=== PATIENT | female | born 1945 | race Caucasian/White ===

== ENCOUNTER 2017-12-09 16:39 | Inpatient (IN) | payer MEDICARE, OTHER, SELFPAY ==
[2017-11-27 12:46] VITALS: BMI 36.6
[2017-12-08] VITALS (10 sets, daily range): BP systolic 104–139; BP diastolic 53–70; PULSE 63–89; RESP 11–20; TEMP 36.1–36.7; O2SAT 90–95; BMI 36.6
[2017-12-08] MEDS: PREGABALIN 75 MG CAPSULE PO (09:36)
[2017-12-08] MEDS: LACTATED RINGERS 1,000 ML 42 ML IV ×2 (09:36→12:50)
[2017-12-08] MEDS: ACETAMINOPHEN 325 MG TABLET 975 MG PO ×3 (09:36→21:04)
[2017-12-08] MEDS: CELECOXIB 200 MG CAPSULE PO (09:37)
--- NOTE | 2017-12-08 10:44 | PM.PREOP ---
Pre-operative Note Interval Note Pre-op Check: Yes History & Physical Reviewed by Physician and Yes Exam Performed Changes: No
[2017-12-08] MEDS: CEFAZOLIN 2 GM/100 ML FROZ.PIGGY IV ×2 (11:20→18:18)
--- NOTE | 2017-12-08 11:44 | SUR.OPER ---
Supine on padded OR bed. Pillow under head, arms secured on padded armboards <90 degree abduction. Safety belt across torso. Non-operative leg secured with tape over blanket over lower leg. Operative leg secured in [place]o positioner.
[2017-12-08] MEDS: BUPIVACAINE 0.25% W/ EPI VIAL 50 ML INJ (11:54)
[2017-12-08] MEDS: MORPHINE 4 MG/ML INJ INJ (11:55)
[2017-12-08] MEDS: BUPIVACAINE LIPOSOME 266 MG/20 ML VIAL INJ (11:55)
--- NOTE | 2017-12-08 13:02 | DI.RAD.S_ITS ---
PROCEDURE: XR KNEE RT 1TO2V INDICATIONS: post op total knee TECHNIQUE: 2 views of the knee were acquired. COMPARISON: SNO Outside Film, RG, KNEE 3VW (RT), 07/25/2017, 10:40. FINDINGS: Bones: Expected postoperative changes are present related to a total right knee arthroplasty. The metallic prosthetic components appear to be properly seated. No periprosthetic fractures are evident. No suspicious osseous lesions are identified. Soft tissues: Expected post surgery changes within the overlying soft tissues are present there is a soft tissue edema, air, and joint fluid. No unexpected radiopaque foreign bodies are identified. IMPRESSION: Expected posterior to changes related to a total right knee arthroplasty. Dictated by: Howard Jarquin M.D. on 12/08/2017 at 12:54 Approved by: Howard Jarquin M.D. on 12/08/2017 at 12:55
--- NOTE | 2017-12-08 13:07 | P.OP_ITS ---
Operative Date/Time/Diagnoses Date of procedure: 12/08/17 Time of procedure: 12:50 Pre-op diagnosis: Right knee osteoarthritis Post-op diagnosis: same Procedure & Clinicians Procedure: Right total knee replacement Same procedure as scheduled: Yes Indications: The patient has had progressively worsening right knee pain with radiographic changes consistent with arthritis. Non-operative management has failed and the patient has requested total knee replacement. The risks, benefits and alternatives to surgery were discussed with the patient prior to proceeding. Risks discussed included, but were not limited to, failure to relieve pain, stiffness, infection, nerve damage, deep venous thrombosis, pulmonary embolism, stroke, coma, heart attack, permanent paralysis and , as well as the potential need for eventual revision of the prosthetic. Surgeon: Margarito Cadena Bereavement Counselor: Rasheed Nolen Click Yes if Unassisted: No Anesthesia Type: Spinal, Sedation and Local Operative Notes Findings: Significant osteoarthritis in all 3 compartments but predominantly laterally. Closure Type: primary Specimen(s): none sent Implants & Drains: Implants used in this procedure were manufactured by the [employer] and [employer] you and included the BCS II Journey total knee replacement with a size 5 right cobalt chromium femur, 4 right non porous tibial base plate, 9 mm cross-linked polyethylene tibial insert, and a 32 mm nehemias II oval patella. Applied: implant(s) Estimated Blood Loss (mL): 50 Blood products transfused: none Tourniquet time (min): 53 Procedure in detail: The patient was seen in the pre-operative area, where the patient identified the right knee as the operative site and this was marked with my initials. The patient received pre-operative antibiotics, and was taken to the operating room and placed on the operative table in the supine position. After satisfactory anesthesia, a assurance services manager health care out was performed. The right leg was encircled with a tourniquet about the proximal thigh, and the leg was prepared from the toes to the tourniquet with ChloroPrep in the usual fashion and draped through sterile drapes. The leg was elevated and exsanguinated with Eschmark bandage and the tourniquet inflated to 250 mmHg pressure. The knee was approached through an approximately 18 cm incision centered over the patella and carried into the knee through a medial parapatellar arthrotomy. The anterior osteophytes and soft tissues were removed. The rotational landmarks of Manderson's line and the transepicondylar axis were marked on the femur with electrocautery, and intramedullary guide holes for the femur and tibia were created. The distal femoral cut was made in 6 degrees of valgus using the intramedullary guide at the primary cut setting. The proximal tibial cut was then made using the intramedullary guide, taking 9 mm of bone off the less involved side. The extension gap was checked and the rotation of the femoral component confirmed with the gap balancing system. The anterior, posterior and chamfer cuts were then made. The posterior osteophytes and soft tissues were then removed. The posterior capsule was injected with part of a mixture of 60 ml 0.25% Marcaine mixed with 20 ml Exparel and 4 mg of morphine for post-operative pain control. The remainder of this mixture was injected into the capsule and subcutaneous tissues during cement curing. The tibia was prepared with the rotation set by an extra medullary guide. Trial tibial and femoral components were then placed and the intercondylar notch cut through the femoral trial. Range of motion was 0-135 degrees, with good stability throughout the range. The patella was then cut to accommodate the patellar prosthetic. There was no need for a lateral release. The trials were then removed, and the femoral hole plugged with a bone plug. The bone was prepared with pulsatile lavage, and dried with a sponge. Cement was applied and the final prosthetics placed. Excess cement was removed during and after cement curing. After confirming there was no extruded cement posteriorly, the final tibial insert was placed. The knee was copiously irrigated and the tourniquet deflated. Hemostasis was obtained. The capsule was closed with interrupted # 2 polyester suture. The subcutaneous layer was closed with 3-0 Vicryl, and the skin with a running 3-0 V-Lock suture and SteriStrips. An Aquacel Ag dressing was applied and the patient was taken to recovery having tolerated the procedure well. Complications: none Condition: stable Disposition: PACU Plan for aftercare: The patient will be maintained on a standard total knee replacement protocol with weight bearing as tolerated. The patient will receive aspirin and sequential compression devices for DVT prophylaxis. The patient will be discharged home when safe for the home environment.
--- NOTE | 2017-12-08 13:40 | SUR.PHASEI ---
stable pacu stay transported up to room 226 via bed on .
--- NOTE | 2017-12-08 14:12 | PC.NURSE ---
Pt to room at 1345, alert, oriented, denies pain has slight nausea. CMS+, scd's on. Pt oriented to room and call light.
[2017-12-08] MEDS: LACTATED RINGERS 1,000 ML 125 ML IV (14:35)
--- NOTE | 2017-12-08 16:00 | PT.IIE ---
Current Diagnoses Bilateral primary osteoarthritis of knee (12/08/17) Surgery Performed Operation Date: 12/08/17 10:15 Actual Procedures p Total Knee Arthroplasty(Right) - Margarito Cadena MD Surgical History (Last Updated 11/27/17 @ 13:03 by Angie Contreras RN) H/O bladder repair surgery (Acute) Hx of appendectomy (Acute) Hx of arthroscopy of left knee (Acute) Hx of repair of right rotator cuff (Acute) Hx of tonsillectomy (Acute) Hx of umbilical hernia repair (Acute) Medical History (Last Updated 11/27/17 @ 13:03 by Angie Contreras RN) Anxiety about health (Acute) H/O: hysterectomy (Acute) Hyperlipemia (Acute) Hypothyroid (Acute) Osteoarthritis (Acute) RLS (restless legs syndrome) (Acute) Seasonal allergies (Acute) Sleep apnea treated with nocturnal BiPAP (Acute) Physical Therapy Inpatient Evaluation/Re-Eval Medical Review Prior Functional Status Medical History Reviewed Yes Diet/Fluid Consistency Regular Communication no known deficits Mobility and Gait ind without device Activities of Daily Living and IADL's independent, no assist for anything Prior Functional Level (Other details) likes to participate in various workouts Social History Household Members none Living Arrangements House Number of Floors (Floors) One Floor Number of Stairs To Enter/Railing? 2STE Home Equipment Front Wheel Walker Employment Status Retired Additional Social History Comment Lives in [place], came up here for her surgery so her older sister could assist her, she will be staying at her sister' s house upon discharge from hospital. In addition, pt's sister's was just recently in an accident so the sister is needing to help both people at her house. Physical Therapy Current Condition Current Condition Evaluation Date 12/08/17 Treatment Diagnosis R TKA - impaired mobility Onset Date 12/08/17 Weight Bearing Status Weight Bearing Status Weight Bear as Tolerated Subjective Physical Therapy Visit Type Type Initial Evaluation Visit Start Time 14:40 Visit Stop Time 16:00 Total Visit Minutes 80 Physical Therapy Visit Comments Patient Comments Pt reports bottom of L foot ( non-operative leg) is still quite numb, but very motivated to participate. Patient Goals Be as independent as possible so her sister doesn't have to do much for her, return to [place] after course of outpatient PT. Therapy Pain Assessment Pain When Pain Assessed During Mobility Pain Present Pain Present Denied Pain PT-Bed Mobility Assessment Supine to Sit Supine to Sit Standby Assistance Head of Bed Elevated Bedrails Scooting Scooting to Edge of Bed Standby Assistance PT-Transfer Assessment Sit to and From Stand Sit to and from Stand Contact Guard Assistance 1 Person Assistance Use of Upper Extremities Equipment Transfer Assistive Device Gait Belt Front Wheeled Walker Transfers Transfer Destination Chair Transfer Technique walked Transfer Ability Level of Assist Contact Guard Assistance 1 Person Assistance Use of Upper Extremities Comments Mobility Comments Pt able to mobilize quite well , heavy reliance on BUE for support for both bed mobility and transfers. Pt denies pain throughout the entire process, feels like maybe she's more numb than she thought. Gait Assessment Gait Gait Assistance Required: Contact Guard Assist 1 Person Assist Distance (Feet) 15 Assistive Devices Assistive Device Gait Belt Front Wheeled Walker Gait Deviations General Gait Pattern Antalgic Decreased Stride Length Decreased Feet Clearance Step-to Gait Factors Limiting Gait Function Factors Limiting Gait Function Decreased Sensation Decreased Strength Limited Range of Motion Comments Gait Comments Pt encouraged to go slowly and take small steps for right now, she was dizzy the woozy/ dizzy the entire session despite normal vitals. Pt quite stable, getting limited flexion in R knee as is expected at this point. Pt only had one small LOB when taking a few steps backwards to sit down. She was able to self-recover. Stair Climbing Assessment Comments Stair Climbing Comments not tested PT-Balance Assessment Sitting Balance and Reactions Static Sitting Balance Ability Normal Dynamic Sitting Balance Ability Normal Standing Balance and Reactions Static Standing Balance Ability Good Dynamic Standing Balance Ability Fair Device Used FWW Orientation Orientation/Cognition Level of Alertness Alert Orientation Name Age Birthday Month Date Year Day of Week Place Situation Language Function Ability No Deficits Noted Safety Awareness Understands Safety Issues Memory Description No Deficits Noted Gross Range of Motion Upper Extremity ROM Assessment Within Functional Limits Lower Extremity ROM Assessment Right Impaired Strength Upper Extremity Strength Assessment Within Functional Limits Comments Strength Comments LLE WFL, RLE not formally tested. Sensation Assessment Sensation Gross Sensation Left LE Impaired Light Touch Impaired Sensation Description Numbness Comments Sensation Comments Pt most numb in the lateral plantar aspect of the left foot, however, also having a little numbness in the area of the L lateral malleolus. Physical Therapy Treatment Exercises Exercises Ankle Pumps Quad Sets Heel Slides Straight Leg Raises Short Arc Quads Passive Knee Extension Hang Seated Knee Flexion/Extension Knee ROM Measurement 5-60 Education Education Provided Precautions Weight Bearing Status Post-Op Packet Safety PT Summary Assessment and Plan Potential Rehabilitation Potential Excellent Status of Condition at Evaluation Evolving Summary Impairments ROM Strength Balance Sensation Bed Mobility Transfers Gait Activity Tolerance Progress Towards Goals Progressing Toward Goals Assessment Summary Pt is POD#0 for R TKA and is doing relatively well with mobility thus far. One limiting factor was pt's description of dizziness that was present no matter the position she was in, pt had normal vitals. The dizziness limited pt more today than anything focal with the RLE. As this improves it is expected that pt will continue to make excellent functional progress. Currently, pt is below her functional baseline and will benefit from ongoing acute PT followed by transition to home with assist and HHPT once medically ready . Pt's sister is getting her a FWW. Goals Bed Mobility Goal Independent Transfer Goal Independent Front Wheeled Walker Gait Goal Independent Front Wheel Walker Gait Distance 100 Other Goals Up/down 2 steps with SBA. Days to Meet Goals 2 Frequency of Treatment Frequency Of Treatment Twice a Day Treatment Plan Physical Therapy Treatment Plan Bed Mobility Training Transfer Training Gait Training Therapeutic Exercise Balance Retraining Post Op Education Discharge Planning Hot or Cold Pack Neuromuscular Re-ed Coordination Retraining Manual Therapy Other Recommendations and Next Treatment bed mobility from a flat bed, Focus progress gait, post-op exercises. Recommendations To Nursing Amount of Assist Needed 1 Person Assist Discharge Recommendations PT Discharge Recommendations Home with Assistance Home Health Equipment Needed for Home Before FWW (sister is getting her one Discharge )
[2017-12-08] MEDS: ROPINIROLE 1 MG TABLET PO (18:16)
[2017-12-08] MEDS: OXYCODONE IR 5 MG TABLET PO ×2 (18:16→21:03)
[2017-12-08] MEDS: DOCUSATE 100 MG CAPSULE PO (21:04)
[2017-12-08] MEDS: ASPIRIN EC 81 MG TABLET PO (21:05)
[2017-12-08] MEDS: ONDANSETRON 4 MG/2 ML INJ IV (22:10)
[2017-12-09] MEDS: CALCIUM CARBONATE 500 MG TAB PO ×7 (01:12→21:03)
[2017-12-09] MEDS: OXYCODONE IR 5 MG TABLET PO ×6 (01:17→13:26)
[2017-12-09] MEDS: CEFAZOLIN 2 GM/100 ML FROZ.PIGGY IV (02:33)
--- NOTE | 2017-12-09 04:21 | PC.NURSE ---
Shift Note At start of shift pt complained of severe N/V related to reflux. Reported increasing pain in right knee but unable to keep anything down. Called MD and received tums order, which was effective. Provided PRN pain medicated. Pain decreased. No N/V since tuns given. Pt able to sleep. Will continue to monitor. Call light in reach.
[2017-12-09 04:40] VITALS: BP 126/42; PULSE 76; RESP 16; TEMP 36.1; O2SAT 95
[2017-12-09 05:33] VITALS: BP 125/73
[2017-12-09 05:34] LABS: Hematocrit 38.4 % (36-46); Hemoglobin 12.8 g/dL (12.0-16.0)
[2017-12-09] MEDS: LEVOTHYROXINE 100 MCG TABLET PO (06:16)
[2017-12-09 07:40] VITALS: BP 112/61; PULSE 63; RESP 16; TEMP 36.6; O2SAT 94
--- NOTE | 2017-12-09 08:04 | PM.PNPO.1 ---
Subjective Date Patient Seen: 12/09/17 Time Patient Seen: 08:04 Interval history: The patient had significant nausea last evening and has persistent heartburn this morning. Pain control has generally been good although there was some increased pain this morning. Exam Vital Signs (past 8 hours): - 12/09/17 04:40 12/09/17 05:33 Temperature 97.0 F L Pulse Rate 76 Respiratory Rate 16 Blood Pressure 126/42 L 125/73 Pulse Oximetry 95 Oxygen Delivery Method Room Air Oxygen Flow Rate 2 Narrative Exam Narrative: Right knee wound is dressed with no drainage on the bandage. Calf is soft. Light touch and motion are intact in the right lower extremity. Objective Labs Result Diagrams: 12/09/17 05:12 Labs: Laboratory Results - last 24 hr 12/09/17 05:12 Hgb 12.8 Hct 38.4 Assessment & Plan Post-op Postoperative Procedures Operation Date: 12/08/17 10:15 Actual Procedures Side Surgeon p Total Knee Arthroplasty Right Margarito Cadena MD Postoperative day: 1 Postoperative status: doing well and other (Nausea and heartburn.) Postoperative plan: routine post-op care, ambulate and advance diet Postoperative plan narrative: We will have her see physical therapy. We will advance her diet as tolerated. I have written the order to allow her to have a full 1000 mg of calcium carbonate. She likely will be discharged tomorrow. Time Spent With Patient less than 15 minutes
[2017-12-09] MEDS: ACETAMINOPHEN 325 MG TABLET 975 MG PO ×3 (08:51→21:03)
[2017-12-09] MEDS: DOCUSATE 100 MG CAPSULE PO ×2 (08:51→21:03)
[2017-12-09] MEDS: ASPIRIN EC 81 MG TABLET PO ×2 (08:52→21:03)
--- NOTE | 2017-12-09 10:23 | PC.NURSE ---
Addendum entered by Rachel Young R.N. 12/09/17 12:56: pain - after up to br w/void, ret to bed, states pain 10 on scale 0/10, given 5mg oxycodone IR and tums for reflux, enc pt to raise her bed to 30 degrees. Original Note: AM NOTE - dancing master assisted oob to chair for breakfast, states pain 6 on scale 0/10 this am, experiencing reflux during night and continuing this am, Dr. Cadena added an addl tums and given x 2 tabs before meal, no nausea present, no flatus yet, aquacell cdi w/taurus wrap over, with breakfast given oxycodone 5mg po, reassessed and added a 2nd tab for mobilization.
[2017-12-09 12:50] VITALS: PULSE 63; RESP 16; TEMP 36.7; O2SAT 94
[2017-12-09] MEDS: POLYETHYLENE GLYCOL 3350 17 GM POWD.PACK PO (13:26)
--- NOTE | 2017-12-09 13:31 | PT.IPTN ---
Current Diagnoses Bilateral primary osteoarthritis of knee (12/08/17) Surgery Performed Operation Date: 12/08/17 10:15 Actual Procedures p Total Knee Arthroplasty(Right) - Margarito Cadena MD Physical Therapy Treatment Note M2 PT-IP Current Condition Start: 12/08/17 14:05 Freq: NEEDED Status: Active Protocol: Document 12/08/17 16:00 RS (Rec: 12/09/17 08:03 RS [email or web address]) Physical Therapy Current Condition Current Condition Evaluation Date 12/08/17 Treatment Diagnosis R TKA - impaired mobility Onset Date 12/08/17 Weight Bearing Status Weight Bearing Status Weight Bear as Tolerated M3 PT-IP Subjective Start: 12/08/17 14:05 Freq: NEEDED Status: Active Protocol: Document 12/09/17 11:25 CLB (Rec: 12/09/17 13:31 CLB [id number]) Subjective Physical Therapy Visit Type Type Treatment Note Visit Start Time 11:25 Visit Stop Time 11:50 Total Visit Minutes 25 Number of SYSTEM ARCHITECT Visits 1 Physical Therapy Visit Comments Patient Comments Pt reports all feeling in L foot returned. Pt eager to participate in therapy. Patient Goals Be as independent as possible so her sister doesn't have to do much for her, return to [place] after course of outpatient PT. Therapy Pain Assessment Pain When Pain Assessed During Mobility Pain Present Pain Present Denied Pain Location Right Knee Intensity 9 Scale Used Numeric (1 - 10) Pain Management Techniques Modification of Treatment Timing of Activity with Medications M4 PT-IP Mobility and Gait Start: 12/08/17 14:05 Freq: NEEDED Status: Active Protocol: Document 12/09/17 11:25 CLB (Rec: 12/09/17 13:31 CLB [id number]) PT-Bed Mobility Assessment Supine to Sit Supine to Sit Standby Assistance Head of Bed Elevated Bedrails Scooting Scooting to Edge of Bed Standby Assistance PT-Transfer Assessment Sit to and From Stand Sit to and from Stand Contact Guard Assistance 1 Person Assistance Use of Upper Extremities Equipment Transfer Assistive Device Gait Belt Front Wheeled Walker Transfers Transfer Destination Chair Transfer Technique walked Transfer Ability Level of Assist Contact Guard Assistance 1 Person Assistance Use of Upper Extremities Comments Mobility Comments Pt continues to mobilize well and was able to use GB to move RLE off bed. Pt requires BUE to go from sit-stand needing cues for hand placement for safety. Gait Assessment Gait Gait Assistance Required: Contact Guard Assist 1 Person Assist Distance (Feet) 50 Assistive Devices Assistive Device Gait Belt Front Wheeled Walker Gait Deviations General Gait Pattern Antalgic Decreased Stride Length Decreased Feet Clearance Step-to Gait Factors Limiting Gait Function Factors Limiting Gait Function Decreased Sensation Decreased Strength Limited Range of Motion Comments Gait Comments Pt increased gait in pedersen needing cues for step/walker sequencing. Pt is stable during ambulation and had no LOB during mobility. Stair Climbing Assessment Comments Stair Climbing Comments not tested (pt sister's home has 2 stairs to enter) PT-Balance Assessment Sitting Balance and Reactions Static Sitting Balance Ability Normal Dynamic Sitting Balance Ability Normal Standing Balance and Reactions Static Standing Balance Ability Good Device Used FWW M5 PT-IP Objective Assessments Start: 12/08/17 14:05 Freq: NEEDED Status: Active Protocol: Document 12/08/17 16:00 RS (Rec: 12/09/17 08:03 RS [email or web address]) Orientation Orientation/Cognition Level of Alertness Alert Orientation Name Age Birthday Month Date Year Day of Week Place Situation Language Function Ability No Deficits Noted Safety Awareness Understands Safety Issues Memory Description No Deficits Noted Gross Range of Motion Upper Extremity ROM Assessment Within Functional Limits Lower Extremity ROM Assessment Right Impaired Strength Upper Extremity Strength Assessment Within Functional Limits Comments Strength Comments LLE WFL, RLE not formally tested. Sensation Assessment Sensation Gross Sensation Left LE Impaired Light Touch Impaired Sensation Description Numbness Comments Sensation Comments Pt most numb in the lateral plantar aspect of the left foot, however, also having a little numbness in the area of the L lateral malleolus. M6 PT-IP Treatment Start: 12/08/17 14:05 Freq: NEEDED Status: Active Protocol: Document 12/09/17 11:25 CLB (Rec: 12/09/17 13:31 CLB [id number]) Physical Therapy Treatment Exercises Exercises Ankle Pumps Quad Sets Heel Slides Straight Leg Raises Short Arc Quads Passive Knee Extension Hang Seated Knee Flexion/Extension Education Education Provided Precautions Weight Bearing Status Post-Op Packet Safety M7 PT-IP Assessment and Plan Start: 12/08/17 14:05 Freq: NEEDED Status: Active Protocol: Document 12/09/17 11:25 CLB (Rec: 12/09/17 13:31 CLB [id number]) PT Summary Assessment and Plan Summary Impairments ROM Strength Balance Sensation Bed Mobility Transfers Gait Activity Tolerance Progress Towards Goals Progressing Toward Goals Assessment Summary Pt overall doing well, pt able to increase ambulation and perform all ther ex. Pt has had dizziness upon sitting on EOB but dissipated with ambulation. Goals Bed Mobility Goal Independent Transfer Goal Independent Front Wheeled Walker Gait Goal Independent Front Wheel Walker Other Goals Up/down 2 steps with SBA. Days to Meet Goals 2 Frequency of Treatment Frequency Of Treatment Twice a Day Treatment Plan Physical Therapy Treatment Plan Bed Mobility Training Transfer Training Gait Training Therapeutic Exercise Balance Retraining Post Op Education Discharge Planning Hot or Cold Pack Neuromuscular Re-ed Coordination Retraining Manual Therapy Other Recommendations and Next Treatment bed mobility from a flat bed, Focus progress gait, post-op exercises. Recommendations To Nursing Amount of Assist Needed 1 Person Assist Discharge Recommendations PT Discharge Recommendations Home with Assistance Home Health Equipment Needed for Home Before FWW (sister is getting her one Discharge )
--- NOTE | 2017-12-09 15:29 | CM.DANOTE ---
Discharge Planning/Care Management CM Discharge Assessment Start: 12/09/17 15:28 Freq: Status: Active Protocol: Document 12/09/17 15:28 (Rec: 12/09/17 15:29 [id number]) Discharge Planning Assessment Assigned Electrical Fitter KELLY Henry Advance Directives? No History Provided By Patient Medical Record Has Patient been admitted in last 30 No days? Prior Living Arrangements House Household Members none Type of transporation used prior to Drives own vehicle admit Independent with ADL's Yes Is patient alert and oriented? Yes Patient/Family Preference Home with Home Health Discharge Plan Home with Home Health Community Services Physical Therapy Occupational Therapy Transportation Arrangement Sister to apple picker. Referrals Initiated Home Health Additional Comment Preference is [facility] If patient plan is home with home health No: Need F2F : Has signed face to face form been completed? Medicare Choice List Provided Yes SNF/HH Preference Preference is [facility] Whiteboard Updated in Patient Room with Yes name and ext. # of Electrical Fitter Review Status In Process Please Provide Date Initial DC 12/09/17 Assessment Was Performed Next Review Type Continued Stay Review CM Corey to fax [facility] referral in morning. F2F needed.
--- NOTE | 2017-12-09 15:37 | PT.IPTN ---
Current Diagnoses Bilateral primary osteoarthritis of knee (12/08/17) Surgery Performed Operation Date: 12/08/17 10:15 Actual Procedures p Total Knee Arthroplasty(Right) - Margairto Cadena MD Physical Therapy Treatment Note M2 PT-IP Current Condition Start: 12/08/17 14:05 Freq: NEEDED Status: Active Protocol: Document 12/08/17 16:00 RS (Rec: 12/09/17 08:03 RS [email or web address]) Physical Therapy Current Condition Current Condition Evaluation Date 12/08/17 Treatment Diagnosis R TKA - impaired mobility Onset Date 12/08/17 Weight Bearing Status Weight Bearing Status Weight Bear as Tolerated M3 PT-IP Subjective Start: 12/08/17 14:05 Freq: NEEDED Status: Active Protocol: Document 12/09/17 14:20 CLB (Rec: 12/09/17 15:37 CLB [id number]) Subjective Physical Therapy Visit Type Type Treatment Note Visit Start Time 14:20 Visit Stop Time 14:45 Total Visit Minutes 25 Number of DIESEL SERVICE JOURNEYMAN Visits 2 Physical Therapy Visit Comments Patient Comments Pt states her pain is high even after having meds 30 minutes ago but is wanting to do therapy. Patient Goals Be as independent as possible so her sister doesn't have to do much for her, return to [place] after course of outpatient PT. Therapy Pain Assessment Pain When Pain Assessed During Mobility Pain Present Pain Present Denied Pain Location Right Knee Intensity 10 Scale Used Numeric (1 - 10) Pain Management Techniques Modification of Treatment Timing of Activity with Medications M4 PT-IP Mobility and Gait Start: 12/08/17 14:05 Freq: NEEDED Status: Active Protocol: Document 12/09/17 14:20 CLB (Rec: 12/09/17 15:37 CLB [id number]) PT-Bed Mobility Assessment Supine to Sit Supine to Sit Standby Assistance Bedrails Scooting Scooting to Edge of Bed Standby Assistance PT-Transfer Assessment Sit to and From Stand Sit to and from Stand Contact Guard Assistance 1 Person Assistance Use of Upper Extremities Equipment Transfer Assistive Device Gait Belt Front Wheeled Walker Transfers Transfer Destination Bed Toilet Transfer Ability Level of Assist Contact Guard Assistance 1 Person Assistance Use of Upper Extremities Comments Mobility Comments Pt able to reid/doff brief and perform own pericare. Gait Assessment Gait Gait Assistance Required: Contact Guard Assist 1 Person Assist Distance (Feet) 50 Assistive Devices Assistive Device Gait Belt Front Wheeled Walker Gait Deviations General Gait Pattern Antalgic Decreased Stride Length Decreased Feet Clearance Step-to Gait Factors Limiting Gait Function Factors Limiting Gait Function Decreased Sensation Decreased Strength Limited Range of Motion Comments Gait Comments Pt able to take small step through during gait. Stair Climbing Assessment Comments Stair Climbing Comments not tested (pt sister's home has 2 stairs to enter) PT-Balance Assessment Sitting Balance and Reactions Static Sitting Balance Ability Normal Dynamic Sitting Balance Ability Normal Standing Balance and Reactions Static Standing Balance Ability Good Device Used FWW M5 PT-IP Objective Assessments Start: 12/08/17 14:05 Freq: NEEDED Status: Active Protocol: Document 12/08/17 16:00 RS (Rec: 12/09/17 08:03 RS [email or web address]) Orientation Orientation/Cognition Level of Alertness Alert Orientation Name Age Birthday Month Date Year Day of Week Place Situation Language Function Ability No Deficits Noted Safety Awareness Understands Safety Issues Memory Description No Deficits Noted Gross Range of Motion Upper Extremity ROM Assessment Within Functional Limits Lower Extremity ROM Assessment Right Impaired Strength Upper Extremity Strength Assessment Within Functional Limits Comments Strength Comments LLE WFL, RLE not formally tested. Sensation Assessment Sensation Gross Sensation Left LE Impaired Light Touch Impaired Sensation Description Numbness Comments Sensation Comments Pt most numb in the lateral plantar aspect of the left foot, however, also having a little numbness in the area of the L lateral malleolus. M6 PT-IP Treatment Start: 12/08/17 14:05 Freq: NEEDED Status: Active Protocol: Document 12/09/17 14:20 CLB (Rec: 12/09/17 15:37 CLB [id number]) Physical Therapy Treatment Exercises Exercises Ankle Pumps Quad Sets Heel Slides Short Arc Quads Passive Knee Extension Hang Education Education Provided Precautions Weight Bearing Status Post-Op Packet Safety M7 PT-IP Assessment and Plan Start: 12/08/17 14:05 Freq: NEEDED Status: Active Protocol: Document 12/09/17 14:20 CLB (Rec: 12/09/17 15:37 CLB [id number]) PT Summary Assessment and Plan Summary Impairments ROM Strength Balance Sensation Bed Mobility Transfers Gait Activity Tolerance Progress Towards Goals Progressing Toward Goals Assessment Summary Pt continues to improve with mobility and gait despite pain level. Goals Bed Mobility Goal Independent Transfer Goal Independent Front Wheeled Walker Gait Goal Independent Front Wheel Walker Other Goals Up/down 2 steps with SBA. Days to Meet Goals 2 Frequency of Treatment Frequency Of Treatment Twice a Day Treatment Plan Physical Therapy Treatment Plan Bed Mobility Training Transfer Training Gait Training Therapeutic Exercise Balance Retraining Post Op Education Discharge Planning Hot or Cold Pack Neuromuscular Re-ed Coordination Retraining Manual Therapy Recommendations To Nursing Amount of Assist Needed 1 Person Assist Discharge Recommendations PT Discharge Recommendations Home with Assistance Home Health Equipment Needed for Home Before FWW (sister is getting her one Discharge )
[2017-12-09 15:54] VITALS: BP 111/61; PULSE 60; RESP 18; TEMP 36.3; O2SAT 96
[2017-12-09] MEDS: IBUPROFEN 600 MG TABLET PO (16:17)
[2017-12-09] MEDS: ROPINIROLE 1 MG TABLET PO (18:41)
[2017-12-09] MEDS: HYDROMORPHONE 4 MG TABLET PO (19:20)
[2017-12-09 19:47] VITALS: BP 149/62; PULSE 73; RESP 18; TEMP 37.6; O2SAT 94
[2017-12-10] VITALS (7 sets, daily range): BP systolic 113–150; BP diastolic 54–71; PULSE 60–95; RESP 14–18; TEMP 36.1–36.9; O2SAT 93–96
[2017-12-10] MEDS: HYDROMORPHONE 2 MG TABLET 4 MG PO ×5 (00:27→21:53)
--- NOTE | 2017-12-10 00:43 | PC.NURSE ---
Patient is alert and oriented. Breath sounds CTA with RA sat of 96%. HRR. Denies nausea. BT present and abdomen is soft; denies passing flatus. Voiding without problems and denies dysuria, frequency, urgency or incontinence. Is able to turn self in bed. Assisted to bathroom with 1 assist + walker. Aquacel dressing to right knee with 1 area of dark sanguinous drainage noted at lower end and dressing is wrapped with an taurus. Complains of 8/10 pain; medicated with Dilaudid and ice pack applied. CMS intact. Wearing bilateral SCD's. Fall risk score is moderate; bed alarm activated.
[2017-12-10] MEDS: LEVOTHYROXINE 100 MCG TABLET PO (05:56)
--- NOTE | 2017-12-10 06:36 | PM.PNPO.1 ---
Subjective Date Patient Seen: 12/10/17 Time Patient Seen: 06:10 Interval history: The patient has had marginal pain control but is improving. She has made slow progress with physical therapy. Exam Vital Signs (past 8 hours): - 12/10/17 00:00 12/10/17 00:34 12/10/17 03:20 Temperature 97.5 F L 97.7 F Pulse Rate 65 61 Respiratory Rate 16 16 Blood Pressure 133/54 L 150/71 H Pulse Oximetry 93 96 94 Oxygen Delivery Method Room Air Oxygen Flow Rate 0 Narrative Exam Narrative: Right knee wound is dressed with minimal drainage on the bandage. Calf is soft. Light touch and motion are intact in the right lower extremity. Objective Labs Result Diagrams: 12/09/17 05:12 Assessment & Plan Post-op Postoperative Procedures Operation Date: 12/08/17 10:15 Actual Procedures Side Surgeon p Total Knee Arthroplasty Right Margarito Cadena MD Postoperative day: 2 Postoperative status: doing well and marginal pain control Postoperative status narrative: Patient is making progress in physical therapy but this is slightly limited by her poor pain control. We are making progress in controlling her pain. Postoperative plan: routine post-op care Postoperative plan narrative: The patient would benefit from 1 additional day in the hospital for additional physical therapy. She should be ready for discharge home tomorrow morning. Time Spent With Patient less than 15 minutes
[2017-12-10] MEDS: HYDROMORPHONE 2 MG TABLET PO ×3 (06:40→12:00)
--- NOTE | 2017-12-10 08:28 | CM.DPC ---
Referral faxed to [facility] per Nirmala
[2017-12-10] MEDS: ACETAMINOPHEN 325 MG TABLET 975 MG PO ×3 (09:20→21:53)
[2017-12-10] MEDS: ASPIRIN EC 81 MG TABLET PO ×2 (09:20→18:30)
[2017-12-10] MEDS: DOCUSATE 100 MG CAPSULE PO ×2 (09:21→18:30)
[2017-12-10] MEDS: CALCIUM CARBONATE 500 MG TAB PO ×2 (09:21→18:30)
[2017-12-10] MEDS: POLYETHYLENE GLYCOL 3350 17 GM POWD.PACK PO (09:24)
--- NOTE | 2017-12-10 09:26 | PT.IPTN ---
Current Diagnoses Bilateral primary osteoarthritis of knee (12/08/17) Surgery Performed Operation Date: 12/08/17 10:15 Actual Procedures p Total Knee Arthroplasty(Right) - Margarito Cadena MD Physical Therapy Treatment Note M2 PT-IP Current Condition Start: 12/08/17 14:05 Freq: NEEDED Status: Active Protocol: Document 12/08/17 16:00 RS (Rec: 12/09/17 08:03 RS [email or web address]) Physical Therapy Current Condition Current Condition Evaluation Date 12/08/17 Treatment Diagnosis R TKA - impaired mobility Onset Date 12/08/17 Weight Bearing Status Weight Bearing Status Weight Bear as Tolerated M3 PT-IP Subjective Start: 12/08/17 14:05 Freq: NEEDED Status: Active Protocol: Document 12/10/17 09:23 GGD (Rec: 12/10/17 09:26 GGD [id number]) Subjective Physical Therapy Visit Type Type Treatment Note Visit Start Time 08:55 Visit Stop Time 09:20 Total Visit Minutes 25 Number of CONSTRUCTION DIRECTOR Visits 3 Physical Therapy Visit Comments Patient Comments Pt states pain is improving. Therapy Pain Assessment Pain When Pain Assessed At Rest Pain Present Pain Present Denied Pain Location Right Knee Intensity 7 Scale Used Numeric (1 - 10) Pain Management Techniques Modification of Treatment Timing of Activity with Medications M4 PT-IP Mobility and Gait Start: 12/08/17 14:05 Freq: NEEDED Status: Active Protocol: Document 12/10/17 09:23 GGD (Rec: 12/10/17 09:26 GGD [id number]) PT-Transfer Assessment Sit to and From Stand Sit to and from Stand Contact Guard Assistance Use of Upper Extremities Equipment Transfer Assistive Device Gait Belt Front Wheeled Walker Orthotic/Prosthetic Devices or Brace: No Transfers Transfer Destination Chair Transfer Ability Level of Assist Contact Guard Assistance Use of Upper Extremities Gait Assessment Gait Gait Assistance Required: Contact Guard Assist Distance (Feet) 140 Assistive Devices Assistive Device Gait Belt Front Wheeled Walker Gait Deviations General Gait Pattern Antalgic Decreased Stride Length Decreased Feet Clearance Step-to Gait Factors Limiting Gait Function Factors Limiting Gait Function Decreased Strength Limited Range of Motion Pain Comments Gait Comments Pt need min cues for gait. M5 PT-IP Objective Assessments Start: 12/08/17 14:05 Freq: NEEDED Status: Active Protocol: Document 12/08/17 16:00 RS (Rec: 12/09/17 08:03 RS [email or web address]) Orientation Orientation/Cognition Level of Alertness Alert Orientation Name Age Birthday Month Date Year Day of Week Place Situation Language Function Ability No Deficits Noted Safety Awareness Understands Safety Issues Memory Description No Deficits Noted Gross Range of Motion Upper Extremity ROM Assessment Within Functional Limits Lower Extremity ROM Assessment Right Impaired Strength Upper Extremity Strength Assessment Within Functional Limits Comments Strength Comments LLE WFL, RLE not formally tested. Sensation Assessment Sensation Gross Sensation Left LE Impaired Light Touch Impaired Sensation Description Numbness Comments Sensation Comments Pt most numb in the lateral plantar aspect of the left foot, however, also having a little numbness in the area of the L lateral malleolus. M6 PT-IP Treatment Start: 12/08/17 14:05 Freq: NEEDED Status: Active Protocol: Document 12/10/17 09:23 GGD (Rec: 12/10/17 09:26 GGD [id number]) Physical Therapy Treatment Exercises Exercises Ankle Pumps Quad Sets Heel Slides Short Arc Quads Passive Knee Extension Hang Seated Knee Flexion/Extension M7 PT-IP Assessment and Plan Start: 12/08/17 14:05 Freq: NEEDED Status: Active Protocol: Document 12/10/17 09:23 GGD (Rec: 12/10/17 09:26 GGD [id number]) PT Summary Assessment and Plan Summary Assessment Summary Pt improving slowly with mobility despite reported pain levels. She has a slow step to gait pattern and need cues for sit <> stand. Frequency of Treatment Frequency Of Treatment Twice a Day Treatment Plan Physical Therapy Treatment Plan Bed Mobility Training Transfer Training Gait Training Therapeutic Exercise Balance Retraining Post Op Education Discharge Planning Hot or Cold Pack Neuromuscular Re-ed Coordination Retraining Manual Therapy Other Recommendations and Next Treatment 2 steps without rail. Focus Recommendations To Nursing Amount of Assist Needed 1 Person Assist Discharge Recommendations PT Discharge Recommendations Home with Assistance Home Health Equipment Needed for Home Before has FWW in room. Discharge
[2017-12-10] MEDS: BISACODYL 10 MG SUPP PR (13:07)
--- NOTE | 2017-12-10 14:29 | PT.IPTN ---
Current Diagnoses Bilateral primary osteoarthritis of knee (12/08/17) Surgery Performed Operation Date: 12/08/17 10:15 Actual Procedures p Total Knee Arthroplasty(Right) - Margarito Cadena MD Physical Therapy Treatment Note M2 PT-IP Current Condition Start: 12/08/17 14:05 Freq: NEEDED Status: Active Protocol: Document 12/08/17 16:00 RS (Rec: 12/09/17 08:03 RS [email or web address]) Physical Therapy Current Condition Current Condition Evaluation Date 12/08/17 Treatment Diagnosis R TKA - impaired mobility Onset Date 12/08/17 Weight Bearing Status Weight Bearing Status Weight Bear as Tolerated M3 PT-IP Subjective Start: 12/08/17 14:05 Freq: NEEDED Status: Active Protocol: Document 12/10/17 14:21 [facility] (Rec: 12/10/17 14:28 [facility] [id number]) Subjective Physical Therapy Visit Type Type Treatment Note Visit Start Time 13:35 Visit Stop Time 14:00 Total Visit Minutes 25 Number of INSPECTOR TIMERS Visits 0 Physical Therapy Visit Comments Patient Comments Pt states she just received a suppository and is awaiting bowel movement. She does not wish to walk outside the room at this time Therapy Pain Assessment Pain When Pain Assessed At Rest Pain Present Pain Present Pain Reported Location Right Knee Intensity 8 Pain Management Techniques Apply Cold Re-positioning M4 PT-IP Mobility and Gait Start: 12/08/17 14:05 Freq: NEEDED Status: Active Protocol: Document 12/10/17 14:21 [facility] (Rec: 12/10/17 14:28 [facility] [id number]) PT-Transfer Assessment Sit to and From Stand Sit to and from Stand Contact Guard Assistance Use of Upper Extremities Equipment Transfer Assistive Device Gait Belt Front Wheeled Walker Orthotic/Prosthetic Devices or Brace: No Transfers Transfer Destination Chair Transfer Technique walked Transfer Ability Level of Assist Contact Guard Assistance Use of Upper Extremities Comments Mobility Comments Good demonstration of transfer technique Gait Assessment Gait Gait Assistance Required: Contact Guard Assist Distance (Feet) 90 Assistive Devices Assistive Device Gait Belt Front Wheeled Walker Gait Deviations General Gait Pattern Antalgic Decreased Stride Length Decreased Feet Clearance Step-to Gait Factors Limiting Gait Function Factors Limiting Gait Function Decreased Strength Limited Range of Motion Pain Comments Gait Comments improved stride length with R lE PT-Balance Assessment Sitting Balance and Reactions Static Sitting Balance Ability Normal Dynamic Sitting Balance Ability Normal Standing Balance and Reactions Static Standing Balance Ability Good Device Used FWW M5 PT-IP Objective Assessments Start: 12/08/17 14:05 Freq: NEEDED Status: Active Protocol: Document 12/08/17 16:00 RS (Rec: 12/09/17 08:03 RS [email or web address]) Orientation Orientation/Cognition Level of Alertness Alert Orientation Name Age Birthday Month Date Year Day of Week Place Situation Language Function Ability No Deficits Noted Safety Awareness Understands Safety Issues Memory Description No Deficits Noted Gross Range of Motion Upper Extremity ROM Assessment Within Functional Limits Lower Extremity ROM Assessment Right Impaired Strength Upper Extremity Strength Assessment Within Functional Limits Comments Strength Comments LLE WFL, RLE not formally tested. Sensation Assessment Sensation Gross Sensation Left LE Impaired Light Touch Impaired Sensation Description Numbness Comments Sensation Comments Pt most numb in the lateral plantar aspect of the left foot, however, also having a little numbness in the area of the L lateral malleolus. M6 PT-IP Treatment Start: 12/08/17 14:05 Freq: NEEDED Status: Active Protocol: Document 12/10/17 14:21 [facility] (Rec: 12/10/17 14:28 [facility] [id number]) Physical Therapy Treatment Exercises Exercises Ankle Pumps Quad Sets Heel Slides Short Arc Quads Passive Knee Extension Hang Seated Knee Flexion/Extension M7 PT-IP Assessment and Plan Start: 12/08/17 14:05 Freq: NEEDED Status: Active Protocol: Document 12/10/17 14:21 [facility] (Rec: 12/10/17 14:28 [facility] [id number]) PT Summary Assessment and Plan Summary Assessment Summary Yissel was able to demonstrate all exercises today and presents with good weightbearing through her R LE . She will be DC home tomorrow to her sisters. Frequency of Treatment Frequency Of Treatment Twice a Day Treatment Plan Physical Therapy Treatment Plan Bed Mobility Training Transfer Training Gait Training Therapeutic Exercise Balance Retraining Post Op Education Discharge Planning Hot or Cold Pack Neuromuscular Re-ed Coordination Retraining Manual Therapy Discharge Recommendations PT Discharge Recommendations Home with Assistance
[2017-12-10] MEDS: ROPINIROLE 1 MG TABLET PO (18:31)
[2017-12-11] VITALS: BP 105/45; PULSE 73; RESP 18; TEMP 36.6; O2SAT 96
[2017-12-11] MEDS: HYDROMORPHONE 2 MG TABLET 4 MG PO ×8 (00:47→22:53)
[2017-12-11 00:58] VITALS: BP 118/60; PULSE 70; RESP 18; TEMP 36.2; O2SAT 94
[2017-12-11] MEDS: LEVOTHYROXINE 100 MCG TABLET PO (05:23)
[2017-12-11 08:00] VITALS: BP 109/73; PULSE 66; RESP 16; TEMP 36.2; O2SAT 91
[2017-12-11] MEDS: ACETAMINOPHEN 325 MG TABLET 975 MG PO ×3 (08:44→22:52)
[2017-12-11] MEDS: ASPIRIN EC 81 MG TABLET PO ×2 (08:45→19:43)
[2017-12-11] MEDS: CALCIUM CARBONATE 500 MG TAB PO ×3 (08:46→19:43)
[2017-12-11] MEDS: DOCUSATE 100 MG CAPSULE PO ×2 (08:47→19:43)
--- NOTE | 2017-12-11 10:31 | PM.PNPO.1 ---
Subjective Date Patient Seen: 12/11/17 Time Patient Seen: 10:32 Interval history: POD #3 status post right total knee arthroplasty with Dr. Cadena. Patient has been having difficulty with pain control, oral medication changed to Dilaudid. Patient has been ambulating with physical therapy, and she notes some difficulty getting in and out of bed and slow going at times. Exam Vital Signs (past 8 hours): - 12/11/17 08:00 Temperature 97.1 F L Pulse Rate 66 Respiratory Rate 16 Blood Pressure 109/73 Pulse Oximetry 91 Oxygen Delivery Method Room Air Oxygen Flow Rate 0 Narrative Exam Narrative: Patient lying in bed in no acute distress. She is alert and oriented x3. Calves are soft, compressible, nontender bilaterally. Sensation intact light touch throughout bilateral lower extremities. She is able to actively dorsiflex plantar flex. Objective Labs Result Diagrams: 12/09/17 05:12 Assessment & Plan Post-op (1) S/P total knee arthroplasty: Current Visit: Yes Status: Acute Postoperative Procedures Operation Date: 12/08/17 10:15 Actual Procedures Side Surgeon p Total Knee Arthroplasty Right Margarito Cadena MD POD #3 status post right total knee arthroplasty with Dr. Cadena. Continue to mobilize with therapy, she would benefit from another day of rehab recovering from surgery. She will continue taking Dilaudid for pain in hopes that this will control her severe pain she has been having. Patient will likely discharge home tomorrow.
--- NOTE | 2017-12-11 11:20 | PT.IPTN ---
Current Diagnoses Bilateral primary osteoarthritis of knee (12/08/17) Presence of unspecified artificial knee joint (12/08/17) Surgery Performed Operation Date: 12/08/17 10:15 Actual Procedures p Total Knee Arthroplasty(Right) - Margarito Cadena MD Physical Therapy Treatment Note M2 PT-IP Current Condition Start: 12/08/17 14:05 Freq: NEEDED Status: Active Protocol: Document 12/08/17 16:00 RS (Rec: 12/09/17 08:03 RS [email or web address]) Physical Therapy Current Condition Current Condition Evaluation Date 12/08/17 Treatment Diagnosis R TKA - impaired mobility Onset Date 12/08/17 Weight Bearing Status Weight Bearing Status Weight Bear as Tolerated M3 PT-IP Subjective Start: 12/08/17 14:05 Freq: NEEDED Status: Active Protocol: Document 12/11/17 11:20 GGD (Rec: 12/11/17 12:55 GGD [id number]) Subjective Physical Therapy Visit Type Type Treatment Note Visit Start Time 10:50 Visit Stop Time 11:20 Total Visit Minutes 30 Number of SASH MAKER Visits 1 Physical Therapy Visit Comments Patient Comments Pt willing to try stairs. Therapy Pain Assessment Pain When Pain Assessed At Rest Pain Present Pain Present Pain Reported Location Right Knee Intensity 7 Scale Used Numeric (1 - 10) Pain Management Techniques Apply Cold Re-positioning M4 PT-IP Mobility and Gait Start: 12/08/17 14:05 Freq: NEEDED Status: Active Protocol: Document 12/11/17 11:20 GGD (Rec: 12/11/17 12:55 GGD [id number]) PT-Bed Mobility Assessment Supine to Sit Supine to Sit Standby Assistance Bedrails PT-Transfer Assessment Sit to and From Stand Sit to and from Stand Contact Guard Assistance Use of Upper Extremities Equipment Transfer Assistive Device Gait Belt Front Wheeled Walker Orthotic/Prosthetic Devices or Brace: No Transfers Transfer Destination Chair Wheelchair Gait Assessment Gait Gait Assistance Required: Contact Guard Assist Distance (Feet) 150 Assistive Devices Assistive Device Gait Belt Front Wheeled Walker Factors Limiting Gait Function Factors Limiting Gait Function Decreased Strength Limited Range of Motion Pain Stair Climbing Assessment Evaluation Level of Assist On Stairs Contact Guard Assistance Devices Stair Climbing Assistive Devices Front Wheel Walker Technique/Endurance Stair Climbing Direction Ascend and Descend Stair Climbing Technique Step to Step Number of Steps Climbed 1 Query Text: Stair Climbing Set # Repetitions (reps) 2 M5 PT-IP Objective Assessments Start: 12/08/17 14:05 Freq: NEEDED Status: Active Protocol: Document 12/08/17 16:00 RS (Rec: 12/09/17 08:03 RS [email or web address]) Orientation Orientation/Cognition Level of Alertness Alert Orientation Name Age Birthday Month Date Year Day of Week Place Situation Language Function Ability No Deficits Noted Safety Awareness Understands Safety Issues Memory Description No Deficits Noted Gross Range of Motion Upper Extremity ROM Assessment Within Functional Limits Lower Extremity ROM Assessment Right Impaired Strength Upper Extremity Strength Assessment Within Functional Limits Comments Strength Comments LLE WFL, RLE not formally tested. Sensation Assessment Sensation Gross Sensation Left LE Impaired Light Touch Impaired Sensation Description Numbness Comments Sensation Comments Pt most numb in the lateral plantar aspect of the left foot, however, also having a little numbness in the area of the L lateral malleolus. M6 PT-IP Treatment Start: 12/08/17 14:05 Freq: NEEDED Status: Active Protocol: Document 12/11/17 11:20 GGD (Rec: 12/11/17 12:55 GGD [id number]) Physical Therapy Treatment Exercises Exercises Ankle Pumps Quad Sets Heel Slides Short Arc Quads Passive Knee Extension Hang Seated Knee Flexion/Extension Education Education Provided Safety M7 PT-IP Assessment and Plan Start: 12/08/17 14:05 Freq: NEEDED Status: Active Protocol: Document 12/11/17 11:20 GGD (Rec: 12/11/17 12:55 GGD [id number]) PT Summary Assessment and Plan Summary Assessment Summary Pt is improving with mobility. She is safe and stable with stairs. She had no LOB during gait. She didn't need assist with bed mobility, but did use the bed rails. Frequency of Treatment Frequency Of Treatment Twice a Day Recommendations To Nursing Amount of Assist Needed 1 Person Assist Discharge Recommendations PT Discharge Recommendations Home with Assistance
--- NOTE | 2017-12-11 15:00 | PT.IPTN ---
Current Diagnoses Bilateral primary osteoarthritis of knee (12/08/17) Presence of unspecified artificial knee joint (12/08/17) Surgery Performed Operation Date: 12/08/17 10:15 Actual Procedures p Total Knee Arthroplasty(Right) - Margarito Cadena MD Physical Therapy Treatment Note M2 PT-IP Current Condition Start: 12/08/17 14:05 Freq: NEEDED Status: Active Protocol: Document 12/08/17 16:00 RS (Rec: 12/09/17 08:03 RS [email or web address]) Physical Therapy Current Condition Current Condition Evaluation Date 12/08/17 Treatment Diagnosis R TKA - impaired mobility Onset Date 12/08/17 Weight Bearing Status Weight Bearing Status Weight Bear as Tolerated M3 PT-IP Subjective Start: 12/08/17 14:05 Freq: NEEDED Status: Active Protocol: Document 12/11/17 15:00 GGD (Rec: 12/11/17 16:39 GGD [email or web address]) Subjective Physical Therapy Visit Type Type Treatment Note Visit Start Time 14:30 Visit Stop Time 15:00 Total Visit Minutes 30 Number of BURNT LIME DRAWER Visits 2 Physical Therapy Visit Comments Patient Comments Pt states she would like to walk. Therapy Pain Assessment Pain When Pain Assessed At Rest Pain Present Pain Present Pain Reported Location Right Knee Intensity 6 Scale Used Numeric (1 - 10) Pain Management Techniques Apply Cold Re-positioning M4 PT-IP Mobility and Gait Start: 12/08/17 14:05 Freq: NEEDED Status: Active Protocol: Document 12/11/17 15:00 GGD (Rec: 12/11/17 16:39 GGD [email or web address]) PT-Bed Mobility Assessment Supine to Sit Supine to Sit Standby Assistance Bedrails Sit to Supine Sit to Supine Standby Assistance Bedrails Scooting Scooting to Edge of Bed Standby Assistance PT-Transfer Assessment Sit to and From Stand Sit to and from Stand Contact Guard Assistance Use of Upper Extremities Equipment Transfer Assistive Device Gait Belt Front Wheeled Walker Orthotic/Prosthetic Devices or Brace: No Transfers Transfer Destination Bed Gait Assessment Gait Gait Assistance Required: Contact Guard Assist Distance (Feet) 150 Able to Maintain Weight Bearing Status Yes During Gait Assistive Devices Assistive Device Gait Belt Front Wheeled Walker Orthotic/Prosthetic Devices or Brace: No Gait Deviations General Gait Pattern Antalgic Decreased Stride Length Decreased Feet Clearance Step-to Gait Factors Limiting Gait Function Factors Limiting Gait Function Decreased Strength Limited Range of Motion Pain M5 PT-IP Objective Assessments Start: 12/08/17 14:05 Freq: NEEDED Status: Active Protocol: Document 12/08/17 16:00 RS (Rec: 12/09/17 08:03 RS [email or web address]) Orientation Orientation/Cognition Level of Alertness Alert Orientation Name Age Birthday Month Date Year Day of Week Place Situation Language Function Ability No Deficits Noted Safety Awareness Understands Safety Issues Memory Description No Deficits Noted Gross Range of Motion Upper Extremity ROM Assessment Within Functional Limits Lower Extremity ROM Assessment Right Impaired Strength Upper Extremity Strength Assessment Within Functional Limits Comments Strength Comments LLE WFL, RLE not formally tested. Sensation Assessment Sensation Gross Sensation Left LE Impaired Light Touch Impaired Sensation Description Numbness Comments Sensation Comments Pt most numb in the lateral plantar aspect of the left foot, however, also having a little numbness in the area of the L lateral malleolus. M6 PT-IP Treatment Start: 12/08/17 14:05 Freq: NEEDED Status: Active Protocol: Document 12/11/17 15:00 GGD (Rec: 12/11/17 16:39 GGD [email or web address]) Physical Therapy Treatment Exercises Exercises Ankle Pumps Quad Sets Heel Slides Straight Leg Raises Seated Knee Flexion/Extension M7 PT-IP Assessment and Plan Start: 12/08/17 14:05 Freq: NEEDED Status: Active Protocol: Document 12/11/17 15:00 GGD (Rec: 12/11/17 16:39 GGD [email or web address]) PT Summary Assessment and Plan Summary Assessment Summary Pt improving with bed mobility . She has a step to gait pattern with heavy use of UE on FWW. She had no LOB during gait. Frequency of Treatment Frequency Of Treatment Twice a Day Treatment Plan Physical Therapy Treatment Plan Bed Mobility Training Transfer Training Gait Training Therapeutic Exercise Balance Retraining Post Op Education Discharge Planning Hot or Cold Pack Neuromuscular Re-ed Coordination Retraining Manual Therapy Recommendations To Nursing Amount of Assist Needed 1 Person Assist Discharge Recommendations PT Discharge Recommendations Home with Assistance
[2017-12-11 15:31] VITALS: BP 119/69; PULSE 75; RESP 18; TEMP 37; O2SAT 98
[2017-12-11] MEDS: ROPINIROLE 1 MG TABLET PO (17:58)
[2017-12-11] MEDS: IBUPROFEN 600 MG TABLET PO (23:47)
[2017-12-12] MEDS: HYDROMORPHONE 2 MG TABLET 4 MG PO ×3 (05:48→12:30)
[2017-12-12] MEDS: LEVOTHYROXINE 100 MCG TABLET PO (05:48)
--- NOTE | 2017-12-12 07:46 | PM.DS.1 ---
History of Present Illness Date Patient Seen: 12/12/17 Time Patient Seen: 07:35 Chief complaint: [id number] Narrative: History of present illness and physical examination is contained in the chart in a previously dictated note. Please refer to that note for this information. Discharge Providers Date of admission: 12/08/17 07:54 Consults: 12/08/17 13:53 Consult to Discharge Planning Routine Comment: Consult to Physical Therapy Evaluate & Treat Comment: Physician Instructions: postop TKA protocol Discharge provider: Margarito Cadena MD Discharge Date: 12/12/17 Summary Discharge Diagnosis: 1. Right knee osteoarthritis Hospital Course: The patient was admitted to the hospital and taken directly to the operating room on December 08, 2017 for a right total knee replacement. She did well postoperatively except for significant nausea with her pain medication. She made slow progress with physical therapy and was ready for discharge by postoperative day 4. Status at Discharge Cognitive/behavioral status at discharge: At baseline. Functional status at discharge: uses cane/walker Overall status at discharge: patient is progressing back to baseline Time Spent with Patient Less than 30 minutes Exam Vital Signs (past 8 hours): Oxygen Delivery Method Room Air Oxygen Flow Rate 0 Narrative Exam Narrative: Right knee wound is dressed with minimal drainage on the bandage. Calf is soft. Light touch and motion are intact in the right lower extremity. Objective Labs Result Diagrams: 12/09/17 05:12 Labs: Radiographs show a well-positioned right total knee prosthetic. Discharge Plan Discharge Plan Patient Disposition: Home Discharge Med Rec/Prescriptions Prescriptions: New aspirin 81 mg Tablet,Delayed Release (Dr/Ec) 81 mg PO BID 42 Days Qty: 84 RF: 0 hydromorphone 2 mg Tablet 2 mg PO Q3H PRN (Reason: Pain, Severe (7-10)) Qty: 60 RF: 0 Continue acetaminophen [Tylenol Extra Strength] 500 mg Tablet 1,000 mg PO Q6H PRN (Reason: pain) RF: 0 levothyroxine [Synthroid] 100 mcg Tablet 100 mcg PO DAILY RF: 0 ropinirole 0.25 mg Tablet 4 tab PO BEDTIME RF: 0 cetirizine [Zyrtec] 10 mg Capsule 10 mg PO DAILY PRN (Reason: seasonal allergies) RF: 0 Provider Discharge Instructions Diet: Diet as Tolerated Activity: No restrictions on weight bearing. Cold/Heat Therapy: Apply ice to the area 15 minutes every hour as needed. Skin/Wound/Dressing Care Report to your healthcare provider any signs of infection, such as:: chills, fever, night sweats, increased pain and unusual drainage Dressing: Leave the dressing intact. You may shower with the dressing in place. If blood or water saturates the central strip of the dressing call the office to have it changed. Discharge Data Attending Provider: Margarito Cadena Admit Date/Time: 12/08/17 07:54
[2017-12-12 08:00] VITALS: BP 126/74; PULSE 60; RESP 16; TEMP 36.6; O2SAT 94
[2017-12-12] MEDS: ASPIRIN EC 81 MG TABLET PO (08:16)
[2017-12-12] MEDS: DOCUSATE 100 MG CAPSULE PO (08:16)
[2017-12-12] MEDS: ACETAMINOPHEN 325 MG TABLET 975 MG PO (08:16)
[2017-12-12] MEDS: CALCIUM CARBONATE 500 MG TAB PO (08:16)
[2017-12-12 08:20] VITALS: O2SAT 98
--- NOTE | 2017-12-12 12:46 | PC.NURSE ---
Pt is ready for discharge home-she is dressed and packed up and received pain meds at 1230. Sister is here to drive her. No iv. Reviewed d/c instructions and stroke education. Pt denies further questions and will be taken out as soon as she finishes lunch.
--- NOTE | 2017-12-12 13:32 | PC.NURSE ---
Pt out via w/c by CIRCUIT MANAGER with family and all belongings
--- NOTE | 2017-12-12 16:30 | CM.DPC ---
DCP: continued: case received, discussed in Team Rounds. Pt went home today as planned. She no longer wanted home health services (and does not have a local PCP). She worked here with therapy team and will go directly to outpt care. Noted that [facility] had been given a referral: spoke now with Eileen/[facility] updated her re need to cancell the referral.
== END 2017-12-12 13:33 | disposition home or self-care (01) | DRG 470 ==
LOC: AC 12-12 12:27 → OR 12-12 14:26 → AC 12-12 14:30
PROVIDERS: Admitting Provider Orthopaedic Surgery; Visit Provider Orthopaedic Surgery
PROC: 0SRC0JZ Replacement of Right Knee Joint with Synthetic Substitute, Open Approach (ICD-10-PCS; CPT 27447; principal; 2017-12-08 10:15)
DX: M17.11 Unilateral primary osteoarthritis, right knee (principal); G47.33 Obstructive sleep apnea (adult) (pediatric); G25.81 Restless legs syndrome; E03.9 Hypothyroidism, unspecified; R73.03 Prediabetes; Z87.891 Personal history of nicotine dependence; R11.0 Nausea
CPT/HCPCS: 36415; 73560; 85014; 85018; 97110; 97116; 97161; 97530; C1776; G0378; C9290; J0690; J1100; J2250; J2270; J2274; J2405; J2704; J3010

== ENCOUNTER 2017-12-31 08:02 | Emergency (ER) | payer MEDICARE, OTHER, SELFPAY ==
[2017-12-08 14:40] VITALS: BMI 36.6
[2017-12-31 08:10] VITALS: BP 103/79; PULSE 53; RESP 20; TEMP 36.3; O2SAT 97
--- NOTE | 2017-12-31 08:32 | ED_ITS ---
HPI - Abdominal Pain General Chief Complaint: Abdominal Pain Stated Complaint: Abd pain Time Seen by Provider: 12/31/17 08:13 Source: patient and EMS Mode of arrival: EMS Limitations: no limitations History of Present Illness HPI narrative: Patient complains of constipation for 4-5 days. She had a knee replacement in late November, and has been using oxycodone and till just a couple of days ago. She states that she feels the urge to have a bowel movement , but that when she pushes only a few ?hard rupa? come out. Patient states she has otherwise been doing fine. She has been recovering well since her knee replacement, and has been going to physical therapy. Patient denies any fevers , chills, nausea, vomiting, or diarrhea. No dysuria. Patient rates her pain a 10/10. She states that since she stopped taking oxycodone, she has had a lot of lower abdominal cramps. Patient does note that she has tried a multitude of stool softeners at home, with no success. MD complaint: abdominal pain (Constipation) Severity scale (1-10): 10 Quality: cramping Radiation: none Migration to: no migration Relieving factors: nothing Exacerbating factors: nothing Associated symptoms: denies other symptoms Related Data Home Medications Medication Instructions Recorded Confirmed acetaminophen [Tylenol Extra 1,000 mg PO Q6H PRN 11/27/17 12/31/17 Strength] cetirizine [Zyrtec] 10 mg PO DAILY PRN 11/27/17 12/08/17 levothyroxine [Synthroid] 100 mcg PO DAILY 11/27/17 12/31/17 ropinirole 4 tab PO BEDTIME 11/27/17 12/31/17 diclofenac sodium 1 applic TOPICAL DIRECTED 12/31/17 12/31/17 folic acid-vit B6-vit B12 [Folbee] 1 tab PO DAILY 12/31/17 12/31/17 hydroxyzine pamoate 1 cap PO QID PRN 12/31/17 12/31/17 meloxicam 1 tab PO DAILY 12/31/17 12/31/17 ondansetron HCl 1 tab PO Q6H PRN 12/31/17 12/31/17 oxycodone 1 - 2 tab PO Q4-6H PRN 10/17/18 10/17/18 pramipexole 1 tab PO BEDTIME 12/31/17 12/31/17 Previous Rx's Medication Instructions Recorded aspirin 81 mg PO BID 42 Days #84 tab 12/12/17 hydromorphone 2 mg PO Q3H PRN #60 tab 12/12/17 Allergies Allergy/AdvReac Type Severity Reaction Status Date / Time codeine Allergy Mild Blister Verified 12/08/17 09:12 loratadine [From Claritin] AdvReac Mild Dizziness Verified 12/09/17 16:30 Review of Systems Review of Systems All systems reviewed & are unremarkable except as noted in HPI and below Constitutional Denies chills, Denies fever(s), Denies lethargy and Denies weakness Eyes Denies change in vision, Denies eye discharge, Denies irritation and Denies loss of vision ENT Ears, Nose, Mouth, and Throat: Denies change in voice, Denies neck pain and Denies sore throat Cardiovascular Denies chest pain, Denies irregular heart rhythm, Denies lightheadedness, Denies palpitations, Denies dyspnea, Denies dyspnea on exertion and Denies orthopnea Respiratory Denies cough, Denies dyspnea, Denies dyspnea on exertion and Denies wheezing Gastrointestinal Gastrointestinal: Reports abdominal pain, Reports change in bowel habits, Reports constipation, Reports cramping, Denies diarrhea, Denies nausea and Denies vomiting Genitourinary Denies hematuria, Denies flank pain, Denies urinary incontinence and Denies urinary urgency Musculoskeletal Denies neck pain Integumentary/Breasts Denies pruritus, Denies erythema, Denies rash and Denies wounds Neurologic Denies confusion, Denies loss of vision and Denies weakness Psychiatric Denies anxiety, Denies confusion, Denies depression, Denies homicidal ideation and Denies suicidal ideation Endocrine Denies palpitations Hematologic/Lymphatic Denies easy bruising Allergic/Immunologic Denies wheezing PFSH Medical History Anxiety about health (Acute) H/O: hysterectomy (Acute) Hyperlipemia (Acute) Hypothyroid (Acute) Osteoarthritis (Acute) RLS (restless legs syndrome) (Acute) Seasonal allergies (Acute) Sleep apnea treated with nocturnal BiPAP (Acute) Surgical History H/O bladder repair surgery (Acute) Hx of appendectomy (Acute) Hx of arthroscopy of left knee (Acute) Hx of repair of right rotator cuff (Acute) Hx of tonsillectomy (Acute) Hx of umbilical hernia repair (Acute) Social History household members: none Smoking Status: Former smoker alcohol intake: current Exam Initial Vital Signs Initial Vital Signs: Vital Signs Temperature 97.4 F L 12/31/17 08:10 Pulse Rate 53 L 12/31/17 08:10 Respiratory Rate 20 12/31/17 08:10 Blood Pressure 103/79 12/31/17 08:10 Pulse Oximetry 97 12/31/17 08:10 Const General: cooperative and well developed Nutritional Appearance: well nourished Orientation: alert, awake, oriented x3 and not confused HENMT Head: normocephalic and atraumatic Ears: external ears normal Nose: external nose normal and No nasal discharge Face and sinus: face symmetric and No dry mucous membranes Mouth: oral mucosae normal and moist mucous membranes Eyes General: appearance normal, both eyes and all related structures Eyelids: eyelids normal Conjunctivae: conjunctivae normal Sclera: sclerae normal Pupils: PERRL EOM: EOM intact bilaterally Neck Neck: normal visual inspection, trachea midline, No lymphadenopathy, No midline deformity and No JVD Lymphatic: No lymphedema Chest Chest: normal inspection of the chest Resp Effort & Inspection: normal respiratory effort, able to speak in complete sentences, no respiratory distress and no use of accessory muscles Auscultation: clear to auscultation bilaterally, no rales, no rhonchi and no wheezes Cardio Rate: regular rate Rhythm: regular rhythm Heart Sounds: no click, no gallops, no murmurs and no rubs Pulses: normal peripheral pulses GI Inspection: non-distended Palpation: soft, no hepatosplenomegaly, No guarding, No pulsatile mass and tender (Moderate, diffuse, with slight increased tenderness on the left versus the right side generally.) Auscultation: normal bowel sounds Back/Spine/Pelvis Back: No CVA tenderness Cervical Spine: cervical ROM normal and No pain with cervical ROM Thoracic/Lumbar Spine: thoracic and lumbar spine normal to inspection Skin General: no rashes or lesions noted, No jaundice and No petechiae Neuro General: alert, oriented x3, gait normal and no focal motor deficits Speech: speech normal Extrem General: full ROM, no clubbing, cyanosis or edema, no pedal edema and no calf tenderness Psych Appearance: well kempt Mental Status: mental status grossly normal Attitude: cooperative Thought Content: normal and suicidality Judgment: judgment good Course Course Narrative: I discussed with the patient that the options that she has at this point, given that she has been taking a variety of stool softeners at home and eating a high-fiber diet she states, would be to either have a disimpaction or an enema in the emergency department. We could do a potent liquid laxative such as GoLYTELY or mag citrate, but these are less likely to be effective without removal of the impacted stool that she likely has. Patient has opted to try an enema 1st with plan to disimpact if enemas unsuccessful. Enema was given, and patient did have some relief of symptoms. Following this, she did state that she would like to go home, she was feeling better. I felt this was reasonable. I have encouraged her to eat plenty of fiber in her diet, as well as to take her stool softeners and to use home enemas, if needed. If patient can manage without the narcotic pain medication, that is also ideal. Orders Ordered: Discontinued Medications Ondansetron HCl (Zofran Odt) 4 mg PO NOW ONE Stop: 12/31/17 08:44 Last Admin: 12/31/17 08:45 Dose: 4 mg Sodium Biphosphate/Sodium Phosphate (Fleet Enema) 1 each ID NOW ONE Stop: 12/31/17 09:24 Last Admin: 12/31/17 09:30 Dose: 1 each Vital Signs - 8 hr 12/31/17 08:10 Temperature 97.4 F L Pulse Rate 53 L Respiratory Rate 20 Blood Pressure 103/79 Pulse Oximetry 97 MDM - Abdominal Pain Medical Records Attestation: I reviewed the patient's medical records. Discharge Plan Departure Patient Disposition: Home Clinical Impression: Constipation Discharge Date/Time: 12/31/17 10:39 Interventions: ED Discharge Assessment Last Done: 12/31/17 10:37 Instructions: DI for Constipation Prescriptions: No Action acetaminophen [Tylenol Extra Strength] 500 mg Tablet 1,000 mg PO Q6H PRN (Reason: pain) RF: 0 levothyroxine [Synthroid] 100 mcg Tablet 100 mcg PO DAILY RF: 0 ropinirole 0.25 mg Tablet 4 tab PO BEDTIME RF: 0 cetirizine [Zyrtec] 10 mg Capsule 10 mg PO DAILY PRN (Reason: seasonal allergies) RF: 0 aspirin 81 mg Tablet,Delayed Release (Dr/Ec) 81 mg PO BID 42 Days Qty: 84 RF: 0 hydromorphone 2 mg Tablet 2 mg PO Q3H PRN (Reason: Pain, Severe (7-10)) Qty: 60 RF: 0 meloxicam 15 mg tablet 1 tab PO DAILY RF: 0 ondansetron HCl 4 mg tablet 1 tab PO Q6H PRN (Reason: Nausea) RF: 0 folic acid-vit B6-vit B12 [Folbee] 2.5-25-1 mg tablet 1 tab PO DAILY RF: 0 pramipexole 0.125 mg tablet 1 tab PO BEDTIME RF: 0 oxycodone 5 mg tablet 1 - 2 tab PO Q4-6H PRN (Reason: pain) RF: 0 hydroxyzine pamoate 25 mg capsule 1 cap PO QID PRN (Reason: nausea/muscle spasms) RF: 0 diclofenac sodium 1 % gel 1 applic Topical DIRECTED RF: 0 Referrals: Jarrett Johnson MD [Primary Care Provider] -
[2017-12-31] MEDS: ONDANSETRON 4 MG ODT PO (08:45)
[2017-12-31] MEDS: FLEETS ENEMA 1 EACH PR (09:30)
[2017-12-31 10:22] VITALS: BP 106/51; PULSE 54; RESP 18; O2SAT 97
== END 2017-12-31 10:39 | disposition home or self-care (01) ==
PROVIDERS: Emergency Provider Emergency Medicine; PCP Internal Medicine
DX: K59.00 Constipation, unspecified (principal)
CPT/HCPCS: 99283

== ENCOUNTER → 2020-04-19 07:38 | Outpatient (CLI) | payer MEDICARE, OTHER, SELFPAY ==
--- NOTE | 2020-04-19 | DI.ECHO.S_ITS ---
[facility]---------+ [facility] +---------+ : : [address] : : : : [id number] : : : : Phone: [phone]+ Echocardiogram Report + + :Name: CHRISTIANE HALEY Study Date: 04/19/2020 Height: 62 in : :[facility] ReadingLocation: Weight: 200 lb : : Gender: Female BSA: 1.9 m2 : :: 1945 Age: 74 yrs BP: 126/75 mmHg: :Reason For Study: CHEST PAIN : :Ordering Physician: STEPHEN, : :ANAHI Performed By: Mable Manrique : :Referring: ANAHI MITCHELL : + + Interpretation Summary Sinus bradycardia. Heart rate is 51-85 bpm. Normal LV size, wall thickness, wall motion and LV systolic function. EF is 55-60%. Normal chamber sizes. No significant valvular abnormalities. No prior study available for comparison. Procedure: A two-dimensional transthoracic echocardiogram with color flow and Doppler was performed. The study quality was technically adequate. There is no prior echocardiogram noted for this patient. The patient was in sinus rhythm with heart rates between 51-85 bpm during the exam. Left Ventricle: The left ventricle is normal in size and wall thickness. The ejection fraction is estimated to be 55-60%. Right Ventricle: The right ventricle is normal in size and function. Atria: Both atria are normal in size. There is no Doppler evidence for an interatrial shunt. Mitral Valve: The mitral valve is normal in structure and function. There is mild mitral regurgitation. Aortic Valve: The aortic valve is grossly normal. The aortic valve opens well. There is no aortic valve stenosis. There is trace aortic regurgitation. Tricuspid Valve: The tricuspid valve is normal in structure and function. There is trace tricuspid regurgitation. Right ventricular systolic pressure is estimated to be 20.5 mmHg plus the clinically estimated CVP which cannot be estimated on this exam. Pulmonic Valve: The pulmonic valve is not well visualized. There is no pulmonic valvular regurgitation. Great Vessels: The aortic root is normal size. The dimensions of the ascending aorta are normal. The inferior vena cava was not visualized. Pericardium/ Pleura There is no pericardial effusion. There is no pleural effusion. MMode/2D Measurements & Calculations LVIDd: 4.9 cm LVOT diam: 2.0 cm LVIDs: 3.4 cm Ao root diam: 2.9 cm FS: 31.0 % asc Aorta Diam: 2.5 cm EPSS: 1.1 cm Ao Arch Diam (Prox Trans): 2.9 cm IVSd: 0.86 cm LVPWd: 0.92 cm LV gramajo. diameter/BSA (cm/m^2): 2.6 LV sys. diameter/BSA (cm/m^2): 1.8 LA A2 area: 20.5 cm2 RA long axis: 5.0 cm LA A4 area: 14.7 cm2 RA area: 13.6 cm2 LA length (vol): 5.0 cm RA vol: 31.7 ml LA vol: 51.0 ml RA : 16.6 ml/m2 LA vol index: 26.7 ml/m2 RVD1 (basal): 3.9 cm TAPSE: 2.3 cm Doppler Measurements & Calculations Ao V2 max: 167.3 cm/sec LVOT Max Luis Manuel: 117.6 cm/sec Ao V2 mean: 116.8 cm/sec LV V1 max P.5 mmHg Ao max P.2 mmHg LV V1 VTI: 27.9 cm Ao mean P.1 mmHg GARRICK(I,D): 2.3 cm2 Ao V2 VTI: 39.1 cm GARRICK(V,D): 2.3 cm2 sev ratio: 0.71 GARRICK indexed to BSA (cm^2/m^2): 1.2 MV E max luis manuel: 65.3 cm/sec TR max luis manuel: 226.4 cm/sec MV A max luis manuel: 85.1 cm/sec TR max P.5 mmHg MV E/A: 0.77 PA V2 max: 63.6 cm/sec Med Peak E' Luis Manuel: 5.4 cm/sec PA V2 mean: 44.4 cm/sec E/E' med: 12.1 PA mean P.87 mmHg Lat Peak E' Luis Manuel: 8.3 cm/sec PA pr(Accel): 5.4 mmHg E/E' lat: 7.8 E/e' average: 10.0 MV dec time: 0.26 sec SV(LVOT): 90.2 ml Electronically signed by: Concepción Ascencio M.D. on Reading Physician:04/19/2020 09:17 PM
[2020-04-19 09:35] LABS: Add Manual Diff / Slide Review NO; Basophils Absolute Auto 0 /uL (0-100); Basophils Percent Auto 0.6 % (0-2); Eosinophils Absolute Auto 100 /uL (0-450); Eosinophils Percent Auto 2.3 % (2-4); Hematocrit 43.1 % (36-46); Hemoglobin 14.5 g/dL (12.0-16.0); Lymphocytes Absolute Auto 1700 /uL (1100-4500); Mean Corpuscular HGB Conc 33.7 % (30-36); Mean Corpuscular Hemoglobin 31.1 PG (26-34); Mean Corpuscular Volume 92.2 fL (80-100); Monocytes Absolute Auto 400 /uL (0-900); Monocytes Percent Auto 6.6 % (3-14); Neutrophils Absolute Auto 3900 /uL (1500-7000); Neutrophils Percent Auto 63.5 % (50-75); Platelet Count 231 X10^3/uL (150-400); Red Blood Cell Count 4.68 X10^6/uL (4.0-5.2); Red Cell Distribution Width 13.8 % (11.6-14.8); White Blood Cell Count 6.2 X10^3/uL (4.5-11.0)
[2020-04-19 09:57] LABS: Alanine Aminotransferase 36 IU/L (<35); Albumin Globulin Ratio 1.3 (1.0-2.8); Alkaline Phosphatase 71 U/L (38-126); Aspartate Aminotransferase 37 IU/L (14-36); Bilirubin Total 0.4 mg/dL (0.2-1.3); Blood Urea Nitrogen 24 mg/dL (7-17); Calcium 9.5 mg/dL (8.4-10.2); Carbon Dioxide 34 mmol/L (22-32); Chloride 102 mmol/L (98-107); Cholesterol 284 mg/dL (140-199); Estimated Glomerular Filt Rate 41.5 mL/min (>60); Globulin 3.2 g/dL (1.7-4.1); Glucose 134 mg/dL (80-110); HDL Cholesterol 37 mg/dL (40-60); HEMOLYSIS < 15 (0-50); LDL Cholesterol Calculated 184 mg/dL (<100); Potassium 4.3 mmol/L (3.4-5.1); Sodium 139 mmol/L (137-145); Total Protein 7.2 g/dL (6.3-8.2); Triglycerides 315 mg/dL (35-150)
[2020-04-19 10:26] LABS: TSH w/ Reflex to FT4 3.14 uIU/mL (0.47-4.68)
== END ==
PROVIDERS: PCP Physician Assistant; Referring Provider Physician Assistant; Visit Provider Physician Assistant
DX: R07.9 Chest pain, unspecified (principal); E78.5 Hyperlipidemia, unspecified; E03.9 Hypothyroidism, unspecified
CPT/HCPCS: 36415; 80053; 80061; 84443; 85025; 93306

== ENCOUNTER → 2020-05-24 09:26 | Outpatient (CLI) | payer MEDICARE, OTHER, SELFPAY ==
[2020-05-24 11:08] LABS: COVID19 -Nasal RAPID Negative (Negative)
== END ==
PROVIDERS: PCP Physician Assistant; Visit Provider Physician Assistant
DX: Z20.822 Contact with and (suspected) exposure to COVID-19 (principal); Z01.812 Encounter for preprocedural laboratory examination
CPT/HCPCS: 87635; C9803

== ENCOUNTER → 2020-06-12 09:13 | Outpatient (CLI) | payer MEDICARE, OTHER, SELFPAY ==
[2020-06-12 11:13] LABS: COVID19 -Nasal RAPID Negative (Negative)
== END ==
PROVIDERS: PCP Physician Assistant; Visit Provider Physician Assistant
DX: Z20.822 Contact with and (suspected) exposure to COVID-19 (principal)
CPT/HCPCS: 87635; C9803

== ENCOUNTER → 2020-06-14 14:03 | Outpatient (CLI) | payer MEDICARE, OTHER, SELFPAY ==
--- NOTE | 2020-06-14 14:05 | DI.NM.S_ITS ---
PROCEDURE: NM KAMALA PERF SPECT R&S PHARM Rest and pharmacological stress myocardial perfusion SPECT with gated imaging and ejection fraction RADIOPHARMACEUTICAL: 25.2 mCi Tc-99m tetrafosmin IV at rest and 25.3 mCi Tc-99m tetrafosmin IV at peak effect of pharmacological stress. Xha-[id number]-mamfoyvn was performed. INDICATIONS: Chest pain, unspecified TECHNIQUE: Radiopharmaceutical was injected at peak stress test, and also at rest. SPECT images were obtained. SPECT myocardial perfusion images were displayed in short axis, horizontal long axis, and vertical long axis views. Gated images were reviewed using SET software. COMPARISON: None. CARDIAC STRESS: A pharmacologic stress test was performed under the supervision of an attending staff, using an infusion of lexiscan 0.4mg IV X1. Hemodynamic data: There is normal blood pressure and heart rate response to pharmacologic stress. Symptoms: The patient denied anginal chest pain. Aminophylline: none EKG: No diagnostic changes of ischemia; no ectopy. FINDINGS: Raw data: There is good myocardial uptake of radiotracer. No significant motion artifacts. Tluc-gd-ykivq ratio is 0.38 (normal is less than 0.38 for tetrafosmin tracer). Left ventricle function: Gated images demonstrate normal left ventricular wall thickening. No segmental wall motion abnormalities. No transient ischemic dilation; TID is 0.83 (normal less than 1.3). Left ventricle resting end diastolic volume is 75 mL. Left ventricle stress ejection fraction is 82%; normal range is above 45%. Myocardial perfusion: Fixed, moderately intense inferior and inferolateral defect that is consistent with prior non-transmural infarction. No ischemia. Prone images couldn't be obtained due to patient's physical limitations. IMPRESSION: Abnormal pharmaceutical nuclear stress test consistent with prior infarction. No ischemia. 1) Fixed, moderately intense inferior and inferolateral defect that is consistent with prior non-transmural infarction. No ischemia. Prone images couldn't be obtained due to patient's physical limitations. SSS 7. 2) Normal left ventricular size, wall motion, and systolic function (EF post stress 82%). 3) No ECG evidence of ischemia. 4) No angina during the study. 5) No prior nuclear stress test available for comparison. Dictated by: Nikko Quarles MD on 06/15/2020 at 12:54 Approved by: Nikko Quarles MD on 06/15/2020 at 12:55
== END ==
PROVIDERS: PCP Physician Assistant; Referring Provider Physician Assistant; Visit Provider Physician Assistant
DX: R94.39 Abnormal result of other cardiovascular function study (principal); R07.9 Chest pain, unspecified
CPT/HCPCS: 78452; 93017; A9502; J2785

== ENCOUNTER → 2020-06-29 09:00 | Outpatient (CLI) | payer MEDICARE, OTHER, SELFPAY ==
--- NOTE | 2020-06-29 09:58 | DIET.PN ---
Diabetes Intake: Initial Assessment Assess: Ms. Sotelo is a 74 yof referred for type 2 diabetes. Typically eats 2 meals/day, but admits to night time snacking. She does not currently have a glucometer, but would like to start testing. Had a recent heart attack and has made significant changes since. Labs: Per pt report: A1c: 7.0 Meds: none Diet: per 24 hr recall: B: Ezekial bread w/ butter, almond butter, jam, egg w/ goat chz, chx sausage D: Salad mix, stuffed grape leaves, tabouli, steak, veggies Evening Sn: chips w/ hummus, popcorn, sweet potato chips Wt: 219lb Ht:62in BMI: 40.1 BP: 120/79 DX: Altered nutrition related laboratory values related to impaired glucose metabolism, lack of previous exposure to nutrition information as evidenced by pt report, diagnosis of diabetes, previous diet high in refined carbohydrates. Intervention: 1. Completed intake assessment. Discussed barriers to care. 2. Discussed pathophysiology of diabetes. Reviewed A1c and its correlation to blood glucose numbers. Discussed recommended BG ranges. 3. Discussed importance of self-monitoring, how often, and when to check. 4. Reviewed hyper/hypoglycemia and treatment. 5. Reviewed safe disposal of equipment (strip/lancets/insulin needles). 6. Created SMART goals for pt self-care and success. 7. Discussed program curriculum outline and class needs based on individual goals. SMART Goals: 1. Pt goal weight 160lb over the next year through improved dietary habits, carb counting, portion control. Monitor/Evaluate: Pt will follow up upon return from [place].
== END ==
PROVIDERS: PCP Family Medicine; Referring Provider Family Medicine; Visit Provider Family Medicine
DX: E11.9 Type 2 diabetes mellitus without complications (principal); E66.9 Obesity, unspecified; Z68.41 Body mass index [BMI] 40.0-44.9, adult; Z71.3 Dietary counseling and surveillance
CPT/HCPCS: G0108

== ENCOUNTER → 2020-08-22 09:19 | Outpatient (CLI) | payer MEDICARE, OTHER, SELFPAY ==
[2020-08-22 11:58] LABS: Cholesterol 254 mg/dL (140-199); HDL Cholesterol 35 mg/dL (40-60); LDL Cholesterol Calculated 169 mg/dL (<100); Triglycerides 251 mg/dL (35-150)
== END ==
PROVIDERS: PCP Family Medicine; Referring Provider Nurse Practitioner; Visit Provider Nurse Practitioner
DX: E78.00 Pure hypercholesterolemia, unspecified (principal)
CPT/HCPCS: 36415; 80061

== ENCOUNTER → 2020-08-26 11:38 | Outpatient (CLI) | payer MEDICARE, OTHER, SELFPAY ==
--- NOTE | 2020-08-26 11:42 | DI.RAD.S_ITS ---
PROCEDURE: XR FOOT LT MIN 3V INDICATIONS: L MTP swelling/pain TECHNIQUE: 3 views of the foot were acquired. COMPARISON: None. FINDINGS: Bones: No fractures or dislocations. No suspicious bony lesions. Mild hallux valgus deformity is seen, with associated focal degenerative change of the 1st metatarsophalangeal joint. Milder degenerative changes are seen elsewhere. Incidental note is made of an accessory ossicle, an os tibiale externum. Soft tissues: There is distal soft tissue swelling. Mild calcification can be seen adjacent to the 1st metatarsophalangeal joint. IMPRESSION: Distal soft tissue swelling is seen. Calcification can be seen adjacent to the 1st metatarsophalangeal joint. Please consider gout. If there is strong suspicion for developing osteomyelitis, please consider a dedicated MRI without and with contrast for further evaluation (assuming that there is no contraindication to MRI). Dictated by: Meek Day M.D. on 08/26/2020 at 11:37 Approved by: Meek Day M.D. on 08/26/2020 at 11:39
[2020-08-26 12:49] LABS: Uric Acid 7.9 mg/dL (2.5-6.2)
== END ==
PROVIDERS: PCP Family Medicine; Referring Provider Physician Assistant; Visit Provider Physician Assistant
DX: M79.675 Pain in left toe(s) (principal)
CPT/HCPCS: 36415; 73630; 84550

== ENCOUNTER → 2020-11-21 08:00 | Outpatient (CLI) | payer MEDICARE, OTHER, SELFPAY ==
[2020-11-21 08:57] LABS: Cholesterol 275 mg/dL (140-199); HDL Cholesterol 39 mg/dL (40-60); LDL Cholesterol Calculated 172 mg/dL (<100); Triglycerides 322 mg/dL (35-150)
== END ==
PROVIDERS: PCP Family Medicine; Referring Provider Internal Medicine Cardiovascular Disease; Visit Provider Internal Medicine Cardiovascular Disease
DX: E78.00 Pure hypercholesterolemia, unspecified (principal)
CPT/HCPCS: 36415; 80061

== ENCOUNTER → 2021-02-07 14:56 | Outpatient (CLI) | payer MEDICARE, OTHER, SELFPAY ==
[2021-02-07 15:52] LABS: Add Manual Diff / Slide Review NO; Basophils Absolute Auto 0 /uL (0-100); Basophils Percent Auto 0.6 % (0-2); Eosinophils Absolute Auto 100 /uL (0-450); Eosinophils Percent Auto 1.8 % (2-4); Hemoglobin 14.7 g/dL (12.0-16.0); Lymphocytes Absolute Auto 1600 /uL (1100-4500); Lymphocytes Percent Auto 26.2 % (25-40); Mean Corpuscular HGB Conc 33.4 % (30-36); Mean Corpuscular Hemoglobin 30.4 PG (26-34); Monocytes Absolute Auto 600 /uL (0-900); Monocytes Percent Auto 9.6 % (3-14); Neutrophils Absolute Auto 3900 /uL (1500-7000); Neutrophils Percent Auto 61.8 % (50-75); Platelet Count 246 X10^3/uL (150-400); Red Blood Cell Count 4.84 X10^6/uL (4.0-5.2); Red Cell Distribution Width 13.4 % (11.6-14.8); White Blood Cell Count 6.2 X10^3/uL (4.5-11.0)
[2021-02-07 16:29] LABS: BUN Creatinine Ratio 21.4 (6-22); Blood Urea Nitrogen 22 mg/dL (7-17); Calcium 9.6 mg/dL (8.4-10.2); Carbon Dioxide 32 mmol/L (22-32); Chloride 101 mmol/L (98-107); Estimated Glomerular Filt Rate 52.2 mL/min (>60); Glucose 82 mg/dL (80-110); HEMOLYSIS < 15 (0-50); Potassium 4.6 mmol/L (3.4-5.1); Sodium 140 mmol/L (137-145)
[2021-02-08 14:05] LABS: Alanine Aminotransferase 28 IU/L (<35); Albumin 4.2 g/dL (3.5-5.0); Albumin Globulin Ratio 1.6 (1.0-2.8); Alkaline Phosphatase 72 U/L (38-126); Aspartate Aminotransferase 38 IU/L (14-36); Bilirubin Total 0.4 mg/dL (0.2-1.3); Globulin 2.6 g/dL (1.7-4.1); Total Protein 6.8 g/dL (6.3-8.2)
== END ==
PROVIDERS: PCP Family Medicine; Referring Provider Physician Assistant; Visit Provider Physician Assistant
DX: R10.30 Lower abdominal pain, unspecified (principal); Z87.19 Personal history of other diseases of the digestive system; K59.00 Constipation, unspecified
CPT/HCPCS: 36415; 80048; 80053; 82784; 83516; 85025; 86255

== ENCOUNTER 2021-04-08 16:18 | Emergency (ER) | payer MEDICARE, OTHER, SELFPAY ==
[2021-04-08 16:25] VITALS: BP 145/89; PULSE 70; RESP 20; TEMP 36.7; O2SAT 97
--- NOTE | 2021-04-08 16:27 | DI.RAD.S_ITS ---
PROCEDURE: XR CHEST 1V INDICATIONS: chest pain TECHNIQUE: One view of the chest was acquired. COMPARISON: None. FINDINGS: Surgical changes and devices: None. Lungs and pleura: Lungs are clear. No pleural effusions or pneumothorax. Mediastinum: The cardiac contours are within normal limits. The aorta demonstrates calcification and tortuosity. Bones and chest wall: No suspicious bony lesions. Age-appropriate bony degenerative changes are seen. Overlying soft tissues appear unremarkable. IMPRESSION: Unremarkable portable chest for age. Dictated by: Meek Day M.D. on 04/08/2021 at 16:03 Approved by: Meek Day M.D. on 04/08/2021 at 16:03
--- NOTE | 2021-04-08 16:38 | ED.CHESTPAIN ---
HPI - Chest Pain General Chief Complaint: Chest Pain Stated Complaint: rapid heartrate/headache/shaky today Time Seen by Provider: 04/08/21 16:23 Source: patient Mode of arrival: Ambulatory History of Present Illness HPI narrative: 75-year-old woman with a history of hyperlipidemia, restless leg syndrome and elevated blood sugars presents with 2 episodes of palpitations/rapid heart rate. She states she awoke this morning and did not feel quite right, a little bit shaky and then noticed palpitations that lasted for approximately 45 minutes. She had recently been prescribed glipizide and decided she would try 1 of those this morning to see if it influence her symptoms. She does not have the ability to monitor blood sugars. Symptoms seem to be better and she actually did a brief walk and after this had some mild nausea. Later that afternoon she had another episode of rapid heart rate associated with mild diaphoresis and slight tightness or her chest. She presents to the emergency department now complaining of slight left-sided chest pain radiating toward her back not associated with palpitations, nausea or diaphoresis this time. She has never had similar symptoms. She does note that she has had a mild headache on and off today. She has not recently had any fevers. She isn't noticing orthopnea as not having lower extremity edema has had a slight weight increase over the last number of weeks. No dysuria, abdominal pain, flank pain or constipation. Related Data Home Medications Medication Instructions Recorded Confirmed No Known Home Medications 08/26/20 08/26/20 Allergies Allergy/AdvReac Type Severity Reaction Status Date / Time No Known Drug Allergies Allergy Unverified 08/26/20 11:06 Review of Systems Review of Systems Narrative: Remainder of complete review of systems is otherwise unremarkable except for that included in the HPI. Patient History Medical History (Updated 04/08/21 @ 17:28 by Rosa Velazquez MD) Elevated blood sugar Hyperlipidemia Hypothyroidism (acquired) Social History Smoking Status: Never smoker eating out: 1-3 times/week Type(s) of exercise: walking, swimming and yoga Smoking Status: Never smoker Exam Initial Vital Signs Initial Vital Signs: Vital Signs Temperature 98.1 F 04/08/21 16:25 Pulse Rate 70 04/08/21 16:25 Respiratory Rate 20 04/08/21 16:25 Blood Pressure 145/89 H 04/08/21 16:25 Pulse Oximetry 97 04/08/21 16:25 General: Healthy appearing, in no acute distress. Able to give a complete and coherent history. Well-nourished well-developed HEENT: Moist mucous membranes, normal sclera with reactive pupils, Neck: No JVD, supple Respiratory: Lungs are clear to auscultation, no wheezing no rales no rhonchi. Full and symmetrical air movement Cardiac: Regular rate and rhythm no murmurs no bruits Abdomen: Soft, nontender, good bowel tones, no flank pain Skin: Warm and dry, no rashes Neurologic: Grossly neurologically intact with no obvious asymmetries or abnormalities Extremities: No trauma, well perfused Psych: Cooperative, appropriate insight and affect Course Orders Ordered: ED Orders 04/08/21 16:27 XR chest 1V Stat EKG-12 Lead Stat 04/08/21 16:28 Complete Blood Count AUTO DIFF Stat Comprehensive Metabolic Panel Stat Lipase Stat Magnesium Stat Troponin & CK Cardiac Panel Stat Urinalysis and Microscopic Stat Vital Signs Vital signs: Vital Signs - 8 hr 04/08/21 16:25 Temperature 98.1 F Pulse Rate 70 Respiratory Rate 20 Blood Pressure 145/89 H Pulse Oximetry 97 MDM - Chest Pain Lab Data Result diagrams: 04/08/21 16:28 04/08/21 16:28 Labs: Lab Results 04/08/21 04/08/21 04/08/21 Range/Units 16:28 16:28 16:28 WBC 9.6 (4.5-11.0) X10^3/uL RBC 4.74 (4.0-5.2) X10^6/uL Hgb 14.5 (12.0-16.0) g/dL Hct 42.6 (36-46) % MCV 89.8 (80-100) fL MCH 30.6 (26-34) PG MCHC 34.0 (30-36) % RDW 13.8 (11.6-14.8) % Plt Count 258 (150-400) X10^3/uL Neut % (Auto) 62.3 (50-75) % Lymph % (Auto) 29.5 (25-40) % Moore % (Auto) 6.6 (3-14) % Eos % (Auto) 0.9 L (2-4) % Baso % (Auto) 0.7 (0-2) % Neut # (Auto) 6000 (0750-1649) /uL Lymph # (Auto) 2800 (2203-4763) /uL Moore # (Auto) 600 (0-900) /uL Eos # (Auto) 100 (0-450) /uL Baso # (Auto) 100 (0-100) /uL Sodium 140 (137-145) mmol/L Potassium 3.6 (3.4-5.1) mmol/L Chloride 104 (98-107) mmol/L Carbon Dioxide 30 (22-32) mmol/L BUN 22 H (7-17) mg/dL Creatinine 1.01 (0.52-1.04) mg/dL Estimated GFR 53.4 L (>60) mL/min BUN/Creatinine Ratio 21.8 (6-22) Glucose 63 L (80-110) mg/dL Calcium 10.0 (8.4-10.2) mg/dL Magnesium 2.1 (1.6-2.3) mg/dL Total Bilirubin 0.3 (0.2-1.3) mg/dL AST 40 H (14-36) IU/L ALT 32 (<35) IU/L Alkaline Phosphatase 78 (38-126) U/L Total Creatine Kinase 95 (30-135) U/L CK-MB (CK-2) TNP CK-MB (CK-2) Rel Index TNP Troponin I 0.019 (0.01-0.034) ng/mL Total Protein 7.8 (6.3-8.2) g/dL Albumin 4.5 (3.5-5.0) g/dL Globulin 3.3 (1.7-4.1) g/dL Albumin/Globulin Ratio 1.4 (1.0-2.8) Lipase 79 (23-300) U/L Urine Color Yellow Urine Appearance Clear Urine pH 5.5 (4.5-8.0) Ur Specific [place] <=1.005 (1.000-1.035) Urine Protein Negative (Negative) Urine Glucose (UA) Negative (Negative) g/dL Urine Ketones Negative (NEGATIVE) Urine Occult Blood 1+ H (Negative) Urine Nitrate Negative (Negative) Urine Bilirubin Negative (NEGATIVE) Urine Urobilinogen 0.2 (0.2) E.U./dL Ur Leukocyte Esterase Negative (NEGATIVE) Urine RBC 0-1/hpf (0-5/HPF) Urine WBC 0-1/hpf (0-5/HPF) Ur Squamous Epith Cells 1-5 /hpf (0-5/HPF) Urine Bacteria None seen (None) Ur Culture Indicated? Cult not indicated Urine Dip Bedside Urine Glucose Negative Bedside Urine Bilirubin - Negative Bedside Urine Ketone - Negative Urine Specific [place] 1.010 Bedside Urine Occult Blood +/- Bedside Urine pH 6.0 Bedside Urine Protein - Negative Bedside Urine Urobilinogen - Negative Bedside Urine Nitrite - Negative Bedside Urine Leukocytes - Negative Esterase Imaging Data Chest x-ray: Radiologist's Impression: FINDINGS:? ? Surgical changes and devices:? None.? ? Lungs and pleura:? Lungs are clear.? No pleural effusions or pneumothorax.? ? Mediastinum:? The cardiac contours are within normal limits. The aorta demonstrates calcification and tortuosity. ? Bones and chest wall:? No suspicious bony lesions.? Age-appropriate bony degenerative changes are seen.? ? Overlying soft tissues appear unremarkable.? IMPRESSION:? Unremarkable portable chest for age. ? ? Dictated by: Meek Day M.D. on 04/08/2021 at 16:03 ? ? ECG Data Interpretation: Sinus rhythm at a rate of 71 Normal intervals, normal axis No acute ischemic changes MDM Narrative Medical decision making narrative: 35-year-old woman with complaints of palpitations lasting 30 and 45 minutes respectively. Workup is unremarkable including troponin. Chest x-rays equally reassuring. This morning she did take a newly prescribed diabetic medication is slightly hypoglycemic at this time. She does not have a blood glucose monitor and did not know sugars before taking medication. At this time I do not have a complete explanation for her symptoms but I am not finding a life-threatening diagnosis or reason for hospital admission at this time. I am going to recommend that she not take the glipizide until she also has a blood sugar monitor and is able to check sugars at home. She is given a small meal in the emergency department with a blood sugar at 63. And she may also benefit from an out patient event monitor to see if we can catch 1 of these episodes of palpitations and make an actual diagnosis can be appropriately treated. Will have her contact her primary care doctor tomorrow for an ER follow-up visit. They may be able to facilitate placement of a Zio patch prior to the follow-up visit. Discharge Plan Departure Patient Disposition: Home Clinical Impression: Heart palpitations, Atypical chest pain, Hypoglycemia Instructions: DI for Arrhythmias Activity Restrictions/Additional Instructions: Thank you for coming in today Your exam was very reassuring and I did not find a life-threatening explanation for the 2 episodes of palpitations or the shakiness that you have been experiencing today. Your blood sugar was slightly low and I believe that is related to the glipizide that you took this morning. I would recommend that you avoid this medication until you also have access to a blood sugar monitor and can make sure that your sugars actually low before taking Regarding the palpitations, with episodes that last 30-45 minutes I would recommend that you call 911 the next time you experience this so that they can get an EKG and we can see what this rhythm is. I would also recommend that you call your primary care doctor tomorrow, let him know that your in the emergency department having palpitations. You may benefit from a Zio Patch. This is a outpatient monitor that you wear that monitors her heart rate to catch episodes of palpitations such as your describing. If you have worsening symptoms or new findings, please return to the ER I wish you the best Prescriptions: No Action No Known Home Medications 0RF Referrals: Sabino Munoz MD [Primary Care Provider] -
[2021-04-08 16:45] VITALS: PULSE 75; RESP 28
[2021-04-08 16:49] VITALS: BP 188/83; PULSE 77; RESP 15; O2SAT 98
[2021-04-08 16:50] LABS: Add Manual Diff / Slide Review NO; Basophils Absolute Auto 100 /uL (0-100); Basophils Percent Auto 0.7 % (0-2); Eosinophils Absolute Auto 100 /uL (0-450); Eosinophils Percent Auto 0.9 % (2-4); Hematocrit 42.6 % (36-46); Hemoglobin 14.5 g/dL (12.0-16.0); Lymphocytes Absolute Auto 2800 /uL (1100-4500); Lymphocytes Percent Auto 29.5 % (25-40); Mean Corpuscular Hemoglobin 30.6 PG (26-34); Mean Corpuscular Volume 89.8 fL (80-100); Monocytes Absolute Auto 600 /uL (0-900); Monocytes Percent Auto 6.6 % (3-14); Neutrophils Absolute Auto 6000 /uL (1500-7000); Neutrophils Percent Auto 62.3 % (50-75); Platelet Count 258 X10^3/uL (150-400); Red Blood Cell Count 4.74 X10^6/uL (4.0-5.2); Red Cell Distribution Width 13.8 % (11.6-14.8); White Blood Cell Count 9.6 X10^3/uL (4.5-11.0)
[2021-04-08 17:00] VITALS: BP 167/60; PULSE 73; RESP 13; O2SAT 98
[2021-04-08 17:01] LABS: Alanine Aminotransferase 32 IU/L (<35); Albumin 4.5 g/dL (3.5-5.0); Albumin Globulin Ratio 1.4 (1.0-2.8); Alkaline Phosphatase 78 U/L (38-126); Aspartate Aminotransferase 40 IU/L (14-36); BUN Creatinine Ratio 21.8 (6-22); Bilirubin Total 0.3 mg/dL (0.2-1.3); Blood Urea Nitrogen 22 mg/dL (7-17); Carbon Dioxide 30 mmol/L (22-32); Chloride 104 mmol/L (98-107); Creatine Kinase 95 U/L (30-135); Estimated Glomerular Filt Rate 53.4 mL/min (>60); Globulin 3.3 g/dL (1.7-4.1); Glucose 63 mg/dL (80-110); HEMOLYSIS < 15 (0-50); Lipase 79 U/L (23-300); Magnesium 2.1 mg/dL (1.6-2.3); Potassium 3.6 mmol/L (3.4-5.1); Sodium 140 mmol/L (137-145); Total Protein 7.8 g/dL (6.3-8.2)
[2021-04-08 17:11] LABS: Appearance Urine UA CLEAR; Bilirubin Urine UA NEGATIVE (NEGATIVE); Color Urine UA YELLOW; Glucose Urine UA NEGATIVE (Negative); Ketones Urine UA NEGATIVE (NEGATIVE); Leukocyte Esterase Urine UA NEGATIVE (NEGATIVE); Nitrite Urine UA NEGATIVE (Negative); Occult Blood Urine UA 1+ (Negative); Protein Urine UA NEGATIVE (Negative); Specific Gravity Urine UA <=1.005 (1.000-1.035); Urobilinogen Urine UA 0.2 E.U./dL (0.2)
[2021-04-08 17:12] LABS: Troponin I 0.019 ng/mL (0.01-0.034)
[2021-04-08 17:14] LABS: pH Urine UA 5.5 (4.5-8.0)
[2021-04-08 17:21] LABS: Bacteria Urine None Seen; Culture Indicated Urine Cult Not Indicated; RBC Urine 0-1/HPF (0-5/HPF); Squamous Epithelial Cell Urine 1-5 /HPF (0-5/HPF); WBC Urine 0-1/HPF (0-5/HPF)
[2021-04-08 17:30] VITALS: PULSE 73; RESP 15; O2SAT 97
[2021-04-08 17:31] VITALS: BP 187/75; PULSE 76; RESP 20; O2SAT 97
== END 2021-04-08 17:45 | disposition home or self-care (01) ==
PROVIDERS: Emergency Provider Emergency Medicine; PCP Family Medicine
DX: R00.2 Palpitations (principal); R07.89 Other chest pain; E16.2 Hypoglycemia, unspecified
CPT/HCPCS: 36415; 71045; 80053; 81001; 81003; 82550; 83690; 83735; 84484; 85025; 93005; 99283; 99284

== ENCOUNTER → 2021-07-20 10:10 | Outpatient (CLI) | payer MEDICARE, OTHER, SELFPAY ==
--- NOTE | 2021-07-19 11:42 | DIAB.MNT ---
Initial Diabetes Medical Nutrition Therapy Assessment Name: Yissel Sotelo Date: 07/18/21 Time: 240-330p Dx: Type II Diabetes Provider: Tammy Yissel presents for initial diabetes telehealth visit using [employer] platform. Moved to [place] and tries to do most of her visits via telehealth. Will present in-person next visit. Due for labs this month. Unsure of her last HgA1c. Per referral, last hgA1c was May of 2020, 7%. In March she was taking glipizide and went to the ER due to racing HR, was found to have low BG. Glipizide was discontinued. Was subsequently started on glimepiride x 1mg, but she is currently taking half dose due to fear of lows. Jardiance was too expensive, so not currently taking. Current BG on half dose seems to be working, see SMBG below. Not using freestyle jesús due to missing ?the part that goes on your arm?. Has purchased the reader. Medication list includes both sensor and reader. States Kiera was out of the sensors. Concerns for cost of CGM since Medicare is not covering. Sensors generally run $70 for one 14 day. States $140 per month is too much for her to pay regularly. Today Yissel is tearful about compulsive overeating. States it feels someone else takes over her body at night when watching TV. Has tried turning TV off. States this started about 4 years ago. Seems to correlate with when her and her ex- . Has attended OA meetings which she found helpful, considering this again. Anthropometrics: Wt: 213# last wt in EMR 03/2021 Physical Activity: Water walking twice per week for 60 min. Recently started walking 20 min this week a couple days. Back pain is a barrier. Self-Monitoring Blood Glucose: Though she is having some elevated FBG per ADA guidelines, perhaps a more appropriate goal at this time is <140 mg/dL. Other readings all in goal. Likely would benefit from continuing the half dose of glimepiride at this time. She is open to purchasing one 14 day sensor. We can set this up at our next visit and review results. Date Pre Post Pre Post Pre Post HS 07/15 141 112 142 5/2 135 111 157 07/17 136 90 130 5/ 153 110 Diabetes Medications: 0.5mg glimepiride 10mg Jardiance (not taking d/t cost) Pertinent Labs: last HgA1c per referral 7% 05/2020 Past Medical History: (Last Updated 05/14/21 @ 21:32 by Imani Loya) Allergies Anxiety Chicken pox Chronic back pain Compulsive overeating Diverticular disease Elevated blood sugar Gastric ulcer 20 years Gout Hemorrhoid History of appendectomy History of hernia repair History of hysterectomy History of tonsillectomy Hyperlipidemia Hypothyroidism (acquired) Lower abdominal pain Measles Osteoarthritis Osteoporosis Prediabetes Restless leg syndrome 40 years Sleep apnea 15 years ago Status post right knee replacement Tinnitus Nutrition Rx: Plate Method Nutrition Diagnosis: - Nutrition and food related knowledge deficit r/t needing additional resources for compulsive overeating aeb pt report - Suboptimal physical activity r/t <150 mins exercise per week aeb pt report and expressing desire to increase Intervention: This participant was very receptive. Provided appropriate educational handouts. Discussed the following topics: Completed intake assessment. Discussed barriers to care. Physical activity plan CGM cost, resources, and benefits Since she has already purchased the reader, we will plan to proceed with at least one sensor placement and evaluation, she has agreed to this plan Over eating and emotional eating, potential for therapy Therapy benefits and working with RD at the same time for strategies BG review, trends Medication review, costs of Jardiance vs Sulfonylurea, risk for lows Rule of 15 tx for lows, s/s lows Created SMART goals for patient self-care and success. Goals: Continue half dose of sulfonylurea at this time Walk 2-3 x per week safely Swim 2x per week Call kiera about sensor Research therapist covered by insurance Follow-up: SUNNI JACKSON follow-up in 3-4 weeks Emma Garcia RDN, [facility] Certified Diabetes [facility] and [employer] P: [phone] Thank you for this referral
== END ==
PROVIDERS: PCP Family Medicine; Referring Provider Family Medicine; Visit Provider Family Medicine
DX: E11.9 Type 2 diabetes mellitus without complications (principal); Z79.84 Long term (current) use of oral hypoglycemic drugs; Z71.3 Dietary counseling and surveillance
CPT/HCPCS: 97802

== ENCOUNTER → 2021-08-09 08:52 | Outpatient (CLI) | payer MEDICARE, OTHER, SELFPAY ==
--- NOTE | 2021-08-17 16:55 | DIAB.FU ---
Follow-up Diabetes Education Assessment Name: Yissel Sotelo Date: 08/09/21 Time: 9-10a Dx: Type II Diabetes Yissel presents for DM ed follow-up. Reports using new Freestyle jesús but had to remove prematurely. Only had 3 days of results. Open to trying another 14 days. Aiming for low carb maels, ie cauliflower pizza and salad or fish and veggies. Continues to struggle with over eating in the evening. Keeps chips out of the house due to urges to eat entire large bag. Tried taking a supplement for cholesterol since she has pain with statin. This supplement ([place]) reportedly also reduced BG. Endorses stopping both the supplement and glimepiride due to hypoglycemia (55 mg/dL). No finger stick to confirm. Currently taking alternative cholesterol lowering meds from sandblaster paint sprayer. Physical Activity: swimming 2 x per week for 60 min Self-Monitoring Blood Glucose: Average BG per CGm 108mg/dL. Range of BG 55-156 mg/dL. TIR 98% 1% low 1% above goal 70-180mg/dL target Diabetes Medications: glimepiride (not taking) Pertinent Labs: last HgA1c per referral 7% 05/2020 (will ask for new labs from PCP office) Past Medical History: (Last Updated 05/14/21 @ 21:32 by Imani Loya) Allergies Anxiety Chicken pox Chronic back pain Compulsive overeating Diverticular disease Elevated blood sugar Gastric ulcer 20 years Gout Hemorrhoid History of appendectomy History of hernia repair History of hysterectomy History of tonsillectomy Hyperlipidemia Hypothyroidism (acquired) Lower abdominal pain Measles Osteoarthritis Osteoporosis Prediabetes Restless leg syndrome 40 years Sleep apnea 15 years ago Status post right knee replacement Tinnitus Intervention: This participant was very receptive. Provided appropriate educational handouts. Discussed the following topics: Recent blood sugar results and trends Medication management Avoiding supplement ivonne while trial of cholesterol lowering meds with sandblaster paint sprayer Disordered eating resources Physical activity plan and impact on blood sugars CGM trial and results confirming lows with a finger stick Rule of 15 for lows Created SMART goals for patient self-care and success. Goals: Continue half dose of sulfonylurea at this time- in progress Walk 2-3 x per week safely-in progress Swim 2x per week- met Call karen about sensor- met Research therapist covered by insurance- met call disordered eating resource- new Get new CGM sensor- new stop supplement and resume half sulfonylurea- new confirm any lows with finger stick- new Follow-up: SUNNI JACKSON follow-up in 3-4 weeks Emma Garcia RDN, [facility] Certified Diabetes Care and [employer] P: [phone] Thank you for this referral
== END ==
PROVIDERS: PCP Family Medicine; Referring Provider Family Medicine; Visit Provider Family Medicine
DX: E11.9 Type 2 diabetes mellitus without complications (principal); Z71.3 Dietary counseling and surveillance
CPT/HCPCS: G0108

== ENCOUNTER → 2021-09-27 11:00 | Outpatient (CLI) | payer MEDICARE, OTHER, SELFPAY ==
[2021-09-07 13:41] VITALS: BMI 36.6
== END ==
PROVIDERS: Family Provider Family Medicine; PCP Family Medicine; Referring Provider Family Medicine; Visit Provider Family Medicine
DX: Z53.20 Procedure and treatment not carried out because of patient's decision for unspecified reasons (principal)

== ENCOUNTER → 2021-10-10 09:50 | Outpatient (CLI) | payer MEDICARE, OTHER, SELFPAY ==
[2021-09-07 13:41] VITALS: BMI 36.6
--- NOTE | 2021-10-18 16:42 | DIAB.MNTFU ---
Follow-up Diabetes Medical Nutrition Therapy Assessment Name: Yissel Sotelo Date: 10/10/21 Time: 1010-1110a Dx: Type II Diabetes Yissel presents today for follow-up regarding T2DM. States she has been having lower GI pain, sees GI provider in October. Endorse possible diverticulitis. States she has found a counselor for reported compulsive eating, first visit next week. Recently her binge episodes are described as high in protein, ie 8oz meat. Seems this may be more related to avoiding carbs. She omits carb foods and to feel satisfied is increasing her pro intake, which is common. Additionally, she may be grazing in the evenings trying to avoid evening eating. 1-3p tacos x 2 4p salad 430p 2 sandwiches on thin bread, 6p cookies Today she brought in a label with questions regarding how to read it appropriately. Anthropometrics: Wt: 213# last wt in EMR 03/2021 Physical Activity: Water walking twice per week for 60 min. Walking 20 min this week a couple days. Back pain is a barrier. Self-Monitoring Blood Glucose: Infrequent lows reported, often occurs with extended fasting. Set CGM goal 80-180 mg/dL. Reports confirming some lows with a finger prick, and BG at that time was not <70 mg/dL. Encouraged her to continue this prn. 7d 2% above goal 98% in goal 0% below 14d 3% above goal 97% in goal 0% below Diabetes Medications: 0.5mg glimepiride 10mg Jardiance (not taking d/t cost) Pertinent Labs: HgA1c : 6.7% 07/2021 7% 05/2020 Past Medical History: (This Medical Record has been edited. Action required.) Allergies Anxiety Anxiety about health upcoming right knee surgery, family dynamics Chicken pox Chronic back pain Compulsive overeating Diverticular disease Elevated blood sugar Gastric ulcer 20 years Gout Hemorrhoid Hyperlipemia No medication Hyperlipidemia Hypothyroid Hypothyroidism (acquired) Lower abdominal pain Measles Osteoarthritis Osteoarthritis Osteoporosis Prediabetes Restless leg syndrome 40 years RLS (restless legs syndrome) Seasonal allergies Sleep apnea 15 years ago Sleep apnea treated with nocturnal BiPAP Tinnitus Nutrition Rx: Carbohydrates: Meal: 30-45g Snack: 15-30g Nutrition Diagnosis: - Nutrition and food related knowledge deficit r/t needing additional resources for compulsive overeating aeb pt report- in progress - Suboptimal physical activity r/t <150 mins exercise per week aeb pt report and expressing desire to increase- improved - Nutrition and food related knowledge deficit r/t needing additional carb counting and label reading ed aeb pt report- new Intervention: This participant was very receptive. Provided appropriate educational handouts. Discussed the following topics: Blood sugar review and trends. Impact of food and fasting intake on results. Plate Method, impact of macronutrients on blood sugar, meal timing, carbohydrate counting, pairing macronutrients and spreading out carbohydrates for better blood glucose management label reading for net carbs Meal planning and carb counting review Brainstormed meal plan based on pt's food preferences Discussed binge eating recs on avoiding long periods of fasting and scheduling meals/snacks Physical activity plan and progress Created SMART goals for patient self-care and success. Goals: call disordered eating resource- met Get new CGM sensor- met stop supplement and resume half sulfonylurea- met confirm any lows with finger stick- met Read labels for net carbs- new Eat carbs with pro- new Eat q 3-4 hours- new Schedule an 8p snack- new Follow-up: SUNNI JACKSON follow-up in 3-4 weeks Emma Garcia RDN, MANUEL Certified Diabetes Care and Banquet Attendant P: [phone] Thank you for this referral
== END ==
PROVIDERS: Family Provider Family Medicine; PCP Family Medicine; Referring Provider Family Medicine; Visit Provider Family Medicine
DX: E11.9 Type 2 diabetes mellitus without complications (principal); Z71.3 Dietary counseling and surveillance; Z68.36 Body mass index [BMI] 36.0-36.9, adult
CPT/HCPCS: 97803

== ENCOUNTER → 2021-10-10 09:51 | Outpatient (CLI) | payer MEDICARE, OTHER, SELFPAY ==
[2021-09-07 13:41] VITALS: BMI 36.6
--- NOTE | 2021-10-10 14:37 | DI.MG.S_ITS ---
BILATERAL DIGITAL SCREENING MAMMOGRAM 3D/2D WITH CAD: 10/10/2021 CLINICAL: Routine screening. Comparison is made to exam dated: 04/29/2019 mammogram - outside location. The tissue of both breasts is predominantly fatty. Current study was also evaluated with a Computer Aided Detection (CAD) system. No significant masses, calcifications, or other findings are seen in either breast. There has been no significant interval change. IMPRESSION: NEGATIVE There is no mammographic evidence of malignancy. A 1 year screening mammogram is recommended. Based on the Tyrer Cuzick model (a risk assessment model) the patient's lifetime risk is 2.3% and her 10 year risk is 2.3%. According to the ACR, ACS, and NCCN guidelines, an annual breast MRI exam along with mammogram is recommended if the patient's lifetime risk is 20% or greater. This exam was interpreted at Station ID: [id number]. NOTE: For mammograms, a report in lay terms will be sent to the patient. Approximately 15% of breast malignancies will not be visualized mammographically. In the management of a palpable breast mass, a negative mammogram must not discourage biopsy of a clinically suspicious lesion. Electronically Signed By: Mohit alves/johanna:10/10/2021 17:22:26 letter sent: Normal Exam ACR BI-RADS Category 1: Negative [id number]
== END ==
PROVIDERS: Family Provider Family Medicine; PCP Family Medicine; Referring Provider Family Medicine; Visit Provider Family Medicine
DX: M85.851 Other specified disorders of bone density and structure, right thigh (principal); Z12.31 Encounter for screening mammogram for malignant neoplasm of breast; Z13.820 Encounter for screening for osteoporosis; M85.852 Other specified disorders of bone density and structure, left thigh; Z78.0 Asymptomatic menopausal state
CPT/HCPCS: 77063; 77067; 77080

== ENCOUNTER → 2021-11-29 10:54 | Outpatient (CLI) | payer MEDICARE, OTHER, SELFPAY ==
[2021-09-07 13:41] VITALS: BMI 36.6
--- NOTE | 2021-12-13 13:25 | DIAB.FU ---
Follow-up Diabetes Education Assessment Name: Yissel Sotelo Date: 11/29/21 Time: [id number] Dx: Type II Diabetes Yissel presents for follow-up. Reports She has been seeing a therapist for compulsive eating. First couple sessions went well and she felt were helpful. Denies any low BG recently. Taking a break from CGM due to cost. Endorses frustration about lack of weight loss. Today has questions about a supplement to lower BG. Sees endo in next few weeks. Has been reading food labels for net carbs, pairing carbs and protein. Trying to eat q 3-4 hours to help with grazing in evening. Implemented a planned 8p HS snack successfully. Anthropometrics: Wt: Reports 215# Weight history: 213# last wt in EMR 03/2021 Physical Activity: Water walking 2x per week for 60 mins. Also walks 3/4 mi (20min) 5 days per week. Self-Monitoring Blood Glucose: Really likes CGM freestyle jesús, but has to pay out of pocket. Reports 2 hr pc readings up to 150 mg/dL. Reports FBG often 120s with occasional 150 mg/dL. Wondering if she could put an extra adhesive to keep CGM on more securely. Diabetes Medications: 0.5mg glimepiride 10mg Jardiance (not taking d/t cost) Pertinent Labs: HgA1c : 6.7% 07/2021 7% 05/2020 Past Medical History: (Last Reviewed 12/03/21 @ 12:53 by George Portillo MD) Allergies Anxiety Anxiety about health upcoming right knee surgery, family dynamics Chicken pox Chronic back pain Compulsive overeating Diabetes type 2, controlled Diverticular disease Elevated blood sugar Gastric ulcer 20 years Gout Hemorrhoid Hyperlipemia No medication Hyperlipidemia Hypothyroid Hypothyroidism (acquired) Lower abdominal pain Measles Osteoarthritis Osteoarthritis Osteoporosis Prediabetes Restless leg syndrome 40 years RLS (restless legs syndrome) Seasonal allergies Sleep apnea 15 years ago Sleep apnea treated with nocturnal BiPAP Tinnitus Intervention: This participant was very receptive. Provided appropriate educational handouts. Discussed the following topics: Recent blood sugar results and trends reported Efforts for weight loss and strategies Supplement for diabetes: often ineffective, lack of oversight on supplements, expense Physical activity plan and impact on blood sugars Created SMART goals for patient self-care and success. Goals: Read labels for net carbs- met Eat carbs with pro- met Eat q 3-4 hours- met Schedule an 8p snack- met Look for CGM overpatch online- new Ask endo about supplement prn- new Keep log of HS snack and FBG- new Follow-up: SUNNI JACKSON follow-up in 4-5 weeks weeks Emma Garcia RDN, LEONARDES Certified Diabetes Care and Philosophy Lecturer P: [phone] Thank you for this referral
== END ==
PROVIDERS: Family Provider Family Medicine; PCP Family Medicine; Referring Provider Family Medicine; Visit Provider Family Medicine
DX: E11.9 Type 2 diabetes mellitus without complications (principal); Z71.3 Dietary counseling and surveillance; Z79.84 Long term (current) use of oral hypoglycemic drugs
CPT/HCPCS: G0108

== ENCOUNTER → 2021-11-30 09:15 | Outpatient (CLI) | payer MEDICARE, OTHER, SELFPAY ==
[2021-09-07 13:41] VITALS: BMI 36.6
[2021-11-30 10:47] LABS: COVID19 -Nasal RAPID Negative (Negative)
== END ==
PROVIDERS: Family Provider Family Medicine; PCP Family Medicine; Visit Provider Surgery
DX: Z01.812 Encounter for preprocedural laboratory examination (principal); Z20.822 Contact with and (suspected) exposure to COVID-19
CPT/HCPCS: 87635; C9803

== ENCOUNTER 2021-12-03 09:56 | Day surgery (SDC) | payer MEDICARE, OTHER, SELFPAY ==
[2021-09-07 13:41] VITALS: BMI 36.6
[2021-12-03 10:26] VITALS: BMI 39.3
[2021-12-03 10:33] VITALS: BP 124/58; PULSE 60; RESP 16; TEMP 36.5; O2SAT 95
[2021-12-03] MEDS: SODIUM CHLORIDE 0.9% 1,000 ML 84 ML IV (10:53)
--- NOTE | 2021-12-03 12:04 | PM.HP.1 ---
History of Present Illness History of Present Illness Date Patient Seen: 12/03/21 Time Patient Seen: 12:52 Chief complaint: SDC Narrative: I reviewed Dr. Jimenez's note. No significant changes. Patient History Medical History Allergies Anxiety Anxiety about health Chicken pox Chronic back pain Compulsive overeating Diabetes type 2, controlled Diverticular disease Elevated blood sugar Gastric ulcer Gout Hemorrhoid Hyperlipemia Hyperlipidemia Hypothyroid Hypothyroidism (acquired) Lower abdominal pain Measles Osteoarthritis Osteoarthritis Osteoporosis Prediabetes Restless leg syndrome RLS (restless legs syndrome) Seasonal allergies Sleep apnea Sleep apnea treated with nocturnal BiPAP Tinnitus Surgical History Anesthesia H/O bladder repair surgery H/O: hysterectomy History of appendectomy History of hernia repair History of hysterectomy History of tonsillectomy Hx of appendectomy Hx of arthroscopy of left knee Hx of repair of right rotator cuff Hx of tonsillectomy Hx of umbilical hernia repair Status post right knee replacement Family & Social History Family History Father Skin cancer History of heart disease Hypertension Mother COPD (chronic obstructive pulmonary disease) Dementia Brother Cancer Brother Hypertension Hyperlipidemia Sister Hyperlipidemia Hypertension Sister Hypertension Hyperlipidemia Grandmother Diabetes mellitus Social History: household members none Tobacco & Substance use: Tobacco type cigarettes Smoking Status Never smoker alcohol intake current alcohol intake frequency a few times a month Substance Use Type does not use Meds Home Medications and Allergies Home Medications Medication Instructions Recorded Confirmed Type cetirizine 10 mg capsule (Zyrtec) 10 mg PO DAILY PRN seasonal 11/27/17 12/03/21 History allergies levothyroxine 100 mcg tablet 100 mcg PO DAILY 11/27/17 12/03/21 History (Synthroid) ropinirole 0.25 mg tablet 5 tab PO BEDTIME rls 11/27/17 12/03/21 History diclofenac sodium 1 % topical gel 1 applic topical DIRECTED 12/31/17 12/03/21 History glimepiride 1 mg tablet 0.5 mg PO DAILY 12/03/21 12/03/21 History Allergies Allergy/AdvReac Type Severity Reaction Status Date / Time codeine Allergy Mild Blister Verified 12/03/21 10:20 [id number] Reductase AdvReac Severe leg cramps Verified 12/03/21 10:21 Inhibitor loratadine [From Claritin] AdvReac Mild Dizziness Verified 12/03/21 10:20 Review of Systems Review of Systems ROS: Yes All systems reviewed with the patient and are negative except as otherwise documented Exam Vital Signs (past 8 hours): - 12/03/21 10:33 Temperature 97.7 F Pulse Rate 60 Respiratory Rate 16 Blood Pressure 124/58 L Pulse Oximetry 95 Oxygen Delivery Method Room Air Oxygen Delivery Method Room Air Const General: cooperative HENMT Head: normal to inspection Eyes General: appearance normal, both eyes and all related structures Neck Neck: normal visual inspection Chest Chest: normal inspection of the chest Resp Effort & Inspection: normal respiratory effort Cardio Rate: regular rate GI Inspection: normal to inspection Skin General: no rashes or lesions noted Neuro General: patient alert and patient awake Extrem General: normal to inspection and no pedal edema Psych Appearance: grossly normal Assessment & Plan Assessment & Plan narrative: 76-year-old female with constipation lower abdominal pain. She is a family history of colon cancer. Colonoscopy is pursued today. Time Spent With Patient Critical Care time: I spent a total of [] minutes of critical care time on this patient's care today; this time is exclusive of procedural time.
--- NOTE | 2021-12-03 12:54 | PM.PREOP ---
Pre-operative Note COVID-19 COVID-19 status: Negative Result date/Date tested (Pos, Neg/Pending): 11/30/21 Criteria for continued procedure: Possibility delay results in more complex future surgery or treatment Interval Note History & Physical reviewed/Exam performed by Physician: Yes Changes to H&P: No ASA Class (for procedural sedation): III
--- NOTE | 2021-12-03 13:36 | P.OP.COLON_ITS ---
Operative Date/Time/Diagnoses Date of procedure: 12/03/21 Time of procedure: 13:36 Pre-op diagnosis: Family history of colon cancer. Personal history of abdominal pain and constipation. Post-op diagnosis: same Procedure & Clinicians Study performed: Colonoscopy Same procedure as scheduled: Yes Indications: Family history of colon cancer. Personal history of abdominal pain and constipation. Surgeon: George Portillo Procedure Notes SCOAP/Timeout: Done Procedure in detail: After the risks and benefits were explained, written and verbal informed consent was obtained. The patient was brought into the procedure room and placed into the left lateral decubitus position. Please see nurse director translational notes for sedation details. Digital rectal examination was accomplished. The scope was introduced into the patient and advanced under direct visualization to the cecum as identified by the appendiceal orifice and ileocecal valve. The scope was slowly withdrawn to carefully examine the mucosa for any defects or lesions. Comprehensive imaging was accomplished throughout the rectum including the dentate line. The colon was decompressed, the scope was then removed from the patient who tolerated the procedure well. Adult colonoscope Bowel prep adequate Scope withdrawal time: 7 minutes Sedation minutes: 18 Specimen(s): none sent Complications: none Impression: There was some scattered diverticula through the sigmoid. No significant polyps mass lesions or inflammatory features identified throughout. Grade 1 internal hemorrhoids. Endoscopic diagnosis 1. Diverticulosis 2. Grade 1 hemorrhoids Post-procedure Plan for aftercare: 1. Fiber based bowel regimen with Metamucil once or twice a day. 2. MiraLax every other day 3. Consider repeat colonoscopy in 5 years. Disposition: PACU
[2021-12-03 13:40] VITALS: BP 111/41; PULSE 67; RESP 18; TEMP 36.4; O2SAT 94
[2021-12-03 13:44] VITALS: BP 107/49; PULSE 65; RESP 21; O2SAT 94
[2021-12-03 13:49] VITALS: BP 117/61; PULSE 64; RESP 16; O2SAT 98
== END 2021-12-03 14:04 | disposition home or self-care (01) ==
PROVIDERS: Family Provider Family Medicine; PCP Family Medicine; Referring Provider Internal Medicine Gastroenterology; Visit Provider Internal Medicine Gastroenterology
PROC: 0DJD8ZZ Inspection of Lower Intestinal Tract, Via Natural or Artificial Opening Endoscopic (ICD-10-PCS; CPT 45378; principal; 2021-12-03 11:00)
DX: R10.30 Lower abdominal pain, unspecified (principal); Z80.0 Family history of malignant neoplasm of digestive organs; K59.00 Constipation, unspecified; K64.0 First degree hemorrhoids; K57.30 Diverticulosis of large intestine without perforation or abscess without bleeding
CPT/HCPCS: 45378; 82962; J2704

== ENCOUNTER 2023-02-25 08:15 | Outpatient (RCR) | payer MEDICARE, OTHER, SELFPAY ==
[2021-09-07 13:41] VITALS: BMI 36.6
--- NOTE | 2022-08-06 16:55 | PT.OIE ---
Current Diagnoses Spinal stenosis, lumbar region with neurogenic claudication (08/06/22) Radiculopathy, lumbar region (08/06/22) Past Medical History (Last Reviewed 12/03/21 @ 12:53 by George Portillo MD) Allergies Anxiety Anxiety about health Chicken pox Chronic back pain Compulsive overeating Diabetes type 2, controlled Diverticular disease Elevated blood sugar Gastric ulcer Gout Hemorrhoid Hyperlipemia Hyperlipidemia Hypothyroid Hypothyroidism (acquired) Lower abdominal pain Measles Osteoarthritis Osteoarthritis Osteoporosis Prediabetes Restless leg syndrome RLS (restless legs syndrome) Seasonal allergies Sleep apnea Sleep apnea treated with nocturnal BiPAP Tinnitus Past Surgical History (Last Reviewed 12/03/21 @ 12:53 by George Portillo MD) Anesthesia H/O bladder repair surgery H/O: hysterectomy History of appendectomy History of hernia repair History of hysterectomy History of tonsillectomy Hx of appendectomy Hx of arthroscopy of left knee Hx of repair of right rotator cuff Hx of tonsillectomy Hx of umbilical hernia repair Status post right knee replacement Visit Care Team Role Provider Type Sabino Munoz MD Family Provider Physician Primary Care Provider Specialty: Family [facility] Address: [address] [place] [address], [facility] Email: [email or web address] Diego Adame MD Attending Provider Physician Referring Provider Specialty: Orthopedics Orthopedic [facility] Address: [address] [place] [address], [address] Email: [email or web address] Initial Evaluation PT-OP-A Visit Information Start: 08/06/22 09:02 Freq: Status: Active Protocol: Document 08/06/22 09:00 [facility] (Rec: 08/06/22 17:42 [facility] [id number]) Out-Patient Physical Therapy Visit Information Visit Information Visit Type Initial Evaluation Visit Start Time 09:00 Visit Stop Time 09:45 Total Visit Minutes 45 Visit Number 1 Evaluation Information Evaluation Date 08/06/22 PT-OP-B Current Condition Start: 08/06/22 09:02 Freq: Status: Active Protocol: Document 08/06/22 09:05 [facility] (Rec: 08/06/22 09:44 [facility] [id number]) Current Condition History of Current Condition Onset Date 2.5 years ago Current Complaints LBP and right posterior hip pain/gluteal pain History of Current Condition 1-2 months ago symptoms started again all in her back and her right hip. She has been swimming 3 times per week . She will be moving to [facility] and will be within walking distance to the pool. She did have a cortisone injection in February and along with PT she was feeling better but it was worn off now and pain has returned. Nathan PT-OP-C Subjective Start: 08/07/22 09:39 Freq: Status: Active Protocol: Document 08/06/22 09:00 [facility] (Rec: 08/07/22 09:41 [facility] [id number]) Patient Questionnaires Oswestry Low Back Index Oswestry Score 23 Oswestry Impairment 20 to 39% Impaired (Score 20- 39) OP-PT Pain Assessment Location right hip Intensity 6 Scale Used Numeric (0 - 10) Pain Aggravating Factors Standing,Sitting,Walking low back Intensity 6 Scale Used Numeric (0 - 10) Description Sharp,Tender,Tightness Frequency Frequent Pain Aggravating Factors Activity,Standing,Sitting, Walking PT-OP-F Manual Assessment Start: 08/06/22 09:02 Freq: Status: Active Protocol: Document 08/06/22 09:00 [facility] (Rec: 08/07/22 12:38 [facility] [id number]) Manual Assessments Soft Tissue Assessment Soft Tissue Mobility Assessment myofascial tightness in the lumbar paraspinals and right sided piriformis Joint Mobility Assessment Joint Mobility Assessment lumbar stenosis with neurogenic claudification and facet arthropathy, pit is in a exaggerated lumbar lordosis with compression at the L4-5 and L5-S1 in standing PT-OP-G Mobility & Gait Start: 08/07/22 09:39 Freq: Status: Active Protocol: Document 08/06/22 09:00 [facility] (Rec: 08/07/22 12:39 [facility] [id number]) OP Gait Assessment Factors Limiting Gait Function Factors Limiting Gait Function Decreased Strength,Pain Comments Gait Comments increased lumbar compression with gait and pain after walking 1/4 mile, pt takes a shortened step on the right leg PT-OP-K Range of Motion Start: 08/06/22 09:02 Freq: Status: Active Protocol: Document 08/06/22 09:00 [facility] (Rec: 08/07/22 12:38 [facility] [id number]) Hip Goniometric Range of Motion Hip Right Hip ROM WFL No Testing Position Supine Flexion w/Knee Flexed 90 Straight Leg Raise 35 External Rotation 10 left Hip ROM WFL No Testing Position Supine Flexion w/Knee Flexed 95 Straight Leg Raise 40 External Rotation 10 Hip ROM Limitations Hip ROM Limitations Soft Tissue Tightness,Pain Comments pt is limited with both hip flexion/extension as well as hip rotation, pain at end range hip flexion on the right side PT-OP-M Strength Start: 08/06/22 09:02 Freq: Status: Active Protocol: Document 08/06/22 09:00 [facility] (Rec: 08/07/22 12:38 [facility] [id number]) Trunk Strength Trunk Manual Muscle Testing Testing Position Supine Flexion 2+ Poor+ Core Stabilization poor core stabilization and pain with transitional movements Hip Strength Hip Manual Muscle Testing Left Flexion (L2) 3 Fair Abduction 2+ Poor+ External Rotation 2+ Poor+ Right Flexion (L2) 2+ Poor+ Extension (S1) 2+ Poor+ Abduction 2+ Poor+ External Rotation 2+ Poor+ PT-OP-Q Treatments Start: 08/06/22 09:02 Freq: Status: Active Protocol: Document 08/06/22 09:00 [facility] (Rec: 08/06/22 17:43 [facility] [id number]) Manual Therapy Treatment Soft Tissue Mobilization prone on body pillow Mobilization Type Myofascial Release Intensity/Depth Moderate Body Position Prone Comments MFR of the paraspinals and right piriformis musculature PT-OP-T Assessment and Plan Start: 08/06/22 09:02 Freq: Status: Active Protocol: Document 08/06/22 09:00 [facility] (Rec: 08/07/22 09:39 [facility] [id number]) Physical Therapy Assessment Goals 3 Impairment Decreased core and LE strength , pt has difficulty with trunk curl, bridges, and activation of her core Correction Goal (LTG) Pt is able to tolerate dynamic core stabilization with marches in supine without back pain and is I with a HEP LTG Duration 8 weeks 2 Impairment Decreased ability to ambulate due to pain, pt is limited to 1/2 mile when walking on land due to increased pain Human Service Technician Goal (LTG) yeimi is able to return to walking 1/2 mile or more without having to stop and rest due to pain LTG Duration 8 weeks 1 Impairment Decreased lumbar ROM and hip ROM, pain reproduced with end range mobility Short Term Goal (STG) pt's HEP is reviewed and progressed to progress pain free hip and low back ROM STG Duration 5 weeks Assessment Summary Assessment Yeimi is a 76 year old female who returns to physical therapy with chief complaints of LBP and right hip pain. She has a past medical history of lumbar stenosis and neurogenic claudication, lumbar facet arthropathy, OA right hip, B tronchanteric bursitis. She rates her pain as 6/10 and pain prevents her from walking more than 1/2 mile. She has been able to water walk in the pool 3 times per week which helps her. She was seen in PT 6 months ago and did report that PT along with a cortisone injection helped to manage her symptoms. Despite continuing with her exercise program her pain has returned. With evaluation today Yeimi is limited with her lumbar spine ROM as well as her right hip ROM. She presents with tightness in the piriformis and iliopsoas R >L and presents with core weakness. The plan will be to review her HEP and to work towards improved strength for her core. She responds well to manual therapy techniques to decrease compression on her spine. Physical Therapy Plan Frequency and Duration Frequency of Treatment 2x/Week Duration of treatment (weeks) 8 Plan of Care Start Date 08/06/22 Plan of Care End Date 10/01/22 Therapeutic Interventions Therapeutic Interventions Home Exercise Program,Manual Therapy,Neuromuscular Re- education,Patient/Caregiver Education,Self-Care/Home Management,Soft Tissue Mobilization,Therapeutic Exercises Modalities Cold Pack/Ice Massage,Electric Stimulation,Ultrasound Next Visit Focus/Plan Next Note Type Treatment Note Next Visit Plan Review stretches and core stabilization for the hips and lumbar spine, manual soft tissue work for the lumbar paraspinals and right piriformis.
--- NOTE | 2022-08-06 16:55 | PT.OPPOC ---
Physical, Occupational & Speech Therapy At [facility] Current Diagnoses Spinal stenosis, lumbar region with neurogenic claudication (08/06/22) Radiculopathy, lumbar region (08/06/22) Visit Care Team Role Provider Type Sabino Munoz MD Family Provider Physician Primary Care Provider Specialty: Family Practice Address: [facility] [place], [address] Email: [email or web address] Adame MD Attending Provider Physician Referring Provider Specialty: Orthopedics Orthopedic Surgery [facility] Address: [address] [place] [address], [id number] Email: [email or web address] Plan Of Care PT-OP-T Assessment and Plan Start: 08/06/22 09:02 Freq: Status: Active Protocol: Document 08/06/22 09:00 [facility] (Rec: 08/07/22 09:39 [facility] [id number]) Physical Therapy Assessment Goals 3 Impairment Decreased core and LE strength , pt has difficulty with trunk curl, bridges, and activation of her core Mcfp Goal (LTG) Pt is able to tolerate dynamic core stabilization with marches in supine without back pain and is I with a HEP LTG Duration 8 weeks 2 Impairment Decreased ability to ambulate due to pain, pt is limited to 1/2 mile when walking on land due to increased pain Swimming Pool Install[employer]icer Goal (LTG) yeimi is able to return to walking 1/2 mile or more without having to stop and rest due to pain LTG Duration 8 weeks 1 Impairment Decreased lumbar ROM and hip ROM, pain reproduced with end range mobility Short Term Goal (STG) pt's HEP is reviewed and progressed to progress pain free hip and low back ROM STG Duration 5 weeks Assessment Summary Assessment Yeimi is a 76 year old female who returns to physical therapy with chief complaints of LBP and right hip pain. She has a past medical history of lumbar stenosis and neurogenic claudication, lumbar facet arthropathy, OA right hip, B tronchanteric bursitis. She rates her pain as 6/10 and pain prevents her from walking more than 1/2 mile. She has been able to water walk in the pool 3 times per week which helps her. She was seen in PT 6 months ago and did report that PT along with a cortisone injection helped to manage her symptoms. Despite continuing with her exercise program her pain has returned. With evaluation today Yeimi is limited with her lumbar spine ROM as well as her right hip ROM. She presents with tightness in the piriformis and iliopsoas R >L and presents with core weakness. The plan will be to review her HEP and to work towards improved strength for her core. She responds well to manual therapy techniques to decrease compression on her spine. Physical Therapy Plan Frequency and Duration Frequency of Treatment 2x/Week Duration of treatment (weeks) 8 Plan of Care Start Date 08/06/22 Plan of Care End Date 10/01/22 Therapeutic Interventions Therapeutic Interventions Home Exercise Program,Manual Therapy,Neuromuscular Re- education,Patient/Caregiver Education,Self-Care/Home Management,Soft Tissue Mobilization,Therapeutic Exercises Modalities Cold Pack/Ice Massage,Electric Stimulation,Ultrasound Next Visit Focus/Plan Next Note Type Treatment Note Next Visit Plan Review stretches and core stabilization for the hips and lumbar spine, manual soft tissue work for the lumbar paraspinals and right piriformis. Plan of Care Dates Plan of Care Start Date 08/06/22 Plan of Care End Date 10/01/22 Electronically Signed by: Shyanne King, PT 08/07/22 2577 If you are in agreement with this Plan of Care, please return a signed and dated copy. I have reviewed this Plan of Care and certify that the skilled therapy services above are required to meet the patient?s needs. Physician Signature Date Printed Name and Credentials Clinical Instructor Signature Printed Name and Credentials
--- NOTE | 2022-08-14 14:21 | PT.OTN ---
Current Diagnoses Spinal stenosis, lumbar region with neurogenic claudication (08/14/22) Radiculopathy, lumbar region (08/14/22) Physical Therapy Treatment Note PT-OP-A Visit Information Start: 08/06/22 09:02 Freq: Status: Active Protocol: Document 08/14/22 11:22 [facility] (Rec: 08/14/22 11:30 [facility] [id number]) Out-Patient Physical Therapy Visit Information Visit Information Visit Type Treatment Note Visit Start Time 10:30 Visit Stop Time 11:15 Total Visit Minutes 45 Visit Number 2 PT-OP-B Current Condition Start: 08/06/22 09:02 Freq: Status: Active Protocol: Document 08/06/22 09:05 [facility] (Rec: 08/06/22 09:44 [facility] [id number]) Current Condition History of Current Condition Onset Date 2.5 years ago Current Complaints LBP and right posterior hip pain/gluteal pain History of Current Condition 1-2 months ago symptoms started again all in her back and her right hip. She has been swimming 3 times per week . She will be moving to [place] and will be within walking distance to the pool. She did have a cortisone injection in February and along with PT she was feeling better but it was worn off now and pain has returned. Nathan PT-OP-C Subjective Start: 08/07/22 09:39 Freq: Status: Active Protocol: Document 08/14/22 10:34 [facility] (Rec: 08/14/22 10:34 [facility] [id number]) OP-PT Subjective Patient Comments Patient Comments pt has a appointment August [address] Levine PT-OP-F Manual Assessment Start: 08/06/22 09:02 Freq: Status: Active Protocol: Document 08/06/22 09:00 [facility] (Rec: 08/07/22 12:38 [facility] [id number]) Manual Assessments Soft Tissue Assessment Soft Tissue Mobility Assessment myofascial tightness in the lumbar paraspinals and right sided piriformis Joint Mobility Assessment Joint Mobility Assessment lumbar stenosis with neurogenic claudification and facet arthropathy, pit is in a exaggerated lumbar lordosis with compression at the L4-5 and L5-S1 in standing PT-OP-G Mobility & Gait Start: 08/07/22 09:39 Freq: Status: Active Protocol: Document 08/06/22 09:00 [facility] (Rec: 08/07/22 12:39 [facility] [id number]) OP Gait Assessment Factors Limiting Gait Function Factors Limiting Gait Function Decreased Strength,Pain Comments Gait Comments increased lumbar compression with gait and pain after walking 1/4 mile, pt takes a shortened step on the right leg PT-OP-K Range of Motion Start: 08/06/22 09:02 Freq: Status: Active Protocol: Document 08/06/22 09:00 [facility] (Rec: 08/07/22 12:38 [facility] [id number]) Hip Goniometric Range of Motion Hip Right Hip ROM WFL No Testing Position Supine Flexion w/Knee Flexed 90 Straight Leg Raise 35 External Rotation 10 left Hip ROM WFL No Testing Position Supine Flexion w/Knee Flexed 95 Straight Leg Raise 40 External Rotation 10 Hip ROM Limitations Hip ROM Limitations Soft Tissue Tightness,Pain Comments pt is limited with both hip flexion/extension as well as hip rotation, pain at end range hip flexion on the right side PT-OP-M Strength Start: 08/06/22 09:02 Freq: Status: Active Protocol: Document 08/06/22 09:00 [facility] (Rec: 08/07/22 12:38 [facility] [id number]) Trunk Strength Trunk Manual Muscle Testing Testing Position Supine Flexion 2+ Poor+ Core Stabilization poor core stabilization and pain with transitional movements Hip Strength Hip Manual Muscle Testing Left Flexion (L2) 3 Fair Abduction 2+ Poor+ External Rotation 2+ Poor+ Right Flexion (L2) 2+ Poor+ Extension (S1) 2+ Poor+ Abduction 2+ Poor+ External Rotation 2+ Poor+ PT-OP-Q Treatments Start: 08/06/22 09:02 Freq: Status: Active Protocol: Document 08/14/22 11:22 [facility] (Rec: 08/14/22 11:30 [facility] [id number]) Manual Therapy Treatment Soft Tissue Mobilization piriformis release on the right Body Location right piriformis Mobilization Type Myofascial Release Body Position Prone prone on body pillow Body Location lumbar paraspinals Mobilization Type Myofascial Release Intensity/Depth Moderate Body Position Prone Comments MFR of the paraspinals and right piriformis musculature PT-OP-T Assessment and Plan Start: 08/06/22 09:02 Freq: Status: Active Protocol: Document 08/14/22 11:22 [facility] (Rec: 08/14/22 11:30 [facility] [id number]) Physical Therapy Assessment Assessment Summary Assessment Yissel is very tight and tender in the right piriformis as well as her L4-S1 region Physical Therapy Plan Frequency and Duration Frequency of Treatment 2x/Week Duration of treatment (weeks) 8 Plan of Care Start Date 08/06/22 Plan of Care End Date 10/01/22 Therapeutic Interventions Therapeutic Interventions Home Exercise Program,Manual Therapy,Neuromuscular Re- education,Patient/Caregiver Education,Self-Care/Home Management,Soft Tissue Mobilization,Therapeutic Exercises Modalities Cold Pack/Ice Massage,Electric Stimulation,Ultrasound Next Visit Focus/Plan Next Note Type Treatment Note Next Visit Plan Review stretches and core stabilization for the hips and lumbar spine, manual soft tissue work for the lumbar paraspinals and right piriformis.
--- NOTE | 2022-08-27 11:59 | PT.OTN ---
Current Diagnoses Spinal stenosis, lumbar region with neurogenic claudication (08/27/22) Radiculopathy, lumbar region (08/27/22) Physical Therapy Treatment Note PT-OP-A Visit Information Start: 08/06/22 09:02 Freq: Status: Active Protocol: Document 08/27/22 11:55 [facility] (Rec: 08/27/22 11:59 [facility] [id number]) Out-Patient Physical Therapy Visit Information Visit Information Visit Type Treatment Note Visit Start Time 09:50 Visit Stop Time 10:30 Total Visit Minutes 40 Visit Number 3 PT-OP-B Current Condition Start: 08/06/22 09:02 Freq: Status: Active Protocol: Document 08/06/22 09:05 [facility] (Rec: 08/06/22 09:44 [facility] [id number]) Current Condition History of Current Condition Onset Date 2.5 years ago Current Complaints LBP and right posterior hip pain/gluteal pain History of Current Condition 1-2 months ago symptoms started again all in her back and her right hip. She has been swimming 3 times per week . She will be moving to [place] and will be within walking distance to the pool. She did have a cortisone injection in February and along with PT she was feeling better but it was worn off now and pain has returned. Nathan PT-OP-C Subjective Start: 08/07/22 09:39 Freq: Status: Active Protocol: Document 08/27/22 09:48 [facility] (Rec: 08/27/22 10:32 [facility] [id number]) OP-PT Subjective Patient Comments Patient Comments pt notes she had a cortisone injection last week. She had one day relief and then pain returned. PT-OP-F Manual Assessment Start: 08/06/22 09:02 Freq: Status: Active Protocol: Document 08/06/22 09:00 [facility] (Rec: 08/07/22 12:38 [facility] [id number]) Manual Assessments Soft Tissue Assessment Soft Tissue Mobility Assessment myofascial tightness in the lumbar paraspinals and right sided piriformis Joint Mobility Assessment Joint Mobility Assessment lumbar stenosis with neurogenic claudification and facet arthropathy, pit is in a exaggerated lumbar lordosis with compression at the L4-5 and L5-S1 in standing PT-OP-G Mobility & Gait Start: 08/07/22 09:39 Freq: Status: Active Protocol: Document 08/06/22 09:00 [facility] (Rec: 08/07/22 12:39 [facility] [id number]) OP Gait Assessment Factors Limiting Gait Function Factors Limiting Gait Function Decreased Strength,Pain Comments Gait Comments increased lumbar compression with gait and pain after walking 1/4 mile, pt takes a shortened step on the right leg PT-OP-K Range of Motion Start: 08/06/22 09:02 Freq: Status: Active Protocol: Document 08/06/22 09:00 [facility] (Rec: 08/07/22 12:38 [facility] [id number]) Hip Goniometric Range of Motion Hip Right Hip ROM WFL No Testing Position Supine Flexion w/Knee Flexed 90 Straight Leg Raise 35 External Rotation 10 left Hip ROM WFL No Testing Position Supine Flexion w/Knee Flexed 95 Straight Leg Raise 40 External Rotation 10 Hip ROM Limitations Hip ROM Limitations Soft Tissue Tightness,Pain Comments pt is limited with both hip flexion/extension as well as hip rotation, pain at end range hip flexion on the right side PT-OP-M Strength Start: 08/06/22 09:02 Freq: Status: Active Protocol: Document 08/06/22 09:00 [facility] (Rec: 08/07/22 12:38 [facility] [id number]) Trunk Strength Trunk Manual Muscle Testing Testing Position Supine Flexion 2+ Poor+ Core Stabilization poor core stabilization and pain with transitional movements Hip Strength Hip Manual Muscle Testing Left Flexion (L2) 3 Fair Abduction 2+ Poor+ External Rotation 2+ Poor+ Right Flexion (L2) 2+ Poor+ Extension (S1) 2+ Poor+ Abduction 2+ Poor+ External Rotation 2+ Poor+ PT-OP-Q Treatments Start: 08/06/22 09:02 Freq: Status: Active Protocol: Document 08/27/22 11:55 [facility] (Rec: 08/27/22 11:59 [facility] [id number]) Therapeutic Exercises Supine Exercises piformis stretch Reps/Minutes hold 30 sec each side x 2 single knee to chest Reps/Minutes 2 x 30 sec each Prone Exercises prone knee flexion with abdominal stabilization Reps/Minutes x 10 reps each Manual Therapy Treatment Soft Tissue Mobilization piriformis release on the right Body Location right piriformis Mobilization Type Myofascial Release Body Position Prone prone on body pillow Body Location lumbar paraspinals Mobilization Type Myofascial Release Intensity/Depth Moderate Body Position Prone Comments MFR of the paraspinals and right piriformis musculature Manual Techniques manual knee flexion with quad stretch Comments hold 2 min each side PT-OP-T Assessment and Plan Start: 08/06/22 09:02 Freq: Status: Active Protocol: Document 08/27/22 11:55 [facility] (Rec: 08/27/22 11:59 [facility] [id number]) Physical Therapy Assessment Assessment Summary Assessment Yissel was feeling tenderness both sides of the sacrum today. She has just moved to [place] [employer] so now she will be able to go to the pool more days per week which will be beneficial for her. Physical Therapy Plan Frequency and Duration Frequency of Treatment 2x/Week Duration of treatment (weeks) 8 Plan of Care Start Date 08/06/22 Plan of Care End Date 10/01/22 Next Visit Focus/Plan Next Note Type Treatment Note Next Visit Plan Review stretches and core stabilization for the hips and lumbar spine, manual soft tissue work for the lumbar paraspinals and right piriformis.
--- NOTE | 2022-08-29 13:24 | PT.OTN ---
Current Diagnoses Spinal stenosis, lumbar region with neurogenic claudication (08/29/22) Radiculopathy, lumbar region (08/29/22) Physical Therapy Treatment Note PT-OP-A Visit Information Start: 08/06/22 09:02 Freq: Status: Active Protocol: Document 08/29/22 11:30 [facility] (Rec: 08/29/22 12:19 [facility] [id number]) Out-Patient Physical Therapy Visit Information Visit Information Visit Type Treatment Note Visit Start Time 11:20 Visit Stop Time 12:00 Total Visit Minutes 40 Visit Number 4 PT-OP-B Current Condition Start: 08/06/22 09:02 Freq: Status: Active Protocol: Document 08/06/22 09:05 [facility] (Rec: 08/06/22 09:44 [facility] [id number]) Current Condition History of Current Condition Onset Date 2.5 years ago Current Complaints LBP and right posterior hip pain/gluteal pain History of Current Condition 1-2 months ago symptoms started again all in her back and her right hip. She has been swimming 3 times per week . She will be moving to [place] and will be within walking distance to the pool. She did have a cortisone injection in February and along with PT she was feeling better but it was worn off now and pain has returned. Nathan PT-OP-C Subjective Start: 08/07/22 09:39 Freq: Status: Active Protocol: Document 08/29/22 11:30 [facility] (Rec: 08/29/22 12:19 [facility] [id number]) OP-PT Subjective Patient Comments Patient Comments pt notes she still has not had any relief from her cortisone injection. PT-OP-F Manual Assessment Start: 08/06/22 09:02 Freq: Status: Active Protocol: Document 08/06/22 09:00 [facility] (Rec: 08/07/22 12:38 [facility] [id number]) Manual Assessments Soft Tissue Assessment Soft Tissue Mobility Assessment myofascial tightness in the lumbar paraspinals and right sided piriformis Joint Mobility Assessment Joint Mobility Assessment lumbar stenosis with neurogenic claudification and facet arthropathy, pit is in a exaggerated lumbar lordosis with compression at the L4-5 and L5-S1 in standing PT-OP-G Mobility & Gait Start: 08/07/22 09:39 Freq: Status: Active Protocol: Document 08/06/22 09:00 [facility] (Rec: 08/07/22 12:39 [facility] [id number]) OP Gait Assessment Factors Limiting Gait Function Factors Limiting Gait Function Decreased Strength,Pain Comments Gait Comments increased lumbar compression with gait and pain after walking 1/4 mile, pt takes a shortened step on the right leg PT-OP-K Range of Motion Start: 08/06/22 09:02 Freq: Status: Active Protocol: Document 08/06/22 09:00 [facility] (Rec: 08/07/22 12:38 [facility] [id number]) Hip Goniometric Range of Motion Hip Right Hip ROM WFL No Testing Position Supine Flexion w/Knee Flexed 90 Straight Leg Raise 35 External Rotation 10 left Hip ROM WFL No Testing Position Supine Flexion w/Knee Flexed 95 Straight Leg Raise 40 External Rotation 10 Hip ROM Limitations Hip ROM Limitations Soft Tissue Tightness,Pain Comments pt is limited with both hip flexion/extension as well as hip rotation, pain at end range hip flexion on the right side PT-OP-M Strength Start: 08/06/22 09:02 Freq: Status: Active Protocol: Document 08/06/22 09:00 [facility] (Rec: 08/07/22 12:38 [facility] [id number]) Trunk Strength Trunk Manual Muscle Testing Testing Position Supine Flexion 2+ Poor+ Core Stabilization poor core stabilization and pain with transitional movements Hip Strength Hip Manual Muscle Testing Left Flexion (L2) 3 Fair Abduction 2+ Poor+ External Rotation 2+ Poor+ Right Flexion (L2) 2+ Poor+ Extension (S1) 2+ Poor+ Abduction 2+ Poor+ External Rotation 2+ Poor+ PT-OP-Q Treatments Start: 08/06/22 09:02 Freq: Status: Active Protocol: Document 08/29/22 11:30 [facility] (Rec: 09/03/22 13:24 [facility] [id number]) Manual Therapy Treatment Soft Tissue Mobilization piriformis release on the right Body Location right piriformis Mobilization Type Myofascial Release Body Position Prone prone on body pillow Body Location lumbar paraspinals Mobilization Type Myofascial Release Intensity/Depth Moderate Body Position Prone Comments MFR of the paraspinals and right piriformis musculature Manual Techniques manual hamstring stretching Comments hold 1-2 min each side manual knee flexion with quad stretch Comments hold 2 min each side PT-OP-T Assessment and Plan Start: 08/06/22 09:02 Freq: Status: Active Protocol: Document 08/29/22 11:30 [facility] (Rec: 09/03/22 13:24 [facility] [id number]) Physical Therapy Assessment Assessment Summary Assessment Yissel was not as sore on the left side today as last visit . Symptoms primarily on the right side today. She is now able to do her exercises in the pool more often Physical Therapy Plan Frequency and Duration Frequency of Treatment 2x/Week Duration of treatment (weeks) 8 Plan of Care Start Date 08/06/22 Plan of Care End Date 10/01/22 Therapeutic Interventions Therapeutic Interventions Home Exercise Program,Manual Therapy,Neuromuscular Re- education,Patient/Caregiver Education,Self-Care/Home Management,Soft Tissue Mobilization,Therapeutic Exercises Modalities Cold Pack/Ice Massage,Electric Stimulation,Ultrasound Next Visit Focus/Plan Next Note Type Treatment Note Next Visit Plan Review stretches and core stabilization for the hips and lumbar spine, manual soft tissue work for the lumbar paraspinals and right piriformis.
--- NOTE | 2022-09-05 16:59 | PT.OTN ---
Current Diagnoses Spinal stenosis, lumbar region with neurogenic claudication (09/05/22) Radiculopathy, lumbar region (09/05/22) Physical Therapy Treatment Note PT-OP-A Visit Information Start: 08/06/22 09:02 Freq: Status: Active Protocol: Document 09/05/22 16:01 [facility] (Rec: 09/05/22 16:58 [facility] [id number]) Out-Patient Physical Therapy Visit Information Visit Information Visit Type Treatment Note Visit Start Time 16:00 Visit Stop Time 16:45 Total Visit Minutes 45 Visit Number 5 PT-OP-B Current Condition Start: 08/06/22 09:02 Freq: Status: Active Protocol: Document 08/06/22 09:05 [facility] (Rec: 08/06/22 09:44 [facility] [id number]) Current Condition History of Current Condition Onset Date 2.5 years ago Current Complaints LBP and right posterior hip pain/gluteal pain History of Current Condition 1-2 months ago symptoms started again all in her back and her right hip. She has been swimming 3 times per week . She will be moving to [place] and will be within walking distance to the pool. She did have a cortisone injection in February and along with PT she was feeling better but it was worn off now and pain has returned. Nathan PT-OP-C Subjective Start: 08/07/22 09:39 Freq: Status: Active Protocol: Document 09/05/22 16:01 [facility] (Rec: 09/05/22 16:58 [facility] [id number]) OP-PT Subjective Patient Comments Patient Comments Pt reports she saw Dr Levine again and will be given another injection but she needs to wait a little longer PT-OP-F Manual Assessment Start: 08/06/22 09:02 Freq: Status: Active Protocol: Document 08/06/22 09:00 [facility] (Rec: 08/07/22 12:38 [facility] [id number]) Manual Assessments Soft Tissue Assessment Soft Tissue Mobility Assessment myofascial tightness in the lumbar paraspinals and right sided piriformis Joint Mobility Assessment Joint Mobility Assessment lumbar stenosis with neurogenic claudification and facet arthropathy, pit is in a exaggerated lumbar lordosis with compression at the L4-5 and L5-S1 in standing PT-OP-G Mobility & Gait Start: 08/07/22 09:39 Freq: Status: Active Protocol: Document 08/06/22 09:00 [facility] (Rec: 08/07/22 12:39 [facility] [id number]) OP Gait Assessment Factors Limiting Gait Function Factors Limiting Gait Function Decreased Strength,Pain Comments Gait Comments increased lumbar compression with gait and pain after walking 1/4 mile, pt takes a shortened step on the right leg PT-OP-K Range of Motion Start: 08/06/22 09:02 Freq: Status: Active Protocol: Document 08/06/22 09:00 [facility] (Rec: 08/07/22 12:38 [facility] [id number]) Hip Goniometric Range of Motion Hip Right Hip ROM WFL No Testing Position Supine Flexion w/Knee Flexed 90 Straight Leg Raise 35 External Rotation 10 left Hip ROM WFL No Testing Position Supine Flexion w/Knee Flexed 95 Straight Leg Raise 40 External Rotation 10 Hip ROM Limitations Hip ROM Limitations Soft Tissue Tightness,Pain Comments pt is limited with both hip flexion/extension as well as hip rotation, pain at end range hip flexion on the right side PT-OP-M Strength Start: 08/06/22 09:02 Freq: Status: Active Protocol: Document 08/06/22 09:00 [facility] (Rec: 08/07/22 12:38 [facility] [id number]) Trunk Strength Trunk Manual Muscle Testing Testing Position Supine Flexion 2+ Poor+ Core Stabilization poor core stabilization and pain with transitional movements Hip Strength Hip Manual Muscle Testing Left Flexion (L2) 3 Fair Abduction 2+ Poor+ External Rotation 2+ Poor+ Right Flexion (L2) 2+ Poor+ Extension (S1) 2+ Poor+ Abduction 2+ Poor+ External Rotation 2+ Poor+ PT-OP-Q Treatments Start: 08/06/22 09:02 Freq: Status: Active Protocol: Document 09/05/22 16:01 [facility] (Rec: 09/05/22 16:58 [facility] [id number]) Therapeutic Exercises Supine Exercises piformis stretch Reps/Minutes hold 30 sec each side x 2 single knee to chest Reps/Minutes 2 x 30 sec each Manual Therapy Treatment Soft Tissue Mobilization piriformis release on the right Body Location right piriformis Mobilization Type Myofascial Release Body Position Prone prone on body pillow Body Location lumbar paraspinals Mobilization Type Myofascial Release Intensity/Depth Moderate Body Position Prone Comments MFR of the paraspinals and right piriformis musculature Manual Techniques manual hamstring stretching Comments hold 1-2 min each side manual knee flexion with quad stretch Comments hold 2 min each side PT-OP-T Assessment and Plan Start: 08/06/22 09:02 Freq: Status: Active Protocol: Document 09/05/22 16:01 [facility] (Rec: 09/05/22 16:58 [facility] [id number]) Physical Therapy Assessment Assessment Summary Assessment Yissel leaves for vacation tomorrow am, she will be where there is a pool and will bring her pool waist float so she can do her water exercises . Physical Therapy Plan Frequency and Duration Frequency of Treatment 2x/Week Duration of treatment (weeks) 8 Plan of Care Start Date 08/06/22 Plan of Care End Date 10/01/22 Therapeutic Interventions Therapeutic Interventions Home Exercise Program,Manual Therapy,Neuromuscular Re- education,Patient/Caregiver Education,Self-Care/Home Management,Soft Tissue Mobilization,Therapeutic Exercises Modalities Cold Pack/Ice Massage,Electric Stimulation,Ultrasound Next Visit Focus/Plan Next Note Type Treatment Note Next Visit Plan Review stretches and core stabilization for the hips and lumbar spine, manual soft tissue work for the lumbar paraspinals and right piriformis.
--- NOTE | 2022-09-15 18:56 | PT.OPPN ---
Current Diagnoses Spinal stenosis, lumbar region with neurogenic claudication (09/05/22) Radiculopathy, lumbar region (09/05/22) Physical Therapy Progress Note PT-OP-A Visit Information Start: 08/06/22 09:02 Freq: Status: Active Protocol: Document 09/05/22 16:01 [facility] (Rec: 09/05/22 16:58 [facility] [id number]) Out-Patient Physical Therapy Visit Information Visit Information Visit Type Treatment Note Visit Start Time 16:00 Visit Stop Time 16:45 Total Visit Minutes 45 Visit Number 5 PT-OP-B Current Condition Start: 08/06/22 09:02 Freq: Status: Active Protocol: Document 08/06/22 09:05 [facility] (Rec: 08/06/22 09:44 [facility] [id number]) Current Condition History of Current Condition Onset Date 2.5 years ago Current Complaints LBP and right posterior hip pain/gluteal pain History of Current Condition 1-2 months ago symptoms started again all in her back and her right hip. She has been swimming 3 times per week . She will be moving to [place] and will be within walking distance to the pool. She did have a cortisone injection in February and along with PT she was feeling better but it was worn off now and pain has returned. Nathan PT-OP-C Subjective Start: 08/07/22 09:39 Freq: Status: Active Protocol: Document 09/05/22 16:01 [facility] (Rec: 09/05/22 16:58 [facility] [id number]) OP-PT Subjective Patient Comments Patient Comments Pt reports she saw Dr Levine again and will be given another injection but she needs to wait a little longer PT-OP-F Manual Assessment Start: 08/06/22 09:02 Freq: Status: Active Protocol: Document 08/06/22 09:00 [facility] (Rec: 08/07/22 12:38 [facility] [id number]) Manual Assessments Soft Tissue Assessment Soft Tissue Mobility Assessment myofascial tightness in the lumbar paraspinals and right sided piriformis Joint Mobility Assessment Joint Mobility Assessment lumbar stenosis with neurogenic claudification and facet arthropathy, pit is in a exaggerated lumbar lordosis with compression at the L4-5 and L5-S1 in standing PT-OP-G Mobility & Gait Start: 08/07/22 09:39 Freq: Status: Active Protocol: Document 08/06/22 09:00 [facility] (Rec: 08/07/22 12:39 [facility] [id number]) OP Gait Assessment Factors Limiting Gait Function Factors Limiting Gait Function Decreased Strength,Pain Comments Gait Comments increased lumbar compression with gait and pain after walking 1/4 mile, pt takes a shortened step on the right leg PT-OP-K Range of Motion Start: 08/06/22 09:02 Freq: Status: Active Protocol: Document 08/06/22 09:00 [facility] (Rec: 08/07/22 12:38 [facility] [id number]) Hip Goniometric Range of Motion Hip Measured in Degrees Right Hip ROM WFL No Testing Position Supine Flexion w/Knee Flexed 90 Straight Leg Raise 35 External Rotation 10 left Hip ROM WFL No Testing Position Supine Flexion w/Knee Flexed 95 Straight Leg Raise 40 External Rotation 10 Hip ROM Limitations Hip ROM Limitations Soft Tissue Tightness,Pain Comments pt is limited with both hip flexion/extension as well as hip rotation, pain at end range hip flexion on the right side PT-OP-M Strength Start: 08/06/22 09:02 Freq: Status: Active Protocol: Document 08/06/22 09:00 [facility] (Rec: 08/07/22 12:38 [facility] [id number]) Trunk Strength Trunk Manual Muscle Testing Testing Position Supine Flexion 2+ Poor+ Core Stabilization poor core stabilization and pain with transitional movements Hip Strength Hip Manual Muscle Testing Left Flexion (L2) 3 Fair Abduction 2+ Poor+ External Rotation 2+ Poor+ Right Flexion (L2) 2+ Poor+ Extension (S1) 2+ Poor+ Abduction 2+ Poor+ External Rotation 2+ Poor+ PT-OP-T Assessment and Plan Start: 08/06/22 09:02 Freq: Status: Active Protocol: Document 09/05/22 16:01 [facility] (Rec: 09/05/22 16:58 [facility] [id number]) Physical Therapy Assessment Goals 3 Impairment Decreased core and LE strength , pt has difficulty with trunk curl, bridges, and activation of her core Shelter Goal (LTG) Pt is able to tolerate dynamic core stabilization with marches in supine without back pain and is I with a HEP some progress LTG Duration 8 weeks 2 Impairment Decreased ability to ambulate due to pain, pt is limited to 1/2 mile when walking on land due to increased pain Shelter Goal (LTG) yeimi is able to return to walking 1/2 mile or more without having to stop and rest due to pain goal not yet met, pt has been able to increase her days she exercises in the pool LTG Duration 8 weeks 1 Impairment Decreased lumbar ROM and hip ROM, pain reproduced with end range mobility Short Term Goal (STG) pt's HEP is reviewed and progressed to progress pain free hip and low back ROM good progress STG Duration 5 weeks Assessment Summary Assessment Yeimi has been seen for 5 PT visits. She leaves for vacation tomorrow am, she will be where there is a pool and will bring her pool waist float so she can do her water exercises. She continues to note pain but does gain temporary relief with PT. She would benefit from continued PT to meet the above stated goals Physical Therapy Plan Frequency and Duration Frequency of Treatment 2x/Week Duration of treatment (weeks) 8 Plan of Care Start Date 09/05/22 Plan of Care End Date 10/31/22 Therapeutic Interventions Therapeutic Interventions Home Exercise Program,Manual Therapy,Neuromuscular Re- education,Patient/Caregiver Education,Self-Care/Home Management,Soft Tissue Mobilization,Therapeutic Exercises Modalities Cold Pack/Ice Massage,Electric Stimulation,Ultrasound Next Visit Focus/Plan Next Note Type Treatment Note Next Visit Plan Review stretches and core stabilization for the hips and lumbar spine, manual soft tissue work for the lumbar paraspinals and right piriformis.
--- NOTE | 2022-09-15 18:56 | PT.OPPOC ---
Physical, Occupational & Speech Therapy At [facility] Current Diagnoses Spinal stenosis, lumbar region with neurogenic claudication (09/05/22) Radiculopathy, lumbar region (09/05/22) Visit Care Team Role Provider Type Sabino Munoz MD Family Provider Physician Primary Care Provider Specialty: Family Practice Address: [facility] [place], [address] Email: [email or web address] Diego Adame MD Attending Provider Physician Referring Provider Specialty: Orthopedics Orthopedic Surgery Physical Medicine and Rehab Address: [address] [place] [address], [id number] Email: [email or web address] Plan Of Care PT-OP-T Assessment and Plan Start: 08/06/22 09:02 Freq: Status: Active Protocol: Document 09/05/22 16:01 [facility] (Rec: 09/05/22 16:58 [facility] [id number]) Physical Therapy Assessment Goals 3 Impairment Decreased core and LE strength , pt has difficulty with trunk curl, bridges, and activation of her core Retirement Goal (LTG) Pt is able to tolerate dynamic core stabilization with marches in supine without back pain and is I with a HEP some progress LTG Duration 8 weeks 2 Impairment Decreased ability to ambulate due to pain, pt is limited to 1/2 mile when walking on land due to increased pain Retirement Goal (LTG) yeimi is able to return to walking 1/2 mile or more without having to stop and rest due to pain goal not yet met, pt has been able to increase her days she exercises in the pool LTG Duration 8 weeks 1 Impairment Decreased lumbar ROM and hip ROM, pain reproduced with end range mobility Short Term Goal (STG) pt's HEP is reviewed and progressed to progress pain free hip and low back ROM good progress STG Duration 5 weeks Assessment Summary Assessment Yeimi has been seen for 5 PT visits. She leaves for vacation tomorrow am, she will be where there is a pool and will bring her pool waist float so she can do her water exercises. She continues to note pain but does gain temporary relief with PT. She would benefit from continued PT to meet the above stated goals Physical Therapy Plan Frequency and Duration Frequency of Treatment 2x/Week Duration of treatment (weeks) 8 Plan of Care Start Date 09/05/22 Plan of Care End Date 10/31/22 Therapeutic Interventions Therapeutic Interventions Home Exercise Program,Manual Therapy,Neuromuscular Re- education,Patient/Caregiver Education,Self-Care/Home Management,Soft Tissue Mobilization,Therapeutic Exercises Modalities Cold Pack/Ice Massage,Electric Stimulation,Ultrasound Next Visit Focus/Plan Next Note Type Treatment Note Next Visit Plan Review stretches and core stabilization for the hips and lumbar spine, manual soft tissue work for the lumbar paraspinals and right piriformis. Plan of Care Dates Plan of Care Start Date 09/05/22 Plan of Care End Date 10/31/22 Electronically Signed by: Shyanne King, PT 09/15/22 7700 If you are in agreement with this Plan of Care, please return a signed and dated copy. I have reviewed this Plan of Care and certify that the skilled therapy services above are required to meet the patient?s needs. Physician Signature Date Printed Name and Credentials Clinical Instructor Signature Printed Name and Credentials
--- NOTE | 2022-10-03 16:28 | PT.OTN ---
Current Diagnoses Spinal stenosis, lumbar region with neurogenic claudication (10/03/22) Radiculopathy, lumbar region (10/03/22) Physical Therapy Treatment Note PT-OP-A Visit Information Start: 08/06/22 09:02 Freq: Status: Active Protocol: Document 10/03/22 08:04 [facility] (Rec: 10/03/22 08:49 [facility] [id number]) Out-Patient Physical Therapy Visit Information Visit Information Visit Type Treatment Note Visit Start Time 08:00 Visit Stop Time 08:45 Total Visit Minutes 45 Visit Number 6 Evaluation Information Evaluation Date 08/06/22 PT-OP-B Current Condition Start: 08/06/22 09:02 Freq: Status: Active Protocol: Document 08/06/22 09:05 [facility] (Rec: 08/06/22 09:44 [facility] [id number]) Current Condition History of Current Condition Onset Date 2.5 years ago Current Complaints LBP and right posterior hip pain/gluteal pain History of Current Condition 1-2 months ago symptoms started again all in her back and her right hip. She has been swimming 3 times per week . She will be moving to [place] and will be within walking distance to the pool. She did have a cortisone injection in February and along with PT she was feeling better but it was worn off now and pain has returned. Nathan PT-OP-C Subjective Start: 08/07/22 09:39 Freq: Status: Active Protocol: Document 10/03/22 08:04 [facility] (Rec: 10/03/22 08:49 [facility] [id number]) OP-PT Subjective Patient Comments Patient Comments pt notes she has a injection next friday, her back has continued to hurt PT-OP-F Manual Assessment Start: 08/06/22 09:02 Freq: Status: Active Protocol: Document 08/06/22 09:00 [facility] (Rec: 08/07/22 12:38 [facility] [id number]) Manual Assessments Soft Tissue Assessment Soft Tissue Mobility Assessment myofascial tightness in the lumbar paraspinals and right sided piriformis Joint Mobility Assessment Joint Mobility Assessment lumbar stenosis with neurogenic claudification and facet arthropathy, pit is in a exaggerated lumbar lordosis with compression at the L4-5 and L5-S1 in standing PT-OP-G Mobility & Gait Start: 08/07/22 09:39 Freq: Status: Active Protocol: Document 08/06/22 09:00 [facility] (Rec: 08/07/22 12:39 [facility] [id number]) OP Gait Assessment Factors Limiting Gait Function Factors Limiting Gait Function Decreased Strength,Pain Comments Gait Comments increased lumbar compression with gait and pain after walking 1/4 mile, pt takes a shortened step on the right leg PT-OP-K Range of Motion Start: 08/06/22 09:02 Freq: Status: Active Protocol: Document 08/06/22 09:00 [facility] (Rec: 08/07/22 12:38 [facility] [id number]) Hip Goniometric Range of Motion Hip Right Hip ROM WFL No Testing Position Supine Flexion w/Knee Flexed 90 Straight Leg Raise 35 External Rotation 10 left Hip ROM WFL No Testing Position Supine Flexion w/Knee Flexed 95 Straight Leg Raise 40 External Rotation 10 Hip ROM Limitations Hip ROM Limitations Soft Tissue Tightness,Pain Comments pt is limited with both hip flexion/extension as well as hip rotation, pain at end range hip flexion on the right side PT-OP-M Strength Start: 08/06/22 09:02 Freq: Status: Active Protocol: Document 08/06/22 09:00 [facility] (Rec: 08/07/22 12:38 [facility] [id number]) Trunk Strength Trunk Manual Muscle Testing Testing Position Supine Flexion 2+ Poor+ Core Stabilization poor core stabilization and pain with transitional movements Hip Strength Hip Manual Muscle Testing Left Flexion (L2) 3 Fair Abduction 2+ Poor+ External Rotation 2+ Poor+ Right Flexion (L2) 2+ Poor+ Extension (S1) 2+ Poor+ Abduction 2+ Poor+ External Rotation 2+ Poor+ PT-OP-Q Treatments Start: 08/06/22 09:02 Freq: Status: Active Protocol: Document 10/03/22 08:03 [facility] (Rec: 10/03/22 16:27 [facility] [id number]) Manual Therapy Treatment Soft Tissue Mobilization piriformis release on the right Body Location right piriformis Mobilization Type Myofascial Release Body Position Prone prone on body pillow Body Location lumbar paraspinals Mobilization Type Myofascial Release Intensity/Depth Moderate Body Position Prone Comments MFR of the paraspinals and right piriformis musculature Manual Techniques manual hip IR/ER Body Location B hips Body Position Prone Reps/Duration 2 reps each Comments stretching into hip IR/ER manual knee flexion with quad stretch Comments hold 2 min each side PT-OP-T Assessment and Plan Start: 08/06/22 09:02 Freq: Status: Active Protocol: Document 10/03/22 08:03 [facility] (Rec: 10/03/22 16:27 [facility] [id number]) Physical Therapy Assessment Assessment Summary Assessment Yissel was not able to use the pool while on her cruise as it was too cold. She returns in continued pain. She does have a MD appt for her spinal injection next week . She is guarded and tight throughout the right piriformis today Physical Therapy Plan Frequency and Duration Frequency of Treatment 2x/Week Duration of treatment (weeks) 8 Plan of Care Start Date 09/05/22 Plan of Care End Date 10/31/22 Therapeutic Interventions Therapeutic Interventions Home Exercise Program,Manual Therapy,Neuromuscular Re- education,Patient/Caregiver Education,Self-Care/Home Management,Soft Tissue Mobilization,Therapeutic Exercises Modalities Cold Pack/Ice Massage,Electric Stimulation,Ultrasound Next Visit Focus/Plan Next Note Type Treatment Note Next Visit Plan progress core strengthening next visit, continue with manual therapy work for the low back and piriformis
--- NOTE | 2022-10-08 16:15 | PT.OTN ---
Current Diagnoses Spinal stenosis, lumbar region with neurogenic claudication (10/08/22) Radiculopathy, lumbar region (10/08/22) Physical Therapy Treatment Note PT-OP-A Visit Information Start: 08/06/22 09:02 Freq: Status: Active Protocol: Document 10/08/22 09:05 [facility] (Rec: 10/08/22 10:47 [facility] [id number]) Out-Patient Physical Therapy Visit Information Visit Information Visit Type Treatment Note Visit Start Time 09:05 Visit Stop Time 09:50 Total Visit Minutes 45 Visit Number 7 PT-OP-B Current Condition Start: 08/06/22 09:02 Freq: Status: Active Protocol: Document 08/06/22 09:05 [facility] (Rec: 08/06/22 09:44 [facility] [id number]) Current Condition History of Current Condition Onset Date 2.5 years ago Current Complaints LBP and right posterior hip pain/gluteal pain History of Current Condition 1-2 months ago symptoms started again all in her back and her right hip. She has been swimming 3 times per week . She will be moving to [place] and will be within walking distance to the pool. She did have a cortisone injection in February and along with PT she was feeling better but it was worn off now and pain has returned. Nathan PT-OP-C Subjective Start: 08/07/22 09:39 Freq: Status: Active Protocol: Document 10/08/22 09:05 [facility] (Rec: 10/08/22 10:47 [facility] [id number]) OP-PT Subjective Patient Comments Patient Comments pt is still in pain in her back and SI joint PT-OP-F Manual Assessment Start: 08/06/22 09:02 Freq: Status: Active Protocol: Document 08/06/22 09:00 [facility] (Rec: 08/07/22 12:38 [facility] [id number]) Manual Assessments Soft Tissue Assessment Soft Tissue Mobility Assessment myofascial tightness in the lumbar paraspinals and right sided piriformis Joint Mobility Assessment Joint Mobility Assessment lumbar stenosis with neurogenic claudification and facet arthropathy, pit is in a exaggerated lumbar lordosis with compression at the L4-5 and L5-S1 in standing PT-OP-G Mobility & Gait Start: 08/07/22 09:39 Freq: Status: Active Protocol: Document 08/06/22 09:00 [facility] (Rec: 08/07/22 12:39 [facility] [id number]) OP Gait Assessment Factors Limiting Gait Function Factors Limiting Gait Function Decreased Strength,Pain Comments Gait Comments increased lumbar compression with gait and pain after walking 1/4 mile, pt takes a shortened step on the right leg PT-OP-K Range of Motion Start: 08/06/22 09:02 Freq: Status: Active Protocol: Document 08/06/22 09:00 [facility] (Rec: 08/07/22 12:38 [facility] [id number]) Hip Goniometric Range of Motion Hip Right Hip ROM WFL No Testing Position Supine Flexion w/Knee Flexed 90 Straight Leg Raise 35 External Rotation 10 left Hip ROM WFL No Testing Position Supine Flexion w/Knee Flexed 95 Straight Leg Raise 40 External Rotation 10 Hip ROM Limitations Hip ROM Limitations Soft Tissue Tightness,Pain Comments pt is limited with both hip flexion/extension as well as hip rotation, pain at end range hip flexion on the right side PT-OP-M Strength Start: 08/06/22 09:02 Freq: Status: Active Protocol: Document 08/06/22 09:00 [facility] (Rec: 08/07/22 12:38 [facility] [id number]) Trunk Strength Trunk Manual Muscle Testing Testing Position Supine Flexion 2+ Poor+ Core Stabilization poor core stabilization and pain with transitional movements Hip Strength Hip Manual Muscle Testing Left Flexion (L2) 3 Fair Abduction 2+ Poor+ External Rotation 2+ Poor+ Right Flexion (L2) 2+ Poor+ Extension (S1) 2+ Poor+ Abduction 2+ Poor+ External Rotation 2+ Poor+ PT-OP-Q Treatments Start: 08/06/22 09:02 Freq: Status: Active Protocol: Document 10/08/22 09:05 [facility] (Rec: 10/08/22 16:13 [facility] [id number]) Therapeutic Exercises Supine Exercises supine hamstring stretch Reps/Minutes 2 x 30 sec each piformis stretch Reps/Minutes hold 30 sec each side x 2 single knee to chest Reps/Minutes 2 x 30 sec each Standing Exercises standing left sidebends Reps/Minutes hold 30 sec to a min Comments pt notes it feels really good to sidebend away from the right side Manual Therapy Treatment Soft Tissue Mobilization piriformis release on the right Body Location right piriformis Mobilization Type Myofascial Release Body Position Prone prone on body pillow Body Location lumbar paraspinals Mobilization Type Myofascial Release Intensity/Depth Moderate Body Position Prone Comments MFR of the paraspinals and right piriformis musculature Manual Techniques manual hip IR/ER Body Location B hips Body Position Prone Reps/Duration 2 reps each Comments stretching into hip IR/ER manual knee flexion with quad stretch Comments hold 2 min each side PT-OP-T Assessment and Plan Start: 08/06/22 09:02 Freq: Status: Active Protocol: Document 10/08/22 09:05 [facility] (Rec: 10/08/22 16:13 [facility] [id number]) Physical Therapy Assessment Assessment Summary Assessment Yissel has her injection next week, I reviewed all her stretches today and we added in a left sidebending stretch to open up the right side which she tolerated well Physical Therapy Plan Frequency and Duration Frequency of Treatment 2x/Week Duration of treatment (weeks) 8 Plan of Care Start Date 09/05/22 Plan of Care End Date 10/31/22 Therapeutic Interventions Therapeutic Interventions Home Exercise Program,Manual Therapy,Neuromuscular Re- education,Patient/Caregiver Education,Self-Care/Home Management,Soft Tissue Mobilization,Therapeutic Exercises Modalities Cold Pack/Ice Massage,Electric Stimulation,Ultrasound Next Visit Focus/Plan Next Note Type Treatment Note Next Visit Plan review new sidebending stretches, supine marches with TA activation
--- NOTE | 2022-10-10 08:55 | PT.OTN ---
Current Diagnoses Spinal stenosis, lumbar region with neurogenic claudication (10/10/22) Radiculopathy, lumbar region (10/10/22) Physical Therapy Treatment Note PT-OP-A Visit Information Start: 08/06/22 09:02 Freq: Status: Active Protocol: Document 10/10/22 08:01 [facility] (Rec: 10/10/22 08:54 [facility] [id number]) Out-Patient Physical Therapy Visit Information Visit Information Visit Type Treatment Note Visit Start Time 08:00 Visit Stop Time 08:45 Total Visit Minutes 45 Visit Number 8 PT-OP-B Current Condition Start: 08/06/22 09:02 Freq: Status: Active Protocol: Document 08/06/22 09:05 [facility] (Rec: 08/06/22 09:44 [facility] [id number]) Current Condition History of Current Condition Onset Date 2.5 years ago Current Complaints LBP and right posterior hip pain/gluteal pain History of Current Condition 1-2 months ago symptoms started again all in her back and her right hip. She has been swimming 3 times per week . She will be moving to [place] and will be within walking distance to the pool. She did have a cortisone injection in February and along with PT she was feeling better but it was worn off now and pain has returned. Nathan PT-OP-C Subjective Start: 08/07/22 09:39 Freq: Status: Active Protocol: Document 10/10/22 08:01 [facility] (Rec: 10/10/22 08:54 [facility] [id number]) OP-PT Subjective Patient Comments Patient Comments pt notes she feels a little better this am, she has been working on her side bends in the pool. PT-OP-F Manual Assessment Start: 08/06/22 09:02 Freq: Status: Active Protocol: Document 08/06/22 09:00 [facility] (Rec: 08/07/22 12:38 [facility] [id number]) Manual Assessments Soft Tissue Assessment Soft Tissue Mobility Assessment myofascial tightness in the lumbar paraspinals and right sided piriformis Joint Mobility Assessment Joint Mobility Assessment lumbar stenosis with neurogenic claudification and facet arthropathy, pit is in a exaggerated lumbar lordosis with compression at the L4-5 and L5-S1 in standing PT-OP-G Mobility & Gait Start: 08/07/22 09:39 Freq: Status: Active Protocol: Document 08/06/22 09:00 [facility] (Rec: 08/07/22 12:39 [facility] [id number]) OP Gait Assessment Factors Limiting Gait Function Factors Limiting Gait Function Decreased Strength,Pain Comments Gait Comments increased lumbar compression with gait and pain after walking 1/4 mile, pt takes a shortened step on the right leg PT-OP-K Range of Motion Start: 08/06/22 09:02 Freq: Status: Active Protocol: Document 08/06/22 09:00 [facility] (Rec: 08/07/22 12:38 [facility] [id number]) Hip Goniometric Range of Motion Hip Right Hip ROM WFL No Testing Position Supine Flexion w/Knee Flexed 90 Straight Leg Raise 35 External Rotation 10 left Hip ROM WFL No Testing Position Supine Flexion w/Knee Flexed 95 Straight Leg Raise 40 External Rotation 10 Hip ROM Limitations Hip ROM Limitations Soft Tissue Tightness,Pain Comments pt is limited with both hip flexion/extension as well as hip rotation, pain at end range hip flexion on the right side PT-OP-M Strength Start: 08/06/22 09:02 Freq: Status: Active Protocol: Document 08/06/22 09:00 [facility] (Rec: 08/07/22 12:38 [facility] [id number]) Trunk Strength Trunk Manual Muscle Testing Testing Position Supine Flexion 2+ Poor+ Core Stabilization poor core stabilization and pain with transitional movements Hip Strength Hip Manual Muscle Testing Left Flexion (L2) 3 Fair Abduction 2+ Poor+ External Rotation 2+ Poor+ Right Flexion (L2) 2+ Poor+ Extension (S1) 2+ Poor+ Abduction 2+ Poor+ External Rotation 2+ Poor+ PT-OP-Q Treatments Start: 08/06/22 09:02 Freq: Status: Active Protocol: Document 10/10/22 08:01 [facility] (Rec: 10/10/22 08:54 [facility] [id number]) Therapeutic Exercises Supine Exercises supine hamstring stretch Reps/Minutes 2 x 30 sec each piformis stretch Reps/Minutes hold 30 sec each side x 2 single knee to chest Reps/Minutes 2 x 30 sec each Manual Therapy Treatment Soft Tissue Mobilization piriformis release on the right Body Location right piriformis Mobilization Type Myofascial Release Body Position Prone prone on body pillow Body Location lumbar paraspinals Mobilization Type Myofascial Release Intensity/Depth Moderate Body Position Prone Comments MFR of the paraspinals and right piriformis musculature Manual Techniques manual adductor stretch Body Location b adductors Comments Right greater than left side tightness, pt shown a stretch in the pool to do for her adductors manual hip IR/ER Body Location B hips Body Position Prone Reps/Duration 2 reps each Comments stretching into hip IR/ER manual hamstring stretching Comments hold 1-2 min each side manual knee flexion with quad stretch Comments hold 2 min each side PT-OP-T Assessment and Plan Start: 08/06/22 09:02 Freq: Status: Active Protocol: Document 10/10/22 08:01 [facility] (Rec: 10/10/22 08:54 [facility] [id number]) Physical Therapy Assessment Assessment Summary Assessment Yissel is doing a little better today, she has been working on sidebending stretches in the pool and today I added in adductor stretches as she is restricted R >L Physical Therapy Plan Frequency and Duration Frequency of Treatment 2x/Week Duration of treatment (weeks) 8 Plan of Care Start Date 09/05/22 Plan of Care End Date 10/31/22 Therapeutic Interventions Therapeutic Interventions Home Exercise Program,Manual Therapy,Neuromuscular Re- education,Patient/Caregiver Education,Self-Care/Home Management,Soft Tissue Mobilization,Therapeutic Exercises Modalities Cold Pack/Ice Massage,Electric Stimulation,Ultrasound Next Visit Focus/Plan Next Note Type Treatment Note Next Visit Plan review hip adductor stretches next visit, continue working on manual therapy techniques, exercises to relax the gluteals and decrease pain
--- NOTE | 2022-10-15 10:41 | PT.OTN ---
Current Diagnoses Spinal stenosis, lumbar region with neurogenic claudication (10/15/22) Radiculopathy, lumbar region (10/15/22) Physical Therapy Treatment Note PT-OP-A Visit Information Start: 08/06/22 09:02 Freq: Status: Active Protocol: Document 10/15/22 08:00 [facility] (Rec: 10/15/22 08:49 [facility] [id number][facility] Out-Patient Physical Therapy Visit Information Visit Information Visit Type Treatment Note Visit Start Time 08:00 Visit Stop Time 08:45 Total Visit Minutes 45 Visit Number 9 PT-OP-B Current Condition Start: 08/06/22 09:02 Freq: Status: Active Protocol: Document 08/06/22 09:05 [facility] (Rec: 08/06/22 09:44 [facility] [id number]) Current Condition History of Current Condition Onset Date 2.5 years ago Current Complaints LBP and right posterior hip pain/gluteal pain History of Current Condition 1-2 months ago symptoms started again all in her back and her right hip. She has been swimming 3 times per week . She will be moving to [place] and will be within walking distance to the pool. She did have a cortisone injection in February and along with PT she was feeling better but it was worn off now and pain has returned. Nathan PT-OP-C Subjective Start: 08/07/22 09:39 Freq: Status: Active Protocol: Document 10/15/22 08:00 [facility] (Rec: 10/15/22 08:49 [facility] [id number]) OP-PT Subjective Patient Comments Patient Comments pt notes a tiny improvement PT-OP-F Manual Assessment Start: 08/06/22 09:02 Freq: Status: Active Protocol: Document 08/06/22 09:00 [facility] (Rec: 08/07/22 12:38 [facility] [id number]) Manual Assessments Soft Tissue Assessment Soft Tissue Mobility Assessment myofascial tightness in the lumbar paraspinals and right sided piriformis Joint Mobility Assessment Joint Mobility Assessment lumbar stenosis with neurogenic claudification and facet arthropathy, pit is in a exaggerated lumbar lordosis with compression at the L4-5 and L5-S1 in standing PT-OP-G Mobility & Gait Start: 08/07/22 09:39 Freq: Status: Active Protocol: Document 08/06/22 09:00 [facility] (Rec: 08/07/22 12:39 [facility] [id number]) OP Gait Assessment Factors Limiting Gait Function Factors Limiting Gait Function Decreased Strength,Pain Comments Gait Comments increased lumbar compression with gait and pain after walking 1/4 mile, pt takes a shortened step on the right leg PT-OP-K Range of Motion Start: 08/06/22 09:02 Freq: Status: Active Protocol[facility] Document 08/06/22 09[facility] (Rec: 08/07/22 12:38 [facility] [id number]) Hip Goniometric Range of Motion Hip Right Hip ROM WFL No Testing Position Supine Flexion w/Knee Flexed 90 Straight Leg Raise 35 External Rotation 10 left Hip ROM WFL No Testing Position Supine Flexion w/Knee Flexed 95 Straight Leg Raise 40 External Rotation 10 Hip ROM Limitations Hip ROM Limitations Soft Tissue Tightness,Pain Comments pt is limited with both hip flexion/extension as well as hip rotation, pain at end range hip flexion on the right side PT-OP-M Strength Start: 08/06/22 09:02 Freq: Status: Active Protocol: Document 08/06/22 09:00 [facility] (Rec: 08/07/22 12:38 [facility] [id number]) Trunk Strength Trunk Manual Muscle Testing Testing Position Supine Flexion 2+ Poor+ Core Stabilization poor core stabilization and pain with transitional movements Hip Strength Hip Manual Muscle Testing Left Flexion (L2) 3 Fair Abduction 2+ Poor+ External Rotation 2+ Poor+ Right Flexion (L2) 2+ Poor+ Extension (S1) 2+ Poor+ Abduction 2+ Poor+ External Rotation 2+ Poor+ PT-OP-Q Treatments Start: 08/06/22 09:02 Freq: Status: Active Protocol: Document 10/15/22 08:00 [facility] (Rec: 10/15/22 10:41 [facility] [id number]) Therapeutic Exercises Supine Exercises supine hamstring stretch Reps/Minutes 2 x 30 sec each piformis stretch Reps/Minutes hold 30 sec each side x 2 single knee to chest Reps/Minutes 2 x 30 sec each Manual Therapy Treatment Soft Tissue Mobilization piriformis release on the right Body Location right piriformis Mobilization Type Myofascial Release Body Position Prone prone on body pillow Body Location lumbar paraspinals Mobilization Type Myofascial Release Intensity/Depth Moderate Body Position Prone Comments MFR of the paraspinals and right piriformis musculature Manual Techniques manual hip IR/ER Body Location B hips Body Position Prone Reps/Duration 2 reps each Comments stretching into hip IR/ER manual hamstring stretching Comments hold 1-2 min each side PT-OP-T Assessment and Plan Start: 08/06/22 09:02 Freq: Status: Active Protocol: Document 10/15/22 08:00 [facility] (Rec: 10/15/22 10:41 [facility] [id number]) Physical Therapy Assessment Assessment Summary Assessment Yissel has been working on sidebending stretches as well as the pool, symptoms are a little better but she is still experiencing pain. Physical Therapy Plan Frequency and Duration Frequency of Treatment 2x/Week Duration of treatment (weeks) 8 Plan of Care Start Date 09/05/22 Plan of Care End Date 10/31/22 Therapeutic Interventions Therapeutic Interventions Home Exercise Program,Manual Therapy,Neuromuscular Re- education,Patient/Caregiver Education,Self-Care/Home Management,Soft Tissue Mobilization,Therapeutic Exercises Modalities Cold Pack/Ice Massage,Electric Stimulation,Ultrasound Next Visit Focus/Plan Next Note Type Progress Note Next Visit Plan Progress report to MD next visit
--- NOTE | 2022-10-24 16:36 | PT.OTN ---
Current Diagnoses Spinal stenosis, lumbar region with neurogenic claudication (10/24/22) Radiculopathy, lumbar region (10/24/22) Physical Therapy Treatment Note PT-OP-A Visit Information Start: 08/06/22 09:02 Freq: Status: Active Protocol: Document 10/24/22 08:00 [facility] (Rec: 10/24/22 16:36 [facility] [id number]) Out-Patient Physical Therapy Visit Information Visit Information Visit Type Treatment Note Visit Start Time 08:00 Visit Stop Time 08:45 Total Visit Minutes 45 Visit Number 10 PT-OP-B Current Condition Start: 08/06/22 09:02 Freq: Status: Active Protocol: Document 08/06/22 09:05 [facility] (Rec: 08/06/22 09:44 [facility] [id number]) Current Condition History of Current Condition Onset Date 2.5 years ago Current Complaints LBP and right posterior hip pain/gluteal pain History of Current Condition 1-2 months ago symptoms started again all in her back and her right hip. She has been swimming 3 times per week . She will be moving to [employer] and will be within walking distance to the pool. She did have a cortisone injection in February and along with PT she was feeling better but it was worn off now and pain has returned. Nathan PT-OP-C Subjective Start: 08/07/22 09:39 Freq: Status: Active Protocol: Document 10/24/22 08:00 [facility] (Rec: 10/24/22 16:36 [facility] [id number]) OP-PT Subjective Patient Comments Patient Comments pt notes she is ready for her cortisone injection next week PT-OP-F Manual Assessment Start: 08/06/22 09:02 Freq: Status: Active Protocol: Document 08/06/22 09:00 [facility] (Rec: 08/07/22 12:38 [facility] [id number]) Manual Assessments Soft Tissue Assessment Soft Tissue Mobility Assessment myofascial tightness in the lumbar paraspinals and right sided piriformis Joint Mobility Assessment Joint Mobility Assessment lumbar stenosis with neurogenic claudification and facet arthropathy, pit is in a exaggerated lumbar lordosis with compression at the L4-5 and L5-S1 in standing PT-OP-G Mobility & Gait Start: 08/07/22 09:39 Freq: Status: Active Protocol: Document 08/06/22 09:00 [facility] (Rec: 08/07/22 12:39 [facility] [id number]) OP Gait Assessment Factors Limiting Gait Function Factors Limiting Gait Function Decreased Strength,Pain Comments Gait Comments increased lumbar compression with gait and pain after walking 1/4 mile, pt takes a shortened step on the right leg PT-OP-K Range of Motion Start: 08/06/22 09:02 Freq: Status: Active Protocol: Document 08/06/22 09:00 [facility] (Rec: 08/07/22 12:38 [facility] [id number]) Hip Goniometric Range of Motion Hip Right Hip ROM WFL No Testing Position Supine Flexion w/Knee Flexed 90 Straight Leg Raise 35 External Rotation 10 left Hip ROM WFL No Testing Position Supine Flexion w/Knee Flexed 95 Straight Leg Raise 40 External Rotation 10 Hip ROM Limitations Hip ROM Limitations Soft Tissue Tightness,Pain Comments pt is limited with both hip flexion/extension as well as hip rotation, pain at end range hip flexion on the right side PT-OP-M Strength Start: 08/06/22 09:02 Freq: Status: Active Protocol: Document 08/06/22 09:00 [facility] (Rec: 08/07/22 12:38 [facility] [id number]) Trunk Strength Trunk Manual Muscle Testing Testing Position Supine Flexion 2+ Poor+ Core Stabilization poor core stabilization and pain with transitional movements Hip Strength Hip Manual Muscle Testing Left Flexion (L2) 3 Fair Abduction 2+ Poor+ External Rotation 2+ Poor+ Right Flexion (L2) 2+ Poor+ Extension (S1) 2+ Poor+ Abduction 2+ Poor+ External Rotation 2+ Poor+ PT-OP-Q Treatments Start: 08/06/22 09:02 Freq: Status: Active Protocol: Document 10/24/22 08:00 [facility] (Rec: 10/24/22 16:36 [facility] [id number]) Therapeutic Exercises Supine Exercises supine hamstring stretch Reps/Minutes 2 x 30 sec each piformis stretch Reps/Minutes hold 30 sec each side x 2 single knee to chest Reps/Minutes 2 x 30 sec each Manual Therapy Treatment Soft Tissue Mobilization piriformis release on the right Body Location right piriformis Mobilization Type Myofascial Release Body Position Prone prone on body pillow Body Location lumbar paraspinals Mobilization Type Myofascial Release Intensity/Depth Moderate Body Position Prone Comments MFR of the paraspinals and right piriformis musculature Manual Techniques manual hip IR/ER Body Location B hips Body Position Prone Reps/Duration 2 reps each Comments stretching into hip IR/ER manual knee flexion with quad stretch Comments hold 2 min each side PT-OP-T Assessment and Plan Start: 08/06/22 09:02 Freq: Status: Active Protocol: Document 10/24/22 08:00 [facility] (Rec: 10/24/22 16:36 [facility] [id number]) Physical Therapy Assessment Goals 3 Impairment Decreased core and LE strength , pt has difficulty with trunk curl, bridges, and activation of her core Mcc Goal (LTG) Pt is able to tolerate dynamic core stabilization with marches in supine without back pain and is I with a HEP some progress LTG Duration 8 weeks 2 Impairment Decreased ability to ambulate due to pain, pt is limited to 1/2 mile when walking on land due to increased pain Mcc Goal (LTG) yeimi is able to return to walking 1/2 mile or more without having to stop and rest due to pain goal not yet met, pt has been able to increase her days she exercises in the pool LTG Duration 8 weeks 1 Impairment Decreased lumbar ROM and hip ROM, pain reproduced with end range mobility Short Term Goal (STG) pt's HEP is reviewed and progressed to progress pain free hip and low back ROM good progress STG Duration 5 weeks Assessment Summary Assessment Yeimi has not been able to do her exercises in the pool asd it is closed so she is feeling tighter. She has her cortisone injection friday Physical Therapy Plan Frequency and Duration Frequency of Treatment 2x/Week Duration of treatment (weeks) 8 Plan of Care Start Date 10/24/22 Plan of Care End Date 12/19/22 Therapeutic Interventions Therapeutic Interventions Home Exercise Program,Manual Therapy,Neuromuscular Re- education,Patient/Caregiver Education,Self-Care/Home Management,Soft Tissue Mobilization,Therapeutic Exercises Modalities Cold Pack/Ice Massage,Electric Stimulation,Ultrasound Next Visit Focus/Plan Next Note Type Treatment Note Next Visit Plan review hip adductor stretches next visit, continue working on manual therapy techniques, exercises to relax the gluteals and decrease pain
--- NOTE | 2022-10-24 16:37 | PT.OPPOC ---
Physical, Occupational & Speech Therapy At [facility] Current Diagnoses Spinal stenosis, lumbar region with neurogenic claudication (10/24/22) Radiculopathy, lumbar region (10/24/22) Visit Care Team Role Provider Type Sabino Munoz MD Family Provider Physician Primary Care Provider Specialty: Family Practice Address: [facility] [place], [address] Email: [email or web address] Adame MD Attending Provider Physician Referring Provider Specialty: Orthopedics Orthopedic Surgery Physical Medicine and Rehab Address: [address] [place] [address], [address] Email: [email or web address] Plan Of Care PT-OP-T Assessment and Plan Start: 08/06/22 09:02 Freq: Status: Active Protocol: Document 10/24/22 08:00 [facility] (Rec: 10/24/22 16:36 [facility] [id number]) Physical Therapy Assessment Goals 3 Impairment Decreased core and LE strength , pt has difficulty with trunk curl, bridges, and activation of her core [facility] Goal (LTG) Pt is able to tolerate dynamic core stabilization with marches in supine without back pain and is I with a HEP some progress LTG Duration 8 weeks 2 Impairment Decreased ability to ambulate due to pain, pt is limited to 1/2 mile when walking on land due to increased pain [facility] Goal (LTG) yeimi is able to return to walking 1/2 mile or more without having to stop and rest due to pain goal not yet met, pt has been able to increase her days she exercises in the pool LTG Duration 8 weeks 1 Impairment Decreased lumbar ROM and hip ROM, pain reproduced with end range mobility Short Term Goal (STG) pt's HEP is reviewed and progressed to progress pain free hip and low back ROM good progress STG Duration 5 weeks Assessment Summary Assessment Yeimi has not been able to do her exercises in the pool asd it is closed so she is feeling tighter. She has her cortisone injection friday Physical Therapy Plan Frequency and Duration Frequency of Treatment 2x/Week Duration of treatment (weeks) 8 Plan of Care Start Date 10/24/22 Plan of Care End Date 12/19/22 Therapeutic Interventions Therapeutic Interventions Home Exercise Program,Manual Therapy,Neuromuscular Re- education,Patient/Caregiver Education,Self-Care/Home Management,Soft Tissue Mobilization,Therapeutic Exercises Modalities Cold Pack/Ice Massage,Electric Stimulation,Ultrasound Next Visit Focus/Plan Next Note Type Treatment Note Next Visit Plan review hip adductor stretches next visit, continue working on manual therapy techniques, exercises to relax the gluteals and decrease pain Plan of Care Dates Plan of Care Start Date 10/24/22 Plan of Care End Date 12/19/22 Electronically Signed by: Shyanne King, PT 10/24/22 8034 If you are in agreement with this Plan of Care, please return a signed and dated copy. I have reviewed this Plan of Care and certify that the skilled therapy services above are required to meet the patient?s needs. Physician Signature Date Printed Name and Credentials Clinical Instructor Signature Printed Name and Credentials
--- NOTE | 2022-11-05 09:03 | PT.OTN ---
Current Diagnoses Spinal stenosis, lumbar region with neurogenic claudication (11/05/22) Radiculopathy, lumbar region (11/05/22) Physical Therapy Treatment Note PT-OP-A Visit Information Start: 08/06/22 09:02 Freq: Status: Active Protocol: Document 11/05/22 07:59 [facility] (Rec: 11/05/22 09:03 [facility] [id number]) Out-Patient Physical Therapy Visit Information Visit Information Visit Type Treatment Note Visit Start Time 08:00 Visit Stop Time 08:45 Total Visit Minutes 45 Visit Number 11 PT-OP-B Current Condition Start: 08/06/22 09:02 Freq: Status: Active Protocol: Document 08/06/22 09:05 [facility] (Rec: 08/06/22 09:44 [facility] [id number]) Current Condition History of Current Condition Onset Date 2.5 years ago Current Complaints LBP and right posterior hip pain/gluteal pain History of Current Condition 1-2 months ago symptoms started again all in her back and her right hip. She has been swimming 3 times per week . She will be moving to [place] and will be within walking distance to the pool. She did have a cortisone injection in February and along with PT she was feeling better but it was worn off now and pain has returned. Berthacorry PT-OP-C Subjective Start: 08/07/22 09:39 Freq: Status: Active Protocol: Document 11/05/22 07:59 [facility] (Rec: 11/05/22 09:03 [facility] [id number]) OP-PT Subjective Patient Comments Patient Comments Yissel notes she felt one day of relief from her last cortisone injection but she hasn't had lasting relief yet. She has returned to the pool now that it is open again today PT-OP-F Manual Assessment Start: 08/06/22 09:02 Freq: Status: Active Protocol: Document 08/06/22 09:00 [facility] (Rec: 08/07/22 12:38 [facility] [id number]) Manual Assessments Soft Tissue Assessment Soft Tissue Mobility Assessment myofascial tightness in the lumbar paraspinals and right sided piriformis Joint Mobility Assessment Joint Mobility Assessment lumbar stenosis with neurogenic claudification and facet arthropathy, pit is in a exaggerated lumbar lordosis with compression at the L4-5 and L5-S1 in standing PT-OP-G Mobility & Gait Start: 08/07/22 09:39 Freq: Status: Active Protocol: Document 08/06/22 09:00 [facility] (Rec: 08/07/22 12:39 [facility] [id number]) OP Gait Assessment Factors Limiting Gait Function Factors Limiting Gait Function Decreased Strength,Pain Comments Gait Comments increased lumbar compression with gait and pain after walking 1/4 mile, pt takes a shortened step on the right leg PT-OP-K Range of Motion Start: 08/06/22 09:02 Freq: Status: Active Protocol: Document 08/06/22 09:00 [facility] (Rec: 08/07/22 12:38 [facility] [id number]) Hip Goniometric Range of Motion Hip Right Hip ROM WFL No Testing Position Supine Flexion w/Knee Flexed 90 Straight Leg Raise 35 External Rotation 10 left Hip ROM WFL No Testing Position Supine Flexion w/Knee Flexed 95 Straight Leg Raise 40 External Rotation 10 Hip ROM Limitations Hip ROM Limitations Soft Tissue Tightness,Pain Comments pt is limited with both hip flexion/extension as well as hip rotation, pain at end range hip flexion on the right side PT-OP-M Strength Start: 08/06/22 09:02 Freq: Status: Active Protocol: Document 08/06/22 09:00 [facility] (Rec: 08/07/22 12:38 [facility] [id number]) Trunk Strength Trunk Manual Muscle Testing Testing Position Supine Flexion 2+ Poor+ Core Stabilization poor core stabilization and pain with transitional movements Hip Strength Hip Manual Muscle Testing Left Flexion (L2) 3 Fair Abduction 2+ Poor+ External Rotation 2+ Poor+ Right Flexion (L2) 2+ Poor+ Extension (S1) 2+ Poor+ Abduction 2+ Poor+ External Rotation 2+ Poor+ PT-OP-Q Treatments Start: 08/06/22 09:02 Freq: Status: Active Protocol: Document 11/05/22 07:59 [facility] (Rec: 11/05/22 09:03 [facility] [id number]) Therapeutic Exercises Supine Exercises supine hamstring stretch Reps/Minutes 2 x 30 sec each piformis stretch Reps/Minutes hold 30 sec each side x 2 single knee to chest Reps/Minutes 2 x 30 sec each Standing Exercises shoulder blade squeezes Reps/Minutes x 10 reps Comments pt to do in the pool standing left sidebends Standing Exercise Name did this in sitting today Reps/Minutes hold 30 sec to a min Comments pt notes it feels really good to sidebend away from the right side Manual Therapy Treatment Soft Tissue Mobilization piriformis release on the right Body Location right piriformis Mobilization Type Myofascial Release Body Position Prone prone on body pillow Body Location lumbar paraspinals Mobilization Type Myofascial Release Intensity/Depth Moderate Body Position Prone Comments MFR of the paraspinals and right piriformis musculature Manual Techniques manual adductor stretch Body Location b adductors Comments Right greater than left side tightness, pt shown a stretch in the pool to do for her adductors manual hip IR/ER Body Location B hips Body Position Prone Reps/Duration 2 reps each Comments stretching into hip IR/ER manual hamstring stretching Comments hold 1-2 min each side manual knee flexion with quad stretch Comments hold 2 min each side PT-OP-T Assessment and Plan Start: 08/06/22 09:02 Freq: Status: Active Protocol: Document 11/05/22 07:59 [facility] (Rec: 11/05/22 09:03 [facility] [id number]) Physical Therapy Assessment Assessment Summary Assessment Yissel has been able to return to the pool and she is working on her stretches in the pool. I added in standing shoulder blade squeezes as she is limited in her mobility in her T spine Physical Therapy Plan Frequency and Duration Frequency of Treatment 2x/Week Duration of treatment (weeks) 8 Plan of Care Start Date 10/24/22 Plan of Care End Date 12/19/22 Therapeutic Interventions Therapeutic Interventions Home Exercise Program,Manual Therapy,Neuromuscular Re- education,Patient/Caregiver Education,Self-Care/Home Management,Soft Tissue Mobilization,Therapeutic Exercises Modalities Cold Pack/Ice Massage,Electric Stimulation,Ultrasound Next Visit Focus/Plan Next Note Type Treatment Note Next Visit Plan review standing thoracic squeezes, HEP, manual therapy work to release tension in the low back and hips
--- NOTE | 2022-11-12 10:46 | PT.OTN ---
Current Diagnoses Spinal stenosis, lumbar region with neurogenic claudication (11/12/22) Radiculopathy, lumbar region (11/12/22) Physical Therapy Treatment Note PT-OP-A Visit Information Start: 08/06/22 09:02 Freq: Status: Active Protocol: Document 11/12/22 10:39 [facility] (Rec: 11/12/22 10:45 [facility] [id number]) Out-Patient Physical Therapy Visit Information Visit Information Visit Type Treatment Note Visit Start Time 08:00 Visit Stop Time 08:45 Total Visit Minutes 45 Visit Number 12 PT-OP-B Current Condition Start: 08/06/22 09:02 Freq: Status: Active Protocol: Document 08/06/22 09:05 [facility] (Rec: 08/06/22 09:44 [facility] [id number]) Current Condition History of Current Condition Onset Date 2.5 years ago Current Complaints LBP and right posterior hip pain/gluteal pain History of Current Condition 1-2 months ago symptoms started again all in her back and her right hip. She has been swimming 3 times per week . She will be moving to [place] and will be within walking distance to the pool. She did have a cortisone injection in February and along with PT she was feeling better but it was worn off now and pain has returned. Berthacorry PT-OP-C Subjective Start: 08/07/22 09:39 Freq: Status: Active Protocol: Document 11/12/22 10:39 [facility] (Rec: 11/12/22 10:45 [facility] [id number]) OP-PT Subjective Patient Comments Patient Comments Yissel notes she is still feeling pain on the right side around the L4-5 level. She has been exercising in the pool but has not worked with the kick board as she feels her left knee hurts when she kicks PT-OP-F Manual Assessment Start: 08/06/22 09:02 Freq: Status: Active Protocol: Document 08/06/22 09:00 [facility] (Rec: 08/07/22 12:38 [facility] [id number]) Manual Assessments Soft Tissue Assessment Soft Tissue Mobility Assessment myofascial tightness in the lumbar paraspinals and right sided piriformis Joint Mobility Assessment Joint Mobility Assessment lumbar stenosis with neurogenic claudification and facet arthropathy, pit is in a exaggerated lumbar lordosis with compression at the L4-5 and L5-S1 in standing PT-OP-G Mobility & Gait Start: 08/07/22 09:39 Freq: Status: Active Protocol: Document 08/06/22 09:00 [facility] (Rec: 08/07/22 12:39 [facility] [id number]) OP Gait Assessment Factors Limiting Gait Function Factors Limiting Gait Function Decreased Strength,Pain Comments Gait Comments increased lumbar compression with gait and pain after walking 1/4 mile, pt takes a shortened step on the right leg PT-OP-K Range of Motion Start: 08/06/22 09:02 Freq: Status: Active Protocol: Document 08/06/22 09:00 [facility] (Rec: 08/07/22 12:38 [facility] [id number]) Hip Goniometric Range of Motion Hip Right Hip ROM WFL No Testing Position Supine Flexion w/Knee Flexed 90 Straight Leg Raise 35 External Rotation 10 left Hip ROM WFL No Testing Position Supine Flexion w/Knee Flexed 95 Straight Leg Raise 40 External Rotation 10 Hip ROM Limitations Hip ROM Limitations Soft Tissue Tightness,Pain Comments pt is limited with both hip flexion/extension as well as hip rotation, pain at end range hip flexion on the right side PT-OP-M Strength Start: 08/06/22 09:02 Freq: Status: Active Protocol: Document 08/06/22 09:00 [facility] (Rec: 08/07/22 12:38 [facility] [id number]) Trunk Strength Trunk Manual Muscle Testing Testing Position Supine Flexion 2+ Poor+ Core Stabilization poor core stabilization and pain with transitional movements Hip Strength Hip Manual Muscle Testing Left Flexion (L2) 3 Fair Abduction 2+ Poor+ External Rotation 2+ Poor+ Right Flexion (L2) 2+ Poor+ Extension (S1) 2+ Poor+ Abduction 2+ Poor+ External Rotation 2+ Poor+ PT-OP-Q Treatments Start: 08/06/22 09:02 Freq: Status: Active Protocol: Document 11/12/22 10:39 [facility] (Rec: 11/12/22 10:45 [facility] [id number]) Therapeutic Exercises Supine Exercises supine hamstring stretch Reps/Minutes 2 x 30 sec each piformis stretch Reps/Minutes hold 30 sec each side x 2 single knee to chest Reps/Minutes 2 x 30 sec each Sitting Exercises seated sidebends Reps/Minutes x 5 reps each side holding 20 sec each Standing Exercises standing knee flexion Reps/Minutes x 20 reps each side Comments pt to do in pool to help with decreasing quad tightness shoulder blade squeezes Standing Exercise Name HEP in pool PT-OP-T Assessment and Plan Start: 08/06/22 09:02 Freq: Status: Active Protocol: Document 11/12/22 10:39 [facility] (Rec: 11/12/22 10:45 [facility] [id number]) Physical Therapy Assessment Assessment Summary Assessment Yissel is tighter on her R L4 -5 region with her paraspinals as well as her quad and hip flexors on this side. I have been working on stretching her quads and iliopsoas. I added in standing hamstring curls to help lengthen the front of her hip and encouraged walking backward in the pool with emphasis on opening up the anterior hip. Physical Therapy Plan Frequency and Duration Frequency of Treatment 2x/Week Duration of treatment (weeks) 8 Plan of Care Start Date 10/24/22 Plan of Care End Date 12/19/22 Therapeutic Interventions Therapeutic Interventions Home Exercise Program,Manual Therapy,Neuromuscular Re- education,Patient/Caregiver Education,Self-Care/Home Management,Soft Tissue Mobilization,Therapeutic Exercises Modalities Cold Pack/Ice Massage,Electric Stimulation,Ultrasound Next Visit Focus/Plan Next Note Type Treatment Note Next Visit Plan work on iliopsoas release next visit and hip opening exercises for home, trial of seated iliopsoas stretch
--- NOTE | 2022-12-05 10:48 | PT.OTN ---
Current Diagnoses Spinal stenosis, lumbar region with neurogenic claudication (12/05/22) Radiculopathy, lumbar region (12/05/22) Physical Therapy Treatment Note PT-OP-A Visit Information Start: 08/06/22 09:02 Freq: Status: Active Protocol: Document 12/05/22 09:32 [facility] (Rec: 12/05/22 10:48 [facility] [id number]) Out-Patient Physical Therapy Visit Information Visit Information Visit Type Treatment Note Visit Start Time 09:30 Visit Stop Time 10:15 Total Visit Minutes 45 Visit Number 13 PT-OP-B Current Condition Start: 08/06/22 09:02 Freq: Status: Active Protocol: Document 08/06/22 09:05 [facility] (Rec: 08/06/22 09:44 [facility] [id number]) Current Condition History of Current Condition Onset Date 2.5 years ago Current Complaints LBP and right posterior hip pain/gluteal pain History of Current Condition 1-2 months ago symptoms started again all in her back and her right hip. She has been swimming 3 times per week . She will be moving to [place] and will be within walking distance to the pool. She did have a cortisone injection in February and along with PT she was feeling better but it was worn off now and pain has returned. Nathan PT-OP-C Subjective Start: 08/07/22 09:39 Freq: Status: Active Protocol: Document 12/05/22 09:32 [facility] (Rec: 12/05/22 10:48 [facility] [id number]) OP-PT Subjective Patient Comments Patient Comments Yeimi notes she went to the pool after last visit and when she got out of the pool she started noting increased nerve pain in the right hip. She was able to get in to see Dr. Adame as she became very concerned about her pain. A Xray was taken and did not show any changes. Pain since then has calmed down but Yeimi notes she plans on taking it easy in the pool today and do water walking only PT-OP-F Manual Assessment Start: 08/06/22 09:02 Freq: Status: Active Protocol: Document 08/06/22 09:00 [facility] (Rec: 08/07/22 12:38 [facility] [id number]) Manual Assessments Soft Tissue Assessment Soft Tissue Mobility Assessment myofascial tightness in the lumbar paraspinals and right sided piriformis Joint Mobility Assessment Joint Mobility Assessment lumbar stenosis with neurogenic claudification and facet arthropathy, pit is in a exaggerated lumbar lordosis with compression at the L4-5 and L5-S1 in standing PT-OP-G Mobility & Gait Start: 08/07/22 09:39 Freq: Status: Active Protocol: Document 08/06/22 09:00 [facility] (Rec: 08/07/22 12:39 [facility] [id number]) OP Gait Assessment Factors Limiting Gait Function Factors Limiting Gait Function Decreased Strength,Pain Comments Gait Comments increased lumbar compression with gait and pain after walking 1/4 mile, pt takes a shortened step on the right leg PT-OP-K Range of Motion Start: 08/06/22 09:02 Freq: Status: Active Protocol: Document 08/06/22 09:00 [facility] (Rec: 08/07/22 12:38 [facility] [id number]) Hip Goniometric Range of Motion Hip Right Hip ROM WFL No Testing Position Supine Flexion w/Knee Flexed 90 Straight Leg Raise 35 External Rotation 10 left Hip ROM WFL No Testing Position Supine Flexion w/Knee Flexed 95 Straight Leg Raise 40 External Rotation 10 Hip ROM Limitations Hip ROM Limitations Soft Tissue Tightness,Pain Comments pt is limited with both hip flexion/extension as well as hip rotation, pain at end range hip flexion on the right side PT-OP-M Strength Start: 08/06/22 09:02 Freq: Status: Active Protocol: Document 08/06/22 09:00 [facility] (Rec: 08/07/22 12:38 [facility] [id number]) Trunk Strength Trunk Manual Muscle Testing Testing Position Supine Flexion 2+ Poor+ Core Stabilization poor core stabilization and pain with transitional movements Hip Strength Hip Manual Muscle Testing Left Flexion (L2) 3 Fair Abduction 2+ Poor+ External Rotation 2+ Poor+ Right Flexion (L2) 2+ Poor+ Extension (S1) 2+ Poor+ Abduction 2+ Poor+ External Rotation 2+ Poor+ PT-OP-Q Treatments Start: 08/06/22 09:02 Freq: Status: Active Protocol: Document 12/05/22 09:32 [facility] (Rec: 12/05/22 10:48 [facility] [id number]) Therapeutic Exercises Supine Exercises supine pelvic tilts Reps/Minutes x 10 reps lower trunk rotation Reps/Minutes x 10 supine hamstring stretch Reps/Minutes 2 x 30 sec each single knee to chest Reps/Minutes 2 x 30 sec each Manual Therapy Treatment Soft Tissue Mobilization lumbar paraspinals on the right side Mobilization Type Myofascial Release Body Position Sidelying Comments worked on releasing the right paraspinals, no nerve pain reported today during any of the treatment piriformis release on the right Body Location right piriformis Mobilization Type Myofascial Release Body Position Sidelying Comments pt in left sidelying to work on releasing the right side of the piriformis Manual Techniques manual adductor stretch Body Location b adductors Comments Right greater than left side tightness, pt shown a stretch in the pool to do for her adductors PT-OP-T Assessment and Plan Start: 08/06/22 09:02 Freq: Status: Active Protocol: Document 12/05/22 09:32 [facility] (Rec: 12/05/22 10:48 [facility] [id number]) Physical Therapy Assessment Goals 3 Impairment Decreased core and LE strength , pt has difficulty with trunk curl, bridges, and activation of her core Assisted Goal (LTG) Pt is able to tolerate dynamic core stabilization with marches in supine without back pain and is I with a HEP some progress LTG Duration 8 weeks 2 Impairment Decreased ability to ambulate due to pain, pt is limited to 1/2 mile when walking on land due to increased pain Learning Consultant Goal (LTG) yeimi is able to return to walking 1/2 mile or more without having to stop and rest due to pain goal not yet met, pt has been able to increase her days she exercises in the pool LTG Duration 8 weeks 1 Impairment Decreased lumbar ROM and hip ROM, pain reproduced with end range mobility Short Term Goal (STG) pt's HEP is reviewed and progressed to progress pain free hip and low back ROM good progress STG Duration 5 weeks Assessment Summary Assessment Yeimi did not experience any nerve symptoms during PT treatment today, SLR was negative. We discussed stabilizing through her core when standing in the pool for hamstring curls to avoid arching the low back as this may cause irritation in her low back Physical Therapy Plan Frequency and Duration Frequency of Treatment 2x/Week Duration of treatment (weeks) 8 Plan of Care Start Date 10/24/22 Plan of Care End Date 12/19/22 Therapeutic Interventions Therapeutic Interventions Home Exercise Program,Manual Therapy,Neuromuscular Re- education,Patient/Caregiver Education,Self-Care/Home Management,Soft Tissue Mobilization,Therapeutic Exercises Modalities Cold Pack/Ice Massage,Electric Stimulation,Ultrasound Next Visit Focus/Plan Next Note Type Progress Note Next Visit Plan assess how pt does after this visit as, continue working on releasing tension in the low back and hips. Send IN to MD next visit
--- NOTE | 2022-12-10 11:45 | PT.OTN ---
Current Diagnoses Spinal stenosis, lumbar region with neurogenic claudication (12/10/22) Radiculopathy, lumbar region (12/10/22) Physical Therapy Treatment Note PT-OP-A Visit Information Start: 08/06/22 09:02 Freq: Status: Active Protocol: Document 12/10/22 11:38 [facility] (Rec: 12/10/22 11:45 [facility] [id number]) Out-Patient Physical Therapy Visit Information Visit Information Visit Type Treatment Note Visit Start Time 09:30 Visit Stop Time 10:15 Total Visit Minutes 45 Visit Number 14 PT-OP-B Current Condition Start: 08/06/22 09:02 Freq: Status: Active Protocol: Document 08/06/22 09:05 [facility] (Rec: 08/06/22 09:44 [facility] [id number]) Current Condition History of Current Condition Onset Date 2.5 years ago Current Complaints LBP and right posterior hip pain/gluteal pain History of Current Condition 1-2 months ago symptoms started again all in her back and her right hip. She has been swimming 3 times per week . She will be moving to [place] and will be within walking distance to the pool. She did have a cortisone injection in February and along with PT she was feeling better but it was worn off now and pain has returned. Berthacorry PT-OP-C Subjective Start: 08/07/22 09:39 Freq: Status: Active Protocol: Document 12/10/22 11:38 [facility] (Rec: 12/10/22 11:45 [facility] [id number]) OP-PT Subjective Patient Comments Patient Comments Yissel reports she has been doing small little jumps in the pool and this feels good on her back. PT-OP-F Manual Assessment Start: 08/06/22 09:02 Freq: Status: Active Protocol: Document 08/06/22 09:00 [facility] (Rec: 08/07/22 12:38 [facility] [id number]) Manual Assessments Soft Tissue Assessment Soft Tissue Mobility Assessment myofascial tightness in the lumbar paraspinals and right sided piriformis Joint Mobility Assessment Joint Mobility Assessment lumbar stenosis with neurogenic claudification and facet arthropathy, pit is in a exaggerated lumbar lordosis with compression at the L4-5 and L5-S1 in standing PT-OP-G Mobility & Gait Start: 08/07/22 09:39 Freq: Status: Active Protocol: Document 08/06/22 09:00 [facility] (Rec: 08/07/22 12:39 [facility] [id number]) OP Gait Assessment Factors Limiting Gait Function Factors Limiting Gait Function Decreased Strength,Pain Comments Gait Comments increased lumbar compression with gait and pain after walking 1/4 mile, pt takes a shortened step on the right leg PT-OP-K Range of Motion Start: 08/06/22 09:02 Freq: Status: Active Protocol: Document 08/06/22 09:00 [facility] (Rec: 08/07/22 12:38 [facility] [id number]) Hip Goniometric Range of Motion Hip Right Hip ROM WFL No Testing Position Supine Flexion w/Knee Flexed 90 Straight Leg Raise 35 External Rotation 10 left Hip ROM WFL No Testing Position Supine Flexion w/Knee Flexed 95 Straight Leg Raise 40 External Rotation 10 Hip ROM Limitations Hip ROM Limitations Soft Tissue Tightness,Pain Comments pt is limited with both hip flexion/extension as well as hip rotation, pain at end range hip flexion on the right side PT-OP-M Strength Start: 08/06/22 09:02 Freq: Status: Active Protocol: Document 08/06/22 09:00 [facility] (Rec: 08/07/22 12:38 [facility] [id number]) Trunk Strength Trunk Manual Muscle Testing Testing Position Supine Flexion 2+ Poor+ Core Stabilization poor core stabilization and pain with transitional movements Hip Strength Hip Manual Muscle Testing Left Flexion (L2) 3 Fair Abduction 2+ Poor+ External Rotation 2+ Poor+ Right Flexion (L2) 2+ Poor+ Extension (S1) 2+ Poor+ Abduction 2+ Poor+ External Rotation 2+ Poor+ PT-OP-Q Treatments Start: 08/06/22 09:02 Freq: Status: Active Protocol: Document 12/10/22 11:38 [facility] (Rec: 12/10/22 11:45 [facility] [id number]) Therapeutic Exercises Other Exercises seated ethiopian ball small bounces Reps/Minutes 2 min of small bounces on ball Comments to promote low back relaxation trial of small jumps on the trampolene Reps/Minutes x 2 min Comments pt really liked this and felt low back relaxation PT-OP-T Assessment and Plan Start: 08/06/22 09:02 Freq: Status: Active Protocol: Document 12/10/22 11:38 [facility] (Rec: 12/10/22 11:45 [facility] [id number]) Physical Therapy Assessment Assessment Summary Assessment Yissel has not had the nerve pain she did after the visit the end of october. She did like the small jumps on the trampolene as well as the ball and she is actively looking for a trampoline Physical Therapy Plan Frequency and Duration Frequency of Treatment 2x/Week Duration of treatment (weeks) 8 Plan of Care Start Date 10/24/22 Plan of Care End Date 12/19/22 Therapeutic Interventions Therapeutic Interventions Home Exercise Program,Manual Therapy,Neuromuscular Re- education,Patient/Caregiver Education,Self-Care/Home Management,Soft Tissue Mobilization,Therapeutic Exercises Modalities Cold Pack/Ice Massage,Electric Stimulation,Ultrasound Next Visit Focus/Plan Next Note Type Treatment Note Next Visit Plan [place] to MD next visit
--- NOTE | 2022-12-17 16:14 | PT.OTN ---
Current Diagnoses Spinal stenosis, lumbar region with neurogenic claudication (12/17/22) Radiculopathy, lumbar region (12/17/22) Physical Therapy Treatment Note PT-OP-A Visit Information Start: 08/06/22 09:02 Freq: Status: Active Protocol: Document 12/17/22 09:30 [facility] (Rec: 12/17/22 16:14 [facility] [id number]) Out-Patient Physical Therapy Visit Information Visit Information Visit Type Progress Note Visit Start Time 09:30 Visit Stop Time 10:15 Total Visit Minutes 45 Visit Number 15 PT-OP-B Current Condition Start: 08/06/22 09:02 Freq: Status: Active Protocol: Document 08/06/22 09:05 [facility] (Rec: 08/06/22 09:44 [facility] [id number]) Current Condition History of Current Condition Onset Date 2.5 years ago Current Complaints LBP and right posterior hip pain/gluteal pain History of Current Condition 1-2 months ago symptoms started again all in her back and her right hip. She has been swimming 3 times per week . She will be moving to [place] and will be within walking distance to the pool. She did have a cortisone injection in February and along with PT she was feeling better but it was worn off now and pain has returned. Nathan PT-OP-C Subjective Start: 08/07/22 09:39 Freq: Status: Active Protocol: Document 12/17/22 09:30 [facility] (Rec: 12/17/22 16:14 [facility] [id number]) OP-PT Subjective Patient Comments Patient Comments Yeimi reports she had a MRI taken at [facility] and has a appointment with Dr Adame for follow up PT-OP-F Manual Assessment Start: 08/06/22 09:02 Freq: Status: Active Protocol: Document 08/06/22 09:00 [facility] (Rec: 08/07/22 12:38 [facility] [id number]) Manual Assessments Soft Tissue Assessment Soft Tissue Mobility Assessment myofascial tightness in the lumbar paraspinals and right sided piriformis Joint Mobility Assessment Joint Mobility Assessment lumbar stenosis with neurogenic claudification and facet arthropathy, pit is in a exaggerated lumbar lordosis with compression at the L4-5 and L5-S1 in standing PT-OP-G Mobility & Gait Start: 08/07/22 09:39 Freq: Status: Active Protocol: Document 08/06/22 09:00 [facility] (Rec: 08/07/22 12:39 [facility] [id number]) OP Gait Assessment Factors Limiting Gait Function Factors Limiting Gait Function Decreased Strength,Pain Comments Gait Comments increased lumbar compression with gait and pain after walking 1/4 mile, pt takes a shortened step on the right leg PT-OP-K Range of Motion Start: 08/06/22 09:02 Freq: Status: Active Protocol: Document 08/06/22 09:00 [facility] (Rec: 08/07/22 12:38 [facility] [id number]) Hip Goniometric Range of Motion Hip Right Hip ROM WFL No Testing Position Supine Flexion w/Knee Flexed 90 Straight Leg Raise 35 External Rotation 10 left Hip ROM WFL No Testing Position Supine Flexion w/Knee Flexed 95 Straight Leg Raise 40 External Rotation 10 Hip ROM Limitations Hip ROM Limitations Soft Tissue Tightness,Pain Comments pt is limited with both hip flexion/extension as well as hip rotation, pain at end range hip flexion on the right side PT-OP-M Strength Start: 08/06/22 09:02 Freq: Status: Active Protocol: Document 08/06/22 09:00 [facility] (Rec: 08/07/22 12:38 [facility] [id number]) Trunk Strength Trunk Manual Muscle Testing Testing Position Supine Flexion 2+ Poor+ Core Stabilization poor core stabilization and pain with transitional movements Hip Strength Hip Manual Muscle Testing Left Flexion (L2) 3 Fair Abduction 2+ Poor+ External Rotation 2+ Poor+ Right Flexion (L2) 2+ Poor+ Extension (S1) 2+ Poor+ Abduction 2+ Poor+ External Rotation 2+ Poor+ PT-OP-Q Treatments Start: 08/06/22 09:02 Freq: Status: Active Protocol: Document 12/17/22 09:30 [facility] (Rec: 12/17/22 16:14 [facility] [id number]) Therapeutic Exercises Supine Exercises piformis stretch Reps/Minutes hold 30 sec each side x 2 single knee to chest Reps/Minutes 2 x 30 sec each Manual Therapy Treatment Soft Tissue Mobilization lumbar paraspinals on the right side Mobilization Type Myofascial Release Body Position Sidelying Comments worked on releasing the right paraspinals, no nerve pain reported today during any of the treatment piriformis release on the right Body Location right piriformis Mobilization Type Myofascial Release Body Position Sidelying Comments pt in left sidelying to work on releasing the right side of the piriformis Manual Techniques manual adductor stretch Body Location b adductors Comments Right greater than left side tightness, pt shown a stretch in the pool to do for her adductors manual hip IR/ER Body Location B hips Body Position Prone Reps/Duration 2 reps each Comments stretching into hip IR/ER manual hamstring stretching Comments hold 1-2 min each side PT-OP-T Assessment and Plan Start: 08/06/22 09:02 Freq: Status: Active Protocol: Document 12/17/22 09:30 [facility] (Rec: 12/17/22 16:14 [facility] [id number]) Physical Therapy Assessment Goals 3 Impairment Decreased core and LE strength , pt has difficulty with trunk curl, bridges, and activation of her core [employer] Goal (LTG) Pt is able to tolerate dynamic core stabilization with marches in supine without back pain and is I with a HEP some progress LTG Duration 8 weeks 2 Impairment Decreased ability to ambulate due to pain, pt is limited to 1/2 mile when walking on land due to increased pain [employer] Goal (LTG) yeimi is able to return to walking 1/2 mile or more without having to stop and rest due to pain goal not yet met, pt has been able to increase her days she exercises in the pool LTG Duration 8 weeks 1 Impairment Decreased lumbar ROM and hip ROM, pain reproduced with end range mobility Short Term Goal (STG) pt's HEP is reviewed and progressed to progress pain free hip and low back ROM good progress STG Duration 5 weeks Assessment Summary Assessment Progress for Yeimi has been very slow. She is tolerating the pool really well and has been able to go to the pool more frequently now. She continues to have pain despite efforts in PT. She feels the manual therapy does help her and she would like to continue for temporary relief of pain Physical Therapy Plan Frequency and Duration Frequency of Treatment 2x/Week Duration of treatment (weeks) 8 Plan of Care Start Date 12/17/22 Plan of Care End Date 03/19/22 Therapeutic Interventions Therapeutic Interventions Home Exercise Program,Manual Therapy,Neuromuscular Re- education,Patient/Caregiver Education,Self-Care/Home Management,Soft Tissue Mobilization,Therapeutic Exercises Modalities Cold Pack/Ice Massage,Electric Stimulation,Ultrasound Next Visit Focus/Plan Next Note Type Treatment Note Next Visit Plan continue working on stretches to open the lumbar spine, stabilization exercises and manual therapy techniques to help relieve low back tension
--- NOTE | 2022-12-17 16:14 | PT.OPPOC ---
Physical, Occupational & Speech Therapy At [facility] Current Diagnoses Spinal stenosis, lumbar region with neurogenic claudication (12/17/22) Radiculopathy, lumbar region (12/17/22) Visit Care Team Role Provider Type Sabino Munoz MD Family Provider Physician Primary Care Provider Specialty: Family Practice Address: [facility] [place], [address] Email: [email or web address] Diego Adame MD Attending Provider Physician Referring Provider Specialty: Orthopedics Orthopedic Surgery Physical Medicine and Rehab Address: [address] [place] [address], [id number] Email: [email or web address] Plan Of Care PT-OP-T Assessment and Plan Start: 08/06/22 09:02 Freq: Status: Active Protocol: Document 12/17/22 09:30 [facility] (Rec: 12/17/22 16:14 [facility] [id number]) Physical Therapy Assessment Goals 3 Impairment Decreased core and LE strength , pt has difficulty with trunk curl, bridges, and activation of her core Halfway Goal (LTG) Pt is able to tolerate dynamic core stabilization with marches in supine without back pain and is I with a HEP some progress LTG Duration 8 weeks 2 Impairment Decreased ability to ambulate due to pain, pt is limited to 1/2 mile when walking on land due to increased pain Halfway Goal (LTG) yeimi is able to return to walking 1/2 mile or more without having to stop and rest due to pain goal not yet met, pt has been able to increase her days she exercises in the pool LTG Duration 8 weeks 1 Impairment Decreased lumbar ROM and hip ROM, pain reproduced with end range mobility Short Term Goal (STG) pt's HEP is reviewed and progressed to progress pain free hip and low back ROM good progress STG Duration 5 weeks Assessment Summary Assessment Progress for Yeimi has been very slow. She is tolerating the pool really well and has been able to go to the pool more frequently now. She continues to have pain despite efforts in PT. She feels the manual therapy does help her and she would like to continue for temporary relief of pain Physical Therapy Plan Frequency and Duration Frequency of Treatment 2x/Week Duration of treatment (weeks) 8 Plan of Care Start Date 12/17/22 Plan of Care End Date 03/19/22 Therapeutic Interventions Therapeutic Interventions Home Exercise Program,Manual Therapy,Neuromuscular Re- education,Patient/Caregiver Education,Self-Care/Home Management,Soft Tissue Mobilization,Therapeutic Exercises Modalities Cold Pack/Ice Massage,Electric Stimulation,Ultrasound Next Visit Focus/Plan Next Note Type Treatment Note Next Visit Plan continue working on stretches to open the lumbar spine, stabilization exercises and manual therapy techniques to help relieve low back tension Plan of Care Dates Plan of Care Start Date 12/17/22 Plan of Care End Date 03/19/22 Electronically Signed by: Shyanne King, PT 12/17/22 [id number] If you are in agreement with this Plan of Care, please return a signed and dated copy. I have reviewed this Plan of Care and certify that the skilled therapy services above are required to meet the patient?s needs. Physician Signature Date Printed Name and Credentials Clinical Instructor Signature Printed Name and Credentials
--- NOTE | 2022-12-17 16:17 | PT.OPPOC ---
Physical, Occupational & Speech Therapy At [facility] Current Diagnoses Spinal stenosis, lumbar region with neurogenic claudication (12/17/22) Radiculopathy, lumbar region (12/17/22) Visit Care Team Role Provider Type Sabino Munoz MD Family Provider Physician Primary Care Provider Specialty: Family Practice Address: [facility] [place], [address] Email: [email or web address] Diego Adame MD Attending Provider Physician Referring Provider Specialty: Orthopedics Orthopedic Surgery Physical Medicine and Rehab Address: [address] [place] [address], [id number] Email: [email or web address] Plan Of Care PT-OP-T Assessment and Plan Start: 08/06/22 09:02 Freq: Status: Active Protocol: Document 12/17/22 09:30 [facility] (Rec: 12/17/22 16:14 [facility] [id number]) Physical Therapy Assessment Goals 3 Impairment Decreased core and LE strength , pt has difficulty with trunk curl, bridges, and activation of her core Fpc Goal (LTG) Pt is able to tolerate dynamic core stabilization with marches in supine without back pain and is I with a HEP some progress LTG Duration 8 weeks 2 Impairment Decreased ability to ambulate due to pain, pt is limited to 1/2 mile when walking on land due to increased pain Fpc Goal (LTG) yeimi is able to return to walking 1/2 mile or more without having to stop and rest due to pain goal not yet met, pt has been able to increase her days she exercises in the pool LTG Duration 8 weeks 1 Impairment Decreased lumbar ROM and hip ROM, pain reproduced with end range mobility Short Term Goal (STG) pt's HEP is reviewed and progressed to progress pain free hip and low back ROM good progress STG Duration 5 weeks Assessment Summary Assessment Progress for Yeimi has been very slow. She is tolerating the pool really well and has been able to go to the pool more frequently now. She continues to have pain despite efforts in PT. She feels the manual therapy does help her and she would like to continue for temporary relief of pain Physical Therapy Plan Frequency and Duration Frequency of Treatment 2x/Week Duration of treatment (weeks) 8 Plan of Care Start Date 12/17/22 Plan of Care End Date 03/19/22 Therapeutic Interventions Therapeutic Interventions Home Exercise Program,Manual Therapy,Neuromuscular Re- education,Patient/Caregiver Education,Self-Care/Home Management,Soft Tissue Mobilization,Therapeutic Exercises Modalities Cold Pack/Ice Massage,Electric Stimulation,Ultrasound Next Visit Focus/Plan Next Note Type Treatment Note Next Visit Plan continue working on stretches to open the lumbar spine, stabilization exercises and manual therapy techniques to help relieve low back tension Plan of Care Dates Plan of Care Start Date 12/17/22 Plan of Care End Date 03/19/22 Electronically Signed by: Shyanne King, PT 12/17/22 [id number] If you are in agreement with this Plan of Care, please return a signed and dated copy. I have reviewed this Plan of Care and certify that the skilled therapy services above are required to meet the patient?s needs. Physician Signature Date Printed Name and Credentials Clinical Instructor Signature Printed Name and Credentials
--- NOTE | 2022-12-17 16:17 | PT.OPPN ---
Current Diagnoses Spinal stenosis, lumbar region with neurogenic claudication (12/17/22) Radiculopathy, lumbar region (12/17/22) Physical Therapy Progress Note PT-OP-A Visit Information Start: 08/06/22 09:02 Freq: Status: Active Protocol: Document 12/17/22 09:30 [facility] (Rec: 12/17/22 16:14 [facility] [id number]) Out-Patient Physical Therapy Visit Information Visit Information Visit Type Progress Note Visit Start Time 09:30 Visit Stop Time 10:15 Total Visit Minutes 45 Visit Number 15 PT-OP-B Current Condition Start: 08/06/22 09:02 Freq: Status: Active Protocol: Document 08/06/22 09:05 [facility] (Rec: 08/06/22 09:44 [facility] [id number]) Current Condition History of Current Condition Onset Date 2.5 years ago Current Complaints LBP and right posterior hip pain/gluteal pain History of Current Condition 1-2 months ago symptoms started again all in her back and her right hip. She has been swimming 3 times per week . She will be moving to [place] and will be within walking distance to the pool. She did have a cortisone injection in February and along with PT she was feeling better but it was worn off now and pain has returned. Nathan PT-OP-C Subjective Start: 08/07/22 09:39 Freq: Status: Active Protocol: Document 12/17/22 09:30 [facility] (Rec: 12/17/22 16:14 [facility] [id number]) OP-PT Subjective Patient Comments Patient Comments Yeimi reports she had a MRI taken at [facility] and has a appointment with Dr Adame for follow up PT-OP-F Manual Assessment Start: 08/06/22 09:02 Freq: Status: Active Protocol: Document 08/06/22 09:00 [facility] (Rec: 08/07/22 12:38 [facility] [id number]) Manual Assessments Soft Tissue Assessment Soft Tissue Mobility Assessment myofascial tightness in the lumbar paraspinals and right sided piriformis Joint Mobility Assessment Joint Mobility Assessment lumbar stenosis with neurogenic claudification and facet arthropathy, pit is in a exaggerated lumbar lordosis with compression at the L4-5 and L5-S1 in standing PT-OP-G Mobility & Gait Start: 08/07/22 09:39 Freq: Status: Active Protocol: Document 08/06/22 09:00 [facility] (Rec: 08/07/22 12:39 [facility] [id number]) OP Gait Assessment Factors Limiting Gait Function Factors Limiting Gait Function Decreased Strength,Pain Comments Gait Comments increased lumbar compression with gait and pain after walking 1/4 mile, pt takes a shortened step on the right leg PT-OP-K Range of Motion Start: 08/06/22 09:02 Freq: Status: Active Protocol: Document 08/06/22 09:00 [facility] (Rec: 08/07/22 12:38 [facility] [id number]) Hip Goniometric Range of Motion Hip Measured in Degrees Right Hip ROM WFL No Testing Position Supine Flexion w/Knee Flexed 90 Straight Leg Raise 35 External Rotation 10 left Hip ROM WFL No Testing Position Supine Flexion w/Knee Flexed 95 Straight Leg Raise 40 External Rotation 10 Hip ROM Limitations Hip ROM Limitations Soft Tissue Tightness,Pain Comments pt is limited with both hip flexion/extension as well as hip rotation, pain at end range hip flexion on the right side PT-OP-M Strength Start: 08/06/22 09:02 Freq: Status: Active Protocol: Document 08/06/22 09:00 [facility] (Rec: 08/07/22 12:38 [facility] [id number]) Trunk Strength Trunk Manual Muscle Testing Testing Position Supine Flexion 2+ Poor+ Core Stabilization poor core stabilization and pain with transitional movements Hip Strength Hip Manual Muscle Testing Left Flexion (L2) 3 Fair Abduction 2+ Poor+ External Rotation 2+ Poor+ Right Flexion (L2) 2+ Poor+ Extension (S1) 2+ Poor+ Abduction 2+ Poor+ External Rotation 2+ Poor+ PT-OP-T Assessment and Plan Start: 08/06/22 09:02 Freq: Status: Active Protocol: Document 12/17/22 09:30 [facility] (Rec: 12/17/22 16:14 [facility] [id number]) Physical Therapy Assessment Goals 3 Impairment Decreased core and LE strength , pt has difficulty with trunk curl, bridges, and activation of her core [facility]ci Goal (LTG) Pt is able to tolerate dynamic core stabilization with marches in supine without back pain and is I with a HEP some progress LTG Duration 8 weeks 2 Impairment Decreased ability to ambulate due to pain, pt is limited to 1/2 mile when walking on land due to increased pain Fci Goal (LTG) yeimi is able to return to walking 1/2 mile or more without having to stop and rest due to pain goal not yet met, pt has been able to increase her days she exercises in the pool LTG Duration 8 weeks 1 Impairment Decreased lumbar ROM and hip ROM, pain reproduced with end range mobility Short Term Goal (STG) pt's HEP is reviewed and progressed to progress pain free hip and low back ROM good progress STG Duration 5 weeks Assessment Summary Assessment Progress for Yeimi has been very slow. She is tolerating the pool really well and has been able to go to the pool more frequently now. She continues to have pain despite efforts in PT. She feels the manual therapy does help her and she would like to continue for temporary relief of pain Physical Therapy Plan Frequency and Duration Frequency of Treatment 2x/Week Duration of treatment (weeks) 8 Plan of Care Start Date 12/17/22 Plan of Care End Date 03/19/22 Therapeutic Interventions Therapeutic Interventions Home Exercise Program,Manual Therapy,Neuromuscular Re- education,Patient/Caregiver Education,Self-Care/Home Management,Soft Tissue Mobilization,Therapeutic Exercises Modalities Cold Pack/Ice Massage,Electric Stimulation,Ultrasound Next Visit Focus/Plan Next Note Type Treatment Note Next Visit Plan continue working on stretches to open the lumbar spine, stabilization exercises and manual therapy techniques to help relieve low back tension
--- NOTE | 2022-12-25 12:57 | PT.OTN ---
Current Diagnoses Spinal stenosis, lumbar region with neurogenic claudication (12/25/22) Radiculopathy, lumbar region (12/25/22) Physical Therapy Treatment Note PT-OP-A Visit Information Start: 08/06/22 09:02 Freq: Status: Active Protocol: Document 12/25/22 09:30 [facility] (Rec: 12/25/22 12:57 [facility] [id number]) Out-Patient Physical Therapy Visit Information Visit Information Visit Type Treatment Note Visit Start Time 09:30 Visit Stop Time 10:15 Total Visit Minutes 45 Visit Number 16 PT-OP-B Current Condition Start: 08/06/22 09:02 Freq: Status: Active Protocol: Document 08/06/22 09:05 [facility] (Rec: 08/06/22 09:44 [facility] [id number]) Current Condition History of Current Condition Onset Date 2.5 years ago Current Complaints LBP and right posterior hip pain/gluteal pain History of Current Condition 1-2 months ago symptoms started again all in her back and her right hip. She has been swimming 3 times per week . She will be moving to [place] and will be within walking distance to the pool. She did have a cortisone injection in February and along with PT she was feeling better but it was worn off now and pain has returned. Princessderek PT-OP-C Subjective Start: 08/07/22 09:39 Freq: Status: Active Protocol: Document 12/25/22 09:30 [facility] (Rec: 12/25/22 12:57 [facility] [id number]) OP-PT Subjective Patient Comments Patient Comments Yissel has her appt with Dr. Adame next week, her right hip/ SI is still really hurting her PT-OP-F Manual Assessment Start: 08/06/22 09:02 Freq: Status: Active Protocol: Document 08/06/22 09:00 [facility] (Rec: 08/07/22 12:38 [facility] [id number]) Manual Assessments Soft Tissue Assessment Soft Tissue Mobility Assessment myofascial tightness in the lumbar paraspinals and right sided piriformis Joint Mobility Assessment Joint Mobility Assessment lumbar stenosis with neurogenic claudification and facet arthropathy, pit is in a exaggerated lumbar lordosis with compression at the L4-5 and L5-S1 in standing PT-OP-G Mobility & Gait Start: 08/07/22 09:39 Freq: Status: Active Protocol: Document 08/06/22 09:00 [facility] (Rec: 08/07/22 12:39 [facility] [id number]) OP Gait Assessment Factors Limiting Gait Function Factors Limiting Gait Function Decreased Strength,Pain Comments Gait Comments increased lumbar compression with gait and pain after walking 1/4 mile, pt takes a shortened step on the right leg PT-OP-K Range of Motion Start: 08/06/22 09:02 Freq: Status: Active Protocol: Document 08/06/22 09:00 [facility] (Rec: 08/07/22 12:38 [facility] [id number]) Hip Goniometric Range of Motion Hip Right Hip ROM WFL No Testing Position Supine Flexion w/Knee Flexed 90 Straight Leg Raise 35 External Rotation 10 left Hip ROM WFL No Testing Position Supine Flexion w/Knee Flexed 95 Straight Leg Raise 40 External Rotation 10 Hip ROM Limitations Hip ROM Limitations Soft Tissue Tightness,Pain Comments pt is limited with both hip flexion/extension as well as hip rotation, pain at end range hip flexion on the right side PT-OP-M Strength Start: 08/06/22 09:02 Freq: Status: Active Protocol: Document 08/06/22 09:00 [facility] (Rec: 08/07/22 12:38 [facility] [id number]) Trunk Strength Trunk Manual Muscle Testing Testing Position Supine Flexion 2+ Poor+ Core Stabilization poor core stabilization and pain with transitional movements Hip Strength Hip Manual Muscle Testing Left Flexion (L2) 3 Fair Abduction 2+ Poor+ External Rotation 2+ Poor+ Right Flexion (L2) 2+ Poor+ Extension (S1) 2+ Poor+ Abduction 2+ Poor+ External Rotation 2+ Poor+ PT-OP-Q Treatments Start: 08/06/22 09:02 Freq: Status: Active Protocol: Document 12/25/22 09:30 [facility] (Rec: 12/25/22 12:57 [facility] [id number]) Therapeutic Exercises Supine Exercises supine hamstring stretch Reps/Minutes 2 x 30 sec each piformis stretch Reps/Minutes hold 30 sec each side x 2 single knee to chest Reps/Minutes 2 x 30 sec each Manual Therapy Treatment Soft Tissue Mobilization lumbar paraspinals on the right side Mobilization Type Myofascial Release Body Position Prone Comments worked on releasing the right paraspinals, no nerve pain reported today during any of the treatment piriformis release on the right Body Location right piriformis Mobilization Type Myofascial Release Body Position Sidelying Comments pt in left sidelying to work on releasing the right side of the piriformis prone on body pillow Body Location lumbar paraspinals Mobilization Type Myofascial Release Intensity/Depth Moderate Body Position Prone Comments MFR of the paraspinals and right piriformis musculature Manual Techniques manual adductor stretch Body Location b adductors Comments Right greater than left side tightness, pt shown a stretch in the pool to do for her adductors manual hamstring stretching Comments hold 1-2 min each side PT-OP-T Assessment and Plan Start: 08/06/22 09:02 Freq: Status: Active Protocol: Document 12/25/22 09:30 [facility] (Rec: 12/25/22 12:57 [facility] [id number]) Physical Therapy Assessment Assessment Summary Assessment continue working on adductor stretching and encouraged hip stretching in the pool as Yissel tolerates the pool well Physical Therapy Plan Frequency and Duration Frequency of Treatment 2x/Week Duration of treatment (weeks) 8 Plan of Care Start Date 12/17/22 Plan of Care End Date 03/19/22 Next Visit Focus/Plan Next Note Type Treatment Note Next Visit Plan continue working on stretches to open the lumbar spine, stabilization exercises and manual therapy techniques to help relieve low back tension
--- NOTE | 2023-01-21 16:50 | PT.OTN ---
Current Diagnoses Spinal stenosis, lumbar region with neurogenic claudication (01/21/23) Radiculopathy, lumbar region (01/21/23) Physical Therapy Treatment Note PT-OP-A Visit Information Start: 08/06/22 09:02 Freq: Status: Active Protocol: Document 01/21/23 08:45 [facility] (Rec: 01/21/23 16:50 [facility] [id number]) Out-Patient Physical Therapy Visit Information Visit Information Visit Type Treatment Note Visit Start Time 08:45 Visit Stop Time 09:30 Total Visit Minutes 34 Visit Number 17 PT-OP-B Current Condition Start: 08/06/22 09:02 Freq: Status: Active Protocol: Document 08/06/22 09:05 [facility] (Rec: 08/06/22 09:44 [facility] [id number]) Current Condition History of Current Condition Onset Date 2.5 years ago Current Complaints LBP and right posterior hip pain/gluteal pain History of Current Condition 1-2 months ago symptoms started again all in her back and her right hip. She has been swimming 3 times per week . She will be moving to [place] and will be within walking distance to the pool. She did have a cortisone injection in February and along with PT she was feeling better but it was worn off now and pain has returned. Nathan PT-OP-C Subjective Start: 08/07/22 09:39 Freq: Status: Active Protocol: Document 01/21/23 08:51 [facility] (Rec: 01/21/23 09:34 [facility] [id number]) OP-PT Subjective Patient Comments Patient Comments pt notes she had her second cortsone injection at the right SI joint but she isn't noting any change, she is feeling like it makes her legs weak Patient Reported Progress Same PT-OP-F Manual Assessment Start: 08/06/22 09:02 Freq: Status: Active Protocol: Document 08/06/22 09:00 [facility] (Rec: 08/07/22 12:38 [facility] [id number]) Manual Assessments Soft Tissue Assessment Soft Tissue Mobility Assessment myofascial tightness in the lumbar paraspinals and right sided piriformis Joint Mobility Assessment Joint Mobility Assessment lumbar stenosis with neurogenic claudification and facet arthropathy, pit is in a exaggerated lumbar lordosis with compression at the L4-5 and L5-S1 in standing PT-OP-G Mobility & Gait Start: 08/07/22 09:39 Freq: Status: Active Protocol: Document 08/06/22 09:00 [facility] (Rec: 08/07/22 12:39 [facility] [id number]) OP Gait Assessment Factors Limiting Gait Function Factors Limiting Gait Function Decreased Strength,Pain Comments Gait Comments increased lumbar compression with gait and pain after walking 1/4 mile, pt takes a shortened step on the right leg PT-OP-K Range of Motion Start: 08/06/22 09:02 Freq: Status: Active Protocol: Document 08/06/22 09:00 [facility] (Rec: 08/07/22 12:38 [facility] [id number]) Hip Goniometric Range of Motion Hip Right Hip ROM WFL No Testing Position Supine Flexion w/Knee Flexed 90 Straight Leg Raise 35 External Rotation 10 left Hip ROM WFL No Testing Position Supine Flexion w/Knee Flexed 95 Straight Leg Raise 40 External Rotation 10 Hip ROM Limitations Hip ROM Limitations Soft Tissue Tightness,Pain Comments pt is limited with both hip flexion/extension as well as hip rotation, pain at end range hip flexion on the right side PT-OP-M Strength Start: 08/06/22 09:02 Freq: Status: Active Protocol: Document 08/06/22 09:00 [facility] (Rec: 08/07/22 12:38 [facility] [id number]) Trunk Strength Trunk Manual Muscle Testing Testing Position Supine Flexion 2+ Poor+ Core Stabilization poor core stabilization and pain with transitional movements Hip Strength Hip Manual Muscle Testing Left Flexion (L2) 3 Fair Abduction 2+ Poor+ External Rotation 2+ Poor+ Right Flexion (L2) 2+ Poor+ Extension (S1) 2+ Poor+ Abduction 2+ Poor+ External Rotation 2+ Poor+ PT-OP-Q Treatments Start: 08/06/22 09:02 Freq: Status: Active Protocol: Document 01/21/23 08:45 [facility] (Rec: 01/21/23 16:50 [facility] [id number]) Therapeutic Exercises Supine Exercises lower trunk rotation Reps/Minutes x 10 piformis stretch Reps/Minutes hold 30 sec each side x 2 single knee to chest Reps/Minutes 2 x 30 sec each Manual Therapy Treatment Soft Tissue Mobilization lumbar paraspinals on the right side Mobilization Type Myofascial Release Body Position Prone Comments worked on releasing the right paraspinals, no nerve pain reported today during any of the treatment piriformis release on the right Body Location right piriformis Mobilization Type Myofascial Release Body Position Sidelying Comments pt in left sidelying to work on releasing the right side of the piriformis Manual Techniques manual adductor stretch Body Location b adductors Comments Right greater than left side tightness, pt shown a stretch in the pool to do for her adductors manual hip IR/ER Body Location B hips Body Position Prone Reps/Duration 2 reps each Comments stretching into hip IR/ER manual hamstring stretching Comments hold 1-2 min each side manual knee flexion with quad stretch Comments hold 2 min each side PT-OP-T Assessment and Plan Start: 08/06/22 09:02 Freq: Status: Active Protocol: Document 01/21/23 08:45 [facility] (Rec: 01/21/23 16:50 [facility] [id number]) Physical Therapy Assessment Assessment Summary Assessment right adductor and piriformis present with increased tightness and guarding today, Yissel's stretches were reviewed and she was shown modifications for the pool for stretching Physical Therapy Plan Frequency and Duration Frequency of Treatment 2x/Week Duration of treatment (weeks) 8 Plan of Care Start Date 12/17/22 Plan of Care End Date 03/19/22 Next Visit Focus/Plan Next Note Type Treatment Note Next Visit Plan continue working on stretches to open the lumbar spine, stabilization exercises and manual therapy techniques to help relieve low back tension
--- NOTE | 2023-01-28 09:13 | PT.OTN ---
Current Diagnoses Spinal stenosis, lumbar region with neurogenic claudication (01/28/23) Radiculopathy, lumbar region (01/28/23) Physical Therapy Treatment Note PT-OP-A Visit Information Start: 08/06/22 09:02 Freq: Status: Active Protocol: Document 01/28/23 08:17 [facility] (Rec: 01/28/23 08:21 [facility] [id number]) Out-Patient Physical Therapy Visit Information Visit Information Visit Type Treatment Note Visit Start Time 08:15 Visit Stop Time 09:00 Total Visit Minutes 45 Visit Number 18 PT-OP-B Current Condition Start: 08/06/22 09:02 Freq: Status: Active Protocol: Document 08/06/22 09:05 [facility] (Rec: 08/06/22 09:44 [facility] [id number]) Current Condition History of Current Condition Onset Date 2.5 years ago Current Complaints LBP and right posterior hip pain/gluteal pain History of Current Condition 1-2 months ago symptoms started again all in her back and her right hip. She has been swimming 3 times per week . She will be moving to [place] and will be within walking distance to the pool. She did have a cortisone injection in February and along with PT she was feeling better but it was worn off now and pain has returned. Nathan PT-OP-C Subjective Start: 08/07/22 09:39 Freq: Status: Active Protocol: Document 01/28/23 08:17 [facility] (Rec: 01/28/23 08:21 [facility] [id number]) OP-PT Subjective Patient Comments Patient Comments Yissel notes she still hasn't noticed any changes yet, first thing in the am is the worst, she is getting a couple of days relief with PT PT-OP-F Manual Assessment Start: 08/06/22 09:02 Freq: Status: Active Protocol: Document 08/06/22 09:00 [facility] (Rec: 08/07/22 12:38 [facility] [id number]) Manual Assessments Soft Tissue Assessment Soft Tissue Mobility Assessment myofascial tightness in the lumbar paraspinals and right sided piriformis Joint Mobility Assessment Joint Mobility Assessment lumbar stenosis with neurogenic claudification and facet arthropathy, pit is in a exaggerated lumbar lordosis with compression at the L4-5 and L5-S1 in standing PT-OP-G Mobility & Gait Start: 08/07/22 09:39 Freq: Status: Active Protocol: Document 08/06/22 09:00 [facility] (Rec: 08/07/22 12:39 [facility] [id number]) OP Gait Assessment Factors Limiting Gait Function Factors Limiting Gait Function Decreased Strength,Pain Comments Gait Comments increased lumbar compression with gait and pain after walking 1/4 mile, pt takes a shortened step on the right leg PT-OP-K Range of Motion Start: 08/06/22 09:02 Freq: Status: Active Protocol: Document 08/06/22 09:00 [facility] (Rec: 08/07/22 12:38 [facility] [id number]) Hip Goniometric Range of Motion Hip Right Hip ROM WFL No Testing Position Supine Flexion w/Knee Flexed 90 Straight Leg Raise 35 External Rotation 10 left Hip ROM WFL No Testing Position Supine Flexion w/Knee Flexed 95 Straight Leg Raise 40 External Rotation 10 Hip ROM Limitations Hip ROM Limitations Soft Tissue Tightness,Pain Comments pt is limited with both hip flexion/extension as well as hip rotation, pain at end range hip flexion on the right side PT-OP-M Strength Start: 08/06/22 09:02 Freq: Status: Active Protocol: Document 08/06/22 09:00 [facility] (Rec: 08/07/22 12:38 [facility] [id number]) Trunk Strength Trunk Manual Muscle Testing Testing Position Supine Flexion 2+ Poor+ Core Stabilization poor core stabilization and pain with transitional movements Hip Strength Hip Manual Muscle Testing Left Flexion (L2) 3 Fair Abduction 2+ Poor+ External Rotation 2+ Poor+ Right Flexion (L2) 2+ Poor+ Extension (S1) 2+ Poor+ Abduction 2+ Poor+ External Rotation 2+ Poor+ PT-OP-Q Treatments Start: 08/06/22 09:02 Freq: Status: Active Protocol: Document 01/28/23 09:04 [facility] (Rec: 01/28/23 09:12 [facility] [id number]) Therapeutic Exercises Supine Exercises iliopsoas stretch Supine Exercise Name in tara test position, right side Reps/Minutes hold x 1 min supine hamstring stretch Reps/Minutes 2 x 30 sec each piformis stretch Reps/Minutes hold 30 sec each side x 2 single knee to chest Reps/Minutes 2 x 30 sec each Manual Therapy Treatment Soft Tissue Mobilization piriformis release on the right Body Location right piriformis Mobilization Type Myofascial Release Body Position Sidelying Comments pt in left sidelying to work on releasing the right side of the piriformis prone on body pillow Body Location lumbar paraspinals Mobilization Type Myofascial Release Intensity/Depth Moderate Body Position Prone Comments MFR of the paraspinals and right piriformis musculature Manual Techniques manual adductor stretch Body Location b adductors Comments Right greater than left side tightness, pt shown a stretch in the pool to do for her adductors manual hip IR/ER Body Location B hips Body Position Prone Reps/Duration 2 reps each Comments stretching into hip IR/ER manual knee flexion with quad stretch Comments hold 2 min each side PT-OP-T Assessment and Plan Start: 08/06/22 09:02 Freq: Status: Active Protocol: Document 01/28/23 09:04 [facility] (Rec: 01/28/23 09:12 [facility] [id number]) Physical Therapy Assessment Assessment Summary Assessment Yissel is working on stretching out her adductors and hips in the pool, she is not as tight today as she was last week. She notes she gets a few days relief in between appts. She did not get relief with cortisone injection. She has a visit with Dr. Adame again this next week Physical Therapy Plan Frequency and Duration Frequency of Treatment 2x/Week Duration of treatment (weeks) 8 Plan of Care Start Date 12/17/22 Plan of Care End Date 03/19/22 Therapeutic Interventions Therapeutic Interventions Home Exercise Program,Manual Therapy,Neuromuscular Re- education,Patient/Caregiver Education,Self-Care/Home Management,Soft Tissue Mobilization,Therapeutic Exercises Modalities Cold Pack/Ice Massage,Electric Stimulation,Ultrasound Next Visit Focus/Plan Next Note Type Treatment Note Next Visit Plan continue working on stretches to open the lumbar spine, stabilization exercises and manual therapy techniques to help relieve low back tension
--- NOTE | 2023-02-04 13:17 | PT.OTN ---
Current Diagnoses Spinal stenosis, lumbar region with neurogenic claudication (02/04/23) Radiculopathy, lumbar region (02/04/23) Physical Therapy Treatment Note PT-OP-A Visit Information Start: 08/06/22 09:02 Freq: Status: Active Protocol: Document 02/04/23 08:15 [facility] (Rec: 02/04/23 08:18 [facility] [id number]) Out-Patient Physical Therapy Visit Information Visit Information Visit Type Treatment Note Visit Start Time 08:15 Visit Stop Time 09:00 Total Visit Minutes 45 Visit Number 19 PT-OP-B Current Condition Start: 08/06/22 09:02 Freq: Status: Active Protocol: Document 08/06/22 09:05 [facility] (Rec: 08/06/22 09:44 [facility] [id number]) Current Condition History of Current Condition Onset Date 2.5 years ago Current Complaints LBP and right posterior hip pain/gluteal pain History of Current Condition 1-2 months ago symptoms started again all in her back and her right hip. She has been swimming 3 times per week . She will be moving to [place] and will be within walking distance to the pool. She did have a cortisone injection in February and along with PT she was feeling better but it was worn off now and pain has returned. Nathan PT-OP-C Subjective Start: 08/07/22 09:39 Freq: Status: Active Protocol: Document 02/04/23 08:15 [facility] (Rec: 02/04/23 08:18 [facility] [id number]) OP-PT Subjective Patient Comments Patient Comments Yissel notes she saw Dr Adame this week and will be referred to Dr. Harrington for surgical consult. Her appt is next week . PT-OP-F Manual Assessment Start: 08/06/22 09:02 Freq: Status: Active Protocol: Document 08/06/22 09:00 [facility] (Rec: 08/07/22 12:38 [facility] [id number]) Manual Assessments Soft Tissue Assessment Soft Tissue Mobility Assessment myofascial tightness in the lumbar paraspinals and right sided piriformis Joint Mobility Assessment Joint Mobility Assessment lumbar stenosis with neurogenic claudification and facet arthropathy, pit is in a exaggerated lumbar lordosis with compression at the L4-5 and L5-S1 in standing PT-OP-G Mobility & Gait Start: 08/07/22 09:39 Freq: Status: Active Protocol: Document 08/06/22 09:00 [facility] (Rec: 08/07/22 12:39 [facility] [id number]) OP Gait Assessment Factors Limiting Gait Function Factors Limiting Gait Function Decreased Strength,Pain Comments Gait Comments increased lumbar compression with gait and pain after walking 1/4 mile, pt takes a shortened step on the right leg PT-OP-K Range of Motion Start: 08/06/22 09:02 Freq: Status: Active Protocol: Document 08/06/22 09:00 [facility] (Rec: 08/07/22 12:38 [facility] [id number]) Hip Goniometric Range of Motion Hip Right Hip ROM WFL No Testing Position Supine Flexion w/Knee Flexed 90 Straight Leg Raise 35 External Rotation 10 left Hip ROM WFL No Testing Position Supine Flexion w/Knee Flexed 95 Straight Leg Raise 40 External Rotation 10 Hip ROM Limitations Hip ROM Limitations Soft Tissue Tightness,Pain Comments pt is limited with both hip flexion/extension as well as hip rotation, pain at end range hip flexion on the right side PT-OP-M Strength Start: 08/06/22 09:02 Freq: Status: Active Protocol: Document 08/06/22 09:00 [facility] (Rec: 08/07/22 12:38 [facility] [id number]) Trunk Strength Trunk Manual Muscle Testing Testing Position Supine Flexion 2+ Poor+ Core Stabilization poor core stabilization and pain with transitional movements Hip Strength Hip Manual Muscle Testing Left Flexion (L2) 3 Fair Abduction 2+ Poor+ External Rotation 2+ Poor+ Right Flexion (L2) 2+ Poor+ Extension (S1) 2+ Poor+ Abduction 2+ Poor+ External Rotation 2+ Poor+ PT-OP-Q Treatments Start: 08/06/22 09:02 Freq: Status: Active Protocol: Document 02/04/23 13:13 [facility] (Rec: 02/04/23 13:17 [facility] [id number]) Therapeutic Exercises Supine Exercises piformis stretch Reps/Minutes hold 30 sec each side x 2 single knee to chest Reps/Minutes 2 x 30 sec each Manual Therapy Treatment Soft Tissue Mobilization lumbar paraspinals on the right side Mobilization Type Myofascial Release Body Position Prone Comments worked on releasing the right paraspinals, no nerve pain reported today during any of the treatment piriformis release on the right Body Location right piriformis Mobilization Type Myofascial Release Body Position Sidelying Comments pt in left sidelying to work on releasing the right side of the piriformis prone on body pillow Body Location lumbar paraspinals Mobilization Type Myofascial Release Intensity/Depth Moderate Body Position Prone Comments MFR of the paraspinals and right piriformis musculature Manual Techniques manual hip IR/ER Body Location B hips Body Position Prone Reps/Duration 2 reps each Comments stretching into hip IR/ER manual hamstring stretching Comments hold 1-2 min each side manual knee flexion with quad stretch Comments hold 2 min each side PT-OP-T Assessment and Plan Start: 08/06/22 09:02 Freq: Status: Active Protocol: Document 02/04/23 13:13 [facility] (Rec: 02/04/23 13:17 [facility] [id number]) Physical Therapy Assessment Assessment Summary Assessment Yissel continues to get temporary relief only both from PT and her pool program. She will seek surgical consult this next week Physical Therapy Plan Frequency and Duration Frequency of Treatment 2x/Week Duration of treatment (weeks) 8 Plan of Care Start Date 12/17/22 Plan of Care End Date 03/19/22 Therapeutic Interventions Therapeutic Interventions Home Exercise Program,Manual Therapy,Neuromuscular Re- education,Patient/Caregiver Education,Self-Care/Home Management,Soft Tissue Mobilization,Therapeutic Exercises Modalities Cold Pack/Ice Massage,Electric Stimulation,Ultrasound Next Visit Focus/Plan Next Note Type Treatment Note Next Visit Plan continue working on stretches to open the lumbar spine, stabilization exercises and manual therapy techniques to help relieve low back tension
--- NOTE | 2023-02-13 11:49 | PT.OTN ---
Current Diagnoses Spinal stenosis, lumbar region with neurogenic claudication (02/13/23) Radiculopathy, lumbar region (02/13/23) Physical Therapy Treatment Note PT-OP-A Visit Information Start: 08/06/22 09:02 Freq: Status: Active Protocol: Document 02/13/23 08:18 [facility] (Rec: 02/13/23 09:04 [facility] [id number]) Out-Patient Physical Therapy Visit Information Visit Information Visit Type Treatment Note Visit Start Time 08:18 Visit Stop Time 09:00 Total Visit Minutes 42 Visit Number 20 PT-OP-B Current Condition Start: 08/06/22 09:02 Freq: Status: Active Protocol: Document 08/06/22 09:05 [facility] (Rec: 08/06/22 09:44 [facility] [id number]) Current Condition History of Current Condition Onset Date 2.5 years ago Current Complaints LBP and right posterior hip pain/gluteal pain History of Current Condition 1-2 months ago symptoms started again all in her back and her right hip. She has been swimming 3 times per week . She will be moving to [place] and will be within walking distance to the pool. She did have a cortisone injection in February and along with PT she was feeling better but it was worn off now and pain has returned. Nathan PT-OP-C Subjective Start: 08/07/22 09:39 Freq: Status: Active Protocol: Document 02/13/23 08:18 [facility] (Rec: 02/13/23 09:04 [facility] [id number]) OP-PT Subjective Patient Comments Patient Comments pt notes she will be having surgery at L5 S1 PT-OP-F Manual Assessment Start: 08/06/22 09:02 Freq: Status: Active Protocol: Document 08/06/22 09:00 [facility] (Rec: 08/07/22 12:38 [facility] [id number]) Manual Assessments Soft Tissue Assessment Soft Tissue Mobility Assessment myofascial tightness in the lumbar paraspinals and right sided piriformis Joint Mobility Assessment Joint Mobility Assessment lumbar stenosis with neurogenic claudification and facet arthropathy, pit is in a exaggerated lumbar lordosis with compression at the L4-5 and L5-S1 in standing PT-OP-G Mobility & Gait Start: 08/07/22 09:39 Freq: Status: Active Protocol: Document 08/06/22 09:00 [facility] (Rec: 08/07/22 12:39 [facility] [id number]) OP Gait Assessment Factors Limiting Gait Function Factors Limiting Gait Function Decreased Strength,Pain Comments Gait Comments increased lumbar compression with gait and pain after walking 1/4 mile, pt takes a shortened step on the right leg PT-OP-K Range of Motion Start: 08/06/22 09:02 Freq: Status: Active Protocol: Document 08/06/22 09:00 [facility] (Rec: 08/07/22 12:38 [facility] [id number]) Hip Goniometric Range of Motion Hip Right Hip ROM WFL No Testing Position Supine Flexion w/Knee Flexed 90 Straight Leg Raise 35 External Rotation 10 left Hip ROM WFL No Testing Position Supine Flexion w/Knee Flexed 95 Straight Leg Raise 40 External Rotation 10 Hip ROM Limitations Hip ROM Limitations Soft Tissue Tightness,Pain Comments pt is limited with both hip flexion/extension as well as hip rotation, pain at end range hip flexion on the right side PT-OP-M Strength Start: 08/06/22 09:02 Freq: Status: Active Protocol: Document 08/06/22 09:00 [facility] (Rec: 08/07/22 12:38 [facility] [id number]) Trunk Strength Trunk Manual Muscle Testing Testing Position Supine Flexion 2+ Poor+ Core Stabilization poor core stabilization and pain with transitional movements Hip Strength Hip Manual Muscle Testing Left Flexion (L2) 3 Fair Abduction 2+ Poor+ External Rotation 2+ Poor+ Right Flexion (L2) 2+ Poor+ Extension (S1) 2+ Poor+ Abduction 2+ Poor+ External Rotation 2+ Poor+ PT-OP-Q Treatments Start: 08/06/22 09:02 Freq: Status: Active Protocol: Document 02/13/23 11:44 [facility] (Rec: 02/13/23 11:49 [facility] [id number]) Manual Therapy Treatment Soft Tissue Mobilization piriformis release on the right Body Location right piriformis Mobilization Type Myofascial Release Body Position Sidelying Comments pt in left sidelying to work on releasing the right side of the piriformis prone on body pillow Body Location lumbar paraspinals Mobilization Type Myofascial Release Intensity/Depth Moderate Body Position Prone Comments MFR of the paraspinals and right piriformis musculature Manual Techniques manual adductor stretch Body Location b adductors Comments Right greater than left side tightness, pt shown a stretch in the pool to do for her adductors manual hip IR/ER Body Location B hips Body Position Prone Reps/Duration 2 reps each Comments stretching into hip IR/ER manual hamstring stretching Comments hold 1-2 min each side manual knee flexion with quad stretch Comments hold 2 min each side PT-OP-T Assessment and Plan Start: 08/06/22 09:02 Freq: Status: Active Protocol: Document 02/13/23 11:44 [facility] (Rec: 02/13/23 11:49 [facility] [id number]) Physical Therapy Assessment Assessment Summary Assessment Yissel has 2 visits left and she will be out of town for [place] she will then schedule her surgery. She is still getting temporary relief with PT at this point. Physical Therapy Plan Frequency and Duration Frequency of Treatment 2x/Week Duration of treatment (weeks) 8 Plan of Care Start Date 12/17/22 Plan of Care End Date 03/19/22 Therapeutic Interventions Therapeutic Interventions Home Exercise Program,Manual Therapy,Neuromuscular Re- education,Patient/Caregiver Education,Self-Care/Home Management,Soft Tissue Mobilization,Therapeutic Exercises Modalities Cold Pack/Ice Massage,Electric Stimulation,Ultrasound Next Visit Focus/Plan Next Note Type Treatment Note Next Visit Plan continue working on stretches to open the lumbar spine, stabilization exercises and manual therapy techniques to help relieve low back tension
--- NOTE | 2023-02-25 10:09 | PT.OTN ---
Current Diagnoses Spinal stenosis, lumbar region with neurogenic claudication (02/25/23) Radiculopathy, lumbar region (02/25/23) Physical Therapy Treatment Note PT-OP-A Visit Information Start: 08/06/22 09:02 Freq: Status: Active Protocol: Document 02/25/23 08:15 [facility] (Rec: 02/25/23 09:02 [facility] [id number]) Out-Patient Physical Therapy Visit Information Visit Information Visit Type Treatment Note Visit Start Time 08:15 Visit Stop Time 09:00 Total Visit Minutes 45 Visit Number 22 PT-OP-B Current Condition Start: 08/06/22 09:02 Freq: Status: Active Protocol: Document 08/06/22 09:05 [facility] (Rec: 08/06/22 09:44 [facility] [id number]) Current Condition History of Current Condition Onset Date 2.5 years ago Current Complaints LBP and right posterior hip pain/gluteal pain History of Current Condition 1-2 months ago symptoms started again all in her back and her right hip. She has been swimming 3 times per week . She will be moving to [place] and will be within walking distance to the pool. She did have a cortisone injection in February and along with PT she was feeling better but it was worn off now and pain has returned. Berthacorry PT-OP-C Subjective Start: 08/07/22 09:39 Freq: Status: Active Protocol: Document 02/25/23 08:15 [facility] (Rec: 02/25/23 10:08 [facility] [id number]) OP-PT Subjective Patient Comments Patient Comments Yissel notes she has been having ankle swelling with walking. She is still very sore in her right hip and SI joint. She is not yet scheduled for surgery PT-OP-F Manual Assessment Start: 08/06/22 09:02 Freq: Status: Active Protocol: Document 08/06/22 09:00 [facility] (Rec: 08/07/22 12:38 [facility] [id number]) Manual Assessments Soft Tissue Assessment Soft Tissue Mobility Assessment myofascial tightness in the lumbar paraspinals and right sided piriformis Joint Mobility Assessment Joint Mobility Assessment lumbar stenosis with neurogenic claudification and facet arthropathy, pit is in a exaggerated lumbar lordosis with compression at the L4-5 and L5-S1 in standing PT-OP-G Mobility & Gait Start: 08/07/22 09:39 Freq: Status: Active Protocol: Document 08/06/22 09:00 [facility] (Rec: 08/07/22 12:39 [facility] [id number]) OP Gait Assessment Factors Limiting Gait Function Factors Limiting Gait Function Decreased Strength,Pain Comments Gait Comments increased lumbar compression with gait and pain after walking 1/4 mile, pt takes a shortened step on the right leg PT-OP-K Range of Motion Start: 08/06/22 09:02 Freq: Status: Active Protocol: Document 08/06/22 09:00 [facility] (Rec: 08/07/22 12:38 [facility] [id number]) Hip Goniometric Range of Motion Hip Right Hip ROM WFL No Testing Position Supine Flexion w/Knee Flexed 90 Straight Leg Raise 35 External Rotation 10 left Hip ROM WFL No Testing Position Supine Flexion w/Knee Flexed 95 Straight Leg Raise 40 External Rotation 10 Hip ROM Limitations Hip ROM Limitations Soft Tissue Tightness,Pain Comments pt is limited with both hip flexion/extension as well as hip rotation, pain at end range hip flexion on the right side PT-OP-M Strength Start: 08/06/22 09:02 Freq: Status: Active Protocol: Document 08/06/22 09:00 [facility] (Rec: 08/07/22 12:38 [facility] [id number]) Trunk Strength Trunk Manual Muscle Testing Testing Position Supine Flexion 2+ Poor+ Core Stabilization poor core stabilization and pain with transitional movements Hip Strength Hip Manual Muscle Testing Left Flexion (L2) 3 Fair Abduction 2+ Poor+ External Rotation 2+ Poor+ Right Flexion (L2) 2+ Poor+ Extension (S1) 2+ Poor+ Abduction 2+ Poor+ External Rotation 2+ Poor+ PT-OP-Q Treatments Start: 08/06/22 09:02 Freq: Status: Active Protocol: Document 02/25/23 08:15 [facility] (Rec: 02/25/23 10:08 [facility] [id number]) Therapeutic Exercises Supine Exercises iliopsoas stretch Supine Exercise Name in tara test position, right side Reps/Minutes hold x 1 min supine hamstring stretch Reps/Minutes 2 x 30 sec each piformis stretch Reps/Minutes hold 30 sec each side x 2 single knee to chest Reps/Minutes 2 x 30 sec each Manual Therapy Treatment Soft Tissue Mobilization piriformis release on the right Body Location right piriformis Mobilization Type Myofascial Release Body Position Sidelying Comments pt in left sidelying to work on releasing the right side of the piriformis Manual Techniques manual adductor stretch Body Location b adductors Comments Right greater than left side tightness, pt shown a stretch in the pool to do for her adductors manual hip IR/ER Body Location B hips Body Position Prone Reps/Duration 2 reps each Comments stretching into hip IR/ER manual hamstring stretching Comments hold 1-2 min each side manual knee flexion with quad stretch Comments hold 2 min each side PT-OP-T Assessment and Plan Start: 08/06/22 09:02 Freq: Status: Active Protocol: Document 02/25/23 08:15 [facility] (Rec: 02/25/23 10:08 [facility] [id number]) Physical Therapy Assessment Assessment Summary Assessment Yissel will be having surgery for S1 stabilization but it isn't scheduled yet. She will be heading out of town for [place] so will miss her next two visits in PT Physical Therapy Plan Frequency and Duration Frequency of Treatment 2x/Week Duration of treatment (weeks) 8 Plan of Care Start Date 12/17/22 Plan of Care End Date 03/19/22 Therapeutic Interventions Therapeutic Interventions Home Exercise Program,Manual Therapy,Neuromuscular Re- education,Patient/Caregiver Education,Self-Care/Home Management,Soft Tissue Mobilization,Therapeutic Exercises Modalities Cold Pack/Ice Massage,Electric Stimulation,Ultrasound Next Visit Focus/Plan Next Note Type Treatment Note Next Visit Plan continue working on stretches to open the lumbar spine, stabilization exercises and manual therapy techniques to help relieve low back tension
--- NOTE | 2023-04-24 14:56 | PT.OPDS ---
Current Diagnoses Spinal stenosis, lumbar region with neurogenic claudication (02/25/23) Radiculopathy, lumbar region (02/25/23) Visit Care Team Role Provider Type Sabino Munoz MD Family Provider Physician Primary Care Provider Specialty: Family Practice Address: [address] [place], [address] Email: [email or web address] Adame MD Attending Provider Physician Referring Provider Specialty: Orthopedics Orthopedic Surgery [facility] Address: [address] [place] [address], [id number] Email: [email or web address] Visit Number Visit Number 22 Discharge Summary PT-OP-B Current Condition Start: 08/06/22 09:02 Freq: Status: Active Protocol: Document 08/06/22 09:05 [facility] (Rec: 08/06/22 09:44 [facility] [id number]) Current Condition History of Current Condition Onset Date 2.5 years ago Current Complaints LBP and right posterior hip pain/gluteal pain History of Current Condition 1-2 months ago symptoms started again all in her back and her right hip. She has been swimming 3 times per week . She will be moving to [place] and will be within walking distance to the pool. She did have a cortisone injection in February and along with PT she was feeling better but it was worn off now and pain has returned. Nathan PT-OP-C Subjective Start: 08/07/22 09:39 Freq: Status: Active Protocol: Document 02/25/23 08:15 [facility] (Rec: 02/25/23 10:08 [facility] [id number]) OP-PT Subjective Patient Comments Patient Comments Yissel notes she has been having ankle swelling with walking. She is still very sore in her right hip and SI joint. She is not yet scheduled for surgery PT-OP-F Manual Assessment Start: 08/06/22 09:02 Freq: Status: Active Protocol: Document 08/06/22 09:00 [facility] (Rec: 08/07/22 12:38 [facility] [id number]) Manual Assessments Soft Tissue Assessment Soft Tissue Mobility Assessment myofascial tightness in the lumbar paraspinals and right sided piriformis Joint Mobility Assessment Joint Mobility Assessment lumbar stenosis with neurogenic claudification and facet arthropathy, pit is in a exaggerated lumbar lordosis with compression at the L4-5 and L5-S1 in standing PT-OP-G Mobility & Gait Start: 08/07/22 09:39 Freq: Status: Active Protocol: Document 08/06/22 09:00 [facility] (Rec: 08/07/22 12:39 [facility] [id number]) OP Gait Assessment Factors Limiting Gait Function Factors Limiting Gait Function Decreased Strength,Pain Comments Gait Comments increased lumbar compression with gait and pain after walking 1/4 mile, pt takes a shortened step on the right leg PT-OP-K Range of Motion Start: 08/06/22 09:02 Freq: Status: Active Protocol: Document 08/06/22 09:00 [facility] (Rec: 08/07/22 12:38 [facility] [id number]) Hip Goniometric Range of Motion Hip Right Hip ROM WFL No Testing Position Supine Flexion w/Knee Flexed 90 Straight Leg Raise 35 External Rotation 10 left Hip ROM WFL No Testing Position Supine Flexion w/Knee Flexed 95 Straight Leg Raise 40 External Rotation 10 Hip ROM Limitations Hip ROM Limitations Soft Tissue Tightness,Pain Comments pt is limited with both hip flexion/extension as well as hip rotation, pain at end range hip flexion on the right side PT-OP-M Strength Start: 08/06/22 09:02 Freq: Status: Active Protocol: Document 08/06/22 09:00 [facility] (Rec: 08/07/22 12:38 [facility] [id number]) Trunk Strength Trunk Manual Muscle Testing Testing Position Supine Flexion 2+ Poor+ Core Stabilization poor core stabilization and pain with transitional movements Hip Strength Hip Manual Muscle Testing Left Flexion (L2) 3 Fair Abduction 2+ Poor+ External Rotation 2+ Poor+ Right Flexion (L2) 2+ Poor+ Extension (S1) 2+ Poor+ Abduction 2+ Poor+ External Rotation 2+ Poor+ PT-OP-T Assessment and Plan Start: 08/06/22 09:02 Freq: Status: Active Protocol: Document 04/24/23 14:55 [facility] (Rec: 04/24/23 14:56 [facility] [id number]) Physical Therapy Assessment Assessment Summary Assessment Yissel will be having surgery for S1 stabilization but it isn't scheduled yet. She will be headout of [facility] for [place]. At this time Yissel has not returned to PT . She will be discharged due to not being seen since Feb 25 as well as she will be undergoing surgery. Physical Therapy Plan Discharge Physical Therapy Discharge Reasons Change in Medical Status
== END 2023-04-29 14:48 | disposition home or self-care (01) ==
LOC: PHYS 08:15
PROVIDERS: Family Provider Family Medicine; PCP Family Medicine; Referring Provider Physical Medicine & Rehabilitation Pain Medicine; Visit Provider Physical Medicine & Rehabilitation Pain Medicine
DX: M48.062 Spinal stenosis, lumbar region with neurogenic claudication (principal); M54.16 Radiculopathy, lumbar region
CPT/HCPCS: 97110; 97140; 97161

== ENCOUNTER → 2023-03-29 10:53 | Outpatient (CLI) | payer MEDICARE, OTHER, SELFPAY ==
[2021-09-07 13:41] VITALS: BMI 36.6
[2023-03-29 11:56] LABS: Free T4, Direct Thyroxine 1.18 ng/dL (0.78-2.19)
[2023-03-29 12:10] LABS: Thyroid Stimulating Hormone 3.03 uIU/mL (0.47-4.68)
[2023-03-29 12:17] LABS: Microalbumi Creatinin Ratio Ur 28.6 ug/mg CR (<30); Microalbumin Urine Random 8.5 mg/dL (0-1.6)
== END ==
LOC: LAB 10:59
PROVIDERS: Family Provider Family Medicine; PCP Family Medicine; Referring Provider Internal Medicine Endocrinology, Diabetes & Metabolism; Visit Provider Internal Medicine Endocrinology, Diabetes & Metabolism
DX: E11.22 Type 2 diabetes mellitus with diabetic chronic kidney disease (principal); N18.31 Chronic kidney disease, stage 3a; E03.9 Hypothyroidism, unspecified
CPT/HCPCS: 36415; 82043; 82570; 84439; 84443

== ENCOUNTER → 2023-04-07 10:48 | Outpatient (CLI) | payer MEDICARE, OTHER, SELFPAY ==
[2021-09-07 13:41] VITALS: BMI 36.6
--- NOTE | 2023-04-07 | DI.CT.S_ITS ---
PROCEDURE: CT LUMBAR SPINE WO CON INDICATIONS: Spinal stenosis, lumbar region with neurogenic claudication TECHNIQUE: Noncontrast 3 mm thick sections acquired from the T12 level to the sacrum. Sagittal and coronal reformats were constructed. For radiation dose reduction, the following was used: automated exposure control. COMPARISON: [facility], MR, MR LUMBAR SPINE WITHOUT CONTRAST, 12/11/2022, 18:02. FINDINGS: Image quality: Excellent. Bones: Bilateral L5 pars defects with 8 mm anterolisthesis of L5 on S1. No acute vertebral body compression fractures. No suspicious lytic or blastic bony lesions. No pars defects. T12-L1: No canal stenosis or foraminal stenosis. L1-L2: No canal stenosis or foraminal stenosis. L2-L3: Disc bulge. Facet hypertrophy. No significant canal stenosis or foraminal stenosis. L3-L4: Chronic disc height loss. Facet and ligament hypertrophy. Epidural lipomatosis. Canal stenosis is easier to appreciate on the lumbar spine MRI, and is likely moderate. Moderate bilateral foraminal narrowing. L4-L5: Severe chronic disc height loss. Posterior disc post osteophyte. Posterior ligamentous hypertrophy. Canal stenosis seen on the MRI is multifactorial, with a significant component secondary to epidural lipomatosis. It is also secondary to disc plus osteophyte and posterior ligamentous hypertrophy. It is somewhat less well appreciated on CT, and is likely moderate. Also noted is moderate right and moderate to severe left foraminal narrowing. L5-S1: Bilateral L5 pars defects. Severe chronic disc height loss. Grade 1 anterolisthesis of L5 on S1 measuring approximately 8 mm. Severe bilateral foraminal narrowing with bilateral foraminal L5 nerve root impingement. Facet hypertrophy. No significant central canal stenosis. Soft tissues: No retroperitoneal masses or hematomas. Visualized aorta is normal in caliber. IMPRESSION: 1. Again noted are bilateral L5 pars defects, grade 1 anterolisthesis of L5 on S1, and severe bilateral foraminal narrowing at this level. 2. Multilevel underlying facet arthropathy. 3. Canal stenosis noted on lumbar spine MRI is in part secondary to epidural lipomatosis. The canal stenosis is more easily identified on MRI. CT supports MRI findings of moderate canal stenosis at L3-L4 and L4-L5. 4. There is moderate bilateral foraminal narrowing at L3-L4 as well as moderate right foraminal narrowing and moderate to severe left foraminal narrowing at L4-L5. Dictated by: Waqas Rivero M.D. on 04/07/2023 at 15:53 Approved by: Waqas Rivero M.D. on 04/07/2023 at 16:04
== END ==
LOC: CT 10:49
PROVIDERS: Family Provider Family Medicine; PCP Family Medicine; Referring Provider Orthopaedic Surgery Orthopaedic Surgery of the Spine; Visit Provider Orthopaedic Surgery Orthopaedic Surgery of the Spine
DX: M48.062 Spinal stenosis, lumbar region with neurogenic claudication (principal); M48.07 Spinal stenosis, lumbosacral region; M43.17 Spondylolisthesis, lumbosacral region; M47.816 Spondylosis without myelopathy or radiculopathy, lumbar region; M47.817 Spondylosis without myelopathy or radiculopathy, lumbosacral region
CPT/HCPCS: 72131

== ENCOUNTER 2023-05-26 10:55 | Inpatient (IN) | payer MEDICARE, OTHER, SELFPAY ==
[2021-09-07 13:41] VITALS: BMI 36.6
[2023-05-20 09:37] VITALS: BMI 41.5
[2023-05-26] VITALS (15 sets, daily range): BP systolic 100–160; BP diastolic 50–81; PULSE 65–74; RESP 10–24; TEMP 36.1–36.9; O2SAT 93–97; BMI 41.5
[2023-05-26] MEDS: LACTATED RINGERS 1,000 ML 100 ML IV ×3 (11:44→16:53)
--- NOTE | 2023-05-26 12:28 | PM.PREOP ---
Pre-operative Note Interval Note History & Physical reviewed/Exam performed by Physician: Yes Changes to H&P: No
[2023-05-26] MEDS: CEFAZOLIN 2 GM/100 ML PREMIX 100 ML IV ×2 (13:35→21:10)
--- NOTE | 2023-05-26 13:58 | SUR.OPER ---
Prone on spine table, head in foam head support, padded chest and pelvic supports, gel pad at knees, lower legs supported by pillows; nipples, genitalia and toes free of pressure, arms secured on foam padded arm boards at <90 degrees abduction. Tape over blanket at thigh secured to table.
[2023-05-26] MEDS: BUPIVACAINE 0.25% (PF) 60 ML, EPINEPHrine 0.15 MG INJ (14:22)
[2023-05-26] MEDS: BUPIVACAINE LIPOSOME 266 MG/20 ML VIAL INJ (14:22)
--- NOTE | 2023-05-26 17:04 | PM.OP.1 ---
Operative Date/Time/Diagnoses Date of procedure: 05/26/23 Time of procedure: 13:00 Pre-op diagnosis: 1. L4-5, L5-S1 spinal stenosis with neurogenic claudication 2. L5-S1 anterolisthesis Post-op diagnosis: same Procedure & Clinicians Procedure: 1. L4-5, L5-S1 Postero-lateral and posterior interbody fusion 2. L4-5, L5-S1 interbody cage placement. 3. L4-5, L5-S1 decompressive laminectomy with bilateral facetecomies 4. L4-5, L5-S1 Posterior segmental instrumentation 5. [place] of bone marrow from iliac crest 6. Utilization of microsurgical technique and operating microscope 7. Utilization of robotic assisted navigation Same procedure as scheduled: Yes Indications: Patient has been having chronic back pain and worsening lumbar radiculopathy and symptoms of neurogenic claudication. Patient was found to have L4-5 L5-S1 spinal stenosis with L5-S1 anterolisthesis due to bilateral pars defect. Patient failed multiple conservative management with worsening pain weakness and numbness in her lower extremity. Patient has been having difficulty performing activity of daily living. After discussing risks benefits of treatment options, patient elected proceed with surgery. Surgeon: Rell Barker Real Time Trader: Anya Mane Click Yes if Unassisted: No Anesthesia Type: General Operative Notes Closure Type: primary Specimen(s): none sent Prosthetic devices, grafts, tissues, transplants, or devices: Globus CREO MIS screws, Rise cages Applied: catheter Estimated Blood Loss (mL): 150 Blood products transfused: none Procedure in detail: Patient was seen in the preoperative area. Risks and benefits of the surgery was discussed with the patient. Informed consent was obtained from the patient and placed in the chart. Surgical site was marked. Patient was taken to the operative room. General anesthesia was administered. Prophylactic antibiotic was given to the patient less than 30 min before the incision was made. Patient was placed into a prone position on the Lavelle table. Patient's back was then prepped and draped in the sterile fashion. Time-out was performed at this time. After patient was prepped and draped, patient's PSIS was palpated and marked bilaterally. Small 1 cm incision was made over the PSIS for placement of the reference probes. Two trocar was placed into the PSIS 1 on each side. The reference probe was attached to the trocar of the reference apparatus. At this time the C-arm imaging was used to confirm AP and lateral of L4-L5, L5-S1 vertebrae and merged the C-arm imaging using the Connesta robotic navigation system with the CT of the lumbar spine. After successful merging was completed and confirmed, skin marker was used to ela out the skin incision using the Connesta robotic arm. Bilateral incision was made at this time. Pre templated trajectory was used and guided using the Connesta robotic navigation system for bilateral L4, L5, S1 pedicle screw placement. This was done by using the robotic arm to guide the high-speed bur to make a cortical entry point. Next a drill was placed also using the robotic arm and guided using the navigation system drilling partially through bilateral L4, L5 and S1 pedicles. Next L4, L5, S1 pedicle screws it was pre templated and measured was placed onto the power skidder driver and inserted into the pedicles bilaterally. After all 6 screws were placed C-arm imaging was taken of both AP and lateral to confirm the placement. Excellent placement of the screws were confirmed and a matched precisely with the pre planned screw placement using the navigation system. MARs retractor was inserted using [employer] guidence. Globus MARS retractors was placed inside the incision and docked onto the L4 and L5 lamina. Using microsurgical technique and operating microscope, a L4, L5 laminectomy and L4-5, L5-S1 facetectomy was performed using a Kerrison rongeur. The laminectomy and facetectomy was performed in order to decompress patient's cauda equina as well as the nerve roots exiting at the L4-5, L5-S1 level. Patient was found have severe lateral recess and neural foramen stenosis which was fully decompressed after the laminectomy facetectomy. More than 75% of the facets were removed during the process of decompression rendering L4-5, L5-S1 level grossly unstable and required a fusion procedure at the same time. The disc space at L4-5, L5-S1 was identified, and a total diskectomy was performed at L4-5, L5-S1 level. The endplates were decorticated using a rasp and shaver. The total diskectomy and decortication was performed at L4-5, L5-S1 level in order to to accomplish a L4-5, L5-S1 fusion. The local bone from the laminectomy and facetectomy was saved for local bone grafting. After the total diskectomy and decortication was completed, DBM bone graft material was combined with local bone that was harvested earlier. At this time, a separate skin is incision was made over the iliac crest. A Jamshidi needle was inserted into the iliac crest through a separate skin incision. 5 cc of bone marrow aspiration was obtained through the separate skin incision using a Jamshidi needle from the iliac crest. The bone marrow aspiration was combined with local bone and the DBM bone grafting material. The bone grafting material was placed into the L4-5, L5-S1 interbody space along with a expandable cage. The cage was expanded to its maximum height using the torque limiting screwdriver. The disc preparation as well as the cage insertion were also performed under navigation guidance. After the cage was placed, AP and lateral C-arm imaging was taken to confirm placement of the cage and excellent position was confirmed. Globus MARS retractor was inserted and docked onto the L4-5, L5-S1 posterolateral gutter on the left side. Using the power drill, posterior-lateral decortication was performed at L4-5, L5-S1 level until bleeding cortical bone was identified. The remaining bone grafting material was placed into the L4-5, L5-S1 posterior lateral gutter he order to accomplish posterolateral fusion at the L4-5, L5-S1 level. At this time the tulips were attached to the L4, L5, S1 pedicle screw shanks. After measuring the length of the rods, they were inserted into the tulips of the pedicle screws and locked in place using locking caps and torque limiting screwdriver bilaterally. Total 6 caps and 2 titanium rods was used in order to complete the posterior instrumentation construct. After all the hardware was placed, and confirmed with AP and lateral C-arm imaging, the wound was then irrigated with sterile normal saline and packed with Ray-Alfred gauze for 3 min to accomplish hemostasis. After the gauze was removed the deep fascia was closed with #1 Vicryl suture. The subcutaneous layer was closed with 2-0 Vicryl. The skin was closed with skin monster. Patient tolerated the procedure well. There were no complications. Neuro monitoring system was used to monitor patient's neurologic status throughout entire procedure. There was no disturbance of the neural monitoring signals throughout the case. The Operation could not have been safely performed without compromising the technical result or length of the procedure, without the assistance of a skilled assistant professor of radiology. The assistant professor of radiology was medically necessary for proper positioning, retraction and manipulation of instruments, proper exposure, surgical preparation, and manipulation of tissue. Complications: none Post-operative Condition: stable Disposition: PACU Plan for aftercare: Admit to inpatient hospital
--- NOTE | 2023-05-26 17:08 | DI.RAD.S_ITS ---
PROCEDURE: XR LUMBAR SPINE 2-3V INDICATIONS: L4-5, L5-S1 ROBOT TLIF TECHNIQUE: 2 views of the lumbar spine were acquired. COMPARISON: [facility], CT, CT LUMBAR SPINE WO CON, 04/07/2023, 11:10. FINDINGS: Intraoperative posterior fusion from L4 through S1 with intervertebral spacers. There is good anatomic alignment hardware is intact. IMPRESSION: Posterior intraoperative fusion as above. Dictated by: Fide Terrazas M.D. on 05/26/2023 at 17:48 Approved by: Fide Terrazas M.D. on 05/26/2023 at 17:49
[2023-05-26] MEDS: HYDROMORPHONE 1 MG INJ IV (17:40)
[2023-05-26] MEDS: hydrOXYzine 50 MG/ML INJ 25 MG IM (17:42)
[2023-05-26] MEDS: OXYCODONE IR 5 MG TABLET PO (17:50)
[2023-05-26] MEDS: methocarbamoL 500 MG TABLET 750 MG PO (18:03)
[2023-05-26] MEDS: HYDROMORPHONE 0.5 MG INJ IV ×2 (18:52→21:10)
[2023-05-26] MEDS: LACTATED RINGERS 1,000 ML 125 ML IV ×2 (18:55→23:40)
--- NOTE | 2023-05-26 18:57 | PC.NURSE ---
Patient admitted to floor at 1830- She is teary eyed and states that she is in pain. Patient given robaxin, oxycodone, IM hydroxizine, and iv versed in the pacu. Dressing to ml is cdi, patient is a diabetic and her blood sugar was 164. She has LR infusing at 100 cc/hr and is tolerting this well. Patient was just given 0.5mg of iv dilaudid and is tolerating this well.
[2023-05-26] MEDS: DOCUSATE 100 MG CAPSULE PO (21:49)
[2023-05-26] MEDS: ROPINIROLE 0.25 MG TABLET 0.5 MG PO (21:49)
[2023-05-26] MEDS: ACETAMINOPHEN 325 MG TABLET 650 MG PO (21:49)
[2023-05-26] MEDS: SENNOSIDES 8.6 MG TABLET 17.2 MG PO (21:49)
[2023-05-26] MEDS: ROPINIROLE 1 MG TABLET PO (21:49)
[2023-05-26] MEDS: GLIMEPIRIDE 2 MG TABLET 1 MG PO (21:50)
[2023-05-26] MEDS: HYDROMORPHONE 2 MG TABLET 1 MG PO (23:40)
[2023-05-27 04:47] VITALS: BP 118/50; PULSE 73; RESP 16; TEMP 36.7; O2SAT 96
[2023-05-27] MEDS: OXYCODONE IR 10 MG TABLET PO ×5 (04:47→21:07)
[2023-05-27] MEDS: ACETAMINOPHEN 325 MG TABLET 650 MG PO ×3 (04:47→17:06)
[2023-05-27 05:06] LABS: Hematocrit 37.1 % (36-46); Hemoglobin 12.6 g/dL (12.0-16.0)
[2023-05-27] MEDS: CEFAZOLIN 2 GM/100 ML PREMIX 100 ML IV (05:45)
--- NOTE | 2023-05-27 07:56 | PM.PNPO.1 ---
Subjective Subjective Date Patient Seen: 05/27/23 Time Patient Seen: 07:56 Interval history: Patient's pain has been severe. Denies fever or chills. No nausea or vomiting. Patient has not yet been out bed since surgery Exam Vital Signs (past 8 hours): - 05/27/23 04:47 Temperature 98.1 F Pulse Rate 73 Respiratory Rate 16 Blood Pressure 118/50 L Pulse Oximetry 96 Oxygen Flow Rate 0 Oxygen Delivery Method Nasal Cannula Oxygen Flow Rate 0 Narrative Exam Narrative: 77-year-old female resting comfortably in bed in no apparent distress. Neurovascular status is intact bilateral lower extremities. Const General: cooperative and comfortable Nutritional Appearance: obese (BMI 41.5) Orientation: alert Resp Effort & Inspection: normal respiratory effort and able to speak in complete sentences Objective Labs 05/27/23 04:59 Labs: Laboratory Results - last 24 hr 05/27/23 04:59 Hgb 12.6 Hct 37.1 PFSH Medical History CAD (coronary artery disease) History of COVID-19 Diabetes type 2, controlled Anxiety about health Osteoarthritis Hypothyroid Hyperlipemia RLS (restless legs syndrome) Seasonal allergies Sleep apnea treated with nocturnal BiPAP Osteoarthritis Sleep apnea Allergies Compulsive overeating Anxiety Restless leg syndrome Osteoporosis Gout Chronic back pain Measles Chicken pox Tinnitus Lower abdominal pain Hemorrhoid Gastric ulcer Diverticular disease Prediabetes Elevated blood sugar Hypothyroidism (acquired) Hyperlipidemia Surgical History Hx of repair of right rotator cuff Hx of arthroscopy of left knee Hx of tonsillectomy H/O bladder repair surgery H/O: hysterectomy Hx of umbilical hernia repair Hx of appendectomy Anesthesia History of tonsillectomy History of appendectomy 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) History of hernia repair History of hysterectomy Family History Father Skin cancer History of heart disease Hypertension Mother COPD (chronic obstructive pulmonary disease) Dementia Brother Cancer Brother Hypertension Hyperlipidemia Sister Hyperlipidemia Hypertension Sister Hypertension Hyperlipidemia Grandmother Diabetes mellitus Social History household members: none Smoking Status: Former smoker alcohol intake: current eating out: 1-3 times/week Type(s) of exercise: walking, swimming and yoga Assessment & Plan Post-op Postoperative Procedures: Procedures Operation Date: 05/26/23 12:30 Actual Procedure Side Surgeon p L4-5, L5-S1 TLIF with posterior instrumentation -Robotic Rell Barker MD Postoperative day: 1 Postoperative status narrative: Stable Postoperative plan narrative: Mobilize with physical therapy, limit bending, twisting, lifting Multimodal pain management, 5 mg oxycodone as needed moderate pain every 3 hours or 10 mg oxycodone for severe pain every 3 hours Dilaudid q.6 as needed breakthrough pain Disposition likely home in 1-2 days Quality VTE Deep Vein Thrombosis/Pulmonary Embolism Present on Admission: No
[2023-05-27 09:25] VITALS: BP 124/44; PULSE 65; RESP 18; TEMP 36.4; O2SAT 98
[2023-05-27] MEDS: DOCUSATE 100 MG CAPSULE PO ×2 (10:32→21:06)
[2023-05-27] MEDS: LEVOTHYROXINE 100 MCG TABLET PO (10:32)
[2023-05-27 12:18] VITALS: BP 108/45; PULSE 76; RESP 18; O2SAT 98
--- NOTE | 2023-05-27 12:20 | PT.IIE ---
Current Diagnoses Spondylolisthesis, lumbar region (05/26/23) Spinal stenosis, lumbar region with neurogenic claudication (05/26/23) Surgery Performed Operation Date: 05/26/23 12:30 Actual Procedures p L4-5, L5-S1 TLIF with posterior instrumentation -Robotic - Rell Barker MD Surgical History (Last Reviewed 05/27/23 @ 07:59 by Rasheed Nolen PA-C) Anesthesia H/O bladder repair surgery H/O: hysterectomy History of appendectomy History of hernia repair History of hysterectomy History of tonsillectomy Hx of appendectomy Hx of arthroscopy of left knee Hx of repair of right rotator cuff Hx of tonsillectomy Hx of umbilical hernia repair 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) Medical History (Last Reviewed 05/27/23 @ 07:59 by CHARLETTE KoehlerC) Allergies Anxiety Anxiety about health CAD (coronary artery disease) Chicken pox Chronic back pain Compulsive overeating Diabetes type 2, controlled Diverticular disease Elevated blood sugar Gastric ulcer Gout Hemorrhoid History of COVID-19 Hyperlipemia Hyperlipidemia Hypothyroid Hypothyroidism (acquired) Lower abdominal pain Measles Osteoarthritis Osteoarthritis Osteoporosis Prediabetes Restless leg syndrome RLS (restless legs syndrome) Seasonal allergies Sleep apnea Sleep apnea treated with nocturnal BiPAP Tinnitus Physical Therapy Inpatient Evaluation/Re-Eval M1 PT/OT-IP Prior Functional Status Start: 05/27/23 08:18 Freq: NEEDED Status: Active Protocol: Document 05/27/23 12:20 DLM (Rec: 05/27/23 12:40 DLM [id number]) Medical Review Prior Functional Status Medical History Reviewed Yes Diet/Fluid Consistency Regular Communication WFL, glasses Mobility and Gait Independent without device in her apt, cane when in community, exercises in the pool Activities of Daily Living and IADL's Independent, having difficulty with cleaning so gets hired assistance, she drives Social History Household Members none Living Arrangements Apartment/Condo Number of Floors (Floors) One Floor Number of Stairs To Enter/Railing? none Home Environment Tub/Shower,Bidet Home Equipment Four Wheel Walker,Straight Cane,Hand Held Shower,Tire Beader Maker, Lift Recliner,Hospital Bed,Bed Rails,Grab Bars In Shower Employment Status Retired M2 PT-IP Current Condition Start: 05/27/23 08:18 Freq: NEEDED Status: Active Protocol: Document 05/27/23 12:20 DLM (Rec: 05/27/23 12:40 DL [id number]) Physical Therapy Current Condition Current Condition Evaluation Date 05/27/23 Treatment Diagnosis L4-5 TLIF, impaired mobility/ gait Onset Date 05/26/23 M3 PT-IP Subjective Start: 05/27/23 08:18 Freq: NEEDED Status: Active Protocol: Document 05/27/23 12:20 DLM (Rec: 05/27/23 12:40 DL [id number]) Subjective Physical Therapy Visit Type Type Initial Evaluation Visit Start Time 11:30 Visit Stop Time 12:20 Notes treatment coordinated with OT for pt safety and pain management Number of SUPERVISOR OVENS Visits 0 Physical Therapy Visit Comments Patient Comments She reports she talked to Dr Barker about going to rehab after surgery since she has no one to help her after surgery. Patient Goals She wants to get back home and back to swimming when she can take care of herself Therapy Pain Assessment Pain When Pain Assessed During Mobility Pain Present Pain Present Pain Reported Location low back Intensity 9 Scale Used Numeric (0 - 10) Description Aching,Tender Pain Behaviors Guarding,Wincing Pain Management Techniques Re-positioning,Timing of Activity with Medications M4 PT-IP Mobility and Gait Start: 05/27/23 08:18 Freq: NEEDED Status: Active Protocol: Document 05/27/23 12:20 DLM (Rec: 05/27/23 12:40 [facility] [id number]) PT-Bed Mobility Assessment Rolling Type of Rolling Roll to Right Level of Assist Minimal Assistance Supine to Sit Supine to Sit Moderate Assistance,Head of Bed Elevated,Bedrails Scooting Scooting to Edge of Bed Standby Assistance PT-Transfer Assessment Sit to and From Stand Sit to and from Stand Contact Guard Assistance, Minimal Assistance,Use of Upper Extremities Equipment Transfer Assistive Device Gait Belt,Front Wheeled Walker Transfers Transfer Destination Chair Transfer Technique Stand Step Pivot Transfer Ability Level of Assist Contact Guard Assistance,Use of Upper Extremities Comments Mobility Comments Pt reports dizziness in supine , sitting and standing. Dizziness improved but did not resolve. Vital signs sitting edge of bed: BP 108/45, HR 76. The bed is tall for her. Pt up to recliner this visit in preparation for lunch. Pt has villareal catheter in place this visit. Adjusted bedside commode height for future use. Gait Assessment Gait Gait Assistance Required: Contact Guard Assist Distance (Feet) 10 Assistive Devices Assistive Device Gait Belt,Front Wheeled Walker Gait Deviations General Gait Pattern Ataxic Factors Limiting Gait Function Factors Limiting Gait Function Decreased Activity Tolerance, Pain,Poor Balance Comments Gait Comments She demonstrates safe use of FWW for gait, pace is slow with c/o pain in right low back/buttock area. Pt reports SCD's have been helping manage her restless leg syndrome. Stair Climbing Assessment Comments Stair Climbing Comments no stairs at home PT-Balance Assessment Sitting Balance and Reactions Static Sitting Balance Ability Good Dynamic Sitting Balance Ability Good Standing Balance and Reactions Static Standing Balance Ability Good Dynamic Standing Balance Ability Fair Device Used FWW Comments Other Balance Tests/Deviations/Treatment back pain limits dynamic : balance reactions in standing M5 PT-IP Objective Assessments Start: 05/27/23 08:18 Freq: NEEDED Status: Active Protocol: Document 05/27/23 12:20 DLM (Rec: 05/27/23 12:40 DLM [id number]) Orientation Orientation/Cognition Level of Alertness Alert Orientation Name,Age,Birthday,Month,Date, Year,Day of Week,Place, Situation Language Function Ability No Deficits Noted Safety Awareness Understands Safety Issues Memory Description No Deficits Noted Comments glasses placed on per pt request Gross Range of Motion Upper Extremity ROM Assessment Within Functional Limits Lower Extremity ROM Assessment Within Functional Limits Impairments back/hip area pain with right hip flexion Strength Upper Extremity Strength Assessment Within Functional Limits Lower Extremity Strength Assessment Within Functional Limits Comments Strength Comments back pain limits functional LE strength for mobility Coordination Assessment Gross Coordination Gross Coordination WNL Sensation Assessment Sensation Gross Sensation WNL Comments Sensation Comments she reports her distal LE's feel itchy associated with her restless leg syndrome Muscle Tone Muscle Tone WNL Yes M6 PT-IP Treatment Start: 05/27/23 08:18 Freq: NEEDED Status: Active Protocol: Document 05/27/23 12:20 DLM (Rec: 05/27/23 12:40 DLM [id number]) Physical Therapy Treatment Education Education Provided Precautions,Safety Other Treatments Other Treatment Performed pt educated in spine precautions; limited bending, no twisting and lifting restriction of 10# or less M7 PT-IP Assessment and Plan Start: 05/27/23 08:18 Freq: NEEDED Status: Active Protocol: Document 05/27/23 12:20 DLM (Rec: 05/27/23 12:40 DLM [id number]) PT Summary Assessment and Plan Potential Rehabilitation Potential Good Status of Condition at Evaluation Evolving Summary Impairments Pain,ROM,Balance,Bed Mobility, Transfers,Gait,Activity Tolerance Assessment Summary Yissel is alert and resting in bed. She reports feeling dizzy today which she believes is related to her pain medication. Noted she gets increased dizziness with sitting up to edge of bed and standing that improved but her over-all dizziness never resolved. She continues to report 8-9/10 back pain this visit. She was able to sit up edge of bed, stand and progress to gait around the bed this visit with one person assist. She is moving slowly with all functional mobility. She was left up in the recliner for lunch. She is not safe to to discharge home alone. Recommend SNF rehab at discharge to assist with her functional recovery after surgery with goal to return home. Goals Bed Mobility Goal Independent Transfer Goal Independent,Front Wheeled Walker Gait Goal Independent,Front Wheel Walker Gait Distance 150 feet Other Goals Pt will demonstrate spine precautions during functionl mobility. Days to Meet Goals 10 Frequency of Treatment Frequency Of Treatment Twice a Day Treatment Plan Physical Therapy Treatment Plan Bed Mobility Training,Transfer Training,Gait Training, Therapeutic Exercise,Balance Retraining,Post Op Education, Discharge Planning,Hot or Cold Pack,Neuromuscular Re-ed Precautions Lumbar Precautions Log Roll,No Twisting,Limit Bending,Lifting Restriction of 10 lbs,Gait Belt above Incisional Area Recommendations To Nursing Amount of Assist Needed 1 Person Assist Discharge Recommendations PT Discharge Recommendations SNF Rehab Transportation Needs at Discharge Private Vehicle,Wheelchair/ Cabulance
--- NOTE | 2023-05-27 14:01 | CM.DANOTE ---
Initial DCP Assessment Visit Note Reviewed EMR and team rounds for pt's medical status and updates. Met with pt at bedside to introduce self and role, pt found to be resting, expressing feeling like she was in a lot of pain and needing pain medication. Notified the CLIENT APPLICATION SUPPORT SPECIALIST who communicated this to the assigned RN for f/u. Pt resides alone in her own condo, Pt has a dtr in [place], and a sister here locally, however her sister is also elderly and is not going to be able to assist wtih pt's care needs at home postoperatively. Ortho communicated this concern to this Care Management department prior to surgery in order to ensure we knew ahead of time her need for SNF rehab at time of d/c. Payor: Medicare Attending: Dr. Barker Pt is a 77 year-old F with a PMH of chronic lower back and leg pain which has not been relieved with exercise modification or injections. She shares having leg numbness and weakness which has limited her functioning w/daily ADL's and mobility. She is post-op day 1, pain is main concern, therapies have not yet evaluated and worked with her as of yet. KELLY will send [facility], her her request, and monitor for further evolving d/c needs. Discharge Planning/Care Management CM Discharge Assessment Start: 05/27/23 13:58 Freq: Status: Active Protocol: Document 05/27/23 13:58 DPL (Rec: 05/27/23 14:01 DPL [id number]) Discharge Planning Assessment Assigned Anthropologist Physical KELLY Rider Advance Directives? Yes Advance Directives on File No History Provided By Patient,Medical Record Has Patient been admitted in last 30 No days? Prior Living Arrangements Apartment/Condo Household Members none Type of transporation used prior to Drives own vehicle admit Independent with ADL's Yes Is patient alert and oriented? Yes Caregiver for Another No DME Already Rented / Owned Elevated Toilet Seat,FWW / Walker Patient/Family Preference [facility] Comment Lack of in-home caregiver. Discharge Plan [facility] Transportation Arrangement Facility Referrals Initiated [facility] If patient plan is home with home health No: Need F2F : Has signed face to face form been completed? Medicare Choice List Provided Yes Medicare choice list reviewed on patient electronic tablet with SNF/HH Preference [facility] Has Agency SNF been contacted Yes Whiteboard Updated in Patient Room with Yes name and ext. # of Anthropologist Physical Review Status In Process Please Provide Date Initial DC 05/27/23 Assessment Was Performed Pre-Anesthesia Assessment Start: 05/20/23 09:37 Freq: Status: Active Protocol: Document 05/20/23 09:[address] [facility] (Rec: 05/20/23 10:[address] [facility] [id number]) Pre-Anesthesia Assessment Patient Information Reviewed Via Phone Assessment Assessment Completed With Patient Comment Outside labs/EKG scanned Primary Care Provider Sabino Munoz Seen Specialist in Last 12 Months Yes Specialist Seen Information Technology Manager,Orthopedist,Other Comment Neurology - RLS Primary Language Italian Preferred Language Italian Land Agent Required No Height 157.48 cm Weight 102.965 kg Body Mass Index (BMI) 41.5 Hearing Ability Normal Visual Assist Glasses Dentition Type Teeth, Natural Present,Teeth, Missing Barriers to Learning Age related Other Aids No Hx Anesthesia Reactions No: Pt has been taking Naltrexone Hx Family Anesthesia Reaction No Hx Malignant Hyperthermia No Hx Blood Transfusions No Hx Blood Transfusion Reaction No Anesthesia Review Requested No Optics Manufacturing Technician Yes: No assist after surgery, Dr. Lucero salazar while inpt alcohol intake current alcohol intake frequency a few times a month Smoking Status Former smoker Tobacco type cigarettes how long ago did patient quit smoking Quit age 25, smoked 7 years Substance Use Type does not use Pain Present Pain Reported Musculoskeletal Symptoms Abnormal Gait,Back Pain, Difficulty Walking,Radiating Pain into Limb History of Falling (Recent or History of Yes ) Patient is completely paralyzed or No completely immobile Prosthesis or Orthotic Device Cane Mental Status Oriented to own ability Does patient have NGUYEN/SOB No Hx Sleep Apnea Yes CPAP/BIPAP use prescribed and used routinely Will Bring CPAP/BIPAP DOS Yes Currently Taking a Beta Nicki No Can You Climb a Flight of Stairs Without Yes SOB Hx Chest Pain No Hx SOB No Hx Syncope or Dizziness Yes: Occasional dizziness when getting out of bed Has a Information Technology Manager Yes: Visit 04/18/[address] Abdullahi @ [facility] Cardiac Testing Yes: Echo @ [facility] 05/12/23 Hx Pacemaker/ICD No Pacemaker Rep Required? No Cardiac Clearance Received Yes Comment Cardiac records scanned and in surgery folder Diet Type At Home Diabetic Dysphagia Yes: Age related Gastrointestinal Symptoms Constipation Bladder Pattern Incontinent Urinary Catheter Present No Hx Urinary Self Catheterization No Diabetes Yes HgbA1C 6.4 Date 05/12/23 Comment Per pt Patient No Lactating No Hx Drug Resistant Organism No Presence of External or Internal Medical No: Right knee, BiPAP Devices Received a COVID vaccine? Yes Received all doses? Yes Marital Status / Lives With none Current Living Arrangements Apartment/Condo Number of Floors (Floors) One Floor Support System None Does the Patient Have Assistance After No: No assist after surgery, Surgery Dr. Barker advised eval while inpt Patient Discharge Plan Description Return Home Comment Pt advised 2-3 day length of stay per surgeon Feels Safe in Current Environment Yes Been Physically Hurt or Threatened By a No Person in Current Environment Do you have thoughts of harming yourself None or others? Are you currently considering suicide? No Do you have a plan to hurt yourself or No Plan others? Do You Have Any Spiritual Beliefs That No May Affect Your HC Choices? Do You Have Any Cultural Practices That No May Affect Your HC Choices? Comment Mosque Who Can We Speak to About Patient's Care Family, friends Identifying Code for Release of Patient Declines to issue Information Health Care Proxy/Next of Kin Tina (daughter) Health Care Proxy Emergency Contact Name Arin Tenorio (sister) Emergency Contact Advance Directives? Yes Power of Fund Controller Yes Power of Fund Controller Name Tina Thompson (daughter) Power of Fund Controller PAC Instructions Bring CPAP/BIPAP,Diabetes instructions,Durable medical equipment,Medications to take/ avoid,Nasal antibiotic,No ETOH /petroleum product on skin DOS ,NPO,Pre-surgical wash,Sensory aids,Sturdy shoes/comfortable clothes,Do not bring valuables and remove jewelry
--- NOTE | 2023-05-27 14:35 | PT.IPTN ---
Current Diagnoses Spondylolisthesis, lumbar region (05/26/23) Spinal stenosis, lumbar region with neurogenic claudication (05/26/23) Surgery Performed Operation Date: 05/26/23 12:30 Actual Procedures p L4-5, L5-S1 TLIF with posterior instrumentation -Robotic - Rell Barker MD Physical Therapy Treatment Note M2 PT-IP Current Condition Start: 05/27/23 08:18 Freq: NEEDED Status: Active Protocol: Document 05/27/23 12:20 DLM (Rec: 05/27/23 12:40 DLM [id number]) Physical Therapy Current Condition Current Condition Evaluation Date 05/27/23 Treatment Diagnosis L4-5 TLIF, impaired mobility/ gait Onset Date 05/26/23 M3 PT-IP Subjective Start: 05/27/23 08:18 Freq: NEEDED Status: Active Protocol: Document 05/27/23 15:16 TS (Rec: 05/27/23 15:52 TS [id number]) Subjective Physical Therapy Visit Type Type Treatment Note Visit Start Time 14:35 Visit Stop Time 15:15 Number of CIVIL CADD TECHNICIAN Visits 1 Physical Therapy Visit Comments Patient Comments Pt found resting in bed, reports pain is 9/10, pt is agreeable to PT. Therapy Pain Assessment Pain When Pain Assessed During Mobility Pain Present Pain Present Pain Reported Location low back Intensity 9 Scale Used Numeric (0 - 10) Description Aching,Tender,With Movement Pain Management Techniques Re-positioning,Timing of Activity with Medications M4 PT-IP Mobility and Gait Start: 05/27/23 08:18 Freq: NEEDED Status: Active Protocol: Document 05/27/23 15:16 TS (Rec: 05/27/23 15:52 TS [id number]) PT-Bed Mobility Assessment Supine to Sit Supine to Sit Moderate Assistance,Head of Bed Elevated,Bedrails Sit to Supine Sit to Supine Moderate Assistance,1 Person Assistance Scooting Scooting to Edge of Bed Standby Assistance PT-Transfer Assessment Sit to and From Stand Sit to and from Stand Contact Guard Assistance, Minimal Assistance,1 Person Assistance,Use of Upper Extremities Equipment Transfer Assistive Device Gait Belt,Front Wheeled Walker Comments Mobility Comments Pt recalled 2/3 spinal precautions prior to mobility( no lifting). Supine to sit ModA for uprighting trunk, pt required cues for sequencing. STS from bed with FWW CGA, pt demonstrates good standing balance. She ambulated in room ~50'SBA/CGA with FWW, reported some dizziness. She used toilet, performed own pericare, STS from toilet with use of FWW Glenny. pt ambulated ~20' in room with FWW, returned to bed. Sit to supine ModA for LEs into bed, pt required max cues for sequencing. Pt was left in bed , all needs met. Gait Assessment Gait Gait Assistance Required: Standby Assistance,Contact Guard Assist Distance (Feet) 70 Assistive Devices Assistive Device Gait Belt,Front Wheeled Walker Gait Deviations General Gait Pattern Ataxic,Decreased Stride Length ,Decreased Feet Clearance,Step -to Gait Factors Limiting Gait Function Factors Limiting Gait Function Decreased Activity Tolerance, Decreased Strength,Limited Range of Motion,Pain,Poor Balance Comments Gait Comments See mobility comments PT-Balance Assessment Sitting Balance and Reactions Static Sitting Balance Ability Good Dynamic Sitting Balance Ability Good Standing Balance and Reactions Static Standing Balance Ability Good Dynamic Standing Balance Ability Fair Device Used FWW M5 PT-IP Objective Assessments Start: 05/27/23 08:18 Freq: NEEDED Status: Active Protocol: Document 05/27/23 12:20 DLM (Rec: 05/27/23 12:40 DLM [id number]) Orientation Orientation/Cognition Level of Alertness Alert Orientation Name,Age,Birthday,Month,Date, Year,Day of Week,Place, Situation Language Function Ability No Deficits Noted Safety Awareness Understands Safety Issues Memory Description No Deficits Noted Comments glasses placed on per pt request Gross Range of Motion Upper Extremity ROM Assessment Within Functional Limits Lower Extremity ROM Assessment Within Functional Limits Impairments back/hip area pain with right hip flexion Strength Upper Extremity Strength Assessment Within Functional Limits Lower Extremity Strength Assessment Within Functional Limits Comments Strength Comments back pain limits functional LE strength for mobility Coordination Assessment Gross Coordination Gross Coordination WNL Sensation Assessment Sensation Gross Sensation WNL Comments Sensation Comments she reports her distal LE's feel itchy associated with her restless leg syndrome Muscle Tone Muscle Tone WNL Yes M6 PT-IP Treatment Start: 05/27/23 08:18 Freq: NEEDED Status: Active Protocol: Document 05/27/23 15:16 TS (Rec: 05/27/23 15:52 TS [id number]) Physical Therapy Treatment Education Education Provided Precautions,Safety Other Treatments Other Treatment Performed pt educated in spine precautions; limited bending, no twisting and lifting restriction of 10# or less M7 PT-IP Assessment and Plan Start: 05/27/23 08:18 Freq: NEEDED Status: Active Protocol: Document 05/27/23 15:16 TS (Rec: 05/27/23 15:52 TS [id number]) PT Summary Assessment and Plan Potential Rehabilitation Potential Good Summary Impairments Pain,ROM,Balance,Bed Mobility, Transfers,Gait,Activity Tolerance Progress Towards Goals Progressing Toward Goals Assessment Summary Yissel is making some progress with her mobility. She requires ModA for bed mobility and max cues for sequencing. She performed STS x1CGA, x1MinA, pt has good standing balance. She progressed her gait to ~70' SBA/CGA with FWW. She demonstrates good awareness of her spinal precautions, recalled 2/3(no lifting). PT continues to recommend SNF time at this time. Goals Bed Mobility Goal Independent Transfer Goal Independent,Front Wheeled Walker Gait Goal Independent,Front Wheel Walker Gait Distance 150 feet Other Goals Pt will demonstrate spine precautions during functionl mobility. Days to Meet Goals 10 Frequency of Treatment Frequency Of Treatment Twice a Day Treatment Plan Physical Therapy Treatment Plan Bed Mobility Training,Transfer Training,Gait Training, Therapeutic Exercise,Balance Retraining,Post Op Education, Discharge Planning,Hot or Cold Pack,Neuromuscular Re-ed Precautions Lumbar Precautions Log Roll,No Twisting,Limit Bending,Lifting Restriction of 10 lbs,Gait Belt above Incisional Area Recommendations To Nursing Amount of Assist Needed 1 Person Assist Discharge Recommendations PT Discharge Recommendations SNF Rehab Transportation Needs at Discharge Private Vehicle,Wheelchair/ Cabulance
--- NOTE | 2023-05-27 15:43 | OT.IP.EVAL ---
Current Diagnoses Spondylolisthesis, lumbar region (05/26/23) Spinal stenosis, lumbar region with neurogenic claudication (05/26/23) Surgery Performed Operation Date: 05/26/23 12:30 Actual Procedures p L4-5, L5-S1 TLIF with posterior instrumentation -Robotic - Rell Barker MD Past Medical History (Last Reviewed 05/27/23 @ 07:59 by Rasheed Nolen PA-C) Allergies Anxiety Anxiety about health CAD (coronary artery disease) Chicken pox Chronic back pain Compulsive overeating Diabetes type 2, controlled Diverticular disease Elevated blood sugar Gastric ulcer Gout Hemorrhoid History of COVID-19 Hyperlipemia Hyperlipidemia Hypothyroid Hypothyroidism (acquired) Lower abdominal pain Measles Osteoarthritis Osteoarthritis Osteoporosis Prediabetes Restless leg syndrome RLS (restless legs syndrome) Seasonal allergies Sleep apnea Sleep apnea treated with nocturnal BiPAP Tinnitus Surgical History (Last Reviewed 05/27/23 @ 07:59 by Rasheed Nolen PA-C) Anesthesia H/O bladder repair surgery H/O: hysterectomy History of appendectomy History of hernia repair History of hysterectomy History of tonsillectomy Hx of appendectomy Hx of arthroscopy of left knee Hx of repair of right rotator cuff Hx of tonsillectomy Hx of umbilical hernia repair 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) Occupational Therapy Inpatient Evaluation/Re-Eval M1 PT/OT-IP Prior Functional Status Start: 05/27/23 08:18 Freq: NEEDED Status: Active Protocol: Document 05/27/23 12:20 DLM (Rec: 05/27/23 12:40 DLM [id number]) Medical Review Prior Functional Status Medical History Reviewed Yes Diet/Fluid Consistency Regular Communication WFL, glasses Mobility and Gait Independent without device in her apt, cane when in community, exercises in the pool Activities of Daily Living and IADL's Independent, having difficulty with cleaning so gets hired assistance, she drives Social History Household Members none Living Arrangements Apartment/Condo Number of Floors (Floors) One Floor Number of Stairs To Enter/Railing? none Home Environment Tub/Shower,Bidet Home Equipment Four Wheel Walker,Straight Cane,Hand Held Shower,Purchasing Administrative Assistant, Lift Recliner,Hospital Bed,Bed Rails,Grab Bars In Shower Employment Status Retired M1 PT/OT-IP Prior Functional Status Start: 05/27/23 15:07 Freq: NEEDED Status: Active Protocol: Document 05/27/23 12:35 REESE (Rec: 05/27/23 15:43 REESE [id number]) Medical Review Prior Functional Status Medical History Reviewed Yes Diet/Fluid Consistency Regular Communication WFL, glasses Mobility and Gait Independent without device in her apt, cane when in community, exercises in the pool 3x/wk Activities of Daily Living and IADL's Independent, having difficulty with cleaning so gets hired assistance once a month, she drives Social History Household Members none Living Arrangements Apartment/Condo Number of Floors (Floors) One Floor Home Environment Tub/Shower,Bidet Home Equipment Four Wheel Walker,Straight Cane,Lift Recliner,Hospital Bed,Bed Rails,Grab Bars In Shower Additional Social History Comment dog sits M2 OT-IP Current Condition Start: 05/27/23 15:07 Freq: Status: Active Protocol: Document 05/27/23 12:35 REESE (Rec: 05/27/23 15:43 REESE [id number]) Occupational Therapy Current Condition Current Condition Evaluation Date 05/27/23 Treatment Diagnosis L4-5 TLIF, impaired functional I Diagnosis Onset Date 05/26/23 Post Operative Precautions Lumbar Precautions Log Roll,No Twisting,Limit Bending,Lifting Restriction of 10 lbs,Gait Belt above Incisional Area M3 OT- IP Subjective and Pain Start: 05/27/23 15:07 Freq: Status: Active Protocol: Document 05/27/23 12:35 REESE (Rec: 05/27/23 15:43 REESE [id number]) OT- Subjective Occupational Therapy Visit Type Type Initial Evaluation Visit Start Time 11:35 Visit Stop Time 12:35 Notes Partial co-eval with PT for pt safety and pain mgmt Occupational Therapy Visit Comments Patient Comments Pt reports that she doesn't have anyone to assist her after surgery, she discussed this with Dr Barker. Pt is eager to return home and to swimming . OT Pain Assessment Pain When Pain Assessed During Mobility Pain Present Pain Present Pain Reported Location low back Intensity 9 Scale Used Numeric (0 - 10) Description Aching,Tender Pain Behaviors Guarding,Wincing Management Techniques Re-positioning,Timing of Activity with Medications M4 OT- IP ADL's Start: 05/27/23 15:07 Freq: Status: Active Protocol: Document 05/27/23 12:35 MIKAELAWEST (Rec: 05/27/23 15:43 RAMYPRLATONIAWEST [id number]) OT [id number]-[id number] General Evaluation Self-Feeding Ability Independent OT ADL-Grooming General Evaluation Grooming Ability Standby Assistance Areas Needing Assistance Retrieving/Set-up of Grooming Items Comments OT Grooming Comments performed in sitting OT ADL-Oral Care General Eval Oral Care Ability Standby Assistance Areas of Assistance Retrieving/Set-Up of Items Comments Oral Care Comments performed in sitting OT ADL-Dressing General Eval Upper Body Dressing Ability Minimal Assistance Lower Body Dressing Ability Total Assistance Areas Needing Assistance Retrieving/Set-up of Clothing, Underpants/Brief,Socks Assistive Devices Dressing Assistive Devices Long Handled Shoe Horn,Purchasing Administrative Assistant ,Sock Aid Comments OT Dressing Comments OT educated pt on use of AE for LB dressing and discussed appropriate techniques for her lumbar precautions. Prior to education, pt required total A for LB dressing. With equipment pt is currently mod A. Re-education of AE for dressing indicated. OT ADL-Toileting Comments OT Toileting Comments not observed during eval OT ADL-Bathing Comments OT Bathing Comments pt declined at this time M5 OT- IP IADL's Start: 05/27/23 15:07 Freq: Status: Active Protocol: Document 05/27/23 12:35 REESE (Rec: 05/27/23 15:43 RAMYPRALEXSANDRA [id number]) OT-Instrumental Activities of Daily Living Home Safety Awareness Awareness of Need for Assistance at Home Good Awareness Ability to Problem Solve Emergency Unable to Problem Solve Situations Medication Management Medication Management No Deficits Identified Money Management Money Management No Deficits Identified Meal Preparation Meal Preparation Comments pt will need assistance on d/c Nuclear Fuels Reclamation Engineer Nuclear Fuels Reclamation Engineer Comments pt will need assitance on d/c Driving Driving Comments pt will need assistance on d/c M6 OT- IP Functional Cognition Start: 05/27/23 15:07 Freq: Status: Active Protocol: Document 05/27/23 12:35 REESE (Rec: 05/27/23 15:43 RAMYPRALEXSANDRA [id number]) Cognitive Factors Limiting Selfcare Function Cognitive Ability Level of Alertness Alert Patient Orientation Name,Age,Birthday,Month,Date, Year,Day of Week,Place, Situation Attention Span Ability Capable of Focused Attention, Capable of Sustained Attention Ability to Follow Commands Able to Follow One Step Commands,Able to Follow Multi- Step Commands Memory Description No Deficits Noted Safety Awareness No Deficits Noted Problem Solving Ability No deficits Noted Executive Function Ability No Deficits Noted Abstract Thinking Ability No Deficits Noted OT- Vision and Hearing OT- Hearing Assessment OT- Hearing Assessment WFL OT- Vision Assessment Visual Acuity WFL,Glasses All The Time M7 OT- IP Mobility and Balance Start: 05/27/23 15:07 Freq: Status: Active Protocol: Document 05/27/23 12:35 MIKAELAWEST (Rec: 05/27/23 15:43 [facility] [id number]) OT- Bed Mobility Assessment Rolling Type of Rolling Log Rolling,Roll to Right Level of Assistance Minimal Assistance Supine to Sit Supine to Sit Assist Moderate Assistance,Head of Bed Elevated,Bedrails Scooting Scooting to Edge of Bed Standby Assistance OT-Transfer Assessment Sit to and From Stand Sit to and from Stand Contact Guard Assistance, Minimal Assistance,Use of Upper Extremities Transfers Transfer Ability Contact Guard Assistance, Minimal Assistance,Use of Upper Extremities Technique Transfer Destination Chair Transfer Technique Stand Step Pivot Devices Transfer Assistive Devices Gait Belt,Front Wheeled Walker Comments Mobility Comments Pt c/o dizziness in supine, sitting, and standing. Dizziness improved during eval but never disappeared. Vital signs when EOB BP 108/45, HR 76. OT- Gait Assessment Gait Gait Assistance Required: Contact Guard Assist Distance (Feet) 10 Assistive Devices Assistive Device Gait Belt,Front Wheeled Walker Comments Gait Ability Comments Pt's pace is slow with c/o pain in right low back/buttock area. OT- Balance Assessment Sitting Balance and Reactions Static Sitting Balance Ability Good Dynamic Sitting Balance Ability Good Standing Balance and Reactions Static Standing Balance Ability Good Dynamic Standing Balance Ability Fair M8 OT- IP Objective Assessments Start: 05/27/23 15:07 Freq: Status: Active Protocol: Document 05/27/23 12:35 MIKAELAWSET (Rec: 05/27/23 15:43 [facility] [id number]) OT Gross Range of Motion Upper Extremity Range of Motion Assessment Within Functional Limits OT Strength Upper Extremity Strength Assessment Within Functional Limits Comments Strength Comments MMT not assessed due to WB restriction for lumbar precautions. Pt demonstrates functional strength for necessary mobility and BADLs. OT- Coordination Assessment Upper Extremity Finger to Nose Test Within Functional Limits Finger Tapping Test Within Functional Limits OT-Muscle Tone Assessment Muscle Tone WNL Yes OT Sensation Assessment Comments Summary Comments all sensation WFL Edema Edema Absent M9 OT- IP Assessment and Plan Start: 05/27/23 15:07 Freq: Status: Active Protocol: Document 05/27/23 12:35 REESE (Rec: 05/27/23 15:43 REESE [id number]) OT Summary Assessment and Plan Potential Rehabilitation Potential Good Analytic Complexity at Evaluation Moderate Summary OT Impairments Pain,Strength,Balance, Coordination,Functional Mobility,Grooming,Dressing, Toileting,Bathing,Toilet Transfers,Shower Transfers, Activity Tolerance Progress Towards Goals Progressing Toward Goals,Slow Progress due to Pain,Slow Progress due to Activity Tolerance Assessment Summary Pt is 77 yo F s/p L4-L5 TLIF. Pt did not know her lumbar precautions and required in depth education. Pt reports feeling dizzy today and says she believes it is due to her pain medication. Pt reports being sensitive to medications . Pt reported improvement of dizziness as eval progressed. Pt demonstrates decreased activity tolerance, functional mobility, decreased BADLs, and would benefit from additional AE education for LB dressing. Pt performs all tasks slowly. Skilled OT services are appropriate to address deficits and promote return to PLOF. Pt is not safe to d/c home alone at this time. Recommend SNF at d/c. Goals Self-Feeding Goal Independent Grooming Goal Independent Dressing Goal Independent,Long Handled Shoe Horn,Purchasing Administrative Assistant,Sock Aid Toileting Goal Independent Frequency of Treatment Frequency Of Treatment Once a Day Treatment Plan OT Treatment Plan ADL Training,Functional Mobility,Therapeutic Exercises ,Patient/Family Education, Discharge Planning Other Treatment Recommendations and Next AE education (rail tractor operator, sockaid Treatment Focus , long handled shoe horn) Discharge Recommendations OT Discharge Recommendations SNF Rehab Transportation Needs at Discharge Wheelchair/Cabulance
[2023-05-27 16:03] VITALS: BP 135/60; PULSE 83; RESP 22; TEMP 37.1; O2SAT 95
[2023-05-27 20:58] VITALS: BP 128/48; PULSE 76; RESP 17; TEMP 36.6; O2SAT 93
[2023-05-27] MEDS: GLIMEPIRIDE 2 MG TABLET 1 MG PO (21:06)
[2023-05-27] MEDS: ROPINIROLE 1 MG TABLET PO (21:07)
[2023-05-27] MEDS: ROPINIROLE 0.25 MG TABLET 0.5 MG PO (21:07)
[2023-05-27] MEDS: SENNOSIDES 8.6 MG TABLET 17.2 MG PO (21:07)
[2023-05-28] MEDS: ONDANSETRON 4 MG/2 ML INJ IV (05:00)
--- NOTE | 2023-05-28 06:24 | PM.PNPO.1 ---
Subjective Subjective Date Patient Seen: 05/28/23 Time Patient Seen: 06:24 Interval history: Pt lying in bed. C/o pain in her back and buttocks, down the back of her thighs. Thinks this is from lying in bed too much. Lives alone, will need SNF for further rehab prior to going home. Exam Vital Signs (past 8 hours): Oxygen Delivery Method Nasal Cannula Oxygen Flow Rate 0 Narrative Exam Narrative: 5/5 strength in hip flexors, quadriceps, hamstrings, DF, PF, EHL bilaterally. Sensation to light touch intact in BLE, calves soft and compressible. Dressing placed intraoperatively CDI. Objective Labs 05/27/23 04:59 PFSH Medical History CAD (coronary artery disease) History of COVID-19 Diabetes type 2, controlled Anxiety about health Osteoarthritis Hypothyroid Hyperlipemia RLS (restless legs syndrome) Seasonal allergies Sleep apnea treated with nocturnal BiPAP Osteoarthritis Sleep apnea Allergies Compulsive overeating Anxiety Restless leg syndrome Osteoporosis Gout Chronic back pain Measles Chicken pox Tinnitus Lower abdominal pain Hemorrhoid Gastric ulcer Diverticular disease Prediabetes Elevated blood sugar Hypothyroidism (acquired) Hyperlipidemia Surgical History Hx of repair of right rotator cuff Hx of arthroscopy of left knee Hx of tonsillectomy H/O bladder repair surgery H/O: hysterectomy Hx of umbilical hernia repair Hx of appendectomy Anesthesia History of tonsillectomy History of appendectomy 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) History of hernia repair History of hysterectomy Family History Father Skin cancer History of heart disease Hypertension Mother COPD (chronic obstructive pulmonary disease) Dementia Brother Cancer Brother Hypertension Hyperlipidemia Sister Hyperlipidemia Hypertension Sister Hypertension Hyperlipidemia Grandmother Diabetes mellitus Social History household members: none Smoking Status: Former smoker alcohol intake: current eating out: 1-3 times/week Type(s) of exercise: walking, swimming and yoga Assessment & Plan Post-op Assessment and plan (1) S/P lumbar fusion: Assessment and Plan narrative: Poor pain control. Will d/c oral dilaudid. APAP changed from PRN to scheduled, added cyclobenzaprine. Continue work w/ PT. D/c to SNF tomorrow pending facility acceptance/auth. SCDs when pt in bed for VTE prophylaxis. Postoperative Procedures: Procedures Operation Date: 05/26/23 12:30 Actual Procedure Side Surgeon p L4-5, L5-S1 TLIF with posterior instrumentation -Robotic Rell Barker MD Postoperative day: 2 Quality VTE Deep Vein Thrombosis/Pulmonary Embolism Present on Admission: No
[2023-05-28] MEDS: ACETAMINOPHEN 325 MG TABLET 650 MG PO ×2 (06:47→14:46)
[2023-05-28] MEDS: LEVOTHYROXINE 100 MCG TABLET PO (06:47)
[2023-05-28] MEDS: CYCLOBENZAPRINE 10 MG TABLET 5 MG PO ×2 (06:47→14:46)
--- NOTE | 2023-05-28 06:57 | PC.NURSE ---
Patient needing multiple reminders to not reach and twist back during repositioning this shift. Educated frequently on importance of following back surgery precautions.
[2023-05-28] MEDS: OXYCODONE IR 10 MG TABLET PO ×2 (08:14→21:02)
[2023-05-28] MEDS: DOCUSATE 100 MG CAPSULE PO ×2 (08:14→21:05)
[2023-05-28 08:32] VITALS: BP 132/36; PULSE 62; RESP 16; TEMP 36.1; O2SAT 93
--- NOTE | 2023-05-28 10:14 | PT-IP ANOTE ---
Pt reports she has been dizzy this morning when getting up with nursing, believes it is her pain medication. Pt would like to rest in chair and take a nap. PT will check on pt in afternoon.
--- NOTE | 2023-05-28 11:15 | PT.IPTN ---
Current Diagnoses Spondylolisthesis, lumbar region (05/26/23) Spinal stenosis, lumbar region with neurogenic claudication (05/26/23) Arthrodesis status (05/26/23) Surgery Performed Operation Date: 05/26/23 12:30 Actual Procedures p L4-5, L5-S1 TLIF with posterior instrumentation -Robotic - Rell Barker MD Physical Therapy Treatment Note M2 PT-IP Current Condition Start: 05/27/23 08:18 Freq: NEEDED Status: Active Protocol: Document 05/27/23 12:20 DLM (Rec: 05/27/23 12:40 DLM [id number]) Physical Therapy Current Condition Current Condition Evaluation Date 05/27/23 Treatment Diagnosis L4-5 TLIF, impaired mobility/ gait Onset Date 05/26/23 M3 PT-IP Subjective Start: 05/27/23 08:18 Freq: NEEDED Status: Active Protocol: Document 05/28/23 11:31 TS (Rec: 05/28/23 11:52 TS [id number]) Subjective Physical Therapy Visit Type Type Treatment Note Visit Start Time 11:15 Visit Stop Time 11:31 Number of DELIVERY TECHNICIAN Visits 2 Physical Therapy Visit Comments Patient Comments Pt found resting in chair, nursing in room, BP 87/38 sitting, pt reports feeling dizzy in chair. Therapy Pain Assessment Pain When Pain Assessed During Mobility Pain Present Pain Present Pain Reported M4 PT-IP Mobility and Gait Start: 05/27/23 08:18 Freq: NEEDED Status: Active Protocol: Document 05/28/23 11:31 TS (Rec: 05/28/23 11:52 TS [id number]) PT-Bed Mobility Assessment Sit to Supine Sit to Supine Moderate Assistance,1 Person Assistance PT-Transfer Assessment Sit to and From Stand Sit to and from Stand Minimal Assistance,1 Person Assistance,Use of Upper Extremities Equipment Transfer Assistive Device Gait Belt,Front Wheeled Walker Transfers Transfer Destination Bed Transfer Technique Stand Step Pivot Transfer Ability Level of Assist Contact Guard Assistance,1 Person Assistance,Use of Upper Extremities Comments Mobility Comments STS from chair Glenny with BUE support pushing from arms of chair and use of FWW. Stand step pivot to chair CGA with FWW. Sit to supine into bed ModA for LE's and cues for logroll sequencing. Pt was left in bed, all needs met. Gait Assessment Gait Gait Assistance Required: Contact Guard Assist Assistive Devices Assistive Device Gait Belt,Front Wheeled Walker Comments Gait Comments Stand step pivot to bed. PT-Balance Assessment Sitting Balance and Reactions Static Sitting Balance Ability Good Dynamic Sitting Balance Ability Good Standing Balance and Reactions Static Standing Balance Ability Good Dynamic Standing Balance Ability Fair Device Used FWW M5 PT-IP Objective Assessments Start: 05/27/23 08:18 Freq: NEEDED Status: Active Protocol: Document 05/27/23 12:20 DLM (Rec: 05/27/23 12:40 DLM [id number]) Orientation Orientation/Cognition Level of Alertness Alert Orientation Name,Age,Birthday,Month,Date, Year,Day of Week,Place, Situation Language Function Ability No Deficits Noted Safety Awareness Understands Safety Issues Memory Description No Deficits Noted Comments glasses placed on per pt request Gross Range of Motion Upper Extremity ROM Assessment Within Functional Limits Lower Extremity ROM Assessment Within Functional Limits Impairments back/hip area pain with right hip flexion Strength Upper Extremity Strength Assessment Within Functional Limits Lower Extremity Strength Assessment Within Functional Limits Comments Strength Comments back pain limits functional LE strength for mobility Coordination Assessment Gross Coordination Gross Coordination WNL Sensation Assessment Sensation Gross Sensation WNL Comments Sensation Comments she reports her distal LE's feel itchy associated with her restless leg syndrome Muscle Tone Muscle Tone WNL Yes M6 PT-IP Treatment Start: 05/27/23 08:18 Freq: NEEDED Status: Active Protocol: Document 05/28/23 11:31 TS (Rec: 05/28/23 11:52 [id number]) Physical Therapy Treatment Education Education Provided Precautions,Safety M7 PT-IP Assessment and Plan Start: 05/27/23 08:18 Freq: NEEDED Status: Active Protocol: Document 05/28/23 11:31 TS (Rec: 05/28/23 11:52 [id number]) PT Summary Assessment and Plan Potential Rehabilitation Potential Good Summary Impairments Pain,ROM,Balance,Bed Mobility, Transfers,Gait,Activity Tolerance Progress Towards Goals Slow Progress due to Medical Issues Assessment Summary Yissel is making slow progress with her mobility. She continues to c/o dizziness , her BP is 87/38 in sitting. She is Glenny to stand with FWW from lower surface of chair. She continues to require ModA for bed mobility and max cues for sequencing. She does not demonstrate good carryover of mobility techniques and states so. PT continues to recommend SNF. Goals Bed Mobility Goal Independent Transfer Goal Independent,Front Wheeled Walker Gait Goal Independent,Front Wheel Walker Gait Distance 150 feet Other Goals Pt will demonstrate spine precautions during functionl mobility. Days to Meet Goals 10 Frequency of Treatment Frequency Of Treatment Twice a Day Treatment Plan Physical Therapy Treatment Plan Bed Mobility Training,Transfer Training,Gait Training, Therapeutic Exercise,Balance Retraining,Post Op Education, Discharge Planning,Hot or Cold Pack,Neuromuscular Re-ed Precautions Lumbar Precautions Log Roll,No Twisting,Limit Bending,Lifting Restriction of 10 lbs,Gait Belt above Incisional Area Recommendations To Nursing Amount of Assist Needed 1 Person Assist Discharge Recommendations PT Discharge Recommendations SNF Rehab Transportation Needs at Discharge Private Vehicle,Wheelchair/ Cabulance
--- NOTE | 2023-05-28 11:43 | OT.IPNOTE ---
Attempted to see pt for OT services. Pt with c/o dizziness and states that she doesn't feel safe doing activity at this time. Later with P.T. pt with SPB in the 80s and returned to bed. Will hold today.
--- NOTE | 2023-05-28 12:20 | CM.DPC ---
DCP Cont. Reviewed EMR and team rounds for pt's status updates. Pt continues to work with therapies. Plan is for her d/c tomorrow to [facility]. Will confirm the time for transport tomorrow in the am.
--- NOTE | 2023-05-28 13:23 | PT.IPTN ---
Current Diagnoses Spondylolisthesis, lumbar region (05/26/23) Spinal stenosis, lumbar region with neurogenic claudication (05/26/23) Arthrodesis status (05/26/23) Surgery Performed Operation Date: 05/26/23 12:30 Actual Procedures p L4-5, L5-S1 TLIF with posterior instrumentation -Robotic - Rell Barker MD Physical Therapy Treatment Note M2 PT-IP Current Condition Start: 05/27/23 08:18 Freq: NEEDED Status: Active Protocol: Document 05/27/23 12:20 DLM (Rec: 05/27/23 12:40 DLM [id number]) Physical Therapy Current Condition Current Condition Evaluation Date 05/27/23 Treatment Diagnosis L4-5 TLIF, impaired mobility/ gait Onset Date 05/26/23 M3 PT-IP Subjective Start: 05/27/23 08:18 Freq: NEEDED Status: Active Protocol: Document 05/28/23 14:11 TS (Rec: 05/28/23 14:23 TS [id number]) Subjective Physical Therapy Visit Type Type Treatment Note Visit Start Time 13:23 Visit Stop Time 14:02 Number of DRUGLESS DOCTOR Visits 3 Physical Therapy Visit Comments Patient Comments Pt found resting in bed, reports higher pain this afternoon, is agreeable to PT. Therapy Pain Assessment Pain When Pain Assessed During Mobility Pain Present Pain Present Pain Reported M4 PT-IP Mobility and Gait Start: 05/27/23 08:18 Freq: NEEDED Status: Active Protocol: Document 05/28/23 14:11 TS (Rec: 05/28/23 14:23 TS [id number]) PT-Bed Mobility Assessment Rolling Type of Rolling Log Rolling,Roll to Left Level of Assist Minimal Assistance Supine to Sit Supine to Sit Moderate Assistance,Head of Bed Elevated,Bedrails Scooting Scooting to Edge of Bed Moderate Assistance PT-Transfer Assessment Sit to and From Stand Sit to and from Stand Minimal Assistance,1 Person Assistance,Use of Upper Extremities Equipment Transfer Assistive Device Gait Belt,Front Wheeled Walker Comments Mobility Comments BP in supine 125/35. Logroll to L side Glenny to come ful on side. Supine to sit ModA for uprighting trunk, cues provided for sequencing. She scooted to EOB ModA with BUE support and use of transfer pad. She sat EOB, BP in sitting 122/54. STS from bed with FWW Glenny, BP in standing 117/49. She ambulated to bathroom ~10'CGA with FWW and slow step to gait. Nursing in room to assist with pericare. She ambulated back to chair ~ 10' CGA with FWW, reported some dizziness. Pt was left in chair, friend in room, all needs met. Gait Assessment Gait Gait Assistance Required: Contact Guard Assist Distance (Feet) 20 Assistive Devices Assistive Device Gait Belt,Front Wheeled Walker Gait Deviations General Gait Pattern Ataxic,Decreased Stride Length ,Decreased Feet Clearance,Step -to Gait Factors Limiting Gait Function Factors Limiting Gait Function Decreased Activity Tolerance, Decreased Strength,Limited Range of Motion,Pain,Poor Balance Comments Gait Comments See mobility comments PT-Balance Assessment Sitting Balance and Reactions Static Sitting Balance Ability Good Dynamic Sitting Balance Ability Good Standing Balance and Reactions Static Standing Balance Ability Good Dynamic Standing Balance Ability Fair Device Used FWW M5 PT-IP Objective Assessments Start: 05/27/23 08:18 Freq: NEEDED Status: Active Protocol: Document 05/27/23 12:20 DLM (Rec: 05/27/23 12:40 DLM [id number]) Orientation Orientation/Cognition Level of Alertness Alert Orientation Name,Age,Birthday,Month,Date, Year,Day of Week,Place, Situation Language Function Ability No Deficits Noted Safety Awareness Understands Safety Issues Memory Description No Deficits Noted Comments glasses placed on per pt request Gross Range of Motion Upper Extremity ROM Assessment Within Functional Limits Lower Extremity ROM Assessment Within Functional Limits Impairments back/hip area pain with right hip flexion Strength Upper Extremity Strength Assessment Within Functional Limits Lower Extremity Strength Assessment Within Functional Limits Comments Strength Comments back pain limits functional LE strength for mobility Coordination Assessment Gross Coordination Gross Coordination WNL Sensation Assessment Sensation Gross Sensation WNL Comments Sensation Comments she reports her distal LE's feel itchy associated with her restless leg syndrome Muscle Tone Muscle Tone WNL Yes M6 PT-IP Treatment Start: 05/27/23 08:18 Freq: NEEDED Status: Active Protocol: Document 05/28/23 14:11 TS (Rec: 05/28/23 14:23 TS [id number]) Physical Therapy Treatment Education Education Provided Precautions,Safety M7 PT-IP Assessment and Plan Start: 05/27/23 08:18 Freq: NEEDED Status: Active Protocol: Document 05/28/23 14:11 TS (Rec: 05/28/23 14:23 [id number]) PT Summary Assessment and Plan Potential Rehabilitation Potential Good Summary Impairments Pain,ROM,Balance,Bed Mobility, Transfers,Gait,Activity Tolerance Progress Towards Goals Slow Progress due to Pain,Slow Progress due to Activity Tolerance Assessment Summary Yissel is making slow progress with her mobility. She is more limited by pain this session. She continues to require ModA for sitting up to EOB and max cues for sequencing. She continues to require Glenny for STS with use of FWW. She ambulated in room ~20'CGA with FWW, had no buckling or LOB. She continues to report dizziness while in bed and with mobility. Her BP is higher than previous session, see vitals above. PT continues to recommend SNF rehab at this time. Goals Bed Mobility Goal Independent Transfer Goal Independent,Front Wheeled Walker Gait Goal Independent,Front Wheel Walker Gait Distance 150 feet Other Goals Pt will demonstrate spine precautions during functionl mobility. Days to Meet Goals 10 Frequency of Treatment Frequency Of Treatment Twice a Day Treatment Plan Physical Therapy Treatment Plan Bed Mobility Training,Transfer Training,Gait Training, Therapeutic Exercise,Balance Retraining,Post Op Education, Discharge Planning,Hot or Cold Pack,Neuromuscular Re-ed Precautions Lumbar Precautions Log Roll,No Twisting,Limit Bending,Lifting Restriction of 10 lbs,Gait Belt above Incisional Area Recommendations To Nursing Amount of Assist Needed 1 Person Assist Discharge Recommendations PT Discharge Recommendations SNF Rehab Transportation Needs at Discharge Private Vehicle,Wheelchair/ Cabulance
[2023-05-28 16:00] VITALS: BP 116/35; PULSE 71; RESP 16; TEMP 36.8; O2SAT 93
[2023-05-28 19:54] VITALS: BP 144/45; PULSE 68; RESP 19; TEMP 36.4; O2SAT 95
[2023-05-28] MEDS: ROPINIROLE 0.25 MG TABLET 0.5 MG PO (21:01)
[2023-05-28] MEDS: ROPINIROLE 1 MG TABLET PO (21:01)
[2023-05-28] MEDS: GLIMEPIRIDE 2 MG TABLET 1 MG PO (21:01)
[2023-05-28] MEDS: SENNOSIDES 8.6 MG TABLET 17.2 MG PO (21:01)
[2023-05-29] MEDS: ACETAMINOPHEN 325 MG TABLET 650 MG PO ×2 (01:50→06:46)
[2023-05-29] MEDS: CYCLOBENZAPRINE 10 MG TABLET PO (01:56)
[2023-05-29] MEDS: LEVOTHYROXINE 100 MCG TABLET PO (06:46)
--- NOTE | 2023-05-29 07:20 | P.DS_ITS ---
History of Present Illness History of Present Illness Chief complaint: INPT Narrative: Yissel is a pleasent 77 year old female who is POD#3 L4-5, L5-S1 lumbar fusion by Dr. Barker. Patient complains of pain in her back and buttocks, down the back of her thighs and into her shins. Denies calve pain. She has been lying in bed quite a bit and thinks this may be contributing to her muscle aches. Pain has not improved significantly from yesterday. She lives alone and will need SNF for further rehab prior to going home. Denies fever, chills, chest pain, SOB, nausea, vomiting. Does admit to some feelings of dizzines over night. VSS. Operative Date/Time/Diagnoses Date of procedure: 05/26/23 Time of procedure: 13:00 Pre-op diagnosis: 1. L4-5, L5-S1 spinal stenosis with neurogenic claudication 2. L5-S1 anterolisthesis Post-op diagnosis: same Procedure & Clinicians Procedure: 1. L4-5, L5-S1 Postero-lateral and posterior interbody fusion 2. L4-5, L5-S1 interbody cage placement. 3. L4-5, L5-S1 decompressive laminectomy with bilateral facetecomies 4. L4-5, L5-S1 Posterior segmental instrumentation 5. [place] of bone marrow from iliac crest 6. Utilization of microsurgical technique and operating microscope 7. Utilization of robotic assisted navigation Same procedure as scheduled: Yes Indications: Patient has been having chronic back pain and worsening lumbar radiculopathy and symptoms of neurogenic claudication. Patient was found to have L4-5 L5-S1 spinal stenosis with L5-S1 anterolisthesis due to bilateral pars defect. Patient failed multiple conservative management with worsening pain weakness and numbness in her lower extremity. Patient has been having difficulty performing activity of daily living. After discussing risks benefits of treatment options, patient elected proceed with surgery. Surgeon: Rell Barker Slider Assembler: Anya Mane Click Yes if Unassisted: No Anesthesia Type: General Discharge Providers Provider Date of admission: 05/26/23 10:55 Discharge Date: 05/29/23 Primary care physician: Sabino Munoz MD Consults: 05/20/23 10:28 Consult to [employer] Routine Comment: No assist after surgery-Dr. Barker advised marie ramos/bairon 05/26/23 18:45 Consult to Occupational Therapy Evaluate & Treat Comment: Physician Instructions: Evaluate and treat Consult to Physical Therapy Evaluate & Treat Comment: Physician Instructions: Evaluate and Treat Discharge provider: Chantelle Terrazas PA-C Summary Hospital Course Discharge Diagnosis: stable s/p L4-5, L5-S1 lumbar fusion Hospital Course: Hospital course complicated by poor pain control on POD 1 and 2. Exam Vital Signs (past 8 hours): Oxygen Delivery Method Nasal Cannula Oxygen Flow Rate 0 Narrative Exam Narrative: Patient is lying in bed during our interview today with ice packs on her posterior thighs bilaterally. She is sleepy and gives limited answers during our discussion. Resp Effort & Inspection: normal respiratory effort and able to speak in complete sentences Cardio Rate: regular rate Skin Other: dressings intact, clean and dry. Neuro General: patient oriented x3 Extrem Other: 5/5 strength wtih DF, PF, EHL. Sensation intact throughout bilateral lower extremities. Calves soft and non-tender bilaterally. Objective Labs 05/27/23 04:59 PFSH Medical History CAD (coronary artery disease) History of COVID-19 Diabetes type 2, controlled Anxiety about health Osteoarthritis Hypothyroid Hyperlipemia RLS (restless legs syndrome) Seasonal allergies Sleep apnea treated with nocturnal BiPAP Osteoarthritis Sleep apnea Allergies Compulsive overeating Anxiety Restless leg syndrome Osteoporosis Gout Chronic back pain Measles Chicken pox Tinnitus Lower abdominal pain Hemorrhoid Gastric ulcer Diverticular disease Prediabetes Elevated blood sugar Hypothyroidism (acquired) Hyperlipidemia Surgical History Hx of repair of right rotator cuff Hx of arthroscopy of left knee Hx of tonsillectomy H/O bladder repair surgery H/O: hysterectomy Hx of umbilical hernia repair Hx of appendectomy Anesthesia History of tonsillectomy History of appendectomy 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) History of hernia repair History of hysterectomy Family History Father Skin cancer History of heart disease Hypertension Mother COPD (chronic obstructive pulmonary disease) Dementia Brother Cancer Brother Hypertension Hyperlipidemia Sister Hyperlipidemia Hypertension Sister Hypertension Hyperlipidemia Grandmother Diabetes mellitus Social History household members: none Smoking Status: Former smoker alcohol intake: current eating out: 1-3 times/week Type(s) of exercise: walking, swimming and yoga Discharge Assessment & Plan Assessment and Plan Assessment: Stable s/p L4-5, L5-S1 lumbar fusion Plan of Treatment: Plan to d/c to [facility] today at noon. 1) Continue multimodal pain management. Heat/ice PRN. Medicaton list and instructions have been printed for SNF, PASSR signed. 2) Keep dressing intact, clean and dry until 2 week post-op appt. 3) No twisting, deep bending or lifting more than 10lbs. 4) Follow up [facility] in 2 weeks for post op appt and staple removal. Discharge Plan Discharge Plan Patient Disposition: SNF Transfer to: [facility] Discharge orders & Medications Prescriptions: New acetaminophen 325 mg Tablet 650 mg PO Q6H PRN (Reason: pain or fever) Qty: 240 0RF docusate sodium 100 mg Capsule 100 mg PO BID PRN (Reason: constipation) Qty: 60 1RF oxycodone 5 mg Tablet 5 mg PO Q4-6H PRN (Reason: Pain, Moderate (4-6)) Qty: 60 0RF Rx Instructions: 1-2 tabs (5-10mg) q 4-6 hrs PRN moderate (5mg) to severe (10mg) pain. cyclobenzaprine 5 mg tablet 5 mg PO TID PRN (Reason: muscle spasm) Qty: 60 0RF Rx Instructions: 1-2 tabs (5-10mg) TID PRN muscle spasm (pain in back or back of legs) Continued levothyroxine [Synthroid] 100 mcg Tablet 100 mcg PO DAILY ropinirole 0.25 mg Tablet 2 tab PO BEDTIME Zyrtec 10 mg Capsule 10 mg PO DAILY PRN (Reason: seasonal allergies) glimepiride 1 mg tablet 1 mg PO BEDTIME ropinirole 1 mg Tablet 1 mg PO BEDTIME Rx Instructions: administer 1-3 hours before bedtime naltrexone 4.5 mg Capsule 4.5 mg PO BEDTIME Discontinued ibuprofen [Motrin IB] 200 mg Tablet 400 mg PO BEDTIME Follow up/Referrals: Rell Barker MD [Physician] - 06/10/23 10:00 am (Follow up w/ Anya Mane PA-C, at [address] office in [place].) Sabino Munoz MD [Primary Care Provider] - Diet/Activity/Treatments Diet: Diet as Tolerated Activity: No deep bending or twisting at the waist. No lifting more than 10 pounds. Cold/Heat Therapy: Heating pad to low back as needed for pain. Skin/Wound/Dressing Care Report to your healthcare provider any signs of infection, such as:: chills, fever, night sweats, unusual drainage and unusual redness Dressing: May shower; keep dressing as dry as possible. If dressing becomes wet or dirty, may remove and replace with clean, dry gauze. No bathing or otherwise soaking incisions. Do not apply any creams, lotions, or ointments to incisions. Visit Report/Discharge Packet Instructions: DI for Prescription Opioid Use, DI for Transforaminal Lumbar Interbody Fusion Stand Alone Forms: Patient Portal/API, Surgery Discharge Discharge Data Primary Care Provider: Sabino Munoz Quality VTE Deep Vein Thrombosis/Pulmonary Embolism Present on Admission: No
[2023-05-29] MEDS: OXYCODONE IR 10 MG TABLET PO (07:48)
[2023-05-29 08:00] VITALS: BP 122/42; PULSE 62; RESP 16; TEMP 36.3; O2SAT 94
[2023-05-29] MEDS: MAGNESIUM HYDROXIDE 30 ML UDC PO (08:37)
[2023-05-29] MEDS: DOCUSATE 100 MG CAPSULE PO (08:37)
--- NOTE | 2023-05-29 08:45 | PT.IPTN ---
Current Diagnoses Spondylolisthesis, lumbar region (05/26/23) Spinal stenosis, lumbar region with neurogenic claudication (05/26/23) Arthrodesis status (05/26/23) Surgery Performed Operation Date: 05/26/23 12:30 Actual Procedures p L4-5, L5-S1 TLIF with posterior instrumentation -Robotic - Rell Barker MD Physical Therapy Treatment Note M2 PT-IP Current Condition Start: 05/27/23 08:18 Freq: NEEDED Status: Active Protocol: Document 05/27/23 12:20 DLM (Rec: 05/27/23 12:40 DLM [id number]) Physical Therapy Current Condition Current Condition Evaluation Date 05/27/23 Treatment Diagnosis L4-5 TLIF, impaired mobility/ gait Onset Date 05/26/23 M3 PT-IP Subjective Start: 05/27/23 08:18 Freq: NEEDED Status: Active Protocol: Document 05/29/23 09:17 TS (Rec: 05/29/23 09:30 TS [id number]) Subjective Physical Therapy Visit Type Type Treatment Note Visit Start Time 08:45 Visit Stop Time 09:10 Number of TOPOGRAPHICAL ENGINEER Visits 4 Physical Therapy Visit Comments Patient Comments Pt found resting in chair, reports feeling dizzy while in chair and believes it is from her pain meds.Pt is agreeable to PT. Therapy Pain Assessment Pain When Pain Assessed During Mobility Pain Present Pain Present Pain Reported M4 PT-IP Mobility and Gait Start: 05/27/23 08:18 Freq: NEEDED Status: Active Protocol: Document 05/29/23 09:17 TS (Rec: 05/29/23 09:30 TS [id number]) PT-Transfer Assessment Sit to and From Stand Sit to and from Stand Standby Assistance,Use of Upper Extremities Equipment Transfer Assistive Device Gait Belt,Front Wheeled Walker Comments Mobility Comments Pt recalled 2/3 spinal precautions prior to mobility( no lifting). STS from chair SBA with BUE support on FWW to come into standing. Pt ambulated in room ~20' requested to use sink. pt stood ~3mins at sink brushing teeth and washing hands with no support. She ambulated to restroom SBA with FWW, performed own pericare. Pt reports she is pretty dizzy and ambulated back to chair. pt was left in chair, nursing in room. Gait Assessment Gait Gait Assistance Required: Standby Assistance Distance (Feet) 30 Assistive Devices Assistive Device Gait Belt,Front Wheeled Walker Gait Deviations General Gait Pattern Ataxic,Decreased Stride Length ,Decreased Feet Clearance,Step -to Gait Factors Limiting Gait Function Factors Limiting Gait Function Decreased Activity Tolerance, Decreased Strength,Limited Range of Motion,Pain,Poor Balance Comments Gait Comments See mobility comments PT-Balance Assessment Sitting Balance and Reactions Static Sitting Balance Ability Good Dynamic Sitting Balance Ability Good Standing Balance and Reactions Static Standing Balance Ability Good Dynamic Standing Balance Ability Fair Device Used FWW M5 PT-IP Objective Assessments Start: 05/27/23 08:18 Freq: NEEDED Status: Active Protocol: Document 05/27/23 12:20 DLM (Rec: 05/27/23 12:40 DLM [id number]) Orientation Orientation/Cognition Level of Alertness Alert Orientation Name,Age,Birthday,Month,Date, Year,Day of Week,Place, Situation Language Function Ability No Deficits Noted Safety Awareness Understands Safety Issues Memory Description No Deficits Noted Comments glasses placed on per pt request Gross Range of Motion Upper Extremity ROM Assessment Within Functional Limits Lower Extremity ROM Assessment Within Functional Limits Impairments back/hip area pain with right hip flexion Strength Upper Extremity Strength Assessment Within Functional Limits Lower Extremity Strength Assessment Within Functional Limits Comments Strength Comments back pain limits functional LE strength for mobility Coordination Assessment Gross Coordination Gross Coordination WNL Sensation Assessment Sensation Gross Sensation WNL Comments Sensation Comments she reports her distal LE's feel itchy associated with her restless leg syndrome Muscle Tone Muscle Tone WNL Yes M6 PT-IP Treatment Start: 05/27/23 08:18 Freq: NEEDED Status: Active Protocol: Document 05/29/23 09:17 TS (Rec: 05/29/23 09:30 [id number]) Physical Therapy Treatment Education Education Provided Precautions,Safety M7 PT-IP Assessment and Plan Start: 05/27/23 08:18 Freq: NEEDED Status: Active Protocol: Document 05/29/23 09:17 TS (Rec: 05/29/23 09:30 [id number]) PT Summary Assessment and Plan Potential Rehabilitation Potential Good Summary Impairments Pain,ROM,Balance,Bed Mobility, Transfers,Gait,Activity Tolerance Progress Towards Goals Slow Progress due to Pain Assessment Summary Yissel is making some progress with her mobility but remains limited by pain and ongoing dizziness. She is SBA for STS from chair and demonstrates good carryover of STS technique. She continues to ambulate short distances in the room SBA with FWW. She continues to have dizziness with her mobility, pt believes it is from her pain medication. PT is recommending SNF to improve strength, functional mobility and activity tolerance prior to d/ c home. Goals Bed Mobility Goal Independent Transfer Goal Independent,Front Wheeled Walker Gait Goal Independent,Front Wheel Walker Gait Distance 150 feet Other Goals Pt will demonstrate spine precautions during functionl mobility. Days to Meet Goals 10 Frequency of Treatment Frequency Of Treatment Twice a Day Treatment Plan Physical Therapy Treatment Plan Bed Mobility Training,Transfer Training,Gait Training, Therapeutic Exercise,Balance Retraining,Post Op Education, Discharge Planning,Hot or Cold Pack,Neuromuscular Re-ed Precautions Lumbar Precautions Log Roll,No Twisting,Limit Bending,Lifting Restriction of 10 lbs,Gait Belt above Incisional Area Recommendations To Nursing Amount of Assist Needed 1 Person Assist Discharge Recommendations PT Discharge Recommendations SNF Rehab Transportation Needs at Discharge Private Vehicle,Wheelchair/ Cabulance
--- NOTE | 2023-05-29 10:07 | CM.DPC ---
DCP Cont. Reviewed EMR and team rounds for status updates. Plan is for pt to d/c to [facility] today at 12:00pm. Clinicals and scripts are completed and no further needs are identified at this time.
[2023-05-29] MEDS: BISACODYL 10 MG SUPP PR (11:09)
== END 2023-05-29 12:15 | DRG 455 ==
PROVIDERS: Admitting Provider Orthopaedic Surgery Orthopaedic Surgery of the Spine; Family Provider Family Medicine; PCP Family Medicine; Referring Provider Orthopaedic Surgery Orthopaedic Surgery of the Spine; Visit Provider Orthopaedic Surgery Orthopaedic Surgery of the Spine
PROC: 0SG00AJ Fusion of Lumbar Vertebral Joint with Interbody Fusion Device, Posterior Approach, Anterior Column, Open Approach (ICD-10-PCS; principal; 2023-05-26 12:30)
DX: M48.062 Spinal stenosis, lumbar region with neurogenic claudication (principal); M48.07 Spinal stenosis, lumbosacral region; M43.17 Spondylolisthesis, lumbosacral region; G89.18 Other acute postprocedural pain; E03.9 Hypothyroidism, unspecified; G25.81 Restless legs syndrome; E11.9 Type 2 diabetes mellitus without complications; Z79.84 Long term (current) use of oral hypoglycemic drugs; Z87.891 Personal history of nicotine dependence
CPT/HCPCS: 36415; 72100; 76000; 82962; 85014; 85018; 97116; 97162; 97166; 97530; 97535; C1713; C9290; J0171; J0330; J0690; J1100; J1170; J2250; J2405; J2704; J3010; J3410

== ENCOUNTER → 2024-04-16 14:08 | Outpatient (CLI) | payer MEDICARE, OTHER, SELFPAY ==
[2023-05-26 11:13] VITALS: BMI 41.5
--- NOTE | 2024-04-16 14:09 | DI.CT.S_ITS ---
PROCEDURE: CT LUMBAR SPINE WO CON INDICATIONS: LUMBAR SPONDYLOLISTHESIS, PRIOR LUMBAR FUSION TECHNIQUE: Noncontrast 3 mm thick sections acquired from the T12 level to the sacrum. Sagittal and coronal reformats were constructed. For radiation dose reduction, the following was used: automated exposure control. COMPARISON: [facility], CT, CT LUMBAR SPINE WO CON, 04/07/2023, 11:10. FINDINGS: Image quality: Excellent. Bones: L4 through S1 posterior spinal fixation hardware and discectomy. Hardware appears intact without surrounding fracture or lucency. Mild retrolisthesis of L3 on L4. Grade 1 anterolisthesis of L5 on S1 with bilateral pars interarticularis defects. L4-5 right hemilaminotomy with resolution of central canal stenosis. Multilevel degenerative changes of the lumbar spine are redemonstrated. Likely moderate central canal stenosis at L3-L4. Moderate bilateral neural foraminal stenosis at L3-L4 and L4-5 and severe bilateral neural foraminal stenosis at L5-S1. No acute vertebral body compression fractures. No suspicious lytic or blastic bony lesions. No pars defects. Soft tissues: No retroperitoneal masses or hematomas. Visualized aorta is normal in caliber. Atherosclerotic vascular calcifications. IMPRESSION: Postsurgical changes from L4 through S1 posterior spinal fixation and discectomy without evidence of hardware complication. Status post L4-5 right hemilaminotomy with resolution of central canal stenosis. Stable degenerative changes at other levels as described above. Dictated by: Frankie Grullon M.D. on 04/16/2024 at 21:31 Approved by: Frankie Grullon M.D. on 04/16/2024 at 21:35
== END ==
PROVIDERS: Family Provider Family Medicine; PCP Family Medicine; Referring Provider Orthopaedic Surgery Orthopaedic Surgery of the Spine; Visit Provider Orthopaedic Surgery Orthopaedic Surgery of the Spine
DX: M43.16 Spondylolisthesis, lumbar region (principal); M51.360 Other intervertebral disc degeneration, lumbar region with discogenic back pain only; Z98.1 Arthrodesis status; Z98.890 Other specified postprocedural states
CPT/HCPCS: 72131

== ENCOUNTER 2024-05-30 15:45 | Emergency (ER) | payer MEDICARE, OTHER, SELFPAY ==
[2023-05-26 11:13] VITALS: BMI 41.5
[2024-05-30] VITALS (16 sets, daily range): BP systolic 120–172; BP diastolic 55–103; PULSE 76–84; RESP 14–25; TEMP 36.8; O2SAT 91–96; BMI 40.2
--- NOTE | 2024-05-30 15:46 | DI.RAD.S_ITS ---
PROCEDURE: XR CHEST 1V INDICATIONS: chest pain TECHNIQUE: One view of the chest was acquired. COMPARISON: [facility], CR, XR CHEST 1V, 04/08/2021, 16:42. FINDINGS: Surgical changes and devices: None. Lungs and pleura: Lungs are clear. No pleural effusions or pneumothorax. Mediastinum: Mediastinal contours appear normal. Heart size is normal. Bones and chest wall: No suspicious bony lesions. Overlying soft tissues appear unremarkable. IMPRESSION: No acute cardiopulmonary pathology. Dictated by: William Aviles M.D. on 05/30/2024 at 16:33 Approved by: William Aviles M.D. on 05/30/2024 at 16:34
--- NOTE | 2024-05-30 15:51 | ED.GENADULT ---
HPI - General Adult <Rosa Velazquez MD - Last Filed: 06/09/24 07:54> General Chief complaint: Abdominal Pain Stated complaint: Chest Pain Time Seen by Provider: 05/30/24 15:45 History of Present Illness HPI narrative: 78-year-old woman with a history of hyperlipidemia, coronary artery disease, type 2 diabetes, hypothyroidism, episodes of constipation for which she uses suppositories, most recent colonoscopy November of 2021 with findings of diverticulosis and grade 1 hemorrhoids presents by medics with acute nausea and vomiting starting at 3:00 a.m. last night. Describes left-sided abdominal pain, she has a ongoing history of upper left chest wall pain reproducible on physical exam present for the last 6 months has been seen and evaluated by Cardiology. She does not describe fevers, palpitations, orthopnea, syncope or near-syncope. She reports she has vomited so much she is now having dry heaves, there has been no blood. She had a episode of diarrhea last night. She is not complaining of any dysuria Related Data Home Medications Medication Instructions Recorded Confirmed cetirizine 10 mg capsule (Zyrtec) 10 mg PO DAILY PRN seasonal 11/27/17 05/26/23 allergies levothyroxine 100 mcg tablet 100 mcg PO DAILY 11/27/17 05/26/23 (Synthroid) ropinirole 0.25 mg tablet 2 tab PO BEDTIME rls 11/27/17 05/26/23 glimepiride 1 mg tablet 1 mg PO BEDTIME 12/03/21 05/26/23 naltrexone 4.5 mg capsule 4.5 mg PO BEDTIME 05/20/23 05/26/23 ropinirole 1 mg tablet 1 mg PO BEDTIME RLS 05/20/23 05/26/23 Previous Rx's Medication Instructions Recorded acetaminophen 325 mg tablet 650 mg (2 x 325 mg) PO Q6H PRN 05/28/23 pain or fever #240 tabs cyclobenzaprine 5 mg tablet 5 mg PO TID PRN muscle spasm #60 05/28/23 tabs docusate sodium 100 mg capsule 100 mg PO BID PRN constipation #60 05/28/23 caps oxycodone 5 mg tablet 5 mg PO Q4-6H PRN Pain, Moderate 05/28/23 (4-6) #60 tabs ondansetron 4 mg disintegrating 4 mg PO Q8H PRN nausea and 05/30/24 tablet vomiting #10 tabs Allergies Allergy/AdvReac Type Severity Reaction Status Date / Time shellfish derived Allergy Intermediate Fatigued Verified 05/30/24 16:01 codeine Allergy Mild Blister Verified 05/30/24 15:59 gabapentin AdvReac Severe I go Verified 05/26/23 12:03 wacko [id number] Reductase AdvReac Severe leg cramps Verified 05/26/23 12:03 Inhibitor loratadine [From Claritin] AdvReac Mild Dizziness Verified 05/26/23 12:03 Review of Systems <Rosa Vealzquez MD - Last Filed: 06/09/24 07:54> Review of Systems Narrative: Pertinent positive and negative findings as per HPI Patient History <Rosa Velazquez MD - Last Filed: 06/09/24 07:54> Medical History CAD (coronary artery disease) History of COVID-19 Diabetes type 2, controlled Anxiety about health Osteoarthritis Hypothyroid Hyperlipemia RLS (restless legs syndrome) Seasonal allergies Sleep apnea treated with nocturnal BiPAP Osteoarthritis Sleep apnea Allergies Compulsive overeating Anxiety Restless leg syndrome Osteoporosis Gout Chronic back pain Measles Chicken pox Tinnitus Lower abdominal pain Hemorrhoid Gastric ulcer Diverticular disease Prediabetes Elevated blood sugar Hypothyroidism (acquired) Hyperlipidemia Surgical History Hx of repair of right rotator cuff Hx of arthroscopy of left knee Hx of tonsillectomy H/O bladder repair surgery H/O: hysterectomy Hx of umbilical hernia repair Hx of appendectomy Anesthesia History of tonsillectomy History of appendectomy 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) History of hernia repair History of hysterectomy Family History Father Skin cancer History of heart disease Hypertension Mother COPD (chronic obstructive pulmonary disease) Dementia Brother Cancer Brother Hypertension Hyperlipidemia Sister Hyperlipidemia Hypertension Sister Hypertension Hyperlipidemia Grandmother Diabetes mellitus Social History household members: none Smoking Status: Former smoker alcohol intake: current eating out: 1-3 times/week Type(s) of exercise: walking, swimming and yoga Smoking Status: Former smoker alcohol intake frequency: a few times a month Exam <Rosa Velazquez MD - Last Filed: 06/09/24 07:54> Initial Vital Signs Initial Vital Signs: Vital Signs Temperature 98.2 F 05/30/24 15:47 Pulse Rate 83 05/30/24 15:47 Respiratory Rate 20 05/30/24 15:47 Blood Pressure 147/65 H 05/30/24 15:47 Pulse Oximetry 93 05/30/24 15:47 Oxygen Delivery Method Room Air 05/30/24 15:47 General: Older-appearing, in no acute distress. Able to give a complete and coherent history. Well-nourished well-developed HEENT: Dry mucous membranes, normal sclera with reactive pupils, Respiratory: Lungs are clear to auscultation, no wheezing no rales no rhonchi. Full and symmetrical air movement Cardiac: Regular rate and rhythm no murmurs no bruits Abdomen: Soft, tenderness in the left lower quadrant to left waist area without flank pain or left upper quadrant tenderness. There was no rebound or guarding. No visible hernias or pain related to skin changes Skin: Warm and dry, no rashes Neurologic: Grossly neurologically intact with no obvious asymmetries or abnormalities Extremities: No trauma, no lower extremity edema Psych: Cooperative, appropriate insight and affect <Rola Fuller DO - Last Filed: 05/30/24 23:12> Initial Vital Signs Initial Vital Signs: Vital Signs Temperature 98.2 F 05/30/24 15:47 Pulse Rate 83 05/30/24 15:47 Respiratory Rate 20 05/30/24 15:47 Blood Pressure 147/65 H 05/30/24 15:47 Pulse Oximetry 93 05/30/24 15:47 Oxygen Delivery Method Room Air 05/30/24 15:47 Course <Rosa Velazquez MD - Last Filed: 06/09/24 07:54> Orders Ordered: Discontinued Medications Acetaminophen (Acetaminophen 325 Mg Tablet) 975 mg PO NOW ONE Stop: 05/30/24 20:56 Last Admin: 05/30/24 21:21 Dose: 975 mg Documented By: [facility] Aspirin (Aspirin 81 Mg Chew Tab) 324 mg PO NOW ONE Stop: 05/30/24 15:47 Last Admin: 05/30/24 16:35 Dose: Not Given Documented By: ALEXEI Ondansetron HCl (Ondansetron 4 Mg Odt Prepack) 1 bottle MISC NOW ONE Stop: 05/30/24 20:56 Last Admin: 05/30/24 21:21 Dose: 1 bottle Documented By: DEANNE Vital Signs Vital signs: Vital Signs - 8 hr 05/30/24 15:47 05/30/24 15:50 05/30/24 15:50 Temperature 98.2 F Pulse Rate 83 84 Respiratory Rate 20 18 Blood Pressure 147/65 H 147/65 H Pulse Oximetry 93 92 Oxygen Delivery Method Room Air 05/30/24 16:00 05/30/24 16:30 05/30/24 16:30 Temperature Pulse Rate 83 80 Respiratory Rate 20 Blood Pressure 162/71 H Pulse Oximetry 95 93 Oxygen Delivery Method Room Air Room Air 05/30/24 17:00 05/30/24 17:01 05/30/24 17:01 Temperature Pulse Rate 83 83 Respiratory Rate Blood Pressure 172/103 H Pulse Oximetry 94 Oxygen Delivery Method 05/30/24 17:03 05/30/24 17:03 05/30/24 17:30 Temperature Pulse Rate 82 79 Respiratory Rate 21 14 Blood Pressure 156/67 H Pulse Oximetry 95 93 Oxygen Delivery Method Room Air 05/30/24 17:31 05/30/24 17:31 05/30/24 18:00 Temperature Pulse Rate 80 Respiratory Rate 19 Blood Pressure 136/60 154/70 H Pulse Oximetry 93 Oxygen Delivery Method 05/30/24 18:00 05/30/24 18:30 05/30/24 18:31 Temperature Pulse Rate 76 79 79 Respiratory Rate 14 20 25 H Blood Pressure Pulse Oximetry 91 96 95 Oxygen Delivery Method 05/30/24 18:31 05/30/24 18:34 05/30/24 18:34 Temperature Pulse Rate 79 Respiratory Rate 20 Blood Pressure 158/74 H 132/61 Pulse Oximetry 96 Oxygen Delivery Method 05/30/24 20:46 05/30/24 20:46 05/30/24 21:00 Temperature Pulse Rate 79 80 Respiratory Rate 22 19 Blood Pressure 120/55 L Pulse Oximetry 95 95 Oxygen Delivery Method 05/30/24 21:33 Temperature Pulse Rate 84 Respiratory Rate 16 Blood Pressure 120/55 L Pulse Oximetry 96 Oxygen Delivery Method Room Air <DO Falguni Stock Last Filed: 05/30/24 23:12> Orders Ordered: Discontinued Medications Acetaminophen (Acetaminophen 325 Mg Tablet) 975 mg PO NOW ONE Stop: 05/30/24 20:56 Last Admin: 05/30/24 21:21 Dose: 975 mg Documented By: DEANNE Aspirin (Aspirin 81 Mg Chew Tab) 324 mg PO NOW ONE Stop: 05/30/24 15:47 Last Admin: 05/30/24 16:35 Dose: Not Given Documented By: ALEXEI Ondansetron HCl (Ondansetron 4 Mg Odt Prepack) [facility] Stop: 05/30/24 20:56 Last Admin: 05/30/24 21:21 Dose: 1 bottle Documented By: DEANNE Vital Signs Vital signs: Vital Signs - 8 hr 05/30/24 15:47 05/30/24 15:50 05/30/24 15:50 Temperature 98.2 F Pulse Rate 83 84 Respiratory Rate 20 18 Blood Pressure 147/65 H 147/65 H Pulse Oximetry 93 92 Oxygen Delivery Method Room Air 05/30/24 16:00 05/30/24 16:30 05/30/24 16:30 Temperature Pulse Rate 83 80 Respiratory Rate 20 Blood Pressure 162/71 H Pulse Oximetry 95 93 Oxygen Delivery Method Room Air Room Air 05/30/24 17:00 05/30/24 17:01 05/30/24 17:01 Temperature Pulse Rate 83 83 Respiratory Rate Blood Pressure 172/103 H Pulse Oximetry 94 Oxygen Delivery Method 05/30/24 17:03 05/30/24 17:03 05/30/24 17:30 Temperature Pulse Rate 82 79 Respiratory Rate 21 14 Blood Pressure 156/67 H Pulse Oximetry 95 93 Oxygen Delivery Method Room Air 05/30/24 17:31 05/30/24 17:31 05/30/24 18:00 Temperature Pulse Rate 80 Respiratory Rate 19 Blood Pressure 136/60 154/70 H Pulse Oximetry 93 Oxygen Delivery Method 05/30/24 18:00 05/30/24 18:30 05/30/24 18:31 Temperature Pulse Rate 76 79 79 Respiratory Rate 14 20 25 H Blood Pressure Pulse Oximetry 91 96 95 Oxygen Delivery Method 05/30/24 18:31 05/30/24 18:34 05/30/24 18:34 Temperature Pulse Rate 79 Respiratory Rate 20 Blood Pressure 158/74 H 132/61 Pulse Oximetry 96 Oxygen Delivery Method 05/30/24 20:46 05/30/24 20:46 05/30/24 21:00 Temperature Pulse Rate 79 80 Respiratory Rate 22 19 Blood Pressure 120/55 L Pulse Oximetry 95 95 Oxygen Delivery Method 05/30/24 21:33 Temperature Pulse Rate 84 Respiratory Rate 16 Blood Pressure 120/55 L Pulse Oximetry 96 Oxygen Delivery Method Room Air Medical Decision Making <Rosa Velazquez MD - Last Filed: 06/09/24 07:54> Lab Data 05/30/24 15:50 05/30/24 15:50 Labs: Lab Results 05/30/24 Range/Units 15:50 WBC 9.7 (4.5-11.0) X10^3/uL RBC 5.13 (4.0-5.2) X10^6/uL Hgb 15.8 (12.0-16.0) g/dL Hct 47.7 H (36-46) % MCV 93.0 (80-100) fL MCH 30.8 (26-34) PG MCHC 33.1 (30-36) % RDW 13.8 (11.6-14.8) % Plt Count 241 (150-400) X10^3/uL Neut % (Auto) 92.8 H (50-75) % Lymph % (Auto) 4.5 L (25-40) % Harlan % (Auto) 2.3 L (3-14) % Eos % (Auto) 0.2 L (2-4) % Baso % (Auto) 0.2 (0-2) % Neut # (Auto) 9000 H (2196-3454) /uL Lymph # (Auto) 400 L (6993-3079) /uL Harlan # (Auto) 200 (0-900) /uL Eos # (Auto) 0 (0-450) /uL Baso # (Auto) 0 (0-100) /uL PT 11.3 (9.4-12.5) SECONDS INR 1.0 (0.9-1.3) APTT 32 (25.1-36.5) SECONDS Sodium 142 (137-145) mmol/L Potassium 4.7 (3.4-5.1) mmol/L Chloride 105 (98-107) mmol/L Carbon Dioxide 27 (22-32) mmol/L BUN 22 H (7-17) mg/dL Creatinine 0.93 (0.52-1.04) mg/dL Estimated GFR > 60 (>60) mL/min BUN/Creatinine Ratio 23.7 H (6-22) Glucose 162 H (80-110) mg/dL Calcium 9.4 (8.4-10.2) mg/dL Magnesium 1.7 (1.6-2.3) mg/dL Total Bilirubin 0.6 (0.2-1.3) mg/dL AST 37 H (14-36) IU/L ALT 36 H (<35) IU/L Alkaline Phosphatase 79 (38-126) U/L Total Creatine Kinase 87 (30-135) U/L Troponin I < 0.012 (0.01-0.034) ng/mL NT-Pro-B Natriuret Pep 191 (<450) pg/mL Total Protein 8.1 (6.3-8.2) g/dL Albumin 4.6 (3.5-5.0) g/dL Globulin 3.5 (1.7-4.1) g/dL Albumin/Globulin Ratio 1.3 (1.0-2.8) Lipase 40 (23-300) U/L MDM Narrative Medical decision making narrative: CC: Acute onset nausea and vomiting 3:00 a.m. associated with left lower quadrant abdominal pain Complicating co-morbidities: Coronary artery disease, chronic constipation, hypothyroidism, hypertension Data collected from: patient, medics Medical records reviewed: Previous colonoscopy notes, prior ER notes discussing atypical chest pain and constipation Differential considered: Diverticulitis, bowel perforation, bowel obstruction, viral gastroenteritis, pyelonephritis, kidney stone, urinary tract infection Exam documented above, pertinent findings include: Exam is actually fairly benign. Mucous membranes are dry. Heart and lungs are benign. Tenderness into the left lower quadrant without rebound or guarding Lab Test results independently reviewed as above. Pertinent findings: CBC shows a white count in the normal range at 9.7 however she has almost 93% neutrophils Chemistries show a creatinine of 0.93 with GFR greater than 60. No electrolyte abnormalities, minimally elevated AST and ALT at 37 and 36 Independently reviewed EKG: Sinus rhythm at a rate of 88 with no acute ischemic changes Imaging studies independently reviewed: Consultations: Treatments: Re-evaluations: Discussion: <DO Falguni Stock Last Filed: 05/30/24 23:12> Lab Data Labs: Lab Results 05/30/24 Range/Units 15:50 WBC 9.7 (4.5-11.0) X10^3/uL RBC 5.13 (4.0-5.2) X10^6/uL Hgb 15.8 (12.0-16.0) g/dL Hct 47.7 H (36-46) % MCV 93.0 (80-100) fL MCH 30.8 (26-34) PG MCHC 33.1 (30-36) % RDW 13.8 (11.6-14.8) % Plt Count 241 (150-400) X10^3/uL Neut % (Auto) 92.8 H (50-75) % Lymph % (Auto) 4.5 L (25-40) % Harlan % (Auto) 2.3 L (3-14) % Eos % (Auto) 0.2 L (2-4) % Baso % (Auto) 0.2 (0-2) % Neut # (Auto) 9000 H (3792-6250) /uL Lymph # (Auto) 400 L (1464-2911) /uL Harlan # (Auto) 200 (0-900) /uL Eos # (Auto) 0 (0-450) /uL Baso # (Auto) 0 (0-100) /uL PT 11.3 (9.4-12.5) SECONDS INR 1.0 (0.9-1.3) APTT 32 (25.1-36.5) SECONDS Sodium 142 (137-145) mmol/L Potassium 4.7 (3.4-5.1) mmol/L Chloride 105 (98-107) mmol/L Carbon Dioxide 27 (22-32) mmol/L BUN 22 H (7-17) mg/dL Creatinine 0.93 (0.52-1.04) mg/dL Estimated GFR > 60 (>60) mL/min BUN/Creatinine Ratio 23.7 H (6-22) Glucose 162 H (80-110) mg/dL Calcium 9.4 (8.4-10.2) mg/dL Magnesium 1.7 (1.6-2.3) mg/dL Total Bilirubin 0.6 (0.2-1.3) mg/dL AST 37 H (14-36) IU/L ALT 36 H (<35) IU/L Alkaline Phosphatase 79 (38-126) U/L Total Creatine Kinase 87 (30-135) U/L Troponin I < 0.012 (0.01-0.034) ng/mL NT-Pro-B Natriuret Pep 191 (<450) pg/mL Total Protein 8.1 (6.3-8.2) g/dL Albumin 4.6 (3.5-5.0) g/dL Globulin 3.5 (1.7-4.1) g/dL Albumin/Globulin Ratio 1.3 (1.0-2.8) Lipase 40 (23-300) U/L Imaging Data Chest x-ray: Radiologist's Impression: PROCEDURE: XR CHEST 1V INDICATIONS: chest pain TECHNIQUE: One view of the chest was acquired. COMPARISON: [facility], , XR CHEST 1V, 04/08/2021, 16:42. FINDINGS: Surgical changes and devices: None. Lungs and pleura: Lungs are clear. No pleural effusions or pneumothorax. Mediastinum: Mediastinal contours appear normal. Heart size is normal. Bones and chest wall: No suspicious bony lesions. Overlying soft tissues appear unremarkable. IMPRESSION: No acute cardiopulmonary pathology. Dictated by: William Aviles M.D. on 05/30/2024 at 16:33 MDM Narrative Medical decision making narrative: CC: Acute onset nausea and vomiting 3:00 a.m. associated with left lower quadrant abdominal pain Complicating co-morbidities: Coronary artery disease, chronic constipation, hypothyroidism, hypertension Data collected from: patient, medics Medical records reviewed: Previous colonoscopy notes, prior ER notes discussing atypical chest pain and constipation Differential considered: Diverticulitis, bowel perforation, bowel obstruction, viral gastroenteritis, pyelonephritis, kidney stone, urinary tract infection Exam documented above, pertinent findings include: Exam is actually fairly benign. Mucous membranes are dry. Heart and lungs are benign. Tenderness into the left lower quadrant without rebound or guarding Lab Test results independently reviewed as above. Pertinent findings: CBC shows a white count in the normal range at 9.7 however she has almost 93% neutrophils Chemistries show a creatinine of 0.93 with GFR greater than 60. No electrolyte abnormalities, minimally elevated AST and ALT at 37 and 36 Independently reviewed EKG: Sinus rhythm at a rate of 88 with no acute ischemic changes Imaging studies independently reviewed: CT abdomen pelvis no acute abdominopelvic process. Sigmoid diverticulosis without CT evidence of acute diverticulitis Consultations: Treatments: Re-evaluations: Discussion: Dr. Fuller patient signed out to me by Dr. Velazquez seen evaluated patient myself. Awaiting for CT. Patient some left lower quadrant pain no leukocytosis. CT hospital is down so transfer to [facility] and then returned. CT results reviewed without any abnormal process. At this time no true cause of her abdominal pain no need for antibiotics. Supportive care only. Given prescription for Zofran Discharge Plan Departure Patient Disposition: Home Clinical Impression: Abdominal pain Instructions: DI for Abdominal Pain-Adult Activity Restrictions/Additional Instructions: *You have been diagnosed with abdominal pain *What to do: Stay hydrated with electrolyte fluid increase food and diet as tolerated *Continue to take medications as directed Zofran 4 mg every 8 hours if needed for nausea or vomiting Tylenol 1000 mg every 6 hours for [id number] pain *Follow up with your primary care provider in 2-3 days or call [phone] *Return to ER if you should have increasing abdominal pain bloody stools inability to tolerate fluids or any new, worsening or concerning symptoms Prescriptions: New ondansetron 4 mg tablet,disintegrating 4 mg PO Q8H PRN (Reason: nausea and vomiting) Qty: 10 0RF No Action levothyroxine [Synthroid] 100 mcg Tablet 100 mcg PO DAILY ropinirole 0.25 mg Tablet 2 tab PO BEDTIME Zyrtec 10 mg Capsule 10 mg PO DAILY PRN (Reason: seasonal allergies) glimepiride 1 mg tablet 1 mg PO BEDTIME ropinirole 1 mg Tablet 1 mg PO BEDTIME Rx Instructions: administer 1-3 hours before bedtime naltrexone 4.5 mg Capsule 4.5 mg PO BEDTIME acetaminophen 325 mg Tablet 650 mg PO Q6H PRN (Reason: pain or fever) Qty: 240 0RF docusate sodium 100 mg Capsule 100 mg PO BID PRN (Reason: constipation) Qty: 60 1RF oxycodone 5 mg Tablet 5 mg PO Q4-6H PRN (Reason: Pain, Moderate (4-6)) Qty: 60 0RF Rx Instructions: 1-2 tabs (5-10mg) q 4-6 hrs PRN moderate (5mg) to severe (10mg) pain. cyclobenzaprine 5 mg tablet 5 mg PO TID PRN (Reason: muscle spasm) Qty: 60 0RF Rx Instructions: 1-2 tabs (5-10mg) TID PRN muscle spasm (pain in back or back of legs) Referrals: Sabino Munoz MD [Primary Care Provider] - Stand Alone Forms: Patient Portal/API/Survey ED Sign-out <Rosa Velazquez MD - Last Filed: 06/09/24 07:54> Cosign ED Attending Wendy Attestation: I was immediately available in the department for consultation throughout this patient's visit. Rosa Velazquez MD
[2024-05-30 15:53] LABS: Add Manual Diff / Slide Review NO; Basophils Absolute Auto 0 /uL (0-100); Basophils Percent Auto 0.2 % (0-2); Eosinophils Absolute Auto 0 /uL (0-450); Eosinophils Percent Auto 0.2 % (2-4); Hematocrit 47.7 % (36-46); Hemoglobin 15.8 g/dL (12.0-16.0); Lymphocytes Absolute Auto 400 /uL (1100-4500); Lymphocytes Percent Auto 4.5 % (25-40); Mean Corpuscular HGB Conc 33.1 % (30-36); Mean Corpuscular Hemoglobin 30.8 PG (26-34); Monocytes Absolute Auto 200 /uL (0-900); Monocytes Percent Auto 2.3 % (3-14); Neutrophils Absolute Auto 9000 /uL (1500-7000); Neutrophils Percent Auto 92.8 % (50-75); Platelet Count 241 X10^3/uL (150-400); Red Blood Cell Count 5.13 X10^6/uL (4.0-5.2); Red Cell Distribution Width 13.8 % (11.6-14.8); White Blood Cell Count 9.7 X10^3/uL (4.5-11.0)
--- NOTE | 2024-05-30 15:59 | EKG_ITS ---
[address] [address] Test Date: 2024-05-30 Pat Name: Yissel Sotelo Department: Room: Gender: Female [employer]: ROMY : 1945 Requested By: Order Number: [id number] Reading MD: Aaron Sanchez Measurements Intervals [place] Rate: 88 P: 34 KS: 178 QRS: 1 QRSD: 92 T: 46 QT: 352 QTc: 425 Interpretive Statements Normal sinus rhythm Electronically Signed On 05-31-2024 7:44:08 PDT by Aaron Sanchez
[2024-05-30 16:01] LABS: Prothrombin Time 11.3 SECONDS (9.4-12.5)
[2024-05-30 16:03] LABS: PTT Partial Thromboplastin Tim 32 SECONDS (25.1-36.5)
[2024-05-30 16:04] LABS: Alanine Aminotransferase 36 IU/L (<35); Albumin 4.6 g/dL (3.5-5.0); Albumin Globulin Ratio 1.3 (1.0-2.8); Alkaline Phosphatase 79 U/L (38-126); Aspartate Aminotransferase 37 IU/L (14-36); BUN Creatinine Ratio 23.7 (6-22); Bilirubin Total 0.6 mg/dL (0.2-1.3); Blood Urea Nitrogen 22 mg/dL (7-17); Calcium 9.4 mg/dL (8.4-10.2); Carbon Dioxide 27 mmol/L (22-32); Chloride 105 mmol/L (98-107); Creatine Kinase 87 U/L (30-135); Estimated Glomerular Filt Rate > 60 mL/min (>60); Globulin 3.5 g/dL (1.7-4.1); Glucose 162 mg/dL (80-110); HEMOLYSIS < 15 (0-50); Lipase 40 U/L (23-300); Magnesium 1.7 mg/dL (1.6-2.3); Potassium 4.7 mmol/L (3.4-5.1); Sodium 142 mmol/L (137-145); Total Protein 8.1 g/dL (6.3-8.2)
[2024-05-30 16:16] LABS: NT-proBNP (BNP-Adult 18+) 191 pg/mL (<450); Troponin I < 0.012 ng/mL (0.01-0.034)
--- NOTE | 2024-05-30 19:03 | PC.NURSE ---
RN gave report to [facility], pt en route to [facility] for CT, CT called and given ETA for pt arrival
--- NOTE | 2024-05-30 20:49 | PC.NURSE ---
IV site assessed, remains patent & asymptomatic.
[2024-05-30] MEDS: ACETAMINOPHEN 325 MG TABLET 975 MG PO (21:21)
[2024-05-30] MEDS: ONDANSETRON 4 MG ODT PREPACK 1 BOTTLE MISC (21:21)
== END 2024-05-30 21:36 | disposition home or self-care (01) ==
PROVIDERS: Emergency Medicine; Emergency Provider Emergency Medicine; Family Provider Family Medicine; PCP Family Medicine
DX: R11.2 Nausea with vomiting, unspecified (principal); R10.32 Left lower quadrant pain; R07.89 Other chest pain; I10 Essential (primary) hypertension; I25.10 Atherosclerotic heart disease of native coronary artery without angina pectoris; Z87.891 Personal history of nicotine dependence
CPT/HCPCS: 36415; 71045; 80053; 82550; 83690; 83735; 83880; 84484; 85025; 85610; 85730; 93005; 99284

== ENCOUNTER → 2024-09-27 09:10 | Outpatient (CLI) | payer MEDICARE, OTHER, SELFPAY ==
[2023-05-26 11:13] VITALS: BMI 41.5
--- NOTE | 2024-09-27 09:14 | DI.RAD.S_ITS ---
PROCEDURE: XR KNEE 2V WB LEFT INDICATIONS: Hand/Knee Pain TECHNIQUE: 3 views of the knee were acquired. COMPARISON: None. FINDINGS: Bones: There are no osseous abnormalities. Joints: Severe left patellofemoral and lateral tibial femoral degeneration appreciated. Small effusion. Right total knee prosthesis is anatomically aligned without loosening or infection. 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 Right knee prostheses unremarkable. Dictated by: Jersey Wolfe M.D. on 09/28/2024 at 10:58 Approved by: Jersey Wolfe M.D. on 09/28/2024 at 10:59
--- NOTE | 2024-09-27 09:14 | DI.RAD.S_ITS ---
PROCEDURE: ORTHO-XR KNEE WB RIGHT INDICATIONS: Hand/Knee Pain TECHNIQUE: 2 view(s) of the knee acquired. COMPARISON: None. FINDINGS: Bones: There are no osseous abnormalities. Joints: Severe degeneration left patellofemoral and lateral left tibial femoral joint appreciated. Right total knee prostheses unremarkable. Right total knee prostheses unremarkable. Soft tissues: Normal IMPRESSION: Severe left patellofemoral and tibiofemoral degeneration Dictated by: Jeresy Wolfe M.D. on 09/28/2024 at 10:59 Approved by: Jersey Wolfe M.D. on 09/28/2024 at 11:00
[2024-09-27 11:07] LABS: Add Manual Diff / Slide Review NO; Hematocrit 43.8 % (36-46); Hemoglobin 14.7 g/dL (12.0-16.0); Lymphocytes Absolute Auto 1500 /uL (1100-4500); Mean Corpuscular HGB Conc 33.5 % (30-36); Mean Corpuscular Hemoglobin 31.2 PG (26-34); Mean Corpuscular Volume 93.0 fL (80-100); Platelet Count 234 X10^3/uL (150-400)
[2024-09-27 11:14] LABS: Hemoglobin A1C% w Est Avg Glu 5.9 % (4.0-6.0)
[2024-09-27 11:26] LABS: Albumin 4.2 g/dL (3.5-5.0); Blood Urea Nitrogen 23 mg/dL (7-17); Calcium 9.9 mg/dL (8.4-10.2); Carbon Dioxide 29 mmol/L (22-32); Chloride 105 mmol/L (98-107); Estimated Glomerular Filt Rate > 60 mL/min (>60); Glucose 127 mg/dL (70-99); HEMOLYSIS < 15 (0-50); Sodium 140 mmol/L (137-145)
[2024-09-27 11:32] LABS: Potassium 5.7 mmol/L (3.4-5.1)
[2024-09-27 11:34] LABS: Prealbumin 29.9 mg/dL (17.6-36.0)
[2024-09-27 11:47] LABS: Vitamin D 25 Hydroxy (D3) 35.9 ng/mL (30.0-100.0)
== END ==
PROVIDERS: Family Provider Family Medicine; PCP Family Medicine; Referring Provider Orthopaedic Surgery Adult Reconstructive Orthopaedic Surgery; Visit Provider Orthopaedic Surgery Adult Reconstructive Orthopaedic Surgery
DX: Z01.818 Encounter for other preprocedural examination (principal); M17.12 Unilateral primary osteoarthritis, left knee; E61.1 Iron deficiency; E11.9 Type 2 diabetes mellitus without complications; E55.9 Vitamin D deficiency, unspecified; Z96.651 Presence of right artificial knee joint
CPT/HCPCS: 36415; 73564; 80048; 82040; 82306; 83036; 84134; 85025

== ENCOUNTER → 2024-11-19 15:33 | Outpatient (CLI) | payer MEDICARE, OTHER, SELFPAY ==
[2024-11-05 20:24] VITALS: BMI 41.1
--- NOTE | 2024-11-19 15:35 | DI.US.S_ITS ---
PROCEDURE: US PERIPH VENOUS LOW EXTREM LT INDICATIONS: r/o post-op DVT TECHNIQUE: Real-time imaging, as well as color and pulse Doppler interrogation, were performed of the lower extremity deep veins from the inguinal ligament to the popliteal fossa, with documentation of the visualized calf veins. COMPARISON: None. FINDINGS: The common femoral, femoral, popliteal, are normally compressible, and free of intraluminal thrombus. Color and pulse Doppler demonstrate normal phasic intraluminal flow. There is normal augmentation response to distal compression maneuver. Calf veins not well seen IMPRESSION: No findings of lower extremity deep venous thrombosis. Dictated by: Ger Carmona M.D. on 11/19/2024 at 16:50 Approved by: Ger Carmona M.D. on 11/19/2024 at 16:50
== END ==
PROVIDERS: PCP Family Medicine; Referring Provider Physician Assistant Surgical; Visit Provider Physician Assistant Surgical
DX: M79.662 Pain in left lower leg (principal); M79.89 Other specified soft tissue disorders
CPT/HCPCS: 93971

== ENCOUNTER → 2025-01-03 08:59 | Outpatient (CLI) | payer MEDICARE, OTHER, SELFPAY ==
[2024-12-17 09:29] VITALS: BMI 41.1
--- NOTE | 2025-01-03 09:02 | DI.US.S_ITS ---
PROCEDURE: US PERIP VENOUS LOW EXTREM LT INDICATIONS: rule out DVT TECHNIQUE: Real-time imaging, as well as color and pulse Doppler interrogation, were performed of the lower extremity deep veins from the inguinal ligament to the popliteal fossa, with documentation of the visualized calf veins. COMPARISON: [facility], , [facility] VENOUS LOW EXTREM LT, 11/19/2024, 15:47. FINDINGS: The common femoral, femoral, popliteal, and the visualized calf veins are normally compressible, and free of intraluminal thrombus. Color and pulse Doppler demonstrate normal phasic intraluminal flow. There is normal augmentation response to distal compression maneuver. A posterior lateral left knee fluid collection is noted measuring 2.6 x 3.3 x 2.2 cm. This was not previously identified. IMPRESSION: Negative left lower extremity duplex venous ultrasound for DVT. Apparent interval development a posterior lateral fluid collection. Dictated by: Waqas Rivero M.D. on 01/03/2025 at 10:20 Approved by: Waqas Rivero M.D. on 01/03/2025 at 10:22
== END ==
LOC: US 09:01
PROVIDERS: PCP Family Medicine; Referring Provider Orthopaedic Surgery Adult Reconstructive Orthopaedic Surgery; Visit Provider Orthopaedic Surgery Adult Reconstructive Orthopaedic Surgery
DX: M79.89 Other specified soft tissue disorders (principal); M79.662 Pain in left lower leg
CPT/HCPCS: 93971

== ENCOUNTER → 2025-01-04 11:38 | Outpatient (CLI) | payer MEDICARE, OTHER, SELFPAY ==
[2024-12-17 09:29] VITALS: BMI 41.1
== END ==
PROVIDERS: PCP Family Medicine; Referring Provider Orthopaedic Surgery Adult Reconstructive Orthopaedic Surgery; Visit Provider Orthopaedic Surgery Adult Reconstructive Orthopaedic Surgery
DX: M79.89 Other specified soft tissue disorders (principal)
CPT/HCPCS: 36415; 85651; 86140

== ENCOUNTER → 2025-01-13 15:23 | Outpatient (CLI) | payer MEDICARE, OTHER, SELFPAY ==
[2024-12-17 09:29] VITALS: BMI 41.1
== END ==
PROVIDERS: PCP Family Medicine; Referring Provider Orthopaedic Surgery Adult Reconstructive Orthopaedic Surgery; Visit Provider Orthopaedic Surgery Adult Reconstructive Orthopaedic Surgery
DX: Z96.652 Presence of left artificial knee joint (principal)
CPT/HCPCS: 36415; 85651; 86140